=== PATIENT | female | born 1965 | race Hispanic/Latino ===

== ENCOUNTER 2021-07-21 17:05 | Emergency (ER) | payer OTHER ==
[2021-07-21 21:40] LABS: SARS-COV-2 RT PCR POSITIVE (NEGATIVE)
[2021-07-21] MEDS ORDERED: BENZONATATE 100 MG CAP PO ONE (21:50)
--- NOTE | 2021-07-21 22:23 | EDPHYS ---
Physician Documentation [facility] Name: Nahomi Soto Age: 55 yrs Sex: Female : 1965 Arrival Date: 07/21/2021 Time: 17:07 Bed 18 Private MD: Zaid Branch ED Physician Alec Delgado HPI: 07/21 21:20 This 55 yrs old Female presents to ER via Wheelchair with complaints of cp Shortness Of Breath, Cough, Headache, Fever, Sore Throat. 21:20 The patient or guardian reports cough, that is intermittent, shortness of breath. cp 21:20 Onset: The symptoms/episode began/occurred 3 day(s) ago. Associated signs and symptoms: cp Pertinent positives: fever, sore throat, headache, body aches, Pertinent negatives: chest pain, diarrhea, vomiting. Severity of symptoms: in the emergency department the symptoms are unchanged despite home interventions. Patient reports family member recently tested positive for COVID-19. 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 - Social history:: Smoking status: Patient reports the use of cigarette tobacco products, smokes one pack cigarettes per day. ROS: 21:25 Constitutional: Positive for body aches, Negative for fever, poor PO intake. cp 21:25 Eyes: Negative for injury, pain, redness, and discharge. cp 21:25 ENT: Positive for sore throat, Negative for drainage from ear(s), ear pain, difficulty swallowing, difficulty handling secretions. 21:25 Cardiovascular: Negative for chest pain, edema, palpitations. 21:25 Respiratory: Positive for cough, "sounds productive", shortness of breath, Negative for wheezing. 21:25 Abdomen/GI: Negative for abdominal pain, nausea, vomiting, and diarrhea. 21:25 Skin: Negative for rash. 21:25 Neuro: Positive for headache, Negative for altered mental status, weakness. 21:25 All other systems are negative. Exam: 21:28 Constitutional: The patient appears in no acute distress, alert, awake, cp non-diaphoretic, non-toxic, well developed, well nourished, obese. 21:28 Head/Face: Normocephalic, atraumatic. cp 21:28 Eyes: Periorbital structures: appear normal, Conjunctiva: normal, no exudate, no injection, Sclera: no appreciated abnormality, Lids and lashes: appear normal, bilaterally. 21:28 ENT: External ear(s): are unremarkable, Nose: is normal, Mouth: Lips: moist, Oral mucosa: moist, Posterior pharynx: Airway: no evidence of obstruction, patent, Tonsils: are normal in appearance, Uvula: midline, erythema, that is mild, exudate, is not appreciated, Voice: is normal. 21:28 Neck: ROM/movement: is normal, is supple, without pain, no range of motions limitations, no meningismus. 21:28 Chest/axilla: Inspection: normal. 21:28 Cardiovascular: Rate: normal, Rhythm: regular, Edema: is not appreciated, JVD: is not appreciated. 21:28 Respiratory: the patient does not display signs of respiratory distress, Respirations: normal, no use of accessory muscles, no retractions, labored breathing, is not present, Breath sounds: decreased breath sounds, are not appreciated, stridor, is not appreciated, + upper airway congestion. wheezing: is not appreciated. 21:28 Abdomen/GI: Exam negative for discomfort, distension, guarding, Inspection: obese 21:28 Skin: no rash present. 21:28 Neuro: Orientation: to person, place \\T\\ time. Mentation: is normal. Vital Signs: 19:04 BP 135 / 88; Pulse 89; Resp 18; Temp 97.0; Pulse Ox 98% ; Weight 119.29 kg; Height 5 ll1 ft. 4 in. (162.56 cm); Pain 7/10; 19:04 Body Mass Index 45.14 (119.29 kg, 162.56 cm) ll1 MDM: 20:55 Patient medically screened. cp 22:00 Differential diagnosis: bronchitis, flu, URI, strep, COVID-19. cp 22:21 Data reviewed: vital signs, nurses notes, lab test result(s). cp 22:21 Counseling: I had a detailed discussion with the patient and/or guardian regarding: the cp historical points, exam findings, and any diagnostic results supporting the discharge/admit diagnosis, lab results, to return to the emergency department if symptoms worsen or persist or if there are any questions or concerns that arise at home. ED course: VSS. Patient appears non-toxic and no signs of respiratory distress. Will discharge to home for continued monitoring. 07/21 20:47 Order name: COVID-19/FLU A+B (Document "Date of Onset" if Symptomatic); Complete Time: mw2 22:06 07/21 22:06 Interpretation: Reviewed. cp Administered Medications: 21:51 Drug: Tessalon Perle (benzonatate) 200 mg Route: PO; sv1 22:56 Follow up: Response: No adverse reaction sv1 Disposition Summary: 07/21/21 22:22 Discharge Ordered Location: Home cp Problem: new cp Symptoms: have improved cp Condition: Stable cp Diagnosis - SARS-associated coronavirus as the cause of diseases classified elsewhere cp Followup: cp - With: Private Physician - When: 2 - 3 days - Reason: Worsening of condition Discharge Instructions: - Discharge Summary Sheet cp - Aspirin and Your Heart cp - Form - Excuse from Work, School, or Physical Activity cp - COVID-19 cp - Things to Know about the COVID-19 Pandemic - [facility] cp - 10 Things You Can Do to Manage Your COVID-19 Symptoms at Home - [facility] cp - COVID-19: Quarantine vs. Isolation - [facility] cp - Prevent the Spread of COVID-19 if You Are Sick - [facility] cp Forms: - Medication Reconciliation Form cp - Thank You Letter cp - Antibiotic Education cp - Prescription Opioid Use cp Prescriptions: - Tessalon Perles 100 mg Oral Capsule - take 2 capsule by ORAL route every 8 hours As needed; 30 capsule; Refills: 0, cp Product Selection Permitted Addendum: 07/23/2021 19:04 Co-signature as Attending Physician, Alec rodriguez Signatures: Dispatcher [employer] EDMS Alec Delgado MD MD pkl Page, Corey, PA PA cp Renu Price, RN RN ll1 Alexx Lo RN RN sv1
--- NOTE | 2021-07-21 22:23 | ER ---
Nurse's Notes [facility] Name: Nahomi Soto Age: 55 yrs Sex: Female : 1965 Arrival Date: 07/21/2021 Time: 17:07 Bed 18 Private MD: Zaid Branch Diagnosis: SARS-associated coronavirus as the cause of diseases classified elsewhere Presentation: 07/21 19:04 Chief complaint: Patient states: Body aches, cough, JOHN, fever for 3 days. Coronavirus ll1 screen: Vaccine status: Patient reports receiving the 2nd dose of the covid vaccine. Client denies travel out of the [place] in the last 14 days. cough unrelated to allergies, fatigue, fever, headache, muscle pain, nausea, sore throat, Client presents with at least one sign or symptom that may indicate coronavirus-19. Standard/surgical mask placed on the client. Ebola Screen: Patient denies travel to an Ebola-affected area in the 21 days before illness onset. Initial Sepsis Screen: Does the patient meet any 2 criteria? No. Patient's initial sepsis screen is negative. Does the patient have a suspected source of infection? Yes: Productive cough/pneumonia. Risk Assessment: Do you want to hurt yourself or someone else? Patient reports no desire to harm self or others. Onset of symptoms was July 19, 2021. 19:04 Method Of Arrival: Wheelchair ll1 19:04 Acuity: GIRISH 3 ll1 Triage Assessment: 22:59 General: Appears ill. Pain: Denies pain. Respiratory: Reports cough that is Onset: The sv1 symptoms/episode began/occurred gradually, the patient has moderate shortness of breath. 23:00 General: Behavior is calm, cooperative, appropriate for age. 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 - Social history:: Smoking status: Patient reports the use of cigarette tobacco products, smokes one pack cigarettes per day. Screenin:57 Abuse screen: none. Nutritional screening: No deficits noted. Tuberculosis screening: sv1 No symptoms or risk factors identified. Fall Risk Ambulatory Aid-. Assessment: 22:58 Cardiovascular: No deficits noted. Respiratory: Airway is patent. sv1 22:58 Cardiovascular: Rhythm is regular. sv1 23:00 Respiratory: Breath sounds are clear. sv1 23:01 Respiratory: No deficits noted. Respiratory effort is. sv1 Vital Signs: 19:04 BP 135 / 88; Pulse 89; Resp 18; Temp 97.0; Pulse Ox 98% ; Weight 119.29 kg; Height 5 ll1 ft. 4 in. (162.56 cm); Pain 7/10; 19:04 Body Mass Index 45.14 (119.29 kg, 162.56 cm) ll1 ED Course: 17:07 Patient arrived in ED. mr 17:07 Zaid Branch MD is Private Physician. mr 19:06 Triage completed. ll1 19:08 Arm band placed on. ll1 20:46 [facility]. cp 20:46 Alec Delgado MD is Attending Physician. cp 21:44 Alexx Lo, RN is Primary Nurse. sv1 22:57 Patient has correct armband on for positive identification. Bed in low position. Call sv1 light in reach. Side rails up X 1. Adult w/ patient. 22:57 No provider procedures requiring assistance completed. Patient did not have IV access sv1 during this emergency room visit. Administered Medications: 21:51 Drug: Tessalon Perle (benzonatate) 200 mg Route: PO; sv1 22:56 Follow up: Response: No adverse reaction sv1 Outcome: 22:22 Discharge ordered by . cp 22:57 Discharged to home ambulatory. sv1 22:57 Condition: stable 22:57 Discharge instructions given to patient, family. 23:01 Patient left the ED. sv1 Signatures: Maru Virgen mr Bob Hawkins PA PA cp Renu Price RN RN 1 Alexx Lo RN RN sv1
[2021-07-21 23:06] VITALS: BP 135/88; TEMP 97; O2SAT 98
== END 2021-07-21 23:01 | disposition home or self-care (01) ==
LOC: ER 17:05
DX: U07.1 COVID-19 (principal); I10 Essential (primary) hypertension; F17.210 Nicotine dependence, cigarettes, uncomplicated
CPT/HCPCS: 0240U; 99283

== ENCOUNTER 2021-10-11 19:13 | Emergency (ER) | payer OTHER ==
--- NOTE | 2021-10-11 21:16 | RAD REPORT ---
EXAM DESCRIPTION: RAD - Chest Pa And Lat (2 Views) - 10/11/2021 8:54 pm CLINICAL HISTORY: Cough;Fever COMPARISON: No comparisons FINDINGS: Lines: None. Lungs: No evidence of edema or pneumonia. Pleural: No significant pleural effusions or pneumothorax. Cardiac: The heart size is within normal limits. Bones: No acute fractures. Other: IMPRESSION: No acute cardiopulmonary disease.
--- NOTE | 2021-10-11 22:41 | ER ---
Nurse's Notes [facility] Name: Nahomi Soto Age: 55 yrs Sex: Female : 1965 Arrival Date: 10/11/2021 Time: 20:03 Bed 5 Private MD: Diagnosis: Acute upper respiratory infection, unspecified Presentation: 10/11 20:41 Chief complaint: Patient states: SOB X 1 week. Pt states today it got worse. SpO2 94% ld1 RA. Coronavirus screen: At this time, the client does not indicate any symptoms associated with coronavirus-19. Ebola Screen: No symptoms or risks identified at this time. Initial Sepsis Screen: Does the patient meet any 2 criteria? No. Patient's initial sepsis screen is negative. Does the patient have a suspected source of infection? No. Patient's initial sepsis screen is negative. Risk Assessment: Do you want to hurt yourself or someone else? Patient reports no desire to harm self or others. Onset of symptoms was October 11, 2021. 20:41 Method Of Arrival: Wheelchair ld1 20:41 Acuity: GIRISH 3 ld1 Triage Assessment: 20:43 General: Appears in no apparent distress. comfortable, Behavior is calm, cooperative, ld1 appropriate for age. Pain: Denies pain. Neuro: Level of Consciousness is awake, alert, obeys commands, Oriented to person, place, time, situation, Appropriate for age. Cardiovascular: Capillary refill < 3 seconds Patient's skin is warm and dry. Respiratory: Reports shortness of breath at rest on exertion Airway is patent Respiratory effort is even, unlabored, Respiratory pattern is regular, symmetrical, Breath sounds are clear bilaterally. Onset: The symptoms/episode began/occurred 1 week, the patient has moderate shortness of breath. 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 - Social history:: Smoking status: Patient reports the use of cigarette tobacco products, smokes one pack cigarettes per day. Patient/guardian denies using alcohol, street drugs. Vital Signs: 20:41 BP 141 / 66; Pulse 87; Resp 19; Temp 98.3(TE); Pulse Ox 93% on R/A; Weight 123.83 kg; ld1 Height 5 ft. 4 in. (162.56 cm); Pain 0/10; 20:41 Body Mass Index 46.86 (123.83 kg, 162.56 cm) ld1 ED Course: 20:03 Patient arrived in ED. jj6 20:28 Juan Mills NP is PHCP. pm1 20:28 Ayden Park DO is Attending Physician. pm1 20:43 Triage completed. ld1 20:43 Arm band placed on right wrist. ld1 20:54 Chest Pa And Lat (2 Views) XRAY In Process Unspecified. EDMS 22:38 Naomi Haddad is Primary Nurse. tw5 22:49 Primary Nurse role handed off by Naomi Haddad lp1 Administered Medications: No medications were administered Outcome: 22:40 Patient left the ED. ld1 23:13 Patient left the ED. ld1 Signatures: Dispatcher [employer] EDIL Brionna Huffman RN RN lp1 Juan Mills NP FLATWORK PRESSER pm1 Lucille Mendoza, RN RN ld1 Naomi Haddad tw5 Ingrid Gill jj6 Corrections: (The following items were deleted from the chart) 21:46 20:41 BP 141 / 66; Pulse 87bpm; Resp 19bpm; Temp 98.3F Temporal; 123.83 kg; Height 5 ld1 ft. 4 in.; BMI: 46.8; Pain 0/10; ld1
[2021-10-11 22:54] VITALS: BP 141/66; TEMP 98.3; O2SAT 93
--- NOTE | 2021-10-11 23:14 | EDPHYS ---
Physician Documentation [facility] Name: Nahomi Soto Age: 55 yrs Sex: Female : 1965 Arrival Date: 10/11/2021 Time: 20:03 Bed 5 Private MD: ED Physician Ayden Park HPI: 10/11 20:36 This 55 yrs old Female presents to ER via Wheelchair with complaints of pm1 Shortness Of Breath. 20:36 The patient or guardian reports cough. Onset: The symptoms/episode began/occurred 1 pm1 week(s) ago. Severity of symptoms: in the emergency department the symptoms are actually worse. Modifying factors: The symptoms are alleviated by nothing, the symptoms are aggravated by nothing. Associated signs and symptoms: Pertinent negatives: chest pain, fever, nausea, vomiting. The patient has not experienced similar symptoms in the past. The patient has not recently seen a physician. 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 - Social history:: Smoking status: Patient reports the use of cigarette tobacco products, smokes one pack cigarettes per day. Patient/guardian denies using alcohol, street drugs. ROS: 20:36 Constitutional: Negative for fever, chills, and weight loss, Cardiovascular: Negative pm1 for chest pain, palpitations, and edema. 20:36 Abdomen/GI: Negative for abdominal pain, nausea, vomiting, diarrhea, and constipation, Back: Negative for injury and pain, MS/Extremity: Negative for injury and deformity, Skin: Negative for injury, rash, and discoloration, Neuro: Negative for headache, weakness, numbness, tingling, and seizure. 20:36 Respiratory: Positive for cough, shortness of breath, Negative for wheezing. 20:36 All other systems are negative. Exam: 20:36 Constitutional: This is a well developed, well nourished patient who is awake, alert, pm1 and in no acute distress. Head/Face: Normocephalic, atraumatic. 20:36 Back: No spinal tenderness. No costovertebral tenderness. Full range of motion. Skin: Warm, dry with normal turgor. Normal color with no rashes, no lesions, and no evidence of cellulitis. MS/ Extremity: Pulses equal, no cyanosis. Neurovascular intact. Full, normal range of motion. 20:36 Eyes: Exam is negative for acute changes, Extraocular movements: intact throughout, Conjunctiva: no acute changes, no injection. 20:36 ENT: Exam is negative for acute changes, Mouth: Lips: normal, moist, Oral mucosa: normal, pink and intact, moist. 20:36 Cardiovascular: Exam negative for acute changes, Rate: normal, Rhythm: regular, Pulses: no pulse deficits are appreciated, Heart sounds: normal, normal S1and S2. 20:36 Respiratory: Exam negative for acute changes, respiratory distress, shortness of breath, Breath sounds: are clear throughout. 20:36 Neuro: Exam negative for acute changes, Orientation: is normal, Mentation: is normal, Motor: is normal, moves all fours. Vital Signs: 20:41 BP 141 / 66; Pulse 87; Resp 19; Temp 98.3(TE); Pulse Ox 93% on R/A; Weight 123.83 kg; ld1 Height 5 ft. 4 in. (162.56 cm); Pain 0/10; 20:41 Body Mass Index 46.86 (123.83 kg, 162.56 cm) ld1 MDM: 20:36 Patient medically screened. pm1 20:36 Data reviewed: vital signs. Data interpreted: Pulse oximetry: on room air is 93 %. pm1 Interpretation: normal. 22:54 ED course: Patient left after being seen by ER provider. pm1 10/11 20:35 Order name: Chest Pa And Lat (2 Views) XRAY; Complete Time: 21:23 pm1 Administered Medications: No medications were administered Disposition: 10/12 04:08 Co-signature as Attending Physician, Ayden Park DO I agree with the assessment and ms3 plan of care. Disposition Summary: 10/11/21 22:40 Eloped Reason: unknown ld1 Disposition: after being seen by provider(10/11/21 22:55) pm1 Problem: new pm1 Symptoms: are unchanged pm1 Condition: Undetermined pm1 Diagnosis - Acute upper respiratory infection, unspecified pm1 Followup: pm1 - With: Emergency Department - When: As needed - Reason: Worsening of condition Followup: pm1 - With: Private Physician - When: 2 - 3 days - Reason: Recheck today's complaints, Continuance of care, Re-evaluation by your physician Signatures: Dispatcher [employer] EDMS Juan Mills, KENNY SECURITY SOFTWARE ENGINEER pm1 Ayden Park DO DO ms3 Lucille Mendoza, RN RN ld1 Corrections: (The following items were deleted from the chart) 10/11 22:55 22:40 Before Triage ld1 pm1
== END 2021-10-11 23:13 | disposition left against medical advice (07) ==
LOC: ER 19:13
DX: R05.9 Cough, unspecified (principal); E11.9 Type 2 diabetes mellitus without complications; F17.210 Nicotine dependence, cigarettes, uncomplicated; I10 Essential (primary) hypertension
CPT/HCPCS: 71046; 99282

== ENCOUNTER 2022-01-25 23:10 | Inpatient (IN) | payer OTHER ==
[2022-01-25] MEDS ORDERED: NA CHLORIDE 0.9% 1,000 ML ONE (23:42)
[2022-01-25 23:57] LABS: Absolute Lymphocytes (CBC) 1.8 K/uL (0.7-4.9); Hematocrit 39.1 % (36.0-45.0); Lymphocytes % 21.3 % (15.3-44.8); MCV 87.9 fL (80-100); MPV 7.9 fL (7.6-11.3); RBC Red Blood Cell Count 4.45 M/uL (3.86-4.86)
[2022-01-25 23:58] LABS: Protime INR 1.12
[2022-01-26 00:14] LABS: Albumin 2.3 g/dL (3.4-5.0); Bilirubin Direct 0.4 mg/dL (0-0.2); Bilirubin Total 0.6 mg/dL (0.2-1.0); Magnesium 1.8 mg/dL (1.8-2.4); Potassium 2.7 mmol/L (3.5-5.1); Protein, Total 5.2 g/dL (6.4-8.2); Troponin High Sensitivity 6.5 pg/mL (<58.9)
--- NOTE | 2022-01-26 00:35 | EDPHYS ---
Physician Documentation [facility] Name: Nahomi Soto Age: 56 yrs Sex: Female : 1965 Arrival Date: 01/25/2022 Time: 23:14 Bed 18 Private MD: SHERLY Physician Bob Newman HPI: 01/26 00:28 This 56 yrs old Female presents to ER via Unassigned with complaints of jeri Diarrhea. 00:28 The patient presents to the emergency department with nausea, vomiting, diarrhea, jeri abdominal pain, of the right upper quadrant, left upper quadrant, right lower quadrant and left lower quadrant. Onset: The symptoms/episode began/occurred 3 day(s) ago. Possible causes: unknown. The symptoms are aggravated by nothing. The symptoms are alleviated by nothing. Associated signs and symptoms: The patient has no apparent associated signs or symptoms. Severity of symptoms: At their worst the symptoms were mild moderate in the emergency department the symptoms are unchanged. The patient has not experienced similar symptoms in the past. Historical: - Allergies: 01:40 No Known Allergies; vc1 - Home Meds: 01:41 duloxetine 60 mg oral CDRS 1 cap once daily [Active]; trazodone 100 mg oral tab 1 tab vc1 nightly [Active]; pregabalin 75 mg Oral cap 1 cap 3 times per day [Active]; rosuvastatin 5 mg oral tab 1 tab once daily [Active]; esomeprazole magnesium 40 mg oral cpDR 1 cap once daily [Active]; fenofibric acid (choline) 135 mg oral cpDR 1 cap nightly [Active]; amlodipine 10 mg tab 1 tab once daily [Active]; tizanidine 4 mg oral cap 1 cap 3 times per day [Active]; Vitamin D Oral 2000 unit daily [Active]; Tradjenta 5 mg oral tab 1 tab once daily [Active]; Myrbetriq 50 mg oral Tb24 1 tab once daily [Active]; Symbicort 160-4.5 mcg/actuation inhalation HFAA 2 puffs 2 times per day [Active]; - PMHx: 01:40 Arthritis; diabetes mellitus; Hypercholesterolemia; Hypertensive disorder; insomnia; vc1 - PSHx: 01:40 Colostomy reversal; cyst removal and colon SX; vc1 - Immunization history:: Adult Immunizations up to date, Client reports receiving the 2nd dose of the Covid vaccine. - Family history:: not pertinent. - Social history:: Smoking status: Patient reports the use of cigarette tobacco products, smokes two packs cigarettes per day. ROS: 00:28 Constitutional: Negative for fever, chills, and weight loss, Eyes: Negative for injury, jeri pain, redness, and discharge, ENT: Negative for injury, pain, and discharge, Neck: Negative for injury, pain, and swelling, Cardiovascular: Negative for chest pain, palpitations, and edema, Respiratory: Negative for shortness of breath, cough, wheezing, and pleuritic chest pain, Back: Negative for injury and pain, : Negative for injury, bleeding, discharge, and swelling, MS/Extremity: Negative for injury and deformity, Skin: Negative for injury, rash, and discoloration, Neuro: Negative for headache, weakness, numbness, tingling, and seizure. 00:28 Abdomen/GI: Positive for abdominal pain, nausea and vomiting, diarrhea. Exam: 00:28 Constitutional: This is a well developed, well nourished patient who is awake, alert, jeri and in no acute distress. Head/Face: Normocephalic, atraumatic. Eyes: Pupils equal round and reactive to light, extra-ocular motions intact. Lids and lashes normal. Conjunctiva and sclera are non-icteric and not injected. Cornea within normal limits. Periorbital areas with no swelling, redness, or edema. ENT: Nares patent. No nasal discharge, no septal abnormalities noted. Tympanic membranes are normal and external auditory canals are clear. Oropharynx with no redness, swelling, or masses, exudates, or evidence of obstruction, uvula midline. Mucous membranes moist. Neck: Trachea midline, no thyromegaly or masses palpated, and no cervical lymphadenopathy. Supple, full range of motion without nuchal rigidity, or vertebral point tenderness. No Meningismus. Chest/axilla: Normal chest wall appearance and motion. Nontender with no deformity. No lesions are appreciated. Cardiovascular: Regular rate and rhythm with a normal S1 and S2. No gallops, murmurs, or rubs. Normal PMI, no JVD. No pulse deficits. Respiratory: Lungs have equal breath sounds bilaterally, clear to auscultation and percussion. No rales, rhonchi or wheezes noted. No increased work of breathing, no retractions or nasal flaring. Back: No spinal tenderness. No costovertebral tenderness. Full range of motion. Skin: Warm, dry with normal turgor. Normal color with no rashes, no lesions, and no evidence of cellulitis. MS/ Extremity: Pulses equal, no cyanosis. Neurovascular intact. Full, normal range of motion. Neuro: Awake and alert, GCS 15, oriented to person, place, time, and situation. Cranial nerves II-XII grossly intact. Motor strength 5/5 in all extremities. Sensory grossly intact. Cerebellar exam normal. Normal gait. Psych: Awake, alert, with orientation to person, place and time. Behavior, mood, and affect are within normal limits. 00:28 ECG was reviewed by the Attending Physician. 00:28 Abdomen/GI: Inspection: abdomen appears normal, Bowel sounds: normal, Palpation: mild abdominal tenderness, in the right upper quadrant and right lower quadrant, Liver: no appreciated palpable abnormalities, Hernia: noted in the umbilical area, incarceration, is not appreciated, tenderness, is not appreciated. Vital Signs: 01/25 23:15 BP 136 / 69; Pulse 83; Resp 24; Temp 98.3(O); Pulse Ox 95% ; Weight 120.2 kg; Height 5 vc1 ft. 4 in. (162.56 cm); Pain 6/10; 01/26 02:23 BP 119 / 69; Pulse 91; Resp 20; Pulse Ox 96% ; vc1 01/25 23:15 Body Mass Index 45.49 (120.20 kg, 162.56 cm) vc1 MDM: 01/25 23:16 Patient medically screened. jeri 01/26 00:31 Differential diagnosis: Nonspecific abd pain, gastritis, cholecystitis, pancreatitis, jeri appendicitis, diverticulitis, viral gastroenteritis, gastroenteritis. Data reviewed: vital signs, nurses notes, lab test result(s), EKG, radiologic studies, plain films. Data interpreted: decision science analyst: rate is 83 beats/min, rhythm is regular, Pulse oximetry: on room air is 96 %. Test interpretation: by ED physician or midlevel provider: ECG, plain radiologic studies. Counseling: I had a detailed discussion with the patient and/or guardian regarding: the historical points, exam findings, and any diagnostic results supporting the discharge/admit diagnosis, lab results, radiology results, the need for further work-up and treatment in the hospital. 01/25 23:16 Order name: Basic Metabolic Panel; Complete Time: 00:20 [facility] 01/25 23:16 Order name: CBC with Diff; Complete Time: 00:20 [facility] 01/25 23:16 Order name: LFT's; Complete Time: 00:20 [facility] 01/25 23:16 Order name: Magnesium; Complete Time: 00:20 [facility] 01/25 23:16 Order name: NT PRO-BNP; Complete Time: 00:20 [facility] 01/25 23:16 Order name: PT-INR; Complete Time: 00:20 [facility] 01/25 23:16 Order name: Troponin HS; Complete Time: 00:20 [facility] 01/25 23:16 Order name: XRAY Chest (1 view) [facility] 01/25 23:16 Order name: Lipase; Complete Time: 00:20 [facility] 01/25 23:16 Order name: Fecal Leukocyte Stain [facility] 01/25 23:16 Order name: Occult Blood [facility] 01/25 23:16 Order name: Stool Culture [facility] 01/25 23:16 Order name: Lactate; Complete Time: 00:20 [facility] 01/25 23:17 Order name: SARS-COV-2 RT PCR (Document "Date of Onset" if Symptomatic); Complete Time: [facility] 00:48 01/25 23:16 Order name: EKG; Complete Time: 23:18 [facility] 01/25 23:16 Order name: Cardiac monitoring; Complete Time: 00:10 [facility] 01/25 23:16 Order name: EKG - Nurse/Tech; Complete Time: 00:10 [facility] 01/25 23:16 Order name: IV Saline Lock; Complete Time: 23:45 [facility] 01/25 23:16 Order name: Labs collected and sent; Complete Time: 23:45 [facility] 01/25 23:16 Order name: O2 Per Protocol; Complete Time: 00:10 [facility] 01/25 23:16 Order name: O2 Sat Monitoring; Complete Time: 00:10 [facility] 01/26 00:28 Order name: CT Abd/Pelvis - IV Contrast Only [facility] EC:28 Rate is 83 beats/min. Rhythm is regular. QRS [place] is Normal. ME interval is normal. QRS jeri interval is normal. QT interval is prolonged at 500 msec. No Q waves. T waves are Inverted in leads II, III, aVF, V1, V2, V3, V4, V5, V6. Clinical impression: NSR w/ Non-specific ST/T Changes. Interpreted by me. Reviewed by me. Administered Medications: 01/25 23:41 Drug: NS 0.9% 1000 ml Route: IV; Rate: 1 bolus; Site: right antecubital; jb4 01/26 00:52 Drug: Potassium Effervescent Tablet 50 mEq Route: PO; vc1 00:52 Drug: Potassium Chloride 20 mEq Route: IV; Rate: per protocol; Site: right antecubital; vc1 00:52 Drug: NS 0.9% with KCl 20 mEq/L 1000 ml Route: IV; Rate: 125 ml/hr; Site: right vc1 antecubital; 01:05 Drug: morphine 4 mg Route: IVP; Infused Over: 4 mins; Site: right antecubital; vc1 01:05 Drug: Zofran (Ondansetron) 4 mg Route: IVP; Site: right antecubital; vc1 Disposition Summary: 01/26/22 00:34 Hospitalization Ordered Hospitalization Status: Observation jeri Provider: Martín Abdalla cha Location: Telemetry/MedSurg (observation) jeri Condition: Stable jeri Problem: new jeri Symptoms: have improved jeri Bed/Room Type: Standard [facility] Room Assignment: 217(01/26/22 01:22) mw Diagnosis - Abdominal pain, Generalized jeri - Ventral hernia without obstruction or gangrene jeri - Obesity, unspecified jeri - Vomiting jeri - Diarrhea, unspecified jeri - Weakness jeri - Hypokalemia jeri Forms: - Medication Reconciliation Form jeri - SBAR form jeri Signatures: Dispatcher [employer] EDMS Anna Rizvi RN RN Bob Szymanski MD MD cha Bryson, James, RN RN jb4 Genny Rosa RN RN vc1 Lyndsey Hood PA PA sb3 Corrections: (The following items were deleted from the chart) 00:34 jeri estevez
--- NOTE | 2022-01-26 00:35 | ER ---
Nurse's Notes [facility] Name: Nahomi Soto Age: 56 yrs Sex: Female : 1965 Arrival Date: 01/25/2022 Time: 23:14 Bed 18 Private MD: Diagnosis: Abdominal pain, Generalized;Ventral hernia without obstruction or gangrene;Obesity, unspecified;Vomiting;Diarrhea, unspecified;Weakness;Hypokalemia Presentation: 01/25 23:15 Chief complaint: Patient states: "Pt c/o vomiting and diarrhea for the last month, she vc1 says she hasn't been able to eat for the last 3 days. No blood in stools, large hiatel hernia. She states abdominal pain is a 6/10 worsens with movement and she also gets dizzy.". 23:15 Coronavirus screen: Vaccine status: Patient reports receiving the 2nd dose of the covid vc1 vaccine. Moderna diarrhea, vomiting. Client presents with at least one sign or symptom that may indicate coronavirus-19. Standard/surgical mask placed on the client. Provider contacted for isolation considerations. Ebola Screen: No symptoms or risks identified at this time. Initial Sepsis Screen: Does the patient meet any 2 criteria? RR > 20 per min. No. Patient's initial sepsis screen is negative. Does the patient have a suspected source of infection? Yes: Acute abdominal pain. Risk Assessment: Do you want to hurt yourself or someone else? Patient reports no desire to harm self or others. Onset of symptoms is unknown. 23:15 Method Of Arrival: EMS: [facility] vc1 23:15 Acuity: GIRISH 3 vc1 Triage Assessment: 23:15 General: Appears in no apparent distress. uncomfortable, obese, Behavior is calm, vc1 cooperative, appropriate for age. Pain: Complains of pain in umbilical area and left lower quadrant and right lower quadrant and left upper quadrant and right upper quadrant Pain does not radiate. Pain currently is 6 out of 10 on a pain scale. Pain: Aggravated by eating, drinking, increased activity, repositioning, Noted to be grimacing, Also complains of decreased appetite, nausea. EENT: No deficits noted. Neuro: Level of Consciousness is awake, alert, obeys commands, Oriented to person, place, time, situation, Appropriate for age. Cardiovascular: Capillary refill < 3 seconds Patient's skin is warm and dry. Respiratory: Airway is patent Respiratory effort is even, unlabored, Respiratory pattern is symmetrical, tachypnea. GI: Abdomen is round obese, large hernia Reports lower abdominal pain, upper abdominal pain, diarrhea, epigastric pain, nausea, Patient currently denies bloody stool. : No deficits noted. Derm: No deficits noted. Musculoskeletal: No deficits noted. Historical: - Allergies: 01/26 01:40 No Known Allergies; vc1 - Home Meds: 01:41 duloxetine 60 mg oral CDRS 1 cap once daily [Active]; trazodone 100 mg oral tab 1 tab vc1 nightly [Active]; pregabalin 75 mg Oral cap 1 cap 3 times per day [Active]; rosuvastatin 5 mg oral tab 1 tab once daily [Active]; esomeprazole magnesium 40 mg oral cpDR 1 cap once daily [Active]; fenofibric acid (choline) 135 mg oral cpDR 1 cap nightly [Active]; amlodipine 10 mg tab 1 tab once daily [Active]; tizanidine 4 mg oral cap 1 cap 3 times per day [Active]; Vitamin D Oral 2000 unit daily [Active]; Tradjenta 5 mg oral tab 1 tab once daily [Active]; Myrbetriq 50 mg oral Tb24 1 tab once daily [Active]; Symbicort 160-4.5 mcg/actuation inhalation HFAA 2 puffs 2 times per day [Active]; - PMHx: 01:40 Arthritis; diabetes mellitus; Hypercholesterolemia; Hypertensive disorder; insomnia; vc1 - PSHx: 01:40 Colostomy reversal; cyst removal and colon SX; vc1 - Immunization history:: Adult Immunizations up to date, Client reports receiving the 2nd dose of the Covid vaccine. - Family history:: not pertinent. - Social history:: Smoking status: Patient reports the use of cigarette tobacco products, smokes two packs cigarettes per day. Screenin/03 23:15 Abuse screen: Denies threats or abuse. Nutritional screening: Has had N/V for 3 or more vc1 days. Tuberculosis screening: No symptoms or risk factors identified. Fall Risk None identified. Assessment: 23:15 Reassessment: See triage assessment. vc1 01/26 00:20 Reassessment: Patient and/or family updated on plan of care and expected duration. Pain vc1 level reassessed. Patient is alert, oriented x 3, equal unlabored respirations, skin warm/dry/pink. 01:20 Reassessment: Patient and/or family updated on plan of care and expected duration. Pain vc1 level reassessed. Patient is alert, oriented x 3, equal unlabored respirations, skin warm/dry/pink. Vital Signs: 01/25 23:15 BP 136 / 69; Pulse 83; Resp 24; Temp 98.3(O); Pulse Ox 95% ; Weight 120.2 kg; Height 5 vc1 ft. 4 in. (162.56 cm); Pain 6/10; 01/26 02:23 BP 119 / 69; Pulse 91; Resp 20; Pulse Ox 96% ; vc1 01/25 23:15 Body Mass Index 45.49 (120.20 kg, 162.56 cm) vc1 ED Course: 01/25 23:14 Patient arrived in ED. wm 23:15 Bob Newman MD is Attending Physician. jeri 23:15 Arm band placed on right wrist. vc1 23:15 Patient has correct armband on for positive identification. Bed in low position. Call vc1 light in reach. Client placed on continuous cardiac and pulse oximetry monitoring. NIBP monitoring applied. 23:19 Miguel A Christopher RN is Primary Nurse. ke1 23:45 Maintain EMS IV. Dressing intact. Site clean \\T\\ dry. Gauge \\T\\ site: 20 g R AC. ke 1 23:46 SARS-COV-2 RT PCR (Document "Date of Onset" if Symptomatic) Sent. ke1 23:53 XRAY Chest (1 view) In Process Unspecified. EDMS 01/26 00:14 Notified ED physician of a critical lab result(s). Potassium 2.7. lp1 00:33 Martín Abdalla MD is Hospitalizing Provider. jeri 01:37 Triage completed. vc1 02:21 No provider procedures requiring assistance completed. Patient admitted, IV remains in vc1 place. Administered Medications: 01/25 23:41 Drug: NS 0.9% 1000 ml Route: IV; Rate: 1 bolus; Site: right antecubital; jb4 01/26 00:52 Drug: Potassium Effervescent Tablet 50 mEq Route: PO; vc1 00:52 Drug: Potassium Chloride 20 mEq Route: IV; Rate: per protocol; Site: right antecubital; vc1 00:52 Drug: NS 0.9% with KCl 20 mEq/L 1000 ml Route: IV; Rate: 125 ml/hr; Site: right vc1 antecubital; 01:05 Drug: morphine 4 mg Route: IVP; Infused Over: 4 mins; Site: right antecubital; vc1 01:05 Drug: Zofran (Ondansetron) 4 mg Route: IVP; Site: right antecubital; vc1 Medication: 01:40 VIS not applicable for this client. vc1 Outcome: 00:34 Decision to Hospitalize by Provider. jeri 02:21 Admitted to Med/surg accompanied by tech, with chart, Report called to CONY Isaacs vc1 02:21 Condition: stable 02:21 Instructed on the need for admit. 02:23 Patient left the ED. vc1 Signatures: Dispatcher [employer] EDBob Dee MD MD cha Pena, Laura, RN RN lp1 Patrick Mclain RN RN jb4 Karolyn Case Vanessa RN RN vc1 Miguel A Christopher RN RN ke1
[2022-01-26] MEDS ORDERED: POTASSIUM 25 MEQ EFFERV TAB ONE (00:47)
[2022-01-26] MEDS ORDERED: KCL 20 MEQ/100 mL IVPB 100 ML IV ONE (00:48)
[2022-01-26] MEDS ORDERED: NS KCL 20MEQ 1,000 ML IV ONE (00:48)
[2022-01-26] MEDS ORDERED: MORPHINE 4 MG/ML SYR ONE (01:03)
[2022-01-26] MEDS ORDERED: ONDANSETRON 4 MG/2 ML VIAL ONE (01:04)
--- NOTE | 2022-01-26 01:27 | P.HP ---
Certification for Inpatient Patient admitted to: Observation With expected LOS: <2 Midnights Patient will require the following post-hospital care: None Practitioner: I am a practitioner with admitting privileges, knowledge of patient current condition, hospital course, and medical plan of care. Services: Services provided to patient in accordance with Admission requirements found in Title 42 Section 412.3 of the Code of Federal Regulations Patient History Date of Service: 01/26/22 Reason for admission: Diarrhea, Hypokalemia History of Present Illness: Patient is a 56 y/o F with PMH of HTN, NIDDM, COPD, GERD who presented to the ED with complaints of nausea, vomiting, diarrhea, and abdominal pain for 3 days. She reports she has not been able to hold anything down. She denies blood in her vomit or stool. She denies any sick contacts. Labs significant for potassium of 2.9. CT abd pelv showed possible early small bowel obstruction with a transition at the level of the moderate to large ventral abdominal wall hernia. She reports hernia is secondary to a colostomy reversal. It is reducible. She was given fluids and supplemental potassium in ED. ED provider wishes to admit patient for observation. Allergies No Known Allergies Allergy (Unverified 01/26/22 02:43) - Past Medical/Surgical History Diabetic: Yes -: Type 2 Diabetes, Non-Insulin Dependent -: Hypertension -: COPD -: Hyperlipidemia -: GERD -: Arthritis -: Colectomy -: Colostomy with reversal -: -: Tubal Ligation -: Cholecystectomy Psychosocial/ Personal History: Patient lives at home with her daughter. - Social History Smoking Status: Current every day smoker Alcohol use: No CD- Drugs: No Caffeine use: Yes Place of Residence: Home Review of Systems Gastrointestinal: Nausea, Vomiting, Abdominal Pain, Diarrhea Physical Examination - Physical Exam General: Alert, In no apparent distress, Obese HEENT: Atraumatic, PERRLA, EOMI, Sclerae nonicteric Neck: Supple, 2+ carotid pulse no bruit, No LAD, Without JVD or thyroid abnormality Respiratory: Clear to auscultation bilaterally, Normal air movement Cardiovascular: Regular rate/rhythm, Normal S1 S2 Gastrointestinal: Normal bowel sounds, No rebound, No guarding, Other (ventral hernia), Tenderness (mild) Musculoskeletal: No tenderness Integumentary: No rashes Neurological: Normal speech, Normal strength at 5/5 x4 extr, Normal tone, Normal affect - Studies Laboratory Data (last 24 hrs) 01/25/22 23:38: PT 12.4, INR 1.12 01/25/22 23:38: WBC 8.4, Hgb 13.0, Hct 39.1, Plt Count 282 01/25/22 23:38: Sodium 141, Potassium 2.7 L*, BUN 5 L, Creatinine 0.94, Glucose 103, Magnesium 1.8, Total Bilirubin 0.6, AST 11 L, ALT 14, Alkaline Phosphatase 52, Lipase 47 L Assessment and Plan - Problems (Diagnosis) (1) Hypokalemia Current Visit: Yes Status: Acute (2) Nausea, vomiting, and diarrhea Current Visit: Yes Status: Acute (3) Abdominal pain Current Visit: Yes Status: Acute Qualifiers: Abdominal location: generalized Qualified Code(s): R10.84 - Generalized abdominal pain (4) Ventral hernia Current Visit: Yes Status: Chronic Qualifiers: Obstruction and gangrene presence: without obstruction or gangrene Qualified Code(s): K43.9 - Ventral hernia without obstruction or gangrene (5) Hypertension Current Visit: Yes Status: Chronic Qualifiers: Hypertension type: primary hypertension Qualified Code(s): I10 - Essential (primary) hypertension (6) COPD (chronic obstructive pulmonary disease) Current Visit: Yes Status: Chronic Qualifiers: COPD type: unspecified COPD Qualified Code(s): J44.9 - Chronic obstructive pulmonary disease, unspecified (7) Type 2 diabetes mellitus Current Visit: Yes Status: Chronic Qualifiers: Diabetes mellitus longterm insulin use: without longterm use Diabetes mellitus complication status: with kidney complications Diabetes mellitus complication detail: with chronic kidney disease Chronic kidney disease stage: stage 2 (mild) Qualified Code(s): E11.22 - Type 2 diabetes mellitus with d iabetic chronic kidney disease; N18.2 - Chronic kidney disease, stage 2 (mild) - Plan -Clear liquid diet, advance as tolerated -CT showed possible early SBO. Patient still passing gas/having diarrhea. General surgery consulted. NG tube if patient vomits. -LR at 100 cc/hr -Potassium 2.7 in ED. Replacement given. Recheck in morning. Protocol in place -Stool studies pending -Zofran and morphine PRN -ACHS accu checks with mild sliding scale insulin -Reconcile and continue home medications -Lovenox for VTE ppx -Full code Discharge Plan: Home Plan to discharge in: 24 Hours - Advance Directives Does patient have a Living Will: No Does patient have a Durable POA for Healthcare: No - Code Status/Comfort Care Code Status Assessed: Yes (Full) Critical Care: No Time Spent Managing Pts Care (In Minutes): 50
[2022-01-26] MEDS ORDERED: MORPHINE 2 MG/ML SYR IV PRN (02:43)
[2022-01-26] MEDS ORDERED: ALBUTEROL 2.5 MG/3 ML NEB SOL NEB PRN (02:43)
[2022-01-26] MEDS ORDERED: ACETAMINOPHEN 500 MG TAB PO PRN (02:43)
[2022-01-26] MEDS ORDERED: ONDANSETRON 4 MG/2 ML VIAL IV PRN (02:43)
[2022-01-26 03:09] LABS: Urine Appearance Clear (Clear); Urine Bilirubin Negative (Negative); Urine Blood Negative (Negative); Urine Color Yellow (Yellow); Urine Glucose Negative (Negative); Urine Protein 1+ (Negative); Urine Specific Gravity <=1.005 (1.005-1.030)
[2022-01-26 03:52] VITALS: BMI 42.6
[2022-01-26 04:20] LABS: Absolute Lymphocytes (CBC) 1.9 K/uL (0.7-4.9); Hematocrit 40.7 % (36.0-45.0); Lymphocytes % 23.1 % (15.3-44.8); MCV 89.5 fL (80-100); MPV 8.1 fL (7.6-11.3); RBC Red Blood Cell Count 4.55 M/uL (3.86-4.86)
[2022-01-26 04:28] LABS: Urine Bacteria >50 /HPF (<20); Urine RBC <5 /HPF (NONE SEEN); Urine Urothelial Cells <5 /HPF (NONE SEEN)
[2022-01-26 04:35] LABS: Magnesium 1.8 mg/dL (1.8-2.4); Phosphorus 2.2 mg/dL (2.5-4.9); Potassium 3.1 mmol/L (3.5-5.1)
[2022-01-26] MEDS: Ringers Lactate 1,000 ML IV SCH ×2 (05:09→16:57)
[2022-01-26] MEDS: INSULIN -REGULAR HUMAN 50 UNIT/0.5 ML ML SQ SCH ×4 (07:30→20:07)
[2022-01-26] MEDS: ENOXAPARIN 40 MG/0.4 ML SQ SCH (08:26)
[2022-01-26] MEDS ORDERED: MAGNESIUM SULFATE 1 gm IVPB 1 GM/100 ML BAG IV ONE (09:00)
[2022-01-26] MEDS ORDERED: POTASSIUM CL SA 10 MEQ TAB PO ONE ×2 (09:00→20:00)
--- NOTE | 2022-01-26 11:23 | P.PN ---
Date of Service: 01/26/22 I have personally seen and evaluated Ms. Nahomi Soto. I reviewed the notes and assessments performed by Lyndsey Hood PA-C. I independently performed my own history and physical examination. I agree with the assessment and plan as outlined in her note. I concur with her documentation of Ms. Soto. Diagnoses: 1. Possible Early Small Bowel Obstruction with Transition Point at Ventral Hernia - Spoke with Dr. Dodge - recommendations appreciated 2. Possible Urinary Tract Infection -started Ceftriaxone 3. Hypokalemia 4. Chronic Obstructive Pulmonary Disease 5. Type II Diabetes Mellitus 6. Hyperlipidemia 7. Morbid Obesity - BMI 42.7 kg/m2 Albaro Spann MD
[2022-01-26] MEDS: CEFTRIAXONE 1,000 MG in NA CHLORIDE 0.9% 50 ML IVPB SCH (12:27)
--- NOTE | 2022-01-26 15:52 | RAD REPORT ---
EXAM DESCRIPTION: CT - Abdomen Pelvis W Contrast - 01/26/2022 7:22 am CLINICAL HISTORY: Abdominal pain, acute, nonlocalized TECHNIQUE: Axial computed tomography images of the abdomen and pelvis with intravenous contrast. S agittal and coronal reformatted images were created and reviewed. This CT exam was performed using one or more of the following dose reduction techniques: automated exposure control, adjustment of t he mA and/or kV according to patient size, and/or use of iterative reconstruction technique. COMPARISON: No relevant prior studies available. FINDINGS: Lung bases: Unremarkable. No mass. No consolidation. ABDOMEN: Liver: The liver is enlarged and mildly diffusely low in density compatible with steatosis. Gallbladder and bile ducts: Unremarkable. No calcified stones. No ductal dilation. Pancreas: Unremarkable. No mass. No ductal dilation. Spleen: The spleen is mildly enlarged. Adrenals: Unremarkable. No mass. Kidneys and ureters: Lobulated renal contour bilaterally. No calculi. No hydronephrosis. Stomach and bowel: Right abdominal small bowel anastomosis. There are mildly dilated small bowel lo ops which communicate with the anastomosis with a transition in the region of the ventral abdominal w all hernia. Intramural fat within the proximal large bowel which can be seen in the setting of prio r inflammation. No mucosal thickening. PELVIS: Appendix: The appendix is not definitively visualized. No findings to suggest acute appendicitis. Bladder: Unremarkable. No mass. Reproductive: Unremarkable as visualized. ABDOMEN and PELVIS: Intraperitoneal space: Unremarkable. No free air. No significant fluid collection. Bones/joints: Multilevel spondylosis. No acute fracture. No dislocation. Soft tissues: Moderate to large multi loculated midline ventral abdominal wall hernia containing sm all bowel loops. Vasculature: Moderate atherosclerotic disease. No abdominal aortic aneurysm. Lymph nodes: Unremarkable. No enlarged lymph nodes. IMPRESSION: 1. Possible early small bowel obstruction with a transition at the level of the modera te to large ventral abdominal wall hernia. 2. Other findings as above. Electronically signed by: Power Tomas MD 01/26/2022 2:47 AM CDT Due to temporary technical issues with the PACS/Fluency reporting system, reports are being signed by the in house radiologists without review as a courtesy to insure prompt reporting. The interpreting radiologist is fully responsible for the content of the report.
--- NOTE | 2022-01-26 15:53 | RAD REPORT ---
EXAM DESCRIPTION: RAD - Chest Single View - 01/25/2022 11:51 pm CLINICAL HISTORY: The patient is 56 years old and is Female; COUGH TECHNIQUE: Frontal view of the chest. COMPARISON: No relevant prior studies available. FINDINGS: Lungs: Unremarkable. No consolidation. Pleural space: Unremarkable. No pneumothorax. Heart: Unremarkable. Mediastinum: Unremarkable. Bones/joints: Unremarkable. IMPRESSION: No acute findings in the chest. Electronically signed by: Zaid Whitfield MD 01/26/2022 12:19 AM CDT Due to temporary technical issues with the PACS/Fluency reporting system, reports are being signed by the in house radiologists without review as a courtesy to insure prompt reporting. The interpreting radiologist is fully responsible for the content of the report.
--- NOTE | 2022-01-26 18:29 | CON ---
Date of Consultation: 01/26/2022 Brief History Of Present Illness: Patient is a 56-year-old female with a past medical history of hyp ertension, diabetes, COPD, GERD, who had abdominal surgery. She believes it was a colostomy creation of her uncertain indication. She does not know if it was for diverticulitis or for other medical is sues. She believes it was related to a previous gynecologic surgery whereby she had. Her colon was attached to her ovary and required resection and colostomy creation at that time. She, 6 months late r eventually had a colostomy takedown through a low-transverse extended Pfannenstiel looking incision . She states that approximately 3 days prior to her admission, she noted increasing pain, abdominal distention through a known ventral hernia and inability to tolerate p.o. The pain got significantly worse. She had decreased bowel function as well and as such she came to the emergency room with the above-stated complaints. Past Medical History: Described above, diabetes, hypertension, COPD, hyperlipidemia, GERD, arthritis . Past Surgical History: Include a tubal ligation, cholecystectomy, , colostomy creation with colostomy reversal. Allergies: NO KNOWN DRUG ALLERGIES. Social History: She smokes tobacco every day. She denies alcohol or recreational drug use. Review of Systems: Ten-point review of systems other than HPI, she currently denies. Physical Examination: Vital Signs: Her BMI is 42.7. Her blood pressure 141/66, pulse 87, respiratory rate 18, temperature 98.0, SpO2 93% on room air. General: She is awake, alert, and oriented. Psychiatric: She is appropriate, conversive. HEENT: She is normocephalic. Sclerae anicteric. Mucous membranes moist. Oropharynx clear. Neck: Supple. No JVD. Chest: Normal expansion and excursion. Cardiovascular: Regular rate and rhythm. Pulmonary: Clear to auscultation bilaterally. Abdomen: Soft, nontender, nondistended. She has a large ventral hernia in the midline, which is non tender at this point, partially reducible, but is incompletely reduced at this point. As such, she h as an incarcerated component, but no strangulation. No skin changes. She has a well-healed large ex tended Pfannenstiel type lower pelvic incision. Extremities: No clubbing, cyanosis, or edema. Skin: Warm and dry. Laboratory Data: Reveals white blood cell count of 8.3, hemoglobin 13.5, hematocrit 40.7, platelet c ount is 324. Her neutrophils were normal. Sodium 141, potassium 3.1, chloride 105, carbon dioxide 3 2, BUN 6, creatinine 0.8, glucose is 86. Her phosphorus is 2.2, magnesium 1.8, AST on admission 11, ALT 14, alkaline phosphatase 52, T bilirubin was 0.6. Her lipase is 47. Her UA was positive for nit rites, urobilinogen. White blood cells greater than 50 bacteria. COVID was negative. She did have consistent findings with a urinary tract infection superimposed on a bowel obstruction in her clinica l picture. Her imaging included a CT scan of the abdomen and pelvis, read by the night radiologist, as possible early bowel obstruction with transition at the level of the moderate to large ventral abd ominal wall hernia. In addition, she had unremarkable gallbladder and bile ducts. The liver has arcenio atosis. There is a right abdominal small-bowel anastomosis. There are mildly dilated small bowel lo ops, which communicate with the anastomosis at the transition in the region of the ventral abdominal hernia, intramural fat within the proximal large bowel, which can be seen in the setting of prior inf lammation. No mucosal thickening. Appendix is not visualized. There are no findings to suggest acu te appendicitis. Assessment And Plan: This is a 56-year-old female who comes in with a bowel obstruction, likely from a ventral abdominal hernia, now reduced for the most part with return of bowel function. She states she had diarrhea and bowel function as of today. She has no nausea, vomiting, pain. As such, I rec ommended starting a clear liquid diet. Advance as tolerated. Serial abdominal exams. Continue medi maile management. I recommend that she consider getting her hernia fixed as an outpatient as this was the site of her transition and likely . TK/MODL Voice ID: [id number] Report ID: [id number]
[2022-01-26 22:31] VITALS: O2SAT 95
[2022-01-27] MEDS: Ringers Lactate 1,000 ML IV SCH ×2 (02:39→08:43)
[2022-01-27 03:48] LABS: Absolute Lymphocytes (CBC) 1.8 K/uL (0.7-4.9); Hematocrit 38.7 % (36.0-45.0); Lymphocytes % 21.7 % (15.3-44.8); MCV 89.8 fL (80-100); MPV 8.6 fL (7.6-11.3); RBC Red Blood Cell Count 4.31 M/uL (3.86-4.86)
[2022-01-27 03:56] LABS: Magnesium 1.9 mg/dL (1.8-2.4); Phosphorus 2.2 mg/dL (2.5-4.9)
[2022-01-27] MEDS: INSULIN -REGULAR HUMAN 50 UNIT/0.5 ML ML SQ SCH ×2 (07:30→11:30)
--- NOTE | 2022-01-27 07:59 | EKG ---
Test Date: 2022-01-26 Test Time: 00:01:37 Bench Assembly Inspector: RANDA MEASUREMENT RESULTS: Intervals: Rate: 83 OH: 184 QRSD: 72 QT: 426 QTc: 500 [place]: P: 55 OH: 184 QRS: 80 T: 12 INTERPRETIVE STATEMENTS: Normal sinus rhythm Anteroseptal infarct, age undetermined Prolonged QT Abnormal ECG No previous ECG available for comparison Electronically Signed On 01-27-22 07:55:38 CDT by Leoncio Huerta
[2022-01-27 08:43] VITALS: BP 138/71; TEMP 97.9
[2022-01-27] MEDS: ENOXAPARIN 40 MG/0.4 ML SQ SCH (09:03)
[2022-01-27] MEDS: CEFTRIAXONE 1,000 MG in NA CHLORIDE 0.9% 50 ML IVPB SCH (09:03)
--- NOTE | 2022-01-27 09:28 | P.DS ---
Admission Date: 01/26/22 Discharge Date: 01/27/22 Disposition: ROUTINE DISCHARGE Discharge Condition: GOOD Reason for Admission: Diarrhea, Hypokalemia Consultations: 1. General Surgery - Problems (1) Hypokalemia Current Visit: Yes Status: Acute (2) Nausea, vomiting, and diarrhea Current Visit: Yes Status: Acute (3) Small bowel obstruction Current Visit: Yes Status: Acute (4) COPD (chronic obstructive pulmonary disease) Current Visit: Yes Status: Chronic Qualifiers: COPD type: unspecified COPD Qualified Code(s): J44.9 - Chronic obstructive pulmonary disease, unspecified (5) Hypertension Current Visit: Yes Status: Chronic Qualifiers: Hypertension type: primary hypertension Qualified Code(s): I10 - Essential (primary) hypertension (6) Type 2 diabetes mellitus Current Visit: Yes Status: Chronic Qualifiers: Diabetes mellitus care home insulin use: without care home use Diabetes mellitus complication status: with kidney complications Diabetes mellitus complication detail: with chronic kidney disease Chronic kidney disease stage: stage 2 (mild) Qualified Code(s): E11.22 - Type 2 diabetes mellitus with diabetic chronic kidney disease; N18.2 - Chronic kidney disease, stage 2 (mild) (7) Ventral hernia Current Visit: Yes Status: Chronic Qualifiers: Obstruction and gangrene presence: without obstruction or gangrene Qualified Code(s): K43.9 - Ventral hernia without obstruction or gangrene Hospital Course: Ms. Nahomi Soto is a 56 year old female with a past medical history significant for type 2 diabetes mellitus, hypertension, chronic obstructive pulmonary disease, hyperlipidemia, and gastroesophageal reflux disease who was admitted to the [facility] on 01/26/2022 for concerns of a small bowel obstruction. Upon presentation, General Surgery was consulted and felt that her symptoms could be managed conservatively. She was monitored and improved without requiring a nasogastric tube. Over her hospital course, she was able to advance her diet, without any abdominal pain, nausea, or vomiting. She was able to pass flatus and have a bowel movement while in the hospital. General Surgery evaluated her and felt that she was stable to be discharged home. She was advised to follow-up with Dr. Dodge in 2 weeks to schedule an outpatient repair of her ventral hernia. Additionally, there were concerns that she may have had a urinary tract infection, for which she was treated with ceftriaxone. On 01/27/2022, she was seen on morning rounds and deemed medically stable for discharge. She was discharged with instructions to schedule follow-up appointments with her PCP in 3 to [address] Dodge (General Surgery) in 2 weeks. She was provided prescriptions for cephalexin. She was given the opportunity to ask questions and reported no further questions. Furthermore, all questions were answered to the best of my ability. Today, I personally spent 20 minutes with Ms. Soto, of which greater than 50% of the time was spent in patient education, counseling, and coordination of care as described above. Vital Signs/Physical Exam: Temp Pulse Resp BP Pulse Ox 97.9 F 81 18 138/71 95 01/27/22 08:00 01/27/22 08:00 01/27/22 08:00 01/27/22 08:00 01/27/22 08:00 General: Alert, In no apparent distress, Oriented x3 HEENT: Atraumatic, Mucous membr. moist/pink Neck: Supple, Without JVD or thyroid abnormality Respiratory: Clear to auscultation bilaterally, Normal air movement Cardiovascular: No edema, Regular rate/rhythm, Normal S1 S2, No gallops, No rubs, No murmurs Gastrointestinal: Normal bowel sounds, Soft and benign, Non-distended, No tenderness, No rebound, No guarding, Other (reducible ventral hernia noted) Musculoskeletal: No clubbing, No swelling Integumentary: No rashes Laboratory Data at Discharge: WBC 8.1 K/uL (4.3-10.9) 01/27/22 03:03 Hgb 12.7 g/dL (12.0-15.0) 01/27/22 03:03 Hct 38.7 % (36.0-45.0) 01/27/22 03:03 Plt Count 288 K/uL (152-406) 01/27/22 03:03 PT 12.4 SECONDS (9.5-12.5) 01/25/22 23:38 INR 1.12 01/25/22 23:38 Sodium 141 mmol/L (136-145) 01/27/22 03:03 Potassium 4.0 mmol/L (3.5-5.1) 01/27/22 03:03 BUN 4 mg/dL (7-18) L 01/27/22 03:03 Creatinine 0.83 mg/dL (0.55-1.3) 01/27/22 03:03 Glucose 80 mg/dL (74-106) 01/27/22 03:03 Phosphorus 2.2 mg/dL (2.5-4.9) L 01/27/22 03:03 Magnesium 1.9 mg/dL (1.8-2.4) 01/27/22 03:03 Total Bilirubin 0.6 mg/dL (0.2-1.0) 01/25/22 23:38 AST 11 U/L (15-37) L 01/25/22 23:38 ALT 14 U/L (12-78) 01/25/22 23:38 Alkaline Phosphatase 52 U/L (45-117) 01/25/22 23:38 Lipase 47 U/L (73-393) L 01/25/22 23:38 Home Medications: Amlodipine [Norvasc*] 10 mg PO DAILY 01/26/22 Budesonide/Formoterol Fumarate [Symbicort 160-4.5 Mcg Inhaler] 2 puff IH DAILY 01/26/22 Duloxetine [Cymbalta *] 60 mg PO DAILY 01/26/22 Esomeprazole Mag Trihydrate [Nexium] 40 mg PO DAILY 01/26/22 Fenofibric Acid (Choline) [Fenofibric Acid] 135 mg PO BEDTIME 01/26/22 Linagliptin [Tradjenta] 1 tab PO DAILY 01/26/22 Mirabegron [Myrbetriq] 50 mg PO DAILY 01/26/22 Pregabalin [Lyrica*] 75 mg PO BIDHS 01/26/22 Rosuvastatin [Crestor*] 10 mg PO BEDTIME 01/26/22 Tizanidine [Zanaflex*] 1 tab PO TID PRN 01/26/22 Trazodone [Desyrel*] 100 mg PO BEDTIME 01/26/22 Vitamin D [Drisdol*] 1 cap PO DAILY 01/26/22 Cephalexin 500 mg PO BID 5 Days #10 capsule 01/27/22 New Medications: Cephalexin 500 mg PO BID 5 Days #10 capsule Physician Discharge Instructions: 1. Please schedule follow-up appointment with Dr. Dodge (General Surgery) in 1-2 weeks. 2. Please schedule follow-up appointment with your PCP in 3-5 days. Diet: Regular Activity: Ad aidan Followup: Bharath Dodge MD [ACTIVE - CAN ADMIT] - NONE,NONE [Primary Care Provider] -
== END 2022-01-27 12:14 | disposition home or self-care (01) | DRG 394 ==
LOC: ER 23:10 → ERHOLD 01-26 01:18 → 2ND 01-26 01:55 → OBSVTOIN 01-26 19:54
PROVIDERS: ADMIT Hospitalist; ATTEND Hospitalist
DX: K43.6 Other and unspecified ventral hernia with obstruction, without gangrene (principal); N39.0 Urinary tract infection, site not specified; Z68.41 Body mass index [BMI] 40.0-44.9, adult; E87.6 Hypokalemia; J44.9 Chronic obstructive pulmonary disease, unspecified; E66.01 Morbid (severe) obesity due to excess calories; E78.5 Hyperlipidemia, unspecified; K21.9 Gastro-esophageal reflux disease without esophagitis; I12.9 Hypertensive chronic kidney disease with stage 1 through stage 4 chronic kidney disease, or unspecified chronic kidney disease; E11.22 Type 2 diabetes mellitus with diabetic chronic kidney disease; N18.2 Chronic kidney disease, stage 2 (mild); Z90.49 Acquired absence of other specified parts of digestive tract; F17.210 Nicotine dependence, cigarettes, uncomplicated; Z20.822 Contact with and (suspected) exposure to COVID-19
CPT/HCPCS: 36415; 71045; 74177; 80048; 80076; 81003; 81015; 82274; 82947; 83605; 83690; 83735; 83880; 84100; 84132; 84484; 85025; 85610; 87045; 87046; 87077; 87086; 87088; 87186; 89055; 93005; 96374; 96375; 99285; G0378; J1650; J2405; J3475; J3480; J7030; J7120; Q9967; U0003

== ENCOUNTER 2022-02-08 22:03 | Emergency (ER) | payer OTHER ==
[2022-02-08] MEDS ORDERED: ONDANSETRON 4 MG/2 ML VIAL ONE (23:21)
[2022-02-08] MEDS ORDERED: HYDROMORPHONE HCL 1 MG/ML INJ ONE (23:21)
[2022-02-08] MEDS ORDERED: HEPARIN/D5W 25,000 UNIT/500 ML BAG IV ONE (23:22)
[2022-02-08 23:26] LABS: Absolute Lymphocytes (CBC) 1.9 K/uL (0.7-4.9); Lymphocytes % 18.7 % (15.3-44.8); MCV 88.9 fL (80-100); MPV 8.3 fL (7.6-11.3); RBC Red Blood Cell Count 4.62 M/uL (3.86-4.86)
[2022-02-08 23:40] LABS: Albumin 2.6 g/dL (3.4-5.0); Bilirubin Direct 0.3 mg/dL (0-0.2); Bilirubin Total 0.5 mg/dL (0.2-1.0); Magnesium 1.7 mg/dL (1.8-2.4); Potassium 3.6 mmol/L (3.5-5.1); Protein, Total 5.8 g/dL (6.4-8.2); Troponin High Sensitivity 5.4 pg/mL (<58.9)
[2022-02-08 23:46] LABS: Protime INR 1.14
[2022-02-08] MEDS ORDERED: HEPARIN 5000 UNIT/ML 1 ML VIAL ONE (23:49)
--- NOTE | 2022-02-09 01:23 | ER ---
Nurse's Notes [facility] Name: Nahomi Soto Age: 56 yrs Sex: Female : 1965 Arrival Date: 02/08/2022 Time: 22:07 Bed 14 Private MD: Diagnosis: Peripheral vascular disease, unspecified;Pain in right toe(s)-right great toe Presentation: 02/08 22:07 Chief complaint: Patient states: Right big toe area turning blue and she can't feel it. ke1 Open blister on R leg. Coronavirus screen: Vaccine status: Patient reports receiving the 1st dose of the Covid vaccine. Ebola Screen: No symptoms or risks identified at this time. Initial Sepsis Screen: Does the patient meet any 2 criteria? No. Patient's initial sepsis screen is negative. Does the patient have a suspected source of infection? No. Patient's initial sepsis screen is negative. Risk Assessment: Do you want to hurt yourself or someone else? Patient reports no desire to harm self or others. Onset of symptoms was February 04, 2022 at 12:00. 22:07 Method Of Arrival: EMS: [facility] ke1 22:07 Acuity: GIRISH 3 ke1 Triage Assessment: 22:16 General: Appears in no apparent distress. Behavior is appropriate for age. Pain: ke1 Complains of pain in right foot Pain does not radiate. Pain currently is 10 out of 10 on a pain scale. at worst was 10 out of 10 on a pain scale. level that patient reports is acceptable is 5 out of 10 on a pain scale. Quality of pain is described as aching. Neuro: Level of Consciousness is awake, alert, Oriented to person, place, time, situation. Cardiovascular: Capillary refill < 3 seconds in right toes. Respiratory: Respiratory effort is even, unlabored, Respiratory pattern is regular, symmetrical. Derm: Skin has blisters on R leg open blister Skin is blue Skin temperature is warm Reports pain that is 10 out of 10 on a pain scale. Historical: - Allergies: 22:15 No Known Allergies; ke1 - PMHx: 22:15 Arthritis; diabetes mellitus; Hypercholesterolemia; Hypertensive disorder; insomnia; ke1 - Immunization history:: Client reports receiving the 1st dose of the Covid vaccine. - Social history:: Smoking status: Patient reports the use of cigarette tobacco products, smokes one-half pack cigarettes per day. Screenin:19 Abuse screen: Denies threats or abuse. Nutritional screening: No deficits noted. ke1 Tuberculosis screening: No symptoms or risk factors identified. Fall Risk No fall in past 12 months (0 pts). Secondary diagnosis (15 points) pain right toe. IV access (20 points). Ambulatory Aid- None/Bed Rest/Nurse Assist (0 pts). Gait- Normal/Bed Rest/Wheelchair (0 pts) Mental Status- Oriented to own ability (0 pts). Total Diamond Fall Scale indicates Low Risk Score (25-44 pts). Fall prevention measures have been instituted. Side Rails Up X 2. Assessment: 02/09 00:31 Reassessment: Patient denies pain at this time. Patient states feeling better. Patient ke1 states symptoms have improved. 01:51 Reassessment: report GIVEN TO MANOHAR DONNELLY. ke1 02:09 Reassessment: Patient appears in no apparent distress at this time. No changes from ke1 previously documented assessment. Patient denies pain at this time. Patient states feeling better. Patient states symptoms have improved. 02:11 Reassessment: patient TRANSFERRED WITH heparin DRIP PER PA INSTRUCTIONS. ke1 Vital Signs: 02/08 22:07 BP 108 / 62; Pulse 92; Resp 17; Temp 98.6(O); Pulse Ox 98% ; Weight 110.22 kg; Height 5 ke1 ft. 4 in. (162.56 cm); Pain 10/10; 02/09 00:30 Pain 2/10; ke1 02:08 BP 145 / 72; Pulse 85; Resp 19; Temp 98.6; Pulse Ox 99% on R/A; Pain 0/10; ke1 02/08 22:07 Body Mass Index 41.71 (110.22 kg, 162.56 cm) ke1 ED Course: 02/08 22:07 Patient arrived in ED. ke1 22:07 Miguel A Christopher, CONY is Primary Nurse. ke1 22:15 Triage completed. ke1 22:20 Bob Hawkins PA is PHCP. cp 22:20 Marco Turner MD is Attending Physician. cp 22:20 Bed in low position. Call light in reach. ke1 22:20 Arm band placed on. ke1 22:40 Inserted saline lock: 20 gauge in right antecubital area, using aseptic technique. ke1 22:58 COVID-19 SARS RT PCR (Document "Date of Onset" if Symptomatic) Sent. 5 22:58 COVID swab sent to lab. 5 23:18 XRAY Chest (1 view) In Process Unspecified. EDMS 23:40 US LE Artery Uni Ltd In Process Unspecified. EDMS 23:40 US Extremity Venous Unilateral Ltd In Process Unspecified. EDMS 02/09 00:36 Initiated transfer to [facility] with Sheree Garsia. wm 01:17 Pt accepted for transfer by Dr. Devan Bradford \\T\\ 01:14. wm 02:08 No provider procedures requiring assistance completed. Patient transferred, IV remains ke1 in place. Administered Medications: 02/08 23:40 Drug: Zofran (Ondansetron) 4 mg Route: IVP; Site: right antecubital; 1 02/09 00:30 Follow up: Response: Marked relief of symptoms [facility] 02/08 23:45 Drug: Dilaudid (HYDROmorphone) 1 mg Route: IVP; Site: right antecubital; ke1 02/09 00:30 Follow up: Pain 2/10 Adult; Response: Pain is decreased [facility] 02/08 23:50 Drug: Heparin (DVT/PE Drip) 18 units/kg/hr - (HEParin 70642 units, D5W 500 ml) ke1 {Co-Signature: bb (Vesta Phillips RN).} {Note: Bolus 800 uni.} Route: IV; Rate: calculated rate; Site: right antecubital; 02/09 01:57 Not Given (Physician Discretion): vancoMYCIN 1 grams IVPB once over 2 hrs cp 02:07 Drug: Nicoderm CQ Patch 21 mg/24 hr 1 patches Route: Transdermal; Site: affected area; ke1 02:09 Follow up: Response: Medication administered at discharge. ke1 02:07 Drug: Cefepime 1 grams Route: IVPB; Rate: 200 ml/hr; Infused Over: 30 mins; Site: right ke1 antecubital; 02:09 Follow up: Response: Medication administered at discharge. ke1 Medication: 02:08 VIS not applicable for this client. ke1 Outcome: 01:23 ER care complete, transfer ordered by . cp 02:08 Transferred by ground EMS ke1 02:08 Condition: good 02:08 Discharge instructions given to EMS. 02:11 Patient left the ED. ke1 Signatures: Dispatcher [employer] EDMS Bob Hawkins PA PA cp Martinez, Maria [facility] Karolyn Case Kouassi, RN RN ke1 Vesta Phillips RN bb
--- NOTE | 2022-02-09 01:24 | EDPHYS ---
Physician Documentation [facility] Name: Nahomi Soto Age: 56 yrs Sex: Female : 1965 Arrival Date: 02/08/2022 Time: 22:07 Bed 14 Private MD: ED Physician Marco Turner HPI: 02/08 23:00 This 56 yrs old Female presents to ER via EMS with complaints of Foot Pain. cp 23:00 The patient presents with pain, that is acute, tenderness, numbness, discoloration. cp 23:00 The complaints affect the right great toe. Onset: The symptoms/episode began/occurred 1 cp week(s) ago, and became worse today. Associated signs and symptoms: Pertinent negatives calf tenderness, fever, warmth, injury. Patient reports pain to right great toe times 1 week that became worse today. Historical: - Allergies: 22:15 No Known Allergies; ke1 - PMHx: 22:15 Arthritis; diabetes mellitus; Hypercholesterolemia; Hypertensive disorder; insomnia; ke1 - Immunization history:: Client reports receiving the 1st dose of the Covid vaccine. - Social history:: Smoking status: Patient reports the use of cigarette tobacco products, smokes one-half pack cigarettes per day. ROS: 23:05 Constitutional: Negative for body aches, chills, fever, poor PO intake. cp 23:05 Eyes: Negative for injury, pain, redness, and discharge. cp 23:05 Cardiovascular: Negative for chest pain, palpitations. 23:05 Respiratory: Negative for cough, shortness of breath, wheezing. 23:05 Abdomen/GI: Negative for abdominal pain, nausea, vomiting, and diarrhea. 23:05 MS/extremity: Positive for pain, paresthesias, of the right great toe, discoloration, Negative for injury or acute deformity. 23:05 Skin: Positive for of the anterior aspect right lower leg, open wound. 23:05 Neuro: Negative for altered mental status, headache, weakness. 23:05 All other systems are negative. Exam: 23:10 Constitutional: The patient appears in no acute distress, alert, awake, cp non-diaphoretic, non-toxic, well developed, well nourished, obese, uncomfortable. 23:10 Head/Face: Normocephalic, atraumatic. cp 23:10 Eyes: Periorbital structures: appear normal, Conjunctiva: normal, no exudate, no injection, Sclera: no appreciated abnormality, Lids and lashes: appear normal, bilaterally. 23:10 ENT: External ear(s): are unremarkable, Nose: is normal, Mouth: Lips: moist, Oral mucosa: moist, Posterior pharynx: Airway: no evidence of obstruction, patent. 23:10 Neck: ROM/movement: is normal, is supple, without pain, no range of motions limitations. 23:10 Chest/axilla: Inspection: normal. 23:10 Cardiovascular: Rate: normal, Rhythm: regular, Edema: is not appreciated, JVD: is not appreciated. 23:10 Respiratory: the patient does not display signs of respiratory distress, Respirations: normal, no use of accessory muscles, no retractions, labored breathing, is not present, Breath sounds: are clear throughout, no decreased breath sounds, no stridor, no wheezing. 23:10 Abdomen/GI: Exam negative for discomfort, distension, guarding, Inspection: obese 23:10 Musculoskeletal/extremity: Extremities: noted in the right great toe: pain, tenderness, cool to touch, dusky coloration, There is no evidence of decreased ROM, deformity, Pulses: markedly diminished right dorsalis pedis, the right great toe Severe pain noted. decreased sensation. 23:10 Skin: superficial wound noted anterior right lower leg with mild erythema. 23:10 Neuro: Orientation: to person, place \\T\\ time. Mentation: is normal, Motor: moves all fours, strength is normal. 02/09 01:35 ECG was reviewed by the Attending Physician. cp Vital Signs: 02/08 22:07 BP 108 / 62; Pulse 92; Resp 17; Temp 98.6(O); Pulse Ox 98% ; Weight 110.22 kg; Height 5 ke1 ft. 4 in. (162.56 cm); Pain 10/10; 02/09 00:30 Pain 2/10; ke1 02:08 BP 145 / 72; Pulse 85; Resp 19; Temp 98.6; Pulse Ox 99% on R/A; Pain 0/10; ke1 02/08 22:07 Body Mass Index 41.71 (110.22 kg, 162.56 cm) ke1 MDM: 02/08 22:31 Patient medically screened. cp 02/09 00:02 Physician consultation: Leoncio Huerta MD was contacted at 00:02, regarding consult, cp patient's condition, recommends transfer. 01:15 Data reviewed: vital signs, nurses notes, lab test result(s), EKG, radiologic studies, cp plain films, ultrasound. :15 Test interpretation: by ED physician or midlevel provider: ECG, plain radiologic cp studies. Physician consultation: regarding regarding transfer, to [facility]. patient's condition, accepting physician will be DR Bardford. 02/08 22:49 Order name: Basic Metabolic Panel; Complete Time: 00:22 02/09 00:22 Interpretation: Normal except: GFR 66. 02/08 22:49 Order name: CBC with Diff; Complete Time: 00:22 02/09 00:22 Interpretation: Normal except: WBC 10.2; RDW 15.6; ROSIO% 74.2. 02/08 22:49 Order name: LFT's; Complete Time: 00:22 02/08 22:49 Order name: Magnesium; Complete Time: 00:22 02/09 00:22 Interpretation: Abnormal: MG 1.7. 02/08 22:49 Order name: NT PRO-BNP; Complete Time: 00:22 02/08 22:49 Order name: PT-INR; Complete Time: 00:22 02/08 22:49 Order name: Troponin HS; Complete Time: 00:22 02/08 22:49 Order name: XRAY Chest (1 view) 02/08 22:49 Order name: COVID-19 SARS RT PCR (Document "Date of Onset" if Symptomatic); Complete cp Time: 01:02/08 22:49 Order name: LE Artery Uni Ltd 02/08 22:49 Order name: Extremity Venous Unilateral Ltd 02/08 22:49 Order name: Ptt, Activated; Complete Time: 00:22 02/08 22:49 Order name: EKG; Complete Time: 22:50 02/08 22:49 Order name: Cardiac monitoring 02/08 22:49 Order name: EKG - Nurse/Tech 02/08 22:49 Order name: IV Saline Lock; Complete Time: 23:03 02/08 22:49 Order name: Labs collected and sent; Complete Time: 23:03 02/08 22:49 Order name: O2 Per Protocol; Complete Time: 23:57 cp 02/08 22:49 Order name: O2 Sat Monitoring; Complete Time: 23:57 cp EC:35 Rate is 83 beats/min. Rhythm is regular. AL interval is normal. QRS interval is normal. cp QT interval is normal. T waves are Inverted in leads III, aVR. Interpreted by me. Reviewed by me. Administered Medications: 02/08 23:40 Drug: Zofran (Ondansetron) 4 mg Route: IVP; Site: right antecubital; 02/09 00:30 Follow up: Response: Marked relief of symptoms [facility] 02/08 23:45 Drug: Dilaudid (HYDROmorphone) 1 mg Route: IVP; Site: right antecubital; [facility] 02/09 00:30 Follow up: Pain 09/04 Adult; Response: Pain is decreased [facility] 02/08 23:50 Drug: Heparin (DVT/PE Drip) 18 units/kg/hr - (HEParin 50329 units, D5W 500 ml) ke {Co-Signature: bb (Vesta Phillips RN).} {Note: Bolus 800 uni.} Route: IV; Rate: calculated rate; Site: right antecubital; 02/09 01:57 Not Given (Physician Discretion): vancoMYCIN 1 grams IVPB once over 2 hrs cp 02:07 Drug: Nicoderm CQ Patch 21 mg/24 hr 1 patches Route: Transdermal; Site: affected area; ke1 02:09 Follow up: Response: Medication administered at discharge. 1 02:07 Drug: Cefepime 1 grams Route: IVPB; Rate: 200 ml/hr; Infused Over: 30 mins; Site: right 1 antecubital; 02:09 Follow up: Response: Medication administered at discharge. ke1 Disposition: 07: Co-signature as Attending Physician, Marco Turner MD. [email or web address] Disposition Summary: 02/09/22 01:23 Transfer Ordered Transfer Location: [facility] cp Reason: Higher level of care cp Condition: Stable cp Problem: new cp Symptoms: have improved cp Accepting Physician: DR Bradford(02/09/22 02:11) ke1 Diagnosis - Peripheral vascular disease, unspecified cp - Pain in right toe(s) - right great toe cp Forms: - Medication Reconciliation Form cp - SBAR form cp Signatures: Dispatcher [employer] EDBob Zambrano PA PA cp Holmes, Maurice, MD MD [email or web address] Miguel A Christopher RN RN ke1 Vesta Phillips RN bb Corrections: (The following items were deleted from the chart) 02:11 01:23 DR Suzette soto ke1
[2022-02-09] MEDS ORDERED: NA CHLORIDE 0.9% 100 ML ONE (02:07)
[2022-02-09] MEDS ORDERED: NICOTINE 21 MG/PAT TD ONE (02:07)
[2022-02-09] MEDS ORDERED: CEFEPIME 1 GM/VIAL ONE (02:07)
[2022-02-09 02:26] VITALS: TEMP 98.6
[2022-02-09 02:33] VITALS: BP 145/72; O2SAT 99
--- NOTE | 2022-02-09 12:40 | EKG ---
Test Date: 2022-02-09 Test Time: 01:31:21 [employer]: RANDA MEASUREMENT RESULTS: Intervals: Rate: 83 TX: 168 QRSD: 72 QT: 408 QTc: 479 [place]: P: 50 TX: 168 QRS: 78 T: 17 INTERPRETIVE STATEMENTS: Normal sinus rhythm Low voltage QRS Cannot rule out Anteroseptal infarct, age undetermined Abnormal ECG Compared to ECG 01/26/2022 00:01:37 Low QRS voltage now present Prolonged QT interval no longer present Myocardial infarct finding still present Electronically Signed On 02-09-22 12:39:01 CDT by Lucio Flores
--- NOTE | 2022-02-09 15:27 | RAD REPORT ---
EXAM DESCRIPTION: RAD - Chest Single View - 02/08/2022 11:16 pm CLINICAL HISTORY: Right great toe pain COMPARISON: 01/25/2022 FINDINGS: Single frontal radiograph view of the chest. Cardiomediastinal silhouette: Atherosclerotic calcification of thoracic aorta. Heart is not enlarged. Lungs: No consolidation, pneumothorax, or pleural effusion. Bones: No acute osseous abnormality. Upper abdomen: No abnormality identified. IMPRESSION: 1. No acute pulmonary process identified. Electronically signed by: Devan Mai 02/08/2022 11:37 PM CDT Due to temporary technical issues with the PACS/Fluency reporting system, reports are being signed by the in house radiologists without review as a courtesy to insure prompt reporting. The interpreting radiologist is fully responsible for the content of the report.
--- NOTE | 2022-02-09 15:28 | RAD REPORT ---
EXAM DESCRIPTION: US - Lower Extremity Artery Uni Ltd - 02/09/2022 12:23 am CLINICAL HISTORY: 56 years Female, PAIN Lower Extremity Artery Uni Ltd COMPARISON: None. TECHNIQUE: Grayscale, color Doppler, and spectral Doppler imaging of the lower extremity arteries. 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 No focal velocity elevation. IMPRESSION: Monophasic waveforms throughout the right lower extremity arteries suggesting aortoiliac inflow stenosis. Electronically signed by: Devan Mai 02/09/2022 12:05 AM CDT Due to temporary technical issues with the PACS/Fluency reporting system, reports are being signed by the in house radiologists without review as a courtesy to insure prompt reporting. The interpreting radiologist is fully responsible for the content of the report.
--- NOTE | 2022-02-09 15:30 | RAD REPORT ---
EXAM DESCRIPTION: US - Extremity Venous Uni Ltd - 02/09/2022 12:24 am CLINICAL HISTORY: Pain. COMPARISON: None. TECHNIQUE: Grayscale, color Doppler, duplex Doppler, spectral Doppler images and analysis with compr ession and augmentation of right lower extremity veins. FINDINGS: Right common femoral, greater saphenous, femoral, deep (profunda) femoral, popliteal, post erior tibial veins unremarkable without evidence of clot. IMPRESSION: No sonographic evidence of right lower extremity DVT. Electronically signed by: Veto Fernandez MD 02/09/2022 12:04 AM CDT Due to temporary technical issues with the PACS/Fluency reporting system, reports are being signed by the in house radiologists without review as a courtesy to insure prompt reporting. The interpreting radiologist is fully responsible for the content of the report.
== END 2022-02-09 02:11 | disposition short-term general hospital (02) ==
LOC: ER 22:03
DX: I73.9 Peripheral vascular disease, unspecified (principal); I10 Essential (primary) hypertension; F17.210 Nicotine dependence, cigarettes, uncomplicated; Z20.822 Contact with and (suspected) exposure to COVID-19
CPT/HCPCS: 93005; 85025; 80048; 36415; 83735; 85610; 80076; 85730; 84484; 83880; 71045; 93926; 93971; 96375; 96374; 99285; U0003; J1644 ×2; J1170; J2405; J0692

== ENCOUNTER 2022-04-01 12:16 | Inpatient (IN) | payer OTHER ==
--- OUTSIDE RECORDS SUMMARY | 2022-04-01 12:20 | XMS REPORT | Continuity of Care Document ---
:1965 Author Organization [facility] t Address [address] [place] [address] Care Team Providers Name Role Phone SYSTEM, PCP NOT IN Primary Care Physician Unavailable Byron Spain Attending Clinician Unavailable BRANDIE WALTERS Attending Clinician Unavailable Nurse, [facility] Attending Clinician Unavailable Sangita Tena Attending Clinician YENNIFER EDDY Attending Clinician Unavailable Rene Minaya MD Attending Clinician [phone] Yennifer Eddy MD Attending Clinician Bonnie Muñoz MD Attending Clinician [phone] RENE MINAYA Attending Clinician Unavailable Physician, No Primary or Family Admitting Clinician Unavaila BONNIE Calloway Admitting Clinician Unavailable Payers Payer Name Policy Type Policy Number Effective Date Expiration Date S [facility] [id number] 2021 DUAL COMPLETE HMO 00:00:00 [employer] MEDICARE [id number] 2021 00:00:00 [facility] COMM STAR [id number] 2021 PLAN 00:00:00 Problems Condition Condition Condition Status Onset Resolution Last Treating Co mments Source Name Details Category Date Date Treatment Clinician Date Tobacco Tobacco Disease [facility] Advanced Advanced Disease [facility] COPD (HCC[facility] COPD (HCC) 02-12 Anna kes suspected suspected 00:00: Medi maile 00 Center PAD PAD Disease Active [facility] (periphera (periphera 02-09 Anna kes l artery l artery 00:00: Medica l disease) disease) 00 Center No known No known Disease Unive rs active active ity of problems problems [facility] Allergies, Adverse Reactions, Alerts Allergy Allergy Status Severity Reaction(s) Onset Inactive Treating Comm ents Source Name Type Date Date Clinician No Known DA Active [facility]17 [facility] 00:[facility]: [address] NO KNOWN Allergy Active [facility] 00:[facility]: [address] NO KNOWN Drug Active Univers ALLERGIE Class ity of S [facility] Social History Social Habit Start Date Stop Date Quantity Comments Source History [facility]Med Medical [facility] Exposure to 2022-02-27 2022-03-09 Not sure [facility] SARS-CoV-2 (event) 00:00:00 15:40:00 [facility] History [facility] 2022-02-09 2022-02-[address] [facility] Housing Homeless 00:00:00 00:00:00 Medical Center Last Year Tobacco use and 2022-02-09 2022-02-[address] [facility] exposure 00:00:00 00:00:00 Medical Center History [facility] 2022-02-09 2022-02-[address] [facility] Transport Med 00:00:00 00:00:[address] History [facility] 2022-02-09 2022-02-[address] [facility] Housing Unable to 00:00:00 00:00:00 Medical Center Pay History [facility] 2022-02-09 2022-02-[address] [facility] Housing Places 00:00:00 00:00:00 Medical Ce nter Lived Sex Assigned At [address] [facility] 00:00:00 00:00:00 Medical Center Smoking Status Start Date Stop Date Source Never smoked tobacco [facility] Current every day smoker 2022-02-09 00:00:00 [facility] Medications Ordered Filled Start Stop Current Ordering Indication Dosage Frequency Signature Comments Components Source Medication Medication Date Date Medication? Clinician (SIG) Name Name No known No No known Unive rs medications 815 medication it y of 16:20: s [address] Vital Signs Vital Name Observation Time Observation Value Comments Source Systolic blood 2022-03-09 20:51:00 116 mm[Hg] [facility] Diastolic blood 2022-03-09 20:51:00 56 mm[Hg] Unive rsity [facility] Heart rate 2022-03-09 20:51:00 106 /min [facility] Body temperature 2022-03-09 20:51:00 36.89 [facility]ian [facility] Respiratory rate 2022-03-09 20:51:00 16 /min [facility] Body height 2022-03-09 20:51:00 162.6 cm [facility] Body weight 2022-03-09 20:51:00 108.863 kg [facility] BMI 2022-03-09 20:51:00 41.20 kg/m2 [facility] Oxygen saturation in 2022-03-09 20:51:00 97 /min [facility] Arterial blood by [facility] Pulse oximetry Branch WEIGHT 2022-02-09 04:00:00 107.8 kg WEIGHT 2022-02-09 04:00:00 107.8 kg WEIGHT 2022-02-09 04:00:00 107.8 kg Heart rate 2022-02-10 20:00:00 86 /min [facility] Systolic blood 2022-02-10 19:22:00 139 mm[Hg] [facility] Diastolic blood 2022-02-10 19:22:00 65 mm[Hg] [facility] S [facility] Body temperature 2022-02-10 19:22:00 35.61 Elina [facility] Respiratory rate 2022-02-10 19:22:00 18 /min [facility] Oxygen saturation in 2022-02-10 19:22:00 100 /min [facility] Arterial blood by Medical nt Pulse oximetry Body weight 2022-02-09 04:00:[address] [facility] Procedures Procedure Date / Time Performing Clinician Source Performed 2D ECHO W/ DOPPLER 2022-02-10 18:08:34 Morro Hopkins [facility] (CW/PW/COLOR) [facility] POCT-GLUCOSE METER 2022-02-10 15:56:00 Yennifer Eddy [facility] APTT 2022-02-10 14:19:[address] [facility] CTA AAA AND RUNOFF 2022-02-10 12:29:00 Morro Hopkins [facility] APTT 2022-02-10 08:38:[address]ñoz [facility] POCT-GLUCOSE METER 2022-02-10 07:30:00 [facility] (HEMO[facility] ONLY) 2022-02-10 04:06:00 Bonnie Muñoz [facility] APTT 2022-02-09 22:28:00 [facility] POCT-GLUCOSE METER 2022-02-09 21:16:00 [facility] POCT-GLUCOSE METER 2022-02-09 16:28:00 [facility] W 2022-02-09 15:33:00 Yennifer Eddy [facility] DOPPLER)ONLY Medical [place] HC ARTERIAL DOPPLER LEG 2022-02-09 15:33:00 Morro Hopkins [facility] APTT 2022-02-09 12:58:00 Yennifer Eddy [facility] POCT-GLUCOSE METER 2022-02-09 12:14:00 [facility] SARS-COV2/RT-PCR ([facility] & 2022-02-09 08:52:00 Bonnie Muñoz [facility] POCT-GLUCOSE METER 2022-02-09 07:34:00 Rene Minaya [facility] HEMOGLOBIN A1C 2022-02-09 07:00:00 [facility] METABOLIC 2022-02-09 07:00:00 Bonnie Muñoz [facility] PANEL [facility] POCT-GLUCOSE METER 2022-02-09 06:09:00 Rene Minaya [facility] CBC (HEMOGRAM ONLY) 2022-02-09 04:49:00 Bonnie Muñoz [facility] APTT 2022-02-09 04:49:00 Toni [facility] EKG-SCANNED 2022-02-09 00:00:00 [facility] Plan of Care Planned Activity Planned Date Details Comments Source Future Scheduled 2022-03-26 INFLUENZA VACCINE (#1) [facility] 00:00:00 [code = INFLUENZA Medical Ce nter VACCINE (#1)] Future Scheduled 2021-07-[address] [facility] Test 00:00:00 (12+) [code = Medical Center DEPRESSION SCREENING (12+)] Future Scheduled 2021-07-26 Medicare IPPE (WELCOME [facility] 00:00:00 TO MEDICARE) [code = [facility] Medicare IPPE (WELCOME TO MEDICARE)] Future Scheduled 2015-11-02 SHINGLES VACCINES ([address] [facility] Test 00:00:00 2) [code = SHINGLES [facility] VACCINES (1 of 2)] Future Scheduled 2010 Lipid panel (procedure) [facility] Test 00:00:00 [code = 72710392] Medical Ce nter Future Scheduled 1986 Screening for malignant [facility] Test 00:00:00 neoplasm of cervix Medical C enter (procedure) [code = 472503079] Future Scheduled 1984 DTAP/TDAP/TD VACCINES [facility] 00:00:00 (1 - Tdap) [code = Medical C enter DTAP/TDAP/TD VACCINES (1 - Tdap)] Future Scheduled 1983-11-02 HEPATITIS C SCREENING [facility] 00:00:00 [code = HEPATITIS C Medical Center SCREENING] Future Scheduled 1971-11-[address] [facility] Test 00:00:00 0-64 YRS (1 - PCV) Medical C enter [code = PNEUMOCOCCAL VACCINE 0-64 YRS (1 - PCV)] Future Scheduled 1966-05-03 COVID-19 VACCINE (#1) [facility] 00:00:00 [code = COVID-[address] VACCINE (#1)] Future Scheduled 1965 Screening for malignant [facility] Test 00:00:00 neoplasm of breast Medical C enter (procedure) [code = 622370050] Future Scheduled 1965 CT Colonography (combo) [facility] Test 00:00:00 [code = CT Colonography [facility] (combo)] Future Scheduled 1965 Screening for malignant [facility] Test 00:00:00 neoplasm of colon Medical Ce nter (procedure) [code = 687934109] Future Scheduled 1965 Screening for malignant [facility] Test 00:00:00 neoplasm of colon Medical Ce nter (procedure) [code = 386590170] Future Scheduled 1965 Screening for malignant [facility] Test 00:00:00 neoplasm of colon Medical Ce nter (procedure) [code = 444455166] Future Scheduled 1965 Screening for malignant [facility] Test 00:00:00 neoplasm of colon Medical Ce nter (procedure) [code = 603383822] Future Scheduled 1965 Sigmoidoscopy [code = [facility] Test 00:00:00 Sigmoidoscopy] Medical [facility] Encounters Start End Encounter Admission Attending Care Care Encounter Source Date/Time Date/Time Type Type Clinicians Facility Department ID 2022-02-17 Inpatient [place] ANTONU SANJUANA [id number] [facility] 03:31:[address] [facility] 2022-03-09 2022-03-09 Emergency X ROMEO [facility] ERT [id number] Univers 16:25:00 19:04:00 BRANDIE gordon [facility] 2022-03-09 2022-03-09 Nurse Nurse, [facility] [id number] Univers 15:45:00 16:00:42 [facility] [id number] [facility] [id number] Petros as JAVED?BLEA [id number] [facility] [address] MEDICAL OFFICE BUILDING 2022-02-17 2022-02-17 Emergency EM AP [place] SANJUANA [id number] 28 [facility] 05:53:00 09:40:[address] [facility] 2022-02-17 2022-02-17 Emergency EM DIEGO SpainWAishwarya [facility] [id number] [facility] 05:53:00 09:40:[id number] [facility] 2022-02-09 2022-02-10 Inpatient ER NUNU [id number] [facility] 03:13:00 22:30:00 YENNIFER 2022-02-09 2022-02-10 Hospital Rene Minaya [facility] [id number] [facility] 03:13:00 22:30:00 Encounter Yennifer Eddy [facility] Bonnie Muñoz [facility] 2022-02-09 2022-02-09 Travel [facility] [id number] [facility] 00:00:00 00:00:00 [facility] Results Test Description Test Time Test Comments Results Result [facility] e Comments CT, CTA AAA, W/ 2022-02-24 ESTHER.EXT.RUNOFF 10:11:00 [facility] 1965 Sex: F *Addendum BeginsREPORT STATUS:A Addendum: I agree with the previously described non vascular findings by Dr. Deleon. Signed: Markel Avilez MDReport Verified Date/Time: 02/24/2022 10:11:[address] angiography of the abdominal aorta, with runoff, 10-Feb-22 INDICATION: This is a 52 year old female with no stenosis of artery embolism, cortication only ischemia presents for assessment. TECHNIQUE: Spiral acquisition before and during intravenous contrast administration using a Siemens multidetector CT scanner. Images were obtained before and during the dynamic passage of intravenous contrast material. Multi-planar 3-D volume-rendering reconstruction was performed using an independent workstation interactively by the interpreting physician as well as the 3-D specialist for optimal visualisation of the abdominal aorta, pelvic arteries, and its peripheral branches. Please refer to the contrast sheet scanned in the EPIC system for the amount and route of contrast given. This exam was performed according to our departmental dose-optimisation programme, which includes automated exposure control, adjustment of the mA and/or kV according to patient size and/or use of iterative reconstruction technique. Dose modulation, iterative reconstruction, and/or weight based adjustment of the mA/kV was utilized to reduce the radiation dose to as low as reasonably achievable. FINDINGS: VASCULAR: The abdominal aorta is normal and course and calibre. In the infrarenal dominant aorta, increased calcification is seen. Immediately above the aortic bifurcation, at image 137, mixture of calcific and noncalcific atherosclerosis is identified, and the patent lumen is two approximately 1.3 x 0.8 cm indicating no obstructive lesion is identified. There is no evidence of acute aortic pathology, specifically, there is no dissection, intramural hematoma, or contained rupture. Quantitative dimensions of the abdominal aorta are as follows: 1.9 cm at the mesenteric segment; 1.8 cm at the renal segment,; and 1.7 cm at the aortic bifurcation. The coeliac axis, SMA, QUENTIN are patent. Single left and right renal arteries are seen. The right renal artery is patent with nonobstructive calcification. An approximate 1 cm from the takeoff of the left renal artery, there is likely significant focal lesion present. Mild calcific and noncalcific atherosclerosis identified in the proximal left common iliac artery. In the very distal left common iliac artery, at image 169, moderate calcification is seen, and the patent lumen is 3.8 x 4.6 mm in diameter. The left external iliac artery is patent. The left common femoral artery is patent, with mixture of calcific and noncalcific atherosclerosis present. The patent lumen at this level is approximately 4.5 x 4.7 mm indicating the absence of obstructive lesion. The left SFA and the left profunda system is widely patent. The left popliteal artery is widely patent. The left tibioperoneal trunk is widely patent. The left anterior tibial artery, and the left posterior tibial arteries are widely patent well seen down to level of the ankle, extending to the dorsalis pedis artery and plantar arch distally, respectively. The left peroneal artery is patent and become a small calibre vessel distally. There is no abrupt cut off identified in the left runoff system. At the takeoff of the right common iliac artery, at image 140, mixture of calcific and noncalcific atherosclerosis is present. There appears to be no critical lesion identified at this level. Remainder of the right common iliac artery only have nonobstructive calcification identified. The right external iliac artery is widely patent. The right common femoral artery is widely patent. The right SFA, and the right profunda system is widely patent with no obstructive lesion identified. The right upper to artery is widely patent. In the right lower extremity, the right tibioperoneal trunk is widely patent. The right posterior tibial artery is small calibre vessel proximally, and thereafter is not well seen. The right peroneal artery is the dominant vessel was seen down to level of the ankle, and in fact give rise to the plantar arch distally; this may suggest the right posterior tibial artery is a small calibre vessel to begin with. The right anterior tibial artery is widely patent and the dorsalis pedis artery is well seen. Again, no abrupt cut off sign is identified. NON-VASCULAR: The bony changes are seen in the lung bases. In the abdomen, the liver and spleen appears unremarkable. The liver edge is smooth. No abnormal enhancing structure is identified. Patient is post cholecystectomy. The pancreas appears unremarkable. The right adrenal glands unremarkable. The body of the left adrenal gland is somewhat nodular, however, precontrast Hounsfield units less than 10. An addendum will dictated thereafter, if needed. No acute renal pathology seen and no hydronephrosis or perirenal fluid collection is identified. Bowel is incompletely assessed by CT angiography as enteric contrast is not given. No obvious bowel dilation is identified. Scattered colonic diverticulum is seen. Suture material is identified in the right-sided colon, at image 141 indicating prior surgery. Correlate with operative report. Finally, a ventral hernia is identified in the lower abdomen, with loops of bowel present. No obvious strangulation or incarceration is identified. This is seen at image 146. The uterus is identified. No abnormal and axial mass is seen. The bladder appears unremarkable. No free air or free fluid is identified abdomen pelvis. In the lower abdomen and in the both sides of the pelvis, some subcutaneous kidneys oedema/anasarca is identified. No acute bony pathology is seen. Some degenerative changes is noted. Some inflammatory changes are identified in the subcutaneous tissue, below both knees. Please correlate clinically. CONCLUSION: 1. The abdominal aorta is normal in course and calibre. In the infrarenal abdominal aorta, mixture of calcific and noncalcific atherosclerosis identified especially above the aortic bifurcation, for example image 137. Minimal luminal diameter is 1.3 x 0.8 cm, suggesting no critical lesion is present. There is no evidence of acute aortic pathology, specifically, there is no dissection, intramural hematoma, or contained rupture. Quantitative dimension of the abdominal aorta are as noted. 2. The distal left common iliac artery has calcification identified, with minimum luminal diameter of 3.8 x 4.6 mm, most likely represent at most a moderate lesion with no critical stenosis identified. Remainder the left pelvic arteries have no obstructive lesion identified except for nonobstructive calcification. The left SFA and the left popliteal artery is unremarkable. Details of the runoff vessels as described above in the left lower extremity with no obstructive lesion identified. 3. The right pelvic arteries are unremarkable, except at the takeoff of the right common iliac artery, mixture of calcific and noncalcific atherosclerosis is identified. There appears to be no critical lesion at this level. Remainder of the right pelvic arteries are otherwise widely patent, only with nonobstructive atherosclerosis present. The right SFA and the right popliteal artery artery is unremarkable. Details of the runoff vessel in the right lower extremity as described above. In summary, at the time of examination, no abrupt cut off sign is identified suggesting arterial embolism. It is uncertain which leg is asymptomatic. The only level with increased amount of atherosclerosis is the distal left common iliac artery and the proximal right common iliac artery as described above, though by visual estimation, probable only moderate lesion is identified. Otherwise remainder of the runoff vesseld have no significant obstructive lesion identified. Correlate with duplex ultrasound scan if there is any increase in velocity at the common iliac level, bilaterally. 4. Other findings as described above. 5. An addendum will be dictated by the Final Inspector Radiologist regarding the nonvascular findings. THE REPORT WILL ONLY BE CONSIDERED COMPLETE AFTER THE ADDENDUM HAS BEEN DICTATED. Signed: Bryan Deleon Verified Date/Time: 02/12/2022 10:10:27 2D Echo 2022-02-11 Ejection [facility] W/Doppler(CW/PW/C 15:38:57 [facility] ECHO Medical olor) [facility] 2022-02-10 16:35:46 Test Item Value Reference Range Interpretation Comme nts POC-Glucose Meter (test code = 97 mg/dL 70-110 : TESTED AT [facility] [address] [facility] 1538) [facility], [facility] 30: Multiplex Operator/Techni dilma ID = [id number] for Corry Rinaldi sa Lab Interpretation (test code = Normal 98186-7) [facility] [id number] 16:35:46 Test Item Value Reference Range Interpretation Comments POC-GLUCOSE METER 97 mg/dL 70-110 : TESTED A T [facility] [address] (BEAKER) (test code = [facility], 1538) [address]: Multiplex Operator/Techni dilma ID = [id number] for Genny Saldivar [id number] 14:49:27 Test Item Value Reference Range Interpretation Comments PARTIAL THROMBOPLASTIN TIME 60.8 seconds 22.5-36.0 H (BEAKER) (test code = 760) [id number] 09:02:31 Test Item Value Reference Range Interpretation Comments PARTIAL THROMBOPLASTIN TIME 34.1 seconds 22.5-36.0 (BEAKER) (test code = 760) POCT-GLUCOSE [id number] 07:42:16 Test Item Value Reference Range Interpretation Comments POC-GLUCOSE METER 74 mg/dL 70-110 : TESTED A T [facility] [address] (BEAKER) (test code = [facility], 1538) [address]: Multiplex Operator/Techni dilma ID = [id number] for Acacia Christine CBC (HEMOGRAM ONLY)2022-02-10 05:14:47 Test Item Value Reference Range Interpretation Comments WHITE BLOOD CELL COUNT (BEAKER) 8.4 K/ L 3.5-10.5 (test code = 775) RED BLOOD CELL COUNT (BEAKER) 3.88 M/ L 3.93-5.22 L (test code = 761) HEMOGLOBIN (BEAKER) (test code = 11.7 GM/DL 11.2-15.7 410) HEMATOCRIT (BEAKER) (test code = 35.8 % 34.1-44.9 411) MEAN CORPUSCULAR VOLUME (BEAKER) 92.3 fL 79.4-94.8 (test code = 753) MEAN CORPUSCULAR HEMOGLOBIN 30.2 pg 25.6-32.2 (BEAKER) (test code = 751) MEAN CORPUSCULAR HEMOGLOBIN CONC 32.7 GM/DL 32.2-35.5 (BEAKER) (test code = 752) RED CELL DISTRIBUTION WIDTH 15.3 % 11.7-14.4 H (BEAKER) (test code = 412) PLATELET COUNT (BEAKER) (test 295 K/CU MM 150-450 code = 756) MEAN PLATELET VOLUME (BEAKER) 9.9 fL 9.4-12.3 (test code = 754) NUCLEATED RED BLOOD CELLS 0 /100 WBC 0-0 (BEAKER) (test code = 413) [id number] 23:23:24 Test Item Value Reference Range Interpretation Comments PARTIAL THROMBOPLASTIN TIME 31.9 seconds 22.5-36.0 (BEAKER) (test code = 760) POCT-GLUCOSE [id number] 21:30:42 Test Item Value Reference Range Interpretation Comments POC-GLUCOSE METER 143 mg/dL 70-110 H : TESTED A T [facility] 6720 (BEAKER) (test code = [place], 1538) [address]: Multiplex Operator/Techni dilma ID = [id number] for SA LOBO, JERRY HUNTER's with PT and DP doppler [id number] 18:17:32Ejection FractionSLEH ECHO HEARTLAB MKCKESSON [facility] SunsetArterial [facility] Leg, [id number] 18:16:33Ejection FractionSLEH ECHO HEARTLAB MKCKESSON [facility]SE [id number] 16:41:21 Test Item Value Reference Range Interpretation Comments POC-GLUCOSE METER 99 mg/dL 70-110 : TESTED A T [facility] 6720 (BEAKER) (test code = [place], 1538) [address]: Multiplex Operator/Techni dilma ID = [id number] for Kelsea Romero SARS-CoV2/RT-PCR (Asymptomatic ONLY)2022-02-09 14:34:44 Test Item Value Reference Range Interpretation Comments SARS-COV2/RT-PCR Negative Not Detected, (test code = Negative, See 61322-9) external report for linked test SARS-COV-2 [facility]IDGET PERFORMING LAB (test code = 52930-8) ADENIKE (test code = Negative result for this ADENIKE) test determines that SARS-CoV-2 RNA was not present in the specimen above the Limit of Detection (LOD). However, Negative results do not preclude SARS-CoV-2 infection and should not be used as the sole basis for treatment or patient management decisions. Negative results must be combined with clinical observations, patient history, and epidemiological information. A false negative result may occur if a specimen is improperly collected, transported or handled. A false negative result should be considered if patient's recent exposures or clinical presentation indicate that COVID-19 (SARS-CoV-2) is likely and diagnostic tests for other causes of illness are negative. Re-testing should be considered in cases of suspected false negatives. The limit of detection for this assay is 800 copies/mL. This SARS CoV-2 test is a real-time RT-PCR test intended for the qualitative detection of nucleic acid from SARS-CoV-2 in a nasopharyngeal swab specimen collected from individuals suspected of COVID-19 by their healthcare provider. This test has not been Food and Drug Administration (FDA) cleared or approved. This is a modified version of an approved Emergency Use Authorization (EUA) and is in the process of review by the FDA. Once authorized by the FDA, the issued EUA will be effective until the declaration that circumstances exist justifying the authorization of the emergency use of in vitro diagnostic tests for detection and/or diagnosis of COVID-19 is terminated under Section 564(b)(2) of the Act or the EUA is revoked under Section 564(g) of the Act. Fact Sheet for Healthcare Providers:https://www.[employer] ide[employer]ocado™.OjOs.com/sites/default/f gloria/product/documents/F act_Sheet_HC_Providers_L aee_XCNV-NxX-8.pdf Fact Sheet for Healthcare Patients:https://www.HeySpace/sites/default/fi les/product/documents/Fa ct_Sheet_Patients_Lyra_S ARS-CoV-2.pdf Performing Laboratory:[facility] [place] [address] [facility] ([facility])2022-02-09 14:34:44 Test Item Value Reference Range Interpretation Comments SARS-COV2/RT-PCR (test Negative Not Detected, Negative, code = 1469494) See external report for linked test SARS-COV-2 PERFORMING LAB [facility] (test code = 1252519) Negative result for this test determines that SARS-CoV-2 RNA was not present in the specimen above the Limit of Detection (LOD). However, Negative results do not preclude SARS-CoV-2 infection and should not be used as the sole basis for treatment or patient management decisions. Negative results must be combined with clinical observations, patient history, and epidemiological information. A false negative result may occur if a specimen is improperly collected, transported or handled. A false negative result should be considered if patient's recent exposures or clinical presentation indicate that COVID-19 (SARS-CoV-2) is likely and diagnostic tests for other causes of illness are negative. Re-testing should be considered in cases of suspected false negatives.The limit of detection for this assay is 800 copies/mL.This SARS CoV-2 test is a real-time RT-PCR test intended for the qualitative detection of nucleic acid from SARS-CoV-2 in a nasopharyngeal swab specimen collected from individuals suspected of COVID-19 by their healthcare provider.This test has not been Food and Drug Administration (FDA) cleared or approved. This is a modified version of an approved Emergency Use Authorization (EUA) and is in the process of review by the FDA. Once authorized by the FDA, the issued EUA will be effective until the declaration that circumstances exist justifying the authorization of the emergency use ofin vitro diagnostic tests for detection and/or diagnosis of COVID-19 is terminated under Section 564(b)(2) of the Act or the EUA is revoked under Section 564(g) of the Act.Fact Sheet for Healthcare Prov iders:https://www.Edfolio/sites/default/files/product/documents/Fact_Sheet_HC _Pzouhvoqd_Dikg_PAAU-DtY-1.pdfFact Sheet for Healthcare Patients:https://www.Edfolio/sites/default/files/product/docume nts/Xbcp_Xjdvz_Npvkudnm_Moor_XHGN-PyB-2.pdfPerforming Laboratory:[facility], [place] [id number] 13:31:18 Test Item Value Reference Range Interpretation Comments PARTIAL THROMBOPLASTIN TIME 38.7 seconds 22.5-36.0 H ([employer]) (test code = 760) HEMOGLOBIN [id number] 13:17:34 Test Item Value Reference Range Interpretation Comments HEMOGLOBIN A1C 5.7 % See_Comment H [Automated m essage] ELECTROPHORESIS ([employer]) The system which (test code = 3811) generated this result transmitted ref erence range: <=5.6%. The reference range was not used to int erpret this result as normal/abnormal . "The A1c is measured using a NGSP-certified method. HbA1c value equal to or greater than 6.5% as thediagnosis cutoff for diabetes. An HbA1c value of 5.7- 6.4% indicates increased risk for diabetes (prediabetes)."Multiplex Operator ID - [id number] ID - ADMPOCT-GLUCOSE [id number] 12:25:58 Test Item Value Reference Range Interpretation Comments POC-GLUCOSE METER 108 mg/dL 70-110 : TESTED A T [facility] [address] ([employer]) (test code = ELLA Yo [facility], 1538) [address]: Multiplex Operator/Techni dilma ID = [id number] for YoanaAaliyahWin Rosario giorgi COMPREHENSIVE METABOLIC [id number] 07:55:16 Test Item Value Reference Range Interpretation Comments TOTAL PROTEIN 5.5 gm/dL 6.0-8.3 L ([employer]) (test code = 770) ALBUMIN (BEAKER) 2.8 g/dL 3.5-5.0 L (test code = 1145) ALKALINE PHOSPHATASE 57 U/L 40-150 (BEAKER) (test code = 346) BILIRUBIN TOTAL 0.5 mg/dL 0.2-1.2 (BEAKER) (test code = 377) SODIUM (BEAKER) (test 134 meq/L 136-145 L code = 381) POTASSIUM (BEAKER) 3.7 meq/L 3.5-5.1 (test code = 379) CHLORIDE (BEAKER) 102 meq/L 98-107 (test code = 382) CO2 (BEAKER) (test 25 meq/L 22-29 code = 355) BLOOD UREA NITROGEN 8 mg/dL 7-21 (BEAKER) (test code = 354) CREATININE (BEAKER) 0.88 mg/dL 0.57-1.25 (test code = 358) GLUCOSE RANDOM 91 mg/dL 70-105 (BEAKER) (test code = 652) CALCIUM (BEAKER) 8.4 mg/dL 8.4-10.2 (test code = 697) AST (SGOT) (BEAKER) 13 U/L 5-34 (test code = 353) ALT (SGPT) (BEAKER) 9 U/L 6-55 (test code = 347) EGFR (BEAKER) (test 66 mL/min/1.73 ESTIMA DENIA GFR IS code = 1092) sq m NOT ACCURATE CREATININE CLEARANCE IN PREDICTING GLOMERULAR FILTRATION RATE . ESTIMATED GFR I S NOT APPLICABLE FOR DIALYSIS PATIEN TS. Multiplex Operator ID - ADMINPOCT-GLUCOSE [id number] 07:46:09 Test Item Value Reference Range Interpretation Comments POC-GLUCOSE METER 84 mg/dL 70-110 : TESTED A T [facility] [address] (BEAKER) (test code = [facility], 1538) [address]: Multiplex Operator/Techni dilma ID = [id number] for Yoana FischerAbrahamKelsea POCT-GLUCOSE [id number] 06:20:17 Test Item Value Reference Range Interpretation Comments POC-GLUCOSE METER 86 mg/dL 70-110 : TESTED A T [facility] [address] (BEAKER) (test code = [facility], 1538) [address]: Multiplex Operator/Techni dilma ID = [id number] for SAND ERS, JERRY [id number] 05:19:02 Test Item Value Reference Range Interpretation Comments PARTIAL THROMBOPLASTIN TIME 65.8 seconds 22.5-36.0 H (BEAKER) (test code = 760) CBC (HEMOGRAM ONLY)2022-02-09 05:13:12 Test Item Value Reference Range Interpretation Comments WHITE BLOOD CELL COUNT (BEAKER) 10.2 K/ L 3.5-10.5 (test code = 775) RED BLOOD CELL COUNT (BEAKER) 4.43 M/ L 3.93-5.22 (test code = 761) HEMOGLOBIN (BEAKER) (test code = 12.9 GM/DL 11.2-15.7 410) HEMATOCRIT (BEAKER) (test code = 40.8 % 34.1-44.9 411) MEAN CORPUSCULAR VOLUME (BEAKER) 92.1 fL 79.4-94.8 (test code = 753) MEAN CORPUSCULAR HEMOGLOBIN 29.1 pg 25.6-32.2 (BEAKER) (test code = 751) MEAN CORPUSCULAR HEMOGLOBIN CONC 31.6 GM/DL 32.2-35.5 L (BEAKER) (test code = 752) RED CELL DISTRIBUTION WIDTH 15.1 % 11.7-14.4 H (BEAKER) (test code = 412) PLATELET COUNT (BEAKER) (test 329 K/CU MM 150-450 code = 756) MEAN PLATELET VOLUME (BEAKER) 9.8 fL 9.4-12.3 (test code = 754) NUCLEATED RED BLOOD CELLS 0 /100 WBC 0-0 (BEAKER) (test code = 413)
[2022-04-01] MEDS ORDERED: GLUCAGON 1 MG/VIAL IM PRN (13:33)
[2022-04-01 13:40] LABS: SARS-CoV-2 Antigen Rapid Res Negative (Negative)
[2022-04-01] MEDS ORDERED: DEXTROSE 10%-WATER 500 ML IV BAG IV PRN (13:51)
[2022-04-01 15:34] LABS: Protime INR 0.96
[2022-04-01 15:48] VITALS: BMI 41.5
[2022-04-01 15:48] LABS: Albumin 2.3 g/dL (3.4-5.0); Bilirubin Total 0.2 mg/dL (0.2-1.0); Potassium 3.7 mmol/L (3.5-5.1); Protein, Total 6.2 g/dL (6.4-8.2)
[2022-04-01] MEDS: INSULIN -REGULAR HUMAN 50 UNIT/0.5 ML ML SQ SCH ×2 (15:50→20:53)
--- NOTE | 2022-04-01 15:57 | ER ---
Nurse's Notes [facility] Name: Nahomi Soto Age: 56 yrs Sex: Female : 1965 Arrival Date: 04/01/2022 Time: 12:18 Bed External Waiting Private MD: Loc Torres Diagnosis: Type 2 diabetes mellitus with foot ulcer Vital Signs: 04/01 12:29 BP 108 / 67; Pulse 89; Resp 18; Temp 98.2; Pulse Ox 100% ; Weight 109.77 kg; Height 5 kb3 ft. 4 in. (162.56 cm); 12:29 Body Mass Index 41.54 (109.77 kg, 162.56 cm) kb3 ED Course: 12:18 Patient arrived in ED. am2 12:18 Loc Torres MD is Private Physician. am2 14:29 Cari Napier, RN is Primary Nurse. iw 15:55 Loc Torres MD is Hospitalizing Provider. iw Administered Medications: No medications were administered Outcome: 15:56 Decision to Hospitalize by Provider. iw 15:56 Patient left the ED. iw Signatures: Cari Napier, RN RN iw Luzmaria Billings am2 Rosaura Oneal, RN RN kb3
[2022-04-01] MEDS: HYDROMORPHONE HCL 1 MG/ML INJ IV PRN ×2 (16:14→20:33)
[2022-04-01] MEDS: NA CHLORIDE 0.9% 1,000 ML IV SCH (16:17)
--- NOTE | 2022-04-01 17:11 | P.HP ---
Certification for Inpatient Patient admitted to: Inpatient With expected LOS: >2 Midnights Patient will require the following post-hospital care: Rehabilitation Practitioner: I am a practitioner with admitting privileges, knowledge of patient current condition, hospital course, and medical plan of care. Services: Services provided to patient in accordance with Admission requirements found in Title 42 Section 412.3 of the Code of Federal Regulations Patient History Date of Service: 04/01/22 Primary Care Provider: Melissa Reason for admission: diabetic foot with gangrene History of Present Illness: Patient is a new office patient of ours. She has a history of diabetes, htn and nicotine dependence. She presented 03/09 with a diabetic ulcer of the right greater to and 2nd toe. She was sent to the ER at that time. She left against medical advice at that time. she has been to several hospitals since then. Missed several appointments. Came today. Greater toe was black and foul smelling Was sent to the the hospital for direct admission as this is Gangrene. Allergies No Known Allergies Allergy (Verified 01/26/22 03:16) Home Medications: Amlodipine [Norvasc*] 10 mg PO DAILY 01/26/22 Budesonide/Formoterol Fumarate [Symbicort 160-4.5 Mcg Inhaler] 2 puff IH BID 01/26/22 Duloxetine [Cymbalta *] 60 mg PO DAILY 01/26/22 Esomeprazole Mag Trihydrate [Nexium] 40 mg PO DAILY 01/26/22 Fenofibric Acid (Choline) [Fenofibric Acid] 135 mg PO BEDTIME 01/26/22 Linagliptin [Tradjenta] 1 tab PO DAILY 01/26/22 Mirabegron [Myrbetriq] 50 mg PO DAILY 01/26/22 Pregabalin [Lyrica*] 75 mg PO BIDHS 01/26/22 Rosuvastatin [Crestor*] 10 mg PO BEDTIME 01/26/22 Trazodone [Desyrel*] 100 mg PO BEDTIME 01/26/22 Vitamin D [Drisdol*] 1 cap PO DAILY 01/26/22 - Past Medical/Surgical History Diabetic: Yes -: Type 2 Diabetes, Non-Insulin Dependent -: Hypertension -: COPD -: Hyperlipidemia -: GERD -: Arthritis -: fibromyalgia -: Colectomy -: Colostomy with reversal -: -: Tubal Ligation -: Cholecystectomy Psychosocial/ Personal History: Patient lives at home with her daughter. - Social History Alcohol use: No CD- Drugs: No Caffeine use: Yes Review of Systems 10-point ROS is otherwise unremarkable Musculoskeletal: Foot Pain (black rt great toe with foul smell ) Physical Examination - Vital Signs Temperature: 98.2 F Blood Pressure: 108/67 Pulse: 89 Respirations: 18 - Physical Exam General: Alert, In no apparent distress HEENT: Atraumatic, PERRLA, Mucous membr. moist/pink, EOMI, Sclerae nonicteric Neck: Supple, 2+ carotid pulse no bruit, No LAD, Without JVD or thyroid abnormality Respiratory: Clear to auscultation bilaterally, Normal air movement Cardiovascular: Regular rate/rhythm, Normal S1 S2 Gastrointestinal: Normal bowel sounds, No tenderness Musculoskeletal: No tenderness Integumentary: Skin breakdown, Diabetic ulcer (right 1st toe is black and cool to the touch. ulceration in the interphalangeal space. ) Neurological: Normal gait, Normal speech, Normal strength at 5/5 x4 extr, Normal tone, Normal affect Lymphatics: No axilla or inguinal lymphadenopathy Assessment and Plan - Problems (Diagnosis) (1) Diabetic foot ulcer Current Visit: Yes Status: Acute Plan: Will admit to the hospital. Start the patient on fluids Vanc and zosyn. Will get blood cultures. Check a xray as well. Qualifiers: Diabetic foot ulcer location: toe Diabetes mellitus type: type 2 Laterality: right Non-pressure ulcer stage: with necrosis of muscle Qualified Code(s): E11.621 - Type 2 diabetes mellitus with foot ulcer; L97.513 - Non-pressure chronic ulcer of other part of right foot with necrosis of muscle (2) Gangrene associated with type 2 diabetes mellitus Current Visit: Yes Status: Acute Plan: consult to Dr. Lee. Most likely will loose the greater toe. Also may loose part of the 2nd toe. Will need a PT evaluation afterwards. (3) Peripheral artery disease Current Visit: Yes Status: Acute Plan: Check a CT angiogram in the morning. Would need to evaluate the vascular bed. This may guide surgery to the amount of the tissue that remain viable. Will also rule in or out osteomyelitis. (4) Nicotine dependence Current Visit: Yes Status: Acute Plan: offered a nicotine patch. patient wishes to stop without one. Qualifiers: Nicotine product type: cigarettes Substance use status: uncomplicated Qualified Code(s): F17.210 - Nicotine dependence, cigarettes, uncomplicated (5) COPD (chronic obstructive pulmonary disease) Current Visit: No Status: Chronic Plan: stable at this time. Will continue levalbuterol as needed. An incentive spirometer may be beneficial. As she has stopped smoking abruptly. Would like a patient off cigarettes 6 weeks before surgery. However this can't be helped. Qualifiers: COPD type: chronic bronchitis Chronic bronchitis type: simple Qualified Code(s): J41.0 - Simple chronic bronchitis (6) Hypertension Current Visit: No Status: Chronic Plan: she is hypotensive at this time. Likely due to sepsis. Will follow up on her meds as necessary Qualifiers: Discharge Plan: Home Plan to discharge in: Greater than 2 days - Advance Directives Does patient have a Living Will: No Does patient have a Durable POA for Healthcare: No - Code Status/Comfort Care Code Status Assessed: No Code Status: Full Code Physician Review: Patient Assessed, Agree with Above Assessment and Plan Critical Care: No Time Spent Managing Pts Care (In Minutes): 70
[2022-04-01] MEDS ORDERED: LEVALBUTEROL 0.63 MG/3 ML NEB NEB PRN (17:16)
[2022-04-01] MEDS: ENOXAPARIN 40 MG/0.4 ML SQ SCH (17:46)
--- NOTE | 2022-04-01 19:05 | RAD REPORT ---
EXAM DESCRIPTION: RAD - Foot Right 2 View - 04/01/2022 6:57 pm CLINICAL HISTORY: diabetic foot Pain and swelling COMPARISON: Chest Single View dated 02/08/2022; Lower Extremity Artery Uni Ltd dated 02/08/2022; Extre mity Venous Uni Ltd dated 02/08/2022 FINDINGS: No fracture, dislocation or soft tissue gas. No radiographic finding to indicate osteomyel itis. Small posterior large and plantar calcaneal spur. Follow-up MRI of the foot would be recommended for further evaluation if clinically needed.
[2022-04-01] MEDS: PREGABALIN 75 MG CAP PO SCH (20:33)
[2022-04-02] MEDS: HYDROMORPHONE HCL 1 MG/ML INJ IV PRN ×3 (00:54→16:35)
[2022-04-02] MEDS: PANTOPRAZOLE 40MG TABLET PO SCH (06:09)
[2022-04-02 06:42] LABS: Absolute Lymphocytes (CBC) 2.6 K/uL (0.7-4.9); Hematocrit 34.1 % (36.0-45.0); Lymphocytes % 22.9 % (15.3-44.8); MCV 91.9 fL (80-100); MPV 8.1 fL (7.6-11.3); RBC Red Blood Cell Count 3.72 M/uL (3.86-4.86)
[2022-04-02 07:07] LABS: AST/SGOT 9 U/L (15-37); Albumin 2.1 g/dL (3.4-5.0); Alkaline Phosphatase 122 U/L (45-117); BUN Blood Urea Nitrogen 13 mg/dL (7-18); Bicarbonate 21 mmol/L (21-32); Bilirubin Total 0.2 mg/dL (0.2-1.0); Glomerular Filtration Rate 66 ml/min (=/>90); Glucose Level 80 mg/dL (74-106); HDL Cholesterol 38 mg/dL (40-60); LDL Cholesterol, Calculated 8 mg/dL (<130); Protein, Total 5.7 g/dL (6.4-8.2); Sodium Level 143 mmol/L (136-145)
[2022-04-02 07:09] LABS: ALT/SGPT < 10 U/L (12-78)
[2022-04-02] MEDS: INSULIN -REGULAR HUMAN 50 UNIT/0.5 ML ML SQ SCH ×4 (07:30→21:00)
[2022-04-02] MEDS: NA CHLORIDE 0.9% 1,000 ML IV SCH ×2 (07:46→16:36)
[2022-04-02] MEDS: PREGABALIN 75 MG CAP PO SCH ×2 (07:46→14:10)
[2022-04-02] MEDS: DULOXETINE 30 MG CAP PO SCH (07:46)
[2022-04-02] MEDS: Budesonide/Formoterol Fumarate [Symbicort 160-4.5 Mcg Inhaler] 10.2 GM IH SCH (09:00)
--- NOTE | 2022-04-02 09:01 | P.PN ---
Subjective Date of Service: 04/02/22 Primary Care Provider: Melissa Chief Complaint: diabetic foot with gangrene Subjective: No new changes Review of Systems 10-point ROS is otherwise unremarkable Physical Examination - Vital Signs Temperature: 97.0 F Blood Pressure: 99/54 Pulse: 84 Respirations: 17 Pulse Ox (%): 98 - Physical Exam General: Alert, In no apparent distress HEENT: Atraumatic, PERRLA, EOMI Neck: Supple, JVD not distended Respiratory: Clear to auscultation bilaterally, Normal air movement Cardiovascular: Regular rate/rhythm, Normal S1 S2 Gastrointestinal: Normal bowel sounds, No tenderness Musculoskeletal: No tenderness Integumentary: No rashes Neurological: Normal speech, Normal tone, Normal affect Lymphatics: No axilla or inguinal lymphadenopathy Assessment And Plan - Current Problems (Diagnosis) (1) Diabetic foot ulcer Current Visit: Yes Status: Acute Plan: Will admit to the hospital. Start the patient on fluids Vanc and zosyn. Will get blood cultures. Check a xray as well. 04/[address] angio today. Will await consult with Dr. Lee Qualifiers: Diabetic foot ulcer location: toe Diabetes mellitus type: type 2 Laterality: right Non-pressure ulcer stage: with necrosis of muscle Qualified Code(s): E11.621 - Type 2 diabetes mellitus with foot ulcer; L97.513 - Non-pressure chronic ulcer of other part of right foot with necrosis of muscle (2) Gangrene associated with type 2 diabetes mellitus Current Visit: Yes Status: Acute Plan: consult to Dr. Lee. Most likely will loose the greater toe. Also may loose part of the 2nd toe. Will need a PT evaluation afterwards. (3) Peripheral artery disease Current Visit: Yes Status: Acute Plan: Check a CT angiogram in the morning. Would need to evaluate the vascular bed. This may guide surgery to the amount of the tissue that remain viable. Will also rule in or out osteomyelitis. (4) Nicotine dependence Current Visit: Yes Status: Acute Plan: offered a nicotine patch. patient wishes to stop without one. Qualifiers: Nicotine product type: cigarettes Substance use status: uncomplicated Qualified Code(s): F17.210 - Nicotine dependence, cigarettes, uncomplicated (5) COPD (chronic obstructive pulmonary disease) Current Visit: No Status: Chronic Plan: stable at this time. Will continue levalbuterol as needed. An incentive spirometer may be beneficial. As she has stopped smoking abruptly. Would like a patient off cigarettes 6 weeks before surgery. However this can't be helped. Qualifiers: COPD type: chronic bronchitis Chronic bronchitis type: simple Qualified Code(s): J41.0 - Simple chronic bronchitis (6) Hypertension Current Visit: No Status: Chronic Plan: she is hypotensive at this time. Likely due to sepsis. Will follow up on her meds as necessary Qualifiers: Discharge Plan: Home Plan to discharge in: Greater than 2 days Physician Review: Patient Assessed, Agree with Above Assessment and Plan Critical Care: No Time Spent Managing PTS Care (In Minutes): 20
--- NOTE | 2022-04-02 09:40 | RAD REPORT ---
EXAM DESCRIPTION: CTLower Ext Angio - 04/02/2022 9:00 am CLINICAL HISTORY: diabetic foot with gangrene COMPARISON: Lower Extremity Artery Uni Ltd dated 02/08/2022; Foot Right 2 View dated 04/01/2022 TECHNIQUE: CTA of the right lower extremity was performed with IV contrast. MIPS reconstructions wer e performed. All CT scans are performed using dose optimization technique as appropriate and may include automated exposure control or mA/KV adjustment according to patient size. FINDINGS: The right common femoral artery, superficial femoral artery, and popliteal artery are salcedo nt. Scattered atherosclerotic plaque is noted. The anterior tibial and peroneal artery is are patent. No posterior tibial artery is identified. This may be congenital. 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 The anterior tibial and peroneal arteries are widely patent, however. No flow limiting arterial stenosis identified in the r ight lower extremity.
--- NOTE | 2022-04-02 16:23 | P.CNS ---
Date of Consult: 04/02/22 Reason for Consult: gangrene right great toe Primary Care Provider: Melissa Chief Complaint: diabetic foot with gangrene History of Present Illness: Patient states that her right foot wound began as a bruise approximately 2 months ago and that it has progressed. Allergies No Known Allergies Allergy (Verified 01/26/22 03:16) Home Medications: Amlodipine [Norvasc*] 10 mg PO DAILY 01/26/22 Budesonide/Formoterol Fumarate [Symbicort 160-4.5 Mcg Inhaler] 2 puff IH BID 01/26/22 Duloxetine [Cymbalta *] 60 mg PO DAILY 01/26/22 Esomeprazole Mag Trihydrate [Nexium] 40 mg PO DAILY 01/26/22 Fenofibric Acid (Choline) [Fenofibric Acid] 135 mg PO BEDTIME 01/26/22 Linagliptin [Tradjenta] 1 tab PO DAILY 01/26/22 Mirabegron [Myrbetriq] 50 mg PO DAILY 01/26/22 Pregabalin [Lyrica*] 75 mg PO BIDHS 01/26/22 Rosuvastatin [Crestor*] 10 mg PO BEDTIME 01/26/22 Trazodone [Desyrel*] 100 mg PO BEDTIME 01/26/22 Cholecalciferol (Vitamin D3) [Vitamin D 5,000 IU Cap*] 5,000 unit PO DAILY 04/02/22 - Past Medical/Surgical History Diabetic: Yes -: Type 2 Diabetes, Non-Insulin Dependent -: Hypertension -: COPD -: Hyperlipidemia -: GERD -: Arthritis -: fibromyalgia -: Colectomy -: Colostomy with reversal -: -: Tubal Ligation -: Cholecystectomy Psychosocial/ Personal History: Patient lives at home with her daughter. - Social History Smoking Status: Current every day smoker, Heavy Tobacco smoker (>10 cigarettes/day) Counseled patient to stop smoking for: less than 10 minutes Patient receptive to therapy: Yes Alcohol use: No CD- Drugs: No Caffeine use: Yes Place of Residence: Home Review of Systems 10-point ROS is otherwise unremarkable Physical Examination Temp Pulse Resp BP Pulse Ox 97.9 F 89 18 96/56 L 95 04/02/22 12:00 04/02/22 12:00 04/02/22 12:00 04/02/22 12:00 04/02/22 12:00 General: Alert, In no apparent distress, Oriented x3 Cardiovascular: No edema, Abnormal pulses (nonpalpable posterior tibial pulse right, 1/4 dorsalis pedis pulse right) Musculoskeletal: No clubbing, No swelling, No contractures, No erythema, No tenderness, No warmth Integumentary: Other (Dry gangrene right hallux with desicated wound extending dorsally into the right first interspace. No purulence, no ascending cellulitis) Neurological: Abnormal sensation Imagings Data: CTA demonstrates patent dorsalis pedis and peroneal arteries, no patent posterior tibial artery. Radiographs negative for osteomyelitis or gas - Problems (1) Diabetic foot ulcer associated with type 2 diabetes mellitus Current Visit: Yes Status: Acute (2) Gangrene associated with type 2 diabetes mellitus Current Visit: Yes Status: Acute (3) Peripheral artery disease Current Visit: Yes Status: Acute Conclusions/Impression: Discussed with the patient treatment options and agree on amputation of right hallux with surgical debridement of wound. Patient understands that further surgical intervention may be needed and that she needs to stop smoking to allow wound to heal. PAtient to be npo after midnight with surgery to be performed tomorrow. Physician Review: Patient Assessed, Agree with Above Assessment and Plan
[2022-04-02] MEDS: ENOXAPARIN 40 MG/0.4 ML SQ SCH (17:31)
[2022-04-03] MEDS: PANTOPRAZOLE 40MG TABLET PO SCH (05:26)
[2022-04-03] MEDS: NA CHLORIDE 0.9% 1,000 ML IV SCH (06:00)
[2022-04-03 06:17] LABS: Absolute Lymphocytes (CBC) 1.4 K/uL (0.7-4.9); Hematocrit 31.6 % (36.0-45.0); Lymphocytes % 16.8 % (15.3-44.8); MCV 93.2 fL (80-100); MPV 8.3 fL (7.6-11.3); RBC Red Blood Cell Count 3.39 M/uL (3.86-4.86)
[2022-04-03 06:41] LABS: Bilirubin Total 0.1 mg/dL (0.2-1.0); Potassium 3.2 mmol/L (3.5-5.1); Protein, Total 5.3 g/dL (6.4-8.2)
[2022-04-03] MEDS: INSULIN -REGULAR HUMAN 50 UNIT/0.5 ML ML SQ SCH ×4 (07:30→20:43)
--- NOTE | 2022-04-03 08:34 | P.PN ---
Subjective Date of Service: 04/03/22 Primary Care Provider: Melissa Chief Complaint: diabetic foot with gangrene Subjective: No new changes Review of Systems 10-point ROS is otherwise unremarkable Physical Examination - Vital Signs Temperature: 97.6 F Blood Pressure: 98/58 Pulse: 88 Respirations: 16 Pulse Ox (%): 95 - Physical Exam General: Alert, In no apparent distress HEENT: Atraumatic, PERRLA, EOMI Neck: Supple, JVD not distended Respiratory: Clear to auscultation bilaterally, Normal air movement Cardiovascular: Regular rate/rhythm, Normal S1 S2 Gastrointestinal: Normal bowel sounds, No tenderness Musculoskeletal: No tenderness Integumentary: Diabetic ulcer Neurological: Normal speech, Normal tone, Normal affect Lymphatics: No axilla or inguinal lymphadenopathy Assessment And Plan - Current Problems (Diagnosis) (1) Diabetic foot ulcer Current Visit: Yes Status: Acute Plan: Will admit to the hospital. Start the patient on fluids Vanc and zosyn. Will get blood cultures. Check a xray as well. 04/03 plans for surgery today. will need an wound vac. An Ltac or snf would be appropriate for the patient Qualifiers: Diabetic foot ulcer location: toe Diabetes mellitus type: type 2 Laterality: right Non-pressure ulcer stage: with necrosis of muscle Qualified Code(s): E11.621 - Type 2 diabetes mellitus with foot ulcer; L97.513 - Non-pressure chronic ulcer of other part of right foot with necrosis of muscle (2) Gangrene associated with type 2 diabetes mellitus Current Visit: Yes Status: Acute Plan: consult to Dr. Lee. Most likely will loose the greater toe. Also may loose part of the 2nd toe. Will need a PT evaluation afterwards. (3) Peripheral artery disease Current Visit: Yes Status: Acute Plan: Check a CT angiogram in the morning. Would need to evaluate the vascular bed. This may guide surgery to the amount of the tissue that remain viable. Will also rule in or out osteomyelitis. (4) Nicotine dependence Current Visit: Yes Status: Acute Plan: offered a nicotine patch. patient wishes to stop without one. Qualifiers: Nicotine product type: cigarettes Substance use status: uncomplicated Qualified Code(s): F17.210 - Nicotine dependence, cigarettes, uncomplicated (5) COPD (chronic obstructive pulmonary disease) Current Visit: No Status: Chronic Plan: stable at this time. Will continue levalbuterol as needed. An incentive spirometer may be beneficial. As she has stopped smoking abruptly. Would like a patient off cigarettes 6 weeks before surgery. However this can't be helped. Qualifiers: COPD type: chronic bronchitis Chronic bronchitis type: simple Qualified Code(s): J41.0 - Simple chronic bronchitis (6) Hypertension Current Visit: No Status: Chronic Plan: she is hypotensive at this time. Likely due to sepsis. Will follow up on her meds as necessary Qualifiers: Discharge Plan: LTAC Plan to discharge in: 48 Hours - Code Status/Comfort Care Code Status Assessed: No Physician Review: Patient Assessed, Agree with Above Assessment and Plan Critical Care: No Time Spent Managing PTS Care (In Minutes): 25
[2022-04-03] MEDS: PREGABALIN 75 MG CAP PO SCH ×2 (09:00→20:42)
[2022-04-03] MEDS: Budesonide/Formoterol Fumarate [Symbicort 160-4.5 Mcg Inhaler] 10.2 GM IH SCH (09:00)
[2022-04-03] MEDS: DULOXETINE 30 MG CAP PO SCH (09:00)
[2022-04-03] MEDS: VITAMIN D 5,000 UNIT CAP PO SCH (09:00)
[2022-04-03] MEDS ORDERED: NA CHLORIDE 0.9% 1,000 ML ONE (11:41)
[2022-04-03] MEDS ORDERED: DEXTROSE 10%-WATER 500 ML IV ONE (12:46)
[2022-04-03] MEDS ORDERED: CEFAZOLIN SODIUM 1 GM/VIAL ONE (13:10)
[2022-04-03] MEDS ORDERED: LIDOCAINE 1% MPF 5 ML VIAL ONE (13:11)
[2022-04-03] MEDS ORDERED: BUPIVACAINE 0.5% PF 10 ML VIAL ONE (13:11)
[2022-04-03] MEDS ORDERED: propofoL 200 MG/20 ML VIAL IV ONE (13:14)
[2022-04-03] MEDS ORDERED: LIDOCAINE 2% MPF 5 ML VIAL ONE (13:14)
[2022-04-03] MEDS ORDERED: ONDANSETRON 4 MG/2 ML VIAL ONE (13:14)
[2022-04-03] MEDS ORDERED: FENTANYL CITR 100 MCG/2 ML ONE (13:14)
[2022-04-03] MEDS ORDERED: MIDAZOLAM HCL 2 MG/2 ML INJ ONE (13:14)
[2022-04-03] MEDS ORDERED: VANCOMYCIN 2 GM in NA CHLORIDE 0.9% 500 ML IVPB ONE (14:00)
[2022-04-03] MEDS ORDERED: VANCOMYCIN 1 GM in NA CHLORIDE 0.9% 250 ML IVPB SCH (14:00)
--- NOTE | 2022-04-03 14:00 | P.OP ---
Preoperative diagnosis: right hallux gangrene Postoperative diagnosis: same Primary procedure: right hallux amputation Secondary procedure: Incision and drainage right foot Anesthesia: general Estimated blood loss: <20cc Specimen: right great toe Findings: dry gangrene right hallux Operative Technique: see dictated operative note Complications: None Implants: none Transferred to: Recovery Room Condition: Good
[2022-04-03] MEDS: ENOXAPARIN 40 MG/0.4 ML SQ SCH (16:49)
[2022-04-03] MEDS: HYDROMORPHONE HCL 1 MG/ML INJ IV PRN (20:41)
[2022-04-04] MEDS: HYDROMORPHONE HCL 1 MG/ML INJ IV PRN ×4 (00:48→20:23)
[2022-04-04] MEDS ORDERED: VANCOMYCIN 1.25 GM in NA CHLORIDE 0.9% 250 ML IVPB SCH (02:00)
[2022-04-04] MEDS ORDERED: HYDROMORPHONE HCL 1 MG/ML INJ IV ONE (02:53)
[2022-04-04] MEDS: NA CHLORIDE 0.9% 1,000 ML IV SCH ×3 (03:05→16:41)
[2022-04-04] MEDS: VANCOMYCIN 1.5 GM in NA CHLORIDE 0.9% 500 ML IVPB SCH ×2 (03:06→16:28)
[2022-04-04] MEDS: PANTOPRAZOLE 40MG TABLET PO SCH (05:20)
[2022-04-04 06:18] LABS: Absolute Lymphocytes (CBC) 2.2 K/uL (0.7-4.9); Lymphocytes % 26.6 % (15.3-44.8); MCV 91.5 fL (80-100); MPV 7.8 fL (7.6-11.3); RBC Red Blood Cell Count 3.39 M/uL (3.86-4.86)
[2022-04-04 06:40] LABS: Albumin 2.1 g/dL (3.4-5.0); Bilirubin Total 0.2 mg/dL (0.2-1.0); Potassium 3.1 mmol/L (3.5-5.1); Protein, Total 5.3 g/dL (6.4-8.2)
--- NOTE | 2022-04-04 06:52 | P.PN ---
Subjective Date of Service: 04/04/22 Primary Care Provider: Melissa Chief Complaint: diabetic foot with gangrene Subjective: Doing well (VAC has been placed. PAtient is having moderate pain) Review of Systems 10-point ROS is otherwise unremarkable Physical Examination - Vital Signs Temperature: 98.1 F Blood Pressure: 132/67 Pulse: 80 Respirations: 17 Pulse Ox (%): 99 - Physical Exam General: Alert, In no apparent distress, Oriented x3 Cardiovascular: No edema, Normal pulses Capillary refill: <2 Seconds Musculoskeletal: No clubbing, No swelling, No contractures, No erythema, No tenderness, No warmth Integumentary: Other (Dressing examined with vac in place and working properly. No periwound erythema, right second digit is improved with decreased erythema noted) Neurological: Abnormal sensation Assessment And Plan - Current Problems (Diagnosis) (1) Diabetic foot ulcer associated with type 2 diabetes mellitus Current Visit: Yes Status: Acute (2) Gangrene associated with type 2 diabetes mellitus Current Visit: Yes Status: Acute (3) Peripheral artery disease Current Visit: Yes Status: Acute Discharge Plan: LTAC (Patient would benefit from LTAC placement to aid in healing, possibley hyperbarics and proper wound care/diabetes control/smoking cessation) Physician Review: Patient Assessed, Agree with Above Assessment and Plan
[2022-04-04] MEDS: INSULIN -REGULAR HUMAN 50 UNIT/0.5 ML ML SQ SCH ×4 (07:30→20:24)
[2022-04-04] MEDS: Budesonide/Formoterol Fumarate [Symbicort 160-4.5 Mcg Inhaler] 10.2 GM IH SCH (09:00)
[2022-04-04] MEDS: DULOXETINE 30 MG CAP PO SCH (09:40)
[2022-04-04] MEDS: PREGABALIN 75 MG CAP PO SCH ×2 (09:40→20:23)
[2022-04-04] MEDS: VITAMIN D 5,000 UNIT CAP PO SCH (09:41)
[2022-04-04] MEDS: ENOXAPARIN 40 MG/0.4 ML SQ SCH (16:27)
[2022-04-05] MEDS: VANCOMYCIN 1.5 GM in NA CHLORIDE 0.9% 500 ML IVPB SCH ×2 (01:26→14:00)
[2022-04-05] MEDS: HYDROMORPHONE HCL 1 MG/ML INJ IV PRN ×5 (03:00→23:07)
[2022-04-05] MEDS: PANTOPRAZOLE 40MG TABLET PO SCH (05:39)
[2022-04-05] MEDS: INSULIN -REGULAR HUMAN 50 UNIT/0.5 ML ML SQ SCH ×4 (07:30→21:00)
[2022-04-05] MEDS: DULOXETINE 30 MG CAP PO SCH (08:08)
[2022-04-05] MEDS: PREGABALIN 75 MG CAP PO SCH ×2 (08:08→23:07)
[2022-04-05] MEDS: Budesonide/Formoterol Fumarate [Symbicort 160-4.5 Mcg Inhaler] 10.2 GM IH SCH (08:09)
[2022-04-05] MEDS: VITAMIN D 5,000 UNIT CAP PO SCH (08:09)
[2022-04-05] MEDS: NA CHLORIDE 0.9% 1,000 ML IV SCH (12:49)
[2022-04-05] MEDS: ENOXAPARIN 40 MG/0.4 ML SQ SCH (16:03)
[2022-04-06] MEDS: NA CHLORIDE 0.9% 1,000 ML IV SCH (00:40)
[2022-04-06] MEDS: VANCOMYCIN 1.5 GM in NA CHLORIDE 0.9% 500 ML IVPB SCH ×2 (02:00→17:21)
[2022-04-06] MEDS: PANTOPRAZOLE 40MG TABLET PO SCH (05:35)
[2022-04-06] MEDS: Budesonide/Formoterol Fumarate [Symbicort 160-4.5 Mcg Inhaler] 10.2 GM IH SCH (07:16)
[2022-04-06] MEDS: INSULIN -REGULAR HUMAN 50 UNIT/0.5 ML ML SQ SCH ×4 (07:30→21:00)
--- NOTE | 2022-04-06 08:11 | P.PN ---
Subjective Date of Service: 04/06/22 Primary Care Provider: Melissa Chief Complaint: diabetic foot with gangrene Subjective: Improving, Doing well Review of Systems 10-point ROS is otherwise unremarkable Physical Examination - Vital Signs Temperature: 97.1 F Blood Pressure: 159/62 Pulse: 82 Respirations: 18 Pulse Ox (%): 90 - Physical Exam General: Alert, In no apparent distress, Oriented x3 Cardiovascular: No edema, Normal pulses Capillary refill: <2 Seconds Musculoskeletal: No clubbing, No swelling, No contractures, No erythema, No tenderness, No warmth Integumentary: Other (VAC dressing in place, no signs of infection, patient tolerating well) Neurological: Abnormal sensation Assessment And Plan - Current Problems (Diagnosis) (1) Diabetic foot ulcer associated with type 2 diabetes mellitus Current Visit: Yes Status: Acute (2) Gangrene associated with type 2 diabetes mellitus Current Visit: Yes Status: Acute (3) Peripheral artery disease Current Visit: Yes Status: Acute - Plan Continue wound vac, awaiting LTAC placement Physician Review: Patient Assessed, Agree with Above Assessment and Plan
[2022-04-06] MEDS: HYDROMORPHONE HCL 1 MG/ML INJ IV PRN ×2 (08:21→14:55)
[2022-04-06] MEDS: VITAMIN D 5,000 UNIT CAP PO SCH (08:22)
[2022-04-06] MEDS: DULOXETINE 30 MG CAP PO SCH (08:22)
[2022-04-06] MEDS: PREGABALIN 75 MG CAP PO SCH ×2 (08:22→20:48)
--- NOTE | 2022-04-06 09:51 | P.PN ---
Subjective Date of Service: 04/04/22 Subjective: No new changes, No C/O voiced, Improving Patient is clinically doing well. Waiting to get arranged for intermediate facility placement per her request. Will discuss with case management with a get back on Wednesday. Patient has a wound VAC. Review of Systems 10-point ROS is otherwise unremarkable Physical Examination - Vital Signs Temperature: 97.1 F Blood Pressure: 159/62 Pulse: 82 Respirations: 18 Pulse Ox (%): 97 - Physical Exam General: Alert, In no apparent distress, Oriented x3 HEENT: Atraumatic, PERRLA, EOMI Neck: Supple, JVD not distended Respiratory: Clear to auscultation bilaterally, Normal air movement Cardiovascular: Regular rate/rhythm, Normal S1 S2 Gastrointestinal: Normal bowel sounds, No tenderness Musculoskeletal: Other ( Amputation of the right great toe) Integumentary: Other ( amputations the right great toe with wound VAC in place) Neurological: Normal speech, Normal tone, Normal affect Lymphatics: No axilla or inguinal lymphadenopathy - Studies Medications List Reviewed: Yes Assessment & Plan - Problems (Diagnosis) (1) Status post amputation Current Visit: Yes Status: Acute (2) Diabetic foot ulcer associated with type 2 diabetes mellitus Current Visit: Yes Status: Acute (3) Gangrene associated with type 2 diabetes mellitus Current Visit: Yes Status: Acute (4) COPD (chronic obstructive pulmonary disease) Current Visit: No Status: Chronic Qualifiers: COPD type: chronic bronchitis Chronic bronchitis type: simple Qualified Code(s): J41.0 - Simple chronic bronchitis (5) Hypertension Current Visit: No Status: Chronic Qualifiers: (6) Type 2 diabetes mellitus Current Visit: No Status: Chronic Qualifiers: Diabetes mellitus prison insulin use: without vermin exterminator use Diabetes mellitus complication status: with kidney complications Diabetes mellitus complication detail: with chronic kidney disease Chronic kidney disease stage: stage 2 (mild) Qualified Code(s): E11.22 - Type 2 diabetes mellitus with diabetic chronic kidney disease; N18.2 - Chronic kidney disease, stage 2 (mild) - Plan 1. Continue with IV antibiotic 2. Continue with local wound care 3. Wound care consultation/ podiatry consultation appreciated 4. continue IV fluids and DC in a.m. 5. Monitor CBC 6. Strict blood sugar monitoring 7. Pain control 8. GI and DVT prophylaxis Discharge Plan: Intermediate Plan to discharge in: Greater than 2 days - Advance Directives Does patient have a Living Will: No Does patient have a Durable POA for Healthcare: No - Code Status/Comfort Care Code Status: Full Code Physician Review: Patient Assessed, Agree with Above Assessment and Plan Critical Care: No Time Spent Managing PTS Care (In Minutes): 35
--- NOTE | 2022-04-06 09:53 | P.PN ---
Date of Service: 04/05/22 Subjective patient doing well with no new complaints. Continue with wound care. Wound VAC is in place. Arrange for long term facility placement shortly. Review of Systems 10-point ROS is otherwise unremarkable Physical Examination - Vital Signs Reviewed - Physical Exam General: Alert, In no apparent distress, Oriented x3 Respiratory: Clear to auscultation bilaterally, Normal air movement Cardiovascular: Regular rate/rhythm, Normal S1 S2 Gastrointestinal: Normal bowel sounds, No tenderness Musculoskeletal: Other ( Amputation of the right great toe) Integumentary: Other ( amputations the right great toe with wound VAC in place) Neurological: Normal speech, Normal tone, Normal affect Assessment & Plan - Problems (Diagnosis) (1) Status post amputation Current Visit: Yes Status: Acute (2) Diabetic foot ulcer associated with type 2 diabetes mellitus Current Visit: Yes Status: Acute (3) Gangrene associated with type 2 diabetes mellitus Current Visit: Yes Status: Acute (4) COPD (chronic obstructive pulmonary disease) Current Visit: No Status: Chronic Qualifiers: COPD type: chronic bronchitis Chronic bronchitis type: simple Qualified Code(s): J41.0 - Simple chronic bronchitis (5) Hypertension Current Visit: No Status: Chronic (6) Type 2 diabetes mellitus Current Visit: No Status: Chronic Qualifiers: Diabetes mellitus 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 Continue with IV antibiotic 2. Continue with local wound care 3. Wound care consultation/ podiatry consultation appreciated 4. continue IV fluids and DC in a.m. 5. Monitor CBC 6. Strict blood sugar monitoring 7. Pain control 8. GI and DVT prophylaxis Discharge Plan: Longterm Plan to discharge in: Greater than 2 days - Advance Directives Does patient have a Living Will: No Does patient have a Durable POA for Healthcare: No - Code Status/Comfort Care Code Status: Full Code Physician Review: Patient Assessed, Agree with Above Assessment and Plan Critical Care: No Time Spent Managing PTS Care (In Minutes): 35
--- NOTE | 2022-04-06 10:40 | P.PN ---
Date of Service: 04/06/22 Subjective 04/06 04/05 patient doing well with no new complaints. Continue with wound care. Wound VAC is in place. Arrange for longterm facility placement shortly. Review of Systems 10-point ROS is otherwise unremarkable Physical Examination - Vital Signs Reviewed - Physical Exam General: Alert, In no apparent distress, Oriented x3 Respiratory: Clear to auscultation bilaterally, Normal air movement Cardiovascular: Regular rate/rhythm, Normal S1 S2 Gastrointestinal: Normal bowel sounds, No tenderness Musculoskeletal: Other ( Amputation of the right great toe) Integumentary: Other ( amputations the right great toe with wound VAC in place) Neurological: Normal speech, Normal tone, Normal affect Assessment & Plan - Problems (Diagnosis) (1) Status post amputation Current Visit: Yes Status: Acute (2) Diabetic foot ulcer associated with type 2 diabetes mellitus Current Visit: Yes Status: Acute (3) Gangrene associated with type 2 diabetes mellitus Current Visit: Yes Status: Acute (4) COPD (chronic obstructive pulmonary disease) Current Visit: No Status: Chronic Qualifiers: COPD type: chronic bronchitis Chronic bronchitis type: simple Qualified Code(s): J41.0 - Simple chronic bronchitis (5) Hypertension Current Visit: No Status: Chronic (6) Type 2 diabetes mellitus Current Visit: No Status: Chronic Qualifiers: Diabetes mellitus prison insulin use: without prison use Diabetes mellitus complication status: with kidney complications Diabetes mellitus complication detail: with chronic kidney disease Chronic kidney disease stage: stage 2 (mild) Qualified Code(s): E11.22 - Type 2 diabetes mellitus with diabetic chronic kidney disease; N18.2 - Chronic kidney disease, stage 2 (mild) - Plan continue further care as mentioned below: 1. Continue with IV antibiotic 2. Continue with local wound care 3. Wound care consultation/ podiatry consultation appreciated 4. continue IV fluids and DC in a.m. 5. Monitor CBC 6. Strict blood sugar monitoring 7. Pain control 8. GI and DVT prophylaxis Discharge Plan: Retirement Plan to discharge in: Greater than 2 days - Advance Directives Does patient have a Living Will: No Does patient have a Durable POA for Healthcare: No - Code Status/Comfort Care Code Status: Full Code Physician Review: Patient Assessed, Agree with Above Assessment and Plan Critical Care: No Time Spent Managing PTS Care (In Minutes): 35
--- NOTE | 2022-04-06 11:43 | OP ---
Surgeon: Filiberto Lee Jr, DPM Preoperative Diagnosis: Right hallux gangrene. Postoperative Diagnosis: Right hallux gangrene. Procedures: Right hallux amputation with I and D of the foot. Specimen: Pathology, right hallux sent for gross. Anesthesia: General with 10 cc of 0.5% Marcaine plain postop. Hemostasis: None. Estimated Blood Loss: 20 cc. Materials: 0.5 inch iodoform gauze. Injectables: None. Complication: None. Procedure In Detail: Patient was brought into [facility] Operating Room and placed on e OR table in supine position. Patient was placed under general anesthesia by the anesthesiologist. The patient was prepped and draped in the usual aseptic manner. Right lower extremity was evaluated and was having dry gangrene of the right hallux to the proximal phalanx with a dark eschar noted to extend dorsally into the 1st intermetatarsal space. At this time, the periphery of the eschar was ma rked with a marking pen and utilizing a 15 blade, the eschar was circumscribed and the incision was c arried to deeper layers. At the level of the 1st MPJ capsule, capsulotomy was performed followed by disarticulation of the right hallux at the metatarsophalangeal joint. There was noted to be bleeding at this time, not copious in nature, but adequate. Any nonviable tissue was debrided sharply and ex cised. This was noted to be excisional in nature with the entire wound noted to measure approximatel y 6 cm x 4 cm. The wound was irrigated with copious amounts of normal sterile saline utilizing pulse lavage and then packed with half-inch iodoform gauze. A sterile dressing consisting of 4x4s, ABD, K erlix and Porter wrap was applied to the right lower extremity. The patient tolerated the procedure and anesthesia well and was transferred to recovery with vital signs stable. RS/MODL Voice ID: [id number] Report ID: [id number]
[2022-04-06 12:43] LABS: Absolute Lymphocytes (CBC) 1.8 K/uL (0.7-4.9); Hematocrit 31.7 % (36.0-45.0); Lymphocytes % 24.2 % (15.3-44.8); MCV 93.7 fL (80-100); RBC Red Blood Cell Count 3.39 M/uL (3.86-4.86)
[2022-04-06 12:53] LABS: Potassium 3.3 mmol/L (3.5-5.1)
[2022-04-06] MEDS ORDERED: VANCOMYCIN 1.5 GM in NA CHLORIDE 0.9% 500 ML IVPB SCH (17:00)
[2022-04-06] MEDS: ENOXAPARIN 40 MG/0.4 ML SQ SCH (17:21)
[2022-04-07 02:10] VITALS: O2SAT 96
[2022-04-07] MEDS: HYDROMORPHONE HCL 1 MG/ML INJ IV PRN ×2 (04:46→09:22)
[2022-04-07] MEDS: PANTOPRAZOLE 40MG TABLET PO SCH (06:36)
[2022-04-07] MEDS: INSULIN -REGULAR HUMAN 50 UNIT/0.5 ML ML SQ SCH ×4 (07:30→21:00)
--- NOTE | 2022-04-07 08:13 | P.PN ---
Subjective Date of Service: 04/07/22 Primary Care Provider: Melissa Chief Complaint: diabetic foot with gangrene Subjective: No new changes Review of Systems 10-point ROS is otherwise unremarkable Physical Examination - Vital Signs Temperature: 97.2 F Blood Pressure: 133/69 Pulse: 84 Respirations: 18 Pulse Ox (%): 98 - Physical Exam General: Alert, In no apparent distress HEENT: Atraumatic, PERRLA, EOMI Neck: Supple, JVD not distended Respiratory: Clear to auscultation bilaterally, Normal air movement Cardiovascular: Regular rate/rhythm, Normal S1 S2 Gastrointestinal: Normal bowel sounds, No tenderness Musculoskeletal: No tenderness Integumentary: No rashes Neurological: Normal speech, Normal tone, Normal affect Lymphatics: No axilla or inguinal lymphadenopathy - Studies Medications List Reviewed: Yes Assessment And Plan - Current Problems (Diagnosis) (1) Diabetic foot ulcer Current Visit: Yes Status: Acute Plan: Will admit to the hospital. Start the patient on fluids Vanc and zosyn. Will get blood cultures. Check a xray as well. 04/07 s/p amputation. Waiting for snf placement Qualifiers: Diabetic foot ulcer location: toe Diabetes mellitus type: type 2 Laterality: right Non-pressure ulcer stage: with necrosis of muscle Qualified Code(s): E11.621 - Type 2 diabetes mellitus with foot ulcer; L97.513 - Non-pressure chronic ulcer of other part of right foot with necrosis of muscle (2) Gangrene associated with type 2 diabetes mellitus Current Visit: Yes Status: Acute Plan: consult to Dr. Lee. Most likely will loose the greater toe. Also may loose part of the 2nd toe. Will need a PT evaluation afterwards. (3) Peripheral artery disease Current Visit: Yes Status: Acute Plan: Check a CT angiogram in the morning. Would need to evaluate the vascular bed. This may guide surgery to the amount of the tissue that remain viable. Will also rule in or out osteomyelitis. (4) Nicotine dependence Current Visit: Yes Status: Acute Plan: offered a nicotine patch. patient wishes to stop without one. Qualifiers: Nicotine product type: cigarettes Substance use status: uncomplicated Qualified Code(s): F17.210 - Nicotine dependence, cigarettes, uncomplicated (5) COPD (chronic obstructive pulmonary disease) Current Visit: No Status: Chronic Plan: stable at this time. Will continue levalbuterol as needed. An incentive spirometer may be beneficial. As she has stopped smoking abruptly. Would like a patient off cigarettes 6 weeks before surgery. However this can't be helped. Qualifiers: COPD type: chronic bronchitis Chronic bronchitis type: simple Qualified Code(s): J41.0 - Simple chronic bronchitis (6) Hypertension Current Visit: No Status: Chronic Plan: she is hypotensive at this time. Likely due to sepsis. Will follow up on her meds as necessary Qualifiers: Discharge Plan: LTAC Plan to discharge in: 24 Hours - Code Status/Comfort Care Code Status Assessed: No Physician Review: Patient Assessed, Agree with Above Assessment and Plan Critical Care: No Time Spent Managing PTS Care (In Minutes): 20
[2022-04-07] MEDS: Budesonide/Formoterol Fumarate [Symbicort 160-4.5 Mcg Inhaler] 10.2 GM IH SCH (09:00)
[2022-04-07] MEDS: PREGABALIN 75 MG CAP PO SCH ×2 (09:18→20:11)
[2022-04-07] MEDS: DULOXETINE 30 MG CAP PO SCH (09:18)
[2022-04-07] MEDS: VITAMIN D 5,000 UNIT CAP PO SCH (09:18)
[2022-04-07] MEDS: VANCOMYCIN 1.5 GM in NA CHLORIDE 0.9% 500 ML IVPB SCH (16:51)
[2022-04-07] MEDS: ENOXAPARIN 40 MG/0.4 ML SQ SCH (16:55)
[2022-04-07] MEDS ORDERED: HYDROMORPHONE HCL 0.5 MG/0.5 ML INJ IV PRN (19:55)
[2022-04-07] MEDS: HYDROCODONE/APAP 7.5/325 MG TAB PO PRN (20:11)
[2022-04-08] MEDS ORDERED: HYDRALAZINE HCL 20 MG/ML VIAL IV ONE (06:21)
[2022-04-08] MEDS ORDERED: HYDRALAZINE HCL 20 MG/ML VIAL ONE (06:25)
[2022-04-08] MEDS: PANTOPRAZOLE 40MG TABLET PO SCH (06:30)
[2022-04-08] MEDS: INSULIN -REGULAR HUMAN 50 UNIT/0.5 ML ML SQ SCH ×2 (07:30→11:30)
--- NOTE | 2022-04-08 08:22 | P.PN ---
Subjective Date of Service: 04/08/22 Primary Care Provider: Melissa Chief Complaint: diabetic foot with gangrene Subjective: New changes (elevated bp) Review of Systems 10-point ROS is otherwise unremarkable Musculoskeletal: Foot Pain Physical Examination - Vital Signs Temperature: 97.1 F Blood Pressure: 167/70 Pulse: 76 Respirations: 18 Pulse Ox (%): 93 - Physical Exam General: Alert, In no apparent distress HEENT: Atraumatic, PERRLA, EOMI Neck: Supple, JVD not distended Respiratory: Clear to auscultation bilaterally, Normal air movement Cardiovascular: Regular rate/rhythm, Normal S1 S2 Gastrointestinal: Normal bowel sounds, No tenderness Musculoskeletal: No tenderness Integumentary: No rashes Neurological: Normal speech, Normal tone, Normal affect Lymphatics: No axilla or inguinal lymphadenopathy - Studies Medications List Reviewed: Yes Assessment And Plan - Current Problems (Diagnosis) (1) Diabetic foot ulcer Current Visit: Yes Status: Acute Plan: Will admit to the hospital. Start the patient on fluids Vanc and zosyn. Will get blood cultures. Check a xray as well. 04/09 s/p amputation. Waiting for snf placement. No growth on culture reports. We can discharge on oral doxycycline 100mg po bid for 10 days Qualifiers: Diabetic foot ulcer location: toe Diabetes mellitus type: type 2 Laterality: right Non-pressure ulcer stage: with necrosis of muscle Qualified Code(s): E11.621 - Type 2 diabetes mellitus with foot ulcer; L97.513 - Non-pressure chronic ulcer of other part of right foot with necrosis of muscle (2) Gangrene associated with type 2 diabetes mellitus Current Visit: Yes Status: Acute Plan: consult to Dr. Lee. Most likely will loose the greater toe. Also may loose part of the 2nd toe. Will need a PT evaluation afterwards. (3) Peripheral artery disease Current Visit: Yes Status: Acute Plan: Check a CT angiogram in the morning. Would need to evaluate the vascular bed. This may guide surgery to the amount of the tissue that remain viable. Will also rule in or out osteomyelitis. (4) Nicotine dependence Current Visit: Yes Status: Acute Plan: offered a nicotine patch. patient wishes to stop without one. Qualifiers: Nicotine product type: cigarettes Substance use status: uncomplicated Qualified Code(s): F17.210 - Nicotine dependence, cigarettes, uncomplicated (5) COPD (chronic obstructive pulmonary disease) Current Visit: No Status: Chronic Plan: stable at this time. Will continue levalbuterol as needed. An incentive spirometer may be beneficial. As she has stopped smoking abruptly. Would like a patient off cigarettes 6 weeks before surgery. However this can't be helped. Qualifiers: COPD type: chronic bronchitis Chronic bronchitis type: simple Qualified Code(s): J41.0 - Simple chronic bronchitis (6) Hypertension Current Visit: No Status: Chronic Plan: she is hypotensive at this time. Likely due to sepsis. Will follow up on her meds as necessary 04/09. Restart her home amlodipine Qualifiers: Discharge Plan: Home Plan to discharge in: 24 Hours - Code Status/Comfort Care Code Status Assessed: No Physician Review: Patient Assessed, Agree with Above Assessment and Plan Critical Care: No Time Spent Managing PTS Care (In Minutes): 20
[2022-04-08] MEDS: Budesonide/Formoterol Fumarate [Symbicort 160-4.5 Mcg Inhaler] 10.2 GM IH SCH (09:00)
[2022-04-08] MEDS ORDERED: AMLODIPINE 10 MG TAB PO SCH (09:00)
[2022-04-08] MEDS: VITAMIN D 5,000 UNIT CAP PO SCH (09:00)
[2022-04-08] MEDS: HYDROCODONE/APAP 7.5/325 MG TAB PO PRN ×2 (09:52→14:38)
[2022-04-08] MEDS: DULOXETINE 30 MG CAP PO SCH (09:53)
[2022-04-08] MEDS: PREGABALIN 75 MG CAP PO SCH (09:54)
--- NOTE | 2022-04-08 10:41 | P.DS ---
Admission Date: 04/01/22 Discharge Date: 04/08/22 Primary Care Provider: Melissa Disposition: TRANSFER TO SKILLED NURSING Discharge Condition: GOOD Reason for Admission: diabetic foot with gangrene - Problems (1) Diabetic foot ulcer Current Visit: Yes Status: Acute Qualifiers: Diabetic foot ulcer location: toe Diabetes mellitus type: type 2 Laterality: right Non-pressure ulcer stage: with necrosis of muscle Qualified Code(s): E11.621 - Type 2 diabetes mellitus with foot ulcer; L97.513 - Non-pressure chronic ulcer of other part of right foot with necrosis of muscle (2) Gangrene associated with type 2 diabetes mellitus Current Visit: Yes Status: Acute (3) Peripheral artery disease Current Visit: Yes Status: Acute (4) Nicotine dependence Current Visit: Yes Status: Acute Qualifiers: Nicotine product type: cigarettes Substance use status: uncomplicated Qualified Code(s): F17.210 - Nicotine dependence, cigarettes, uncomplicated (5) COPD (chronic obstructive pulmonary disease) Current Visit: No Status: Chronic Qualifiers: COPD type: chronic bronchitis Chronic bronchitis type: simple Qualified Code(s): J41.0 - Simple chronic bronchitis (6) Hypertension Current Visit: No Status: Chronic Qualifiers: Brief History of Present Illness: Patient is a new office patient of ours. She has a history of diabetes, htn and nicotine dependence. She presented 03/09 with a diabetic ulcer of the right greater to and 2nd toe. She was sent to the ER at that time. She left against medical advice at that time. she has been to several hospitals since then. Missed several appointments. Came today. Greater toe was black and foul smelling Was sent to the the hospital for direct admission as this is Gangrene. Hospital Course: patient was admitted for gangrenous right first toe. She was seen by Dr. Lee. Who amputation the toe. Started her on a wound vac on the foot. She was doing well in the hospital. Will send her to a SNF for wound care, Wound vac, PT. She is doing well with smoking cessation. Seems to do well in a facility with stopping smoking. This will be very important for wound care. Will be able to follow up with her in [facility]. Vital Signs/Physical Exam: Temp Pulse Resp BP Pulse Ox 97.1 F 76 18 167/70 H 93 04/08/22 08:22 04/08/22 09:54 04/08/22 09:52 04/08/22 09:54 04/08/22 09:52 General: Alert, In no apparent distress HEENT: Atraumatic, PERRLA, EOMI Neck: Supple, JVD not distended Respiratory: Clear to auscultation bilaterally, Normal air movement Cardiovascular: Regular rate/rhythm, Normal S1 S2 Gastrointestinal: Normal bowel sounds, No tenderness Musculoskeletal: No tenderness Integumentary: No rashes Neurological: Normal speech, Normal tone, Normal affect Lymphatics: No axilla or inguinal lymphadenopathy Laboratory Data at Discharge: WBC Cancelled 04/08/22 08:23 Hgb Cancelled 04/08/22 08:23 Hct Cancelled 04/08/22 08:23 Plt Count Cancelled 04/08/22 08:23 PT Cancelled 04/08/22 08:23 INR Cancelled 04/08/22 08:23 APTT Cancelled 04/08/22 20:30 Sodium 145 mmol/L (136-145) 04/06/22 12:19 Potassium 3.3 mmol/L (3.5-5.1) L 04/06/22 12:19 BUN 3 mg/dL (7-18) L 04/06/22 12:19 Creatinine 0.67 mg/dL (0.55-1.3) 04/06/22 12:19 Glucose 103 mg/dL (74-106) 04/06/22 12:19 Total Bilirubin 0.2 mg/dL (0.2-1.0) 04/04/22 06:03 AST 9 U/L (15-37) L 04/04/22 06:03 ALT 13 U/L (12-78) 04/04/22 06:03 Alkaline Phosphatase 99 U/L (45-117) 04/04/22 06:03 Triglycerides 188 mg/dL (<150) H 04/02/22 06:09 Cholesterol 84 mg/dL (<200) 04/02/22 06:09 HDL Cholesterol 38 mg/dL (40-60) L 04/02/22 06:09 Cholesterol/HDL Ratio 2.21 04/02/22 06:09 Home Medications: Amlodipine [Norvasc*] 10 mg PO DAILY 01/26/22 Budesonide/Formoterol Fumarate [Symbicort 160-4.5 Mcg Inhaler] 2 puff IH BID 01/26/22 Duloxetine [Cymbalta *] 60 mg PO DAILY 01/26/22 Esomeprazole Mag Trihydrate [Nexium] 40 mg PO DAILY 01/26/22 Fenofibric Acid (Choline) [Fenofibric Acid] 135 mg PO BEDTIME 01/26/22 Linagliptin [Tradjenta] 1 tab PO DAILY 01/26/22 Mirabegron [Myrbetriq] 50 mg PO DAILY 01/26/22 Pregabalin [Lyrica*] 75 mg PO BID 01/26/22 Rosuvastatin [Crestor*] 10 mg PO BEDTIME 01/26/22 Trazodone [Desyrel*] 100 mg PO BEDTIME 01/26/22 Cholecalciferol (Vitamin D3) [Vitamin D 5,000 IU Cap*] 5,000 unit PO DAILY 04/02/22 Doxycycline Monohydrate 100 mg PO BID 10 Days #20 tab 04/03/22 New Medications: Doxycycline Monohydrate 100 mg PO BID 10 Days #20 tab Diet: ADA Activity: Ad aidan Followup: Loc Torres MD [Primary Care Provider] - 1 Week Filiberto Lee JR, DPM [ASSOCIATE-ACTIVE - CAN ADMIT] - Time spent managing pt's care (in minutes): 30
[2022-04-08 12:36] VITALS: BP 148/62; TEMP 97.9
[2022-04-08] MEDS ORDERED: TRAZODONE 50 MG TABLET PO SCH (21:00)
== END 2022-04-08 14:43 | DRG 256 ==
LOC: ER 12:16 → ERHOLD 13:29 → 4TH 14:01
PROVIDERS: ADMIT Internal Medicine; ATTEND Internal Medicine
PROC: 0Y6P0Z0 Detachment at Right 1st Toe, Complete, Open Approach (ICD-10-PCS; 2022-04-03)
PROC: 0JBQ0ZZ Excision of Right Foot Subcutaneous Tissue and Fascia, Open Approach (ICD-10-PCS; 2022-04-03)
PROC: 2W1SX6Z Compression of Right Foot using Pressure Dressing (ICD-10-PCS; principal; 2022-04-03 12:30)
DX: E11.52 Type 2 diabetes mellitus with diabetic peripheral angiopathy with gangrene (principal); I96 Gangrene, not elsewhere classified; J41.0 Simple chronic bronchitis; I10 Essential (primary) hypertension; K21.9 Gastro-esophageal reflux disease without esophagitis; E78.5 Hyperlipidemia, unspecified; M79.7 Fibromyalgia; E11.621 Type 2 diabetes mellitus with foot ulcer; L97.513 Non-pressure chronic ulcer of other part of right foot with necrosis of muscle; F17.210 Nicotine dependence, cigarettes, uncomplicated; Z20.822 Contact with and (suspected) exposure to COVID-19
CPT/HCPCS: 36415; 73706; 80048; 80053; 80061; 80202; 82947; 83036; 84134; 84443; 85025; 85610; 87040; 87045; 87046; 87177; 87209; 87811; 88305; 97110; 97116; 97161; 97530; 97760; 99251; 99281; J0360; J0690; J1170; J1650; J2001; J2250; J2405; J2704; J3010; J3370; J7030; J7040; J7050; Q9967; U0003

== ENCOUNTER 2022-05-29 00:15 | Emergency (ER) | payer OTHER ==
--- OUTSIDE RECORDS SUMMARY | 2022-05-29 00:18 | XMS REPORT | Continuity of Care Document ---
:1965 Author Organization [facility] t Address [address] [place] [address] Care Team Providers Name Role Phone SYSTEM, PCP NOT IN Primary Care Physician Unavailable Byron Spain Attending Clinician Unavailable Bertha Walters DO Attending Clinician BERTHA WALTERS Attending Clinician Unavailable Nurse, [facility] Attending Clinician Unavailable Sangita Tena Attending Clinician SANGITA ARAUJO Attending Clinician Unavailable ABDIFATAH AMATO Attending Clinician Unavailable Devan Bradford MD Attending Clinician [phone] Yennifer Eddy MD Attending Clinician Bonnie Muñoz MD Attending Clinician [phone] YENNIFER EDDY Attending Clinician Unavailable Physician, No Primary or Family Admitting Clinician Unavaila BONNIE Calloway Admitting Clinician Unavailable Payers Payer Name Policy Type Policy Number Effective Date Expiration Date S ource Problems Condition Condition Condition Status Onset Resolution Last Treating Co mments Source Name Details Category Date Date Treatment Clinician Date Tobacco Tobacco Disease [facility] Advanced Advanced Disease [facility] COPD (HCC) COPD (HCC) 02-12 Anna kes suspected suspected 00:00: Medi maile 00 Center PAD PAD Disease Active [facility] (periphera (periphera 02-09 Anna kes l artery l artery 00:00: Medica l disease) disease) 00 Center No known No known Disease Unive rs active active ity of problems problems [facility] Allergies, Adverse Reactions, Alerts Allergy Allergy Status Severity Reaction(s) Onset Inactive Treating Comm ents Source Name Type Date Date Clinician No Known DA Active [facility] 02[facility]17 [place] [facility] 00:[facility]: [address] NO KNOWN Allergy Active [facility]09 [facility] 00:[facility]: [address] NO KNOWN Drug Active Univers ALLERGIE Class ity of S [facility] Social History Social Habit Start Date Stop Date Quantity Comments Source History [facility] Non-Med Medical Center Exposure to 2022-02-27 2022-03-09 Not sure [facility]-CoV-2 (event) 00:00:00 15:40:00 [facility] History [facility] 2022-02-09 2022-02-[address] [facility] Homeless 00:00:00 00:00:00 Medical Center Last Year Tobacco use and 2022-02-09 2022-02-[address] [facility] exposure 00:00:00 00[facility]00:00 Medical Center History [facility] 2022-02-09 2022-02-[address] [facility] Transport Med 00:00:00 00:00:[address] History [facility] 2022-02-09 2022-02-[address] [facility] Housing Unable to 00:00:00 00:00:00 Medical Center Pay History [facility] 2022-02-09 2022-02-[address] [facility] Places 00:00:00 00:00:00 Medical Ce nter Lived Sex Assigned At [birth year] [facility] [address] Anna kes 00:00:00 00:00:00 Medical Center Smoking Status Start Date Stop Date Source Never smoked tobacco [facility] Current every day smoker 2022-02-09 00:00:00 [facility] Medications Ordered Filled Start Stop Current Ordering Indication Dosage Frequency Signature Comments Components Source Medication Medication Date Date Medication? Clinician (SIG) Name Name No known No No known Unive rs medications 8-15 medication it y of 16:20: s [address] Vital Signs Vital Name Observation Time Observation Value Comments Source Systolic blood 2022-03-09 20:51:00 116 mm[Hg] [facility] Diastolic blood 2022-03-09 20:51:00 56 mm[Hg] Unive rs[facility] of [facility] Heart rate 2022-03-09 20:51:00 106 /min [facility] Body temperature 2022-03-09 20:51:00 36.89 Elina [facility] Respiratory rate 2022-03-09 20:51:00 16 /min [facility] Body height 2022-03-09 20:51:00 162.6 cm [facility] Body weight 2022-03-09 20:51:00 108.863 kg [facility] BMI 2022-03-09 20:51:00 41.20 kg/m2 [facility] Oxygen saturation in 2022-03-09 20:51:00 97 /min [facility] Arterial blood by [facility] Pulse oximetry Branch WEIGHT 2022-02-09 04:00:00 107.8 kg WEIGHT 2022-02-09 04:00:00 107.8 kg WEIGHT 2022-02-09 04:00:00 107.8 kg Heart rate 2022-02-10 20:00:00 86 /min [facility] Systolic blood 2022-02-10 19:22:00 139 mm[Hg] [facility] Diastolic blood 2022-02-10 19:22:00 65 mm[Hg] [facility] Body temperature 2022-02-10 19:22:00 35.61 Elina [facility] Respiratory rate 2022-02-10 19:22:00 18 /min [facility] Oxygen saturation in 2022-02-10 19:22:00 100 /min [facility] Arterial blood by Medical nter Pulse oximetry Body weight 2022-02-09 04:00:00 107.8 kg [facility] Procedures Procedure Date / Time Performing Clinician Source Performed 2D ECHO W/ DOPPLER 2022-02-10 18:08:[address] [facility] (CW/PW/COLOR) [facility] POCT-GLUCOSE METER 2022-02-10 15:56:00 Yennifer Eddy [facility] APTT 2022-02-10 14:19:00 [facility] AND RUNOFF 2022-02-10 12:29:00 Morro Hopkins [facility] APTT 2022-02-10 08:38:00 [facility] POCT-GLUCOSE METER 2022-02-10 07:30:00 [facility] ([facility] ONLY[facility] 2022-02-10 04:06:00 [facility] 2022-02-09 22:28:00 [facility] POCT-GLUCOSE METER 2022-02-09 21:16:00 [facility] POCT-GLUCOSE METER 2022-02-09 16:28:00 [facility] HC ARTERIAL(HUNTER W 2022-02-09 15:33:00 Yennifer Eddy [facility] DOPPLER)ONLY Medical Center HC ARTERIAL DOPPLER LEG 2022-02-09 15:33:00 Morro Hopkins [facility] APTT 2022-02-09 12:58:00 [facility] PO[facility]-GLUCOSE METER 2022-02-09 12:14:00 Yennifer Eddy [facility] SARS-COV2/RT-PCR ([facility] & 2022-02-09 08:52:00 Bonnie Muñoz [facility] REF LABS) [facility] POCT-GLUCOSE METER 2022-02-09 07:34:00 Devan Bradford [facility] HEMOGLOBIN A1C 2022-02-09 07:00:00 Bonnie Muñoz [facility] COMPREHENSIVE METABOLIC 2022-02-09 07:00:00 [facility] POCT-GLUCOSE METER 2022-02-09 06:09:00 Devan Bradford [facility] CBC (HEMOGRAM ONLY) 2022-02-09 04:49:[address] [facility] APTT 2022-02-09 04:49:[address] [facility] EKG-SCANNED 2022-02-09 00:00:00 ProviderAnnita [facility] Plan of Care Planned Activity Planned Date Details Comments Source Future Scheduled 2022-03-26 INFLUENZA VACCINE (#1) [facility]00 [code = INFLUENZA Medical Ce nter VACCINE (#1)] Future Scheduled 2022-03-26 INFLUENZA VACCINE (#1) [facility] 00:00:00 [code = INFLUENZA Medical Ce nter VACCINE (#1)] Future Scheduled 2021-07-[address] [facility] Test 00:00:00 (12+) [code = Medical Center DEPRESSION SCREENING (12+)] Future Scheduled 2021-07-26 Medicare IPPE (WELCOME [facility] 00:00:00 TO MEDICARE) [code = Medical Center Medicare IPPE (WELCOME TO MEDICARE)] Future Scheduled 2021-07-[address] [facility] Test 00:00:00 (12+) [code = Medical Center DEPRESSION SCREENING (12+)] Future Scheduled 2021-07-26 Medicare IPPE (WELCOME [facility] 00:00:00 TO MEDICARE) [code = Medical Center Medicare IPPE (WELCOME TO MEDICARE)] Future Scheduled 2015-11-02 SHINGLES VACCINES ([address] [facility] Test 00:00:00 2) [code = SHINGLES Medical Center VACCINES (1 of 2)] Future Scheduled 2015-11-02 SHINGLES VACCINES ([address] [facility] Test 00:00:00 2) [code = SHINGLES Medical Center VACCINES (1 of 2)] Future Scheduled 2010 Lipid panel (procedure) [facility] Test 00:00:00 [code = 04952348] Medical Ce nter Future Scheduled 2010 Lipid panel (procedure) [facility] Test 00:00:00 [code = 49078906] Medical Ce nter Future Scheduled 1986 Screening for malignant [facility] Test 00:00:00 neoplasm of cervix Medical C enter (procedure) [code = 770654435] Future Scheduled 1986 Screening for malignant [facility] Test 00:00:00 neoplasm of cervix Medical C enter (procedure) [code = 964063056] Future Scheduled 1984 DTAP/TDAP/TD VACCINES [facility] 00:00:00 (1 - Tdap) [code = Medical C enter DTAP/TDAP/TD VACCINES (1 - Tdap)] Future Scheduled 1984 DTAP/TDAP/TD VACCINES [facility] 00:00:00 (1 - Tdap) [code = Medical C enter DTAP/TDAP/TD VACCINES (1 - Tdap)] Future Scheduled 1983-11-02 HEPATITIS C SCREENING [facility] 00:00:00 [code = HEPATITIS C Medical Center SCREENING] Future Scheduled 1983-11-02 HEPATITIS C [facility]CREENING [facility] 00:00:00 [code = HEPATITIS C Medical Center SCREENING] Future Scheduled 1971-11-[address] [facility] Test 00:00:00 0-64 YRS (1 - PCV) Medical C enter [code = PNEUMOCOCCAL VACCINE 0-64 YRS (1 - PCV)] Future Scheduled 1971-11-[address] [facility] Test 00:00:00 0-64 YRS (1 - PCV) Medical C enter [code = PNEUMOCOCCAL VACCINE 0-64 YRS (1 - PCV)] Future Scheduled 1966-05-03 COVID-19 VACCINE (#1) [facility] 00:00:00 [code = COVID-[address] VACCINE (#1)] Future Scheduled 1966-05-03 COVID-19 VACCINE (#1) [facility] 00:00:00 [code = COVID-[address] VACCINE (#1)] Future Scheduled 1965 Screening for malignant [facility] Test 00:00:00 neoplasm of breast Medical C enter (procedure) [code = 611460921] Future Scheduled 1965 CT Colonography (combo) [facility] Test 00:00:00 [code = CT Colonography Medi maile Center (combo)] Future Scheduled 1965 Screening for malignant [facility] Test 00:00:00 neoplasm of colon Medical Ce nter (procedure) [code = 611789942] Future Scheduled 1965 Screening for malignant [facility] Test 00:00:00 neoplasm of colon Medical Ce nter (procedure) [code = 416626894] Future Scheduled 1965 Screening for malignant [facility] Test 00:00:00 neoplasm of colon Medical Ce nter (procedure) [code = 345323547] Future Scheduled 1965 Screening for malignant [facility] Test 00:00:00 neoplasm of colon Medical Ce nter (procedure) [code = 685767274] Future Scheduled 1965 Sigmoidoscopy [code = [facility] 00:[facility]:00 Sigmoidoscopy] Medical Cente r Future Scheduled 1965 Screening for malignant [facility] Test 00:00:00 neoplasm of breast Medical C enter (procedure) [code = 086936433] Future Scheduled 1965 CT Colonography (combo) [facility] Test 00:00:00 [code = CT Colonography Medi maile Center (combo)] Future Scheduled 1965 Screening for malignant [facility] Test 00:00:00 neoplasm of colon Medical Ce nter (procedure) [code = 890587788] Future Scheduled 1965 Screening for malignant [facility] Test 00:00:00 neoplasm of colon Medical Ce nter (procedure) [code = 115126326] Future Scheduled 1965 Screening for malignant [facility] Test 00:00:00 neoplasm of colon Medical Ce nter (procedure) [code = 252892140] Future Scheduled 1965 Screening for malignant [facility] Test 00:00:00 neoplasm of colon Medical Ce nter (procedure) [code = 455343534] Future Scheduled 1965 Sigmoidoscopy [code = [facility] 00:00:00 Sigmoidoscopy] Medical Cente r Encounters Start End Encounter Admission Attending Care Care Encounter Source Date/Time Date/Time Type Type Clinicians Facility Department ID 2022-02-17 Inpatient ANTON SpainU SANJUANA [id number] [facility] 03:31:00 Byron 16 [facility] 2022-03-09 2022-03-09 [facility] [id number] Univers 16:25:00 19:04:00 Bertha MANN [id number] ity [facility] [id number] [place] [facility] [id number] [address] 2022-03-09 2022-03-09 Emergency X [facility] ERT [id number] Univers 16:25:00 19:04:00 [facility] 2022-03-09 2022-03-09 Emergency X [facility] ERT [id number] Univers 16:25:00 19:04:00 [facility] 2022-03-09 2022-03-09 Nurse Nurse, [facility] [id number] Univers 15:45:00 16:00:42 Visit [facility] [id number] itAngelBANNER [id number] Petros as JAVED?BLEA [id number] [address] MEDICAL OFFICE BUILDING 2022-03-09 2022-03-09 Outpatient R VANTHE [facility] [id number] Univers 15:45:00 15:45:00 [facility] 2022-03-09 2022-03-09 Outpatient R LMTHE [facility] [id number] Univers 15:40:00 15:40:00 [facility] 2022-02-17 2022-02-17 Emergency EM DIEGO SpainBernardaU SANJUANA [id number] [facility] 05:53:00 09:40:00 Byron 16 [facility] 2022-02-17 2022-02-17 Emergency EM DIEGO SpainWU HCAWU [id number] [facility] 05:53:00 09:40:00 Byron [id number] [facility] 2022-02-09 2022-02-10 [facility] Devan Bradford [facility] [id number] [facility] 03:13:00 22:30:00 Encounter Callum Eddyclaudette Schulz zana Muñoz [facility] 2022-02-09 2022-02-10 Inpatient ER NUNU, [facility] [id number] [facility] 03:13:00 22:30:00 YENNIFER 2022-02-09 2022-02-10 Hospital ER Devan Bradford [facility] [id number] [facility] 03:13:00 22:30:00 Encounter Callum Eddyclaudette Schulz zana Muñoz [facility] 2022-02-09 2022-02-09 Travel [facility] [id number] [facility] 00:00:00 00:00:00 [facility] 2022-02-09 2022-02-09 Travel [facility] [id number] [facility] 00:00:00 00:00:00 [facility] Results Test Description Test Time Test Comments Results Result [facility] e Comments CT, CTA AAA, W/ 2022-02-24 ESTHER.EXT.RUNOFF 10:11:00 [facility] 1965 Sex: F *Addendum BeginsREPORT STATUS:A Addendum: I agree with the previously described non vascular findings by Dr. Deleon. Signed: Markel Avilez MDRoumou Verified Date/Time: 02/24/2022 10:11:[address] angiography of the abdominal aorta, with runoff, 19-Michael-22 INDICATION: This is a 52 year old [...] An addendum will be dictated by the [employer]omass Facilitator Radiologist regarding the nonvascular findings. THE REPORT WILL ONLY BE CONSIDERED COMPLETE AFTER THE ADDENDUM HAS BEEN DICTATED. Signed: Pancho Bryan STUARTeport Verified Date/Time: 02/12/2022 10:10:27 2D Echo 2022-02-[address] [facility] W/Doppler(CW/PW/C 15:38:57 [facility] 2D Echo 2022-02-[address] [facility] W/Doppler(CW/PW/C 15:38:57 FractionSLE ECHO Medical olor) [facility] POC-Glucose meter 2022-02-10 16:35:46 Test Item Value Reference Range Interpretation Comme nts POC-Glucose Meter (test code = 97 mg/dL 70-110 : TESTED AT [facility] [address] [facility] 1538) [facility], [facility] 30: Paper Wood Cutter/Techni dilma ID = [id number] for Corry Rinaldi sa Lab Interpretation (test code = Normal 78261-6) [facility] [id number] 16:35:46 Test Item Value Reference Range Interpretation Comments POC-Glucose Meter (test 97 mg/dL 70-110 : TE STED AT [facility] code = 1538) [address] [facility], 770 30: Paper Wood Cutter/Techni dilma ID = [id number] for Corry Rinaldi sa Lab Interpretation (test Normal code = 71833-7) [facility] [id number] 16:35:46 Test Item Value Reference Range Interpretation Comments POC-GLUCOSE METER 97 mg/dL 70-110 : TESTED A T [facility] 6720 ([facility]) (test code = BERTADELINA R [facility], 1538) [address]: Paper Wood Cutter/Techni dilma ID = [id number] for Genny Saldivar [id number] 14:49:27 Test Item Value Reference Range Interpretation Comments PARTIAL THROMBOPLASTIN TIME 60.8 seconds 22.5-36.0 H (BEAKER) (test code = 760) [id number] 09:02:31 Test Item Value Reference Range Interpretation Comments PARTIAL THROMBOPLASTIN TIME 34.1 seconds 22.5-36.0 (BEAKER) (test code = 760) POCT-GLUCOSE [id number] 07:42:16 Test Item Value Reference Range Interpretation Comments POC-GLUCOSE METER 74 mg/dL 70-110 : TESTED A T [facility] 6720 (BEAKER) (test code = [facility], 1538) [address]: Paper Wood Cutter/Techni dilma ID = [id number] for Acacia Christine CBC (HEMOGRAM ONLY)2022-02-10 05:14:47 [...] WBC 0-0 (BEAKER) (test code = 413) [id number] 23:23:24 Test Item Value Reference Range Interpretation Comments PARTIAL THROMBOPLASTIN TIME 31.9 seconds 22.5-36.0 (BEAKER) (test code = 760) POCT-GLUCOSE [id number] 21:30:42 Test Item Value Reference Range Interpretation Comments POC-GLUCOSE METER 143 mg/dL 70-110 H : TESTED A T [facility] 6720 (BEAKER) (test code = [facility], 1538) [address]: Paper Wood Cutter/Techni dilma ID = [id number] for SA NDERS, JERRY HUNTER's with PT and DP doppler [id number] 18:17:32Ejection FractionSLEH ECHO [facility]LAB [facility] and DP doppler [id number] 18:17:32Ejection FractionSLEH ECHO HEARTLAB MKCKESSON [facility] Doppler Leg, [id number] 18:16:33Ejection FractionSLEH ECHO HEARTLAB MKCKESSON [facility] Leg, [id number] 18:16:33Ejection FractionSLEH ECHO HEARTLAB [facility] [id number] 16:41:21 Test Item Value Reference Range Interpretation Comments POC-GLUCOSE METER 99 mg/dL 70-110 : TESTED A T [facility] 6720 (BEAKER) (test code = ELLA Yo [facility], 1538) [address]: Paper Wood Cutter/Techni dilma ID = [id number] for Kelsea Romero SARS-CoV2/RT-PCR (Asymptomatic ONLY)2022-02-09 14:34:44 Test Item Value Reference Range Interpretation Comments SARS-COV2/RT-PCR Negative Not Detected, (test code = Negative, See 71264-4) external report for linked test SARS-COV-2 [facility] PERFORMING LAB (test code = 71074-8) ADENIKE (test code = Negative result for [...] of the Act. Fact Sheet for Healthcare Providers:https://www.Skeeble/sites/default/f gloria/product/documents/F act_Sheet_HC_Providers_L vzt_BVOD-HfS-5.pdf Fact Sheet for Healthcare Patients:https://www.Lucid Colloids/sites/default/fi les/product/documents/Fa ct_Sheet_Patients_Lyra_S ARS-CoV-2.pdf Performing Laboratory:[facility]ARS-CoV2/RT-PCR (Asymptomatic ONLY)2022-02-09 14:34:44 Test Item Value Reference Range Interpretation Comments SARS-COV2/RT-PCR Negative Not Detected, (test code = Negative, See 84569-5) external report for linked test SARS-COV-2 [facility] PERFORMING LAB (test code = 16537-4) ADENIKE (test code = Negative result for [...] of the Act. Fact Sheet for Healthcare Providers:https://www.Skeeble/sites/default/f gloria/product/documents/F act_Sheet_HC_Providers_L oss_NEDL-MtO-1.pdf Fact Sheet for Healthcare Patients:https://www.Lucid Colloids/sites/default/fi les/product/documents/Fa ct_Sheet_Patients_Lyra_S ARS-CoV-2.pdf Performing Laboratory:[facility] [place] [address].[place] [address] [facility] ([facility] REF [facility])2022-02-09 14:34:44 Test Item Value Reference Range Interpretation Comments SARS-COV2/RT-PCR (test Negative Not Detected, Negative, code = 1702067) See external report for linked test SARS-COV-2 PERFORMING LAB [facility] (test code = 4776137) Negative result for this test determines that [...] of the Act.Fact Sheet for Healthcare Prov iders:https://www.Clowdy.[employer]ia [employer]/sites/default/files/product/documents/Fact_Sheet_HC _Xjqtpgevr_Ratq_XAIS-TgU-9.pdfFact Sheet for Healthcare Patients:https://www.Clowdy.[employer]/sites/default/files/product/docume nts/Gqpj_Jdlla_Jvhrpxql_Blyl_BUZS-XoD-9.pdfPerforming Laboratory:[facility], [place] [id number] 13:31:18 Test Item Value Reference Range Interpretation Comments PARTIAL THROMBOPLASTIN TIME 38.7 seconds 22.5-36.0 H (MindOps) (test code = 760) HEMOGLOBIN [id number] 13:17:34 Test Item Value Reference Range Interpretation Comments HEMOGLOBIN A1C 5.7 % See_Comment H [Automated m essage] ELECTROPHORESIS (MindOps) The system which (test code = 3811) generated this result transmitted ref erence range: <=5.6%. The reference range was not used to int erpret this result as normal/abnormal . "The A1c is measured using a [facility]-certified method. HbA1c value equal to or greater than 6.5% as thediagnosis cutoff for diabetes. An HbA1c value of 5.7- 6.4% indicates increased risk for diabetes (prediabetes)."Paper Wood Cutter ID - [id number] ID - ADMPOCT-GLUCOSE [id number] 12:25:58 Test Item Value Reference Range Interpretation Comments POC-GLUCOSE METER 108 mg/dL 70-110 : TESTED A T [facility] 6720 ([facility]) (test code = ELLA Sanaz [facility], 1538) [address]: Paper Wood Cutter/Techni dilma ID = [id number] for Win Angel COMPREHENSIVE METABOLIC [id number] 07:55:16 Test Item Value Reference Range Interpretation Comments TOTAL PROTEIN 5.5 gm/dL 6.0-8.3 L (BEAKER) (test code = 770) ALBUMIN (BEAKER) 2.8 [...] S NOT APPLICABLE FOR DIALYSIS PATIEN TS. Paper Wood Cutter ID - ADMINPOCT-GLUCOSE [id number] 07:46:09 Test Item Value Reference Range Interpretation Comments POC-GLUCOSE METER 84 mg/dL 70-110 : TESTED A T [facility] 6720 (BEAKER) (test code = [facility] [place], 1538) [address]: Paper Wood Cutter/Techni dilma ID = [id number] for Kelsea Romero POCT-GLUCOSE [id number] 06:20:17 Test Item Value Reference Range Interpretation Comments POC-GLUCOSE METER 86 mg/dL 70-110 : TESTED A T [facility] 6720 (BEAKER) (test code = [facility] [place], 1538) [address]: Paper Wood Cutter/Techni dilma ID = [id number] for JERRY CHRIS [id number] 05:19:02 Test Item Value Reference Range Interpretation [...]
[2022-05-29] MEDS ORDERED: ONDANSETRON 4 MG/2 ML VIAL ONE (00:26)
[2022-05-29] MEDS ORDERED: KETOROLAC 30 MG/ML INJ ONE (00:26)
[2022-05-29 00:49] LABS: Absolute Lymphocytes (CBC) 2.6 K/uL (0.7-4.9); Hematocrit 37.1 % (36.0-45.0); Lymphocytes % 23.6 % (15.3-44.8); MCV 91.4 fL (80-100); MPV 8.6 fL (7.6-11.3); RBC Red Blood Cell Count 4.06 M/uL (3.86-4.86)
[2022-05-29 01:14] LABS: ALT/SGPT 14 U/L (12-78); AST/SGOT 13 U/L (15-37); Albumin 2.3 g/dL (3.4-5.0); Alkaline Phosphatase 67 U/L (45-117); Bicarbonate 29 mmol/L (21-32); Bilirubin Total 0.4 mg/dL (0.2-1.0); Glomerular Filtration Rate 95 ml/min (=/>90); Glucose Level 75 mg/dL (74-106); Protein, Total 5.6 g/dL (6.4-8.2); Sodium Level 141 mmol/L (136-145)
[2022-05-29 01:15] LABS: BUN Blood Urea Nitrogen < 3 mg/dL (7-18)
[2022-05-29 01:16] LABS: Potassium 2.4 mmol/L (3.5-5.1)
[2022-05-29] MEDS ORDERED: POTASSIUM CL SA 10 MEQ TAB PO ONE (01:24)
--- NOTE | 2022-05-29 02:24 | EDPHYS ---
Physician Documentation [facility] Name: Nahomi Soto Age: 56 yrs Sex: Female : 1965 Arrival Date: 05/29/2022 Time: 00:18 Bed 7 Private MD: ED Physician Rishabh Bateman HPI: 05/29 00:34 This 56 yrs old Female presents to ER via EMS with complaints of toe pain. 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 Historical: - Allergies: 00:26 No Known Allergies; as6 - Home Meds: 00:26 amlodipine 10 mg tab 1 tab once daily [Active]; Vitamin D Oral 2000 unit daily as6 [Active]; bupropion HCl 75 mg Oral tab [Active]; Myrbetriq 50 mg Oral Tb24 1 tab once daily [Active]; rosuvastatin 10 mg oral tab 1 tab once daily [Active]; Trilipix 135 mg oral cpDR 1 cap once daily [Active]; Tradjenta 5 mg Oral tab 1 tab once daily [Active]; trazodone 100 mg Oral tab 1 tab nightly [Active]; - PMHx: 00:26 Arthritis; diabetes mellitus; Hypercholesterolemia; Hypertensive disorder; insomnia; as6 - PSHx: 00:26 Colostomy reversal; cyst removal and colon SX; toe; as6 - Immunization history:: Client reports receiving the 2nd dose of the Covid vaccine, moderna. - Social history:: Smoking status: Patient/guardian denies using tobacco. ROS: 00:39 Constitutional: Negative for fever, chills bs3 00:39 All other systems are negative. Exam: 00:39 Constitutional: This is a well developed, well nourished patient who is awake, alert, bs3 and in no acute distress. Head/Face: Normocephalic, atraumatic. Eyes: Pupils equal round and reactive to light, extra-ocular motions intact. Lids and lashes normal. ENT: mmm, no posterior phyarngeal erythema Neck: Trachea midline, no thyromegaly, no neck stiffness Chest/axilla: Normal chest wall appearance and motion. Nontender with no deformity. No lesions are appreciated. Cardiovascular: Regular rate and rhythm with a normal S1 and S2. symmetric pulses in upper extremities Respiratory: Lungs have equal breath sounds bilaterally, clear to auscultation, no respiratory distress Abdomen/GI: hernia in mid abdomen, soft, easily reducible MS/ Extremity: Pulses equal, no cyanosis. Neurovascular intact. right first toe with wound vac on, no discharge, c/d/i, no erythema. Vital Signs: 00:22 BP 153 / 72; Pulse 82; Resp 18 S; Temp 98.6(O); Pulse Ox 99% on R/A; Weight 113.4 kg as6 (R); Height 5 ft. 4 in. (162.56 cm) (R); Pain 9/10; 02:00 BP 147 / 67; Pulse 79; Resp 17; Pulse Ox 100% ; vc1 00:22 Body Mass Index 42.91 (113.40 kg, 162.56 cm) as6 MDM: 00:19 Patient medically screened. bs3 00:39 Data reviewed: vital signs, nurses notes. ED course: Patient with likely chronic pain bs3 in the setting of a toe amputation patient was previously prescribed narcotic pain medication per the patient her primary care doctor refused to refill the prescription and she was referred to pain medicine which she has follow-up for unclear etiology of her severe nausea will check electrolytes we will give antiemetic we will treat pain advised to follow-up with pain control given chronic neuropathic pain of that she also has gabapentin which is already prescribed. 02:21 ED course: labs notable for low potassium, repleated, pt advised to f/u with pain bs3 management and her pcp for chronic pain, return prec given. . 05/29 00:20 Order name: CBC with Diff; Complete Time: 01:16 bs3 05/29 00:20 Order name: Comprehensive Metabolic Panel; Complete Time: 02:20 bs3 05/29 00:34 Order name: Foot Right 3 View XRAY bs3 05/29 02:23 Interpretation: No acute disease except: sp partial amputation. bs3 Administered Medications: 00:36 Drug: Ondansetron 8 mg Route: IVP; Site: right antecubital; vc1 02:43 Follow up: Response: No adverse reaction as6 00:36 Drug: Ketorolac 15 mg Route: IVP; Site: right antecubital; vc1 02:43 Follow up: Response: No adverse reaction as6 01:26 Drug: Potassium Chloride 40 mEq Route: PO; vc1 02:43 Follow up: Response: No adverse reaction as6 Disposition Summary: 05/29/22 02:24 Discharge Ordered Location: Home bs3 Condition: Stable bs3 Diagnosis - Pain in foot and toes bs3 Followup: bs3 - With: Private Physician - When: 2 - 3 days - Reason: Re-evaluation by your physician Discharge Instructions: - Discharge Summary Sheet bs3 - Chronic Pain, Adult bs3 - Nausea, Adult bs3 Forms: - Medication Reconciliation Form bs3 - Thank You Letter bs3 - Antibiotic Education bs3 - Prescription Opioid Use bs3 Prescriptions: - ondansetron 8 mg Oral tablet,disintegrating - take 1 tablet by ORAL route every 8 hours PRN; 12 tablet; Refills: 0, Product bs3 Selection Permitted - MELOXICAM - take 15 milligram by ORAL route once daily for 10 days; 10 tablet; Refills: 0, bs3 Product Selection Permitted Signatures: Dispatcher [employer] EDMS All Fonseca PA PA jmm Slawson, Ashby, RN RN as6 Genny Rosa RN RN vc1 Rishabh Bateman MD MD bs3 Corrections: (The following items were deleted from the chart) 00:43 00:20 Foot Left 3 View+RAD.RAD.BRZ ordered. EDMS EDMS
--- NOTE | 2022-05-29 02:24 | ER ---
Nurse's Notes [facility] Name: Nahomi Soto Age: 56 yrs Sex: Female : 1965 Arrival Date: 05/29/2022 Time: 00:18 Bed 7 Private MD: Diagnosis: Pain in foot and toes Presentation: 05/29 00:22 Chief complaint: EMS states: called out for foot pain. pt had a right great toe as6 amputation the beginning of March. wound vac noted to right foot. Coronavirus screen: At this time, the client does not indicate any symptoms associated with coronavirus-19. Ebola Screen: No symptoms or risks identified at this time. Initial Sepsis Screen: Does the patient meet any 2 criteria? No. Patient's initial sepsis screen is negative. Does the patient have a suspected source of infection? No. Patient's initial sepsis screen is negative. Risk Assessment: Do you want to hurt yourself or someone else? Patient reports no desire to harm self or others. Onset of symptoms is unknown. 00:22 Method Of Arrival: EMS: [email or web address] as6 00:22 Acuity: GIRISH 3 as6 Triage Assessment: 00:33 General: Appears in no apparent distress. Behavior is calm, cooperative. Pain: as6 Complains of pain in ball of right foot and right first toe. Historical: - Allergies: 00:26 No Known Allergies; as6 - Home Meds: 00:26 amlodipine 10 mg tab 1 tab once daily [Active]; Vitamin D Oral 2000 unit daily as6 [Active]; bupropion HCl 75 mg Oral tab [Active]; Myrbetriq 50 mg Oral Tb24 1 tab once daily [Active]; rosuvastatin 10 mg oral tab 1 tab once daily [Active]; Trilipix 135 mg oral cpDR 1 cap once daily [Active]; Tradjenta 5 mg Oral tab 1 tab once daily [Active]; trazodone 100 mg Oral tab 1 tab nightly [Active]; - PMHx: 00:26 Arthritis; diabetes mellitus; Hypercholesterolemia; Hypertensive disorder; insomnia; as6 - PSHx: 00:26 Colostomy reversal; cyst removal and colon SX; toe; as6 - Immunization history:: Client reports receiving the 2nd dose of the Covid vaccine, moderna. - Social history:: Smoking status: Patient/guardian denies using tobacco. Screenin:34 Abuse screen: Denies threats or abuse. Denies injuries from another. Nutritional as6 screening: No deficits noted. Tuberculosis screening: No symptoms or risk factors identified. Fall Risk None identified. Assessment: 02:12 Reassessment: No changes from previously documented assessment. Patient and/or family vc1 updated on plan of care and expected duration. Pain level reassessed. Vital Signs: 00:22 BP 153 / 72; Pulse 82; Resp 18 S; Temp 98.6(O); Pulse Ox 99% on R/A; Weight 113.4 kg as6 (R); Height 5 ft. 4 in. (162.56 cm) (R); Pain 9/10; 02:00 BP 147 / 67; Pulse 79; Resp 17; Pulse Ox 100% ; vc1 00:22 Body Mass Index 42.91 (113.40 kg, 162.56 cm) as6 ED Course: 00:18 Patient arrived in ED. vc1 00:18 Rishabh Bateman MD is Attending Physician. bs3 00:26 Triage completed. as6 00:33 Arm band placed on. as6 00:34 Bed in low position. Call light in reach. Side rails up X2. as6 00:36 Comprehensive Metabolic Panel Sent. vc1 00:36 CBC with Diff Sent. vc1 00:46 Foot Right 3 View XRAY In Process Unspecified. EDMS 01:19 Notified Nurse Practitioner and/or Physician Public Policy Professor of a critical lab result(s), bb potassium of 2.4 All AGGARWAL notified. 01:25 Genny Rosa RN is Primary Nurse. vc1 02:43 No provider procedures requiring assistance completed. IV discontinued, intact, as6 bleeding controlled, No redness/swelling at site. Pressure dressing applied. Administered Medications: 00:36 Drug: Ondansetron 8 mg Route: IVP; Site: right antecubital; vc1 02:43 Follow up: Response: No adverse reaction as6 00:36 Drug: Ketorolac 15 mg Route: IVP; Site: right antecubital; vc1 02:43 Follow up: Response: No adverse reaction as6 01:26 Drug: Potassium Chloride 40 mEq Route: PO; vc1 02:43 Follow up: Response: No adverse reaction as6 Medication: 02:44 VIS not applicable for this client. as6 Outcome: 02:24 Discharge ordered by . bs3 02:44 Discharged to home via wheelchair, with family. as6 02:44 Condition: stable 02:44 Discharge instructions given to patient, family, Instructed on discharge instructions, follow up and referral plans. medication usage, Demonstrated understanding of instructions, follow-up care, medications, Prescriptions given X 2. 02:44 Patient left the ED. as6 Signatures: Dispatcher [employer] EDVesta Ortega RN RN bb Slawson, Ashby, RN RN as6 Genny Rosa RN RN vc1 Rishabh Bateman MD MD bs3
[2022-05-29 02:49] VITALS: TEMP 98.6
[2022-05-29 02:50] VITALS: BP 147/67; O2SAT 100
--- NOTE | 2022-05-29 15:39 | RAD REPORT ---
EXAM DESCRIPTION: RAD - Foot Right 3 View - 05/29/2022 12:43 am CLINICAL HISTORY: PAIN TECHNIQUE: Frontal, lateral and oblique views of the right foot. COMPARISON: No relevant prior studies available. FINDINGS: Bones/joints: 1st digit amputation at the metatarsophalangeal level. No osseous destru ction or erosion. Small posterior and inferior calcaneal enthesophytes. Developmental fusion at the 5th DIP articulation. No acute fracture. No dislocation. Soft tissues: Open soft tissue wound adjacent to the 1st metatarsal with wound VAC in place. No r adiopaque foreign body. IMPRESSION: Open soft tissue wound adjacent to the 1st metatarsal with wound VAC in place. No cecilia cent osseous destruction or erosion. Electronically signed by: Power Tomas MD 05/29/2022 1:20 AM CDT Due to temporary technical issues with the PACS/Fluency reporting system, reports are being signed by the in house radiologists without review as a courtesy to insure prompt reporting. The interpreting radiologist is fully responsible for the content of the report.
== END 2022-05-29 02:44 | disposition home or self-care (01) ==
LOC: ER 00:15
DX: M79.671 Pain in right foot (principal); M79.674 Pain in right toe(s); Z89.411 Acquired absence of right great toe; E11.9 Type 2 diabetes mellitus without complications; I10 Essential (primary) hypertension
CPT/HCPCS: 85025; 36415; 80053; 73630; 96375; 96374; 99284; J2405

== ENCOUNTER 2022-09-26 20:46 | Emergency (ER) | payer OTHER ==
--- OUTSIDE RECORDS SUMMARY | 2022-09-26 20:51 | XMS REPORT | Continuity of Care Document ---
:1965 Author Organization [facility] t Address [address] [place] [address] Care Team Providers Name Role Phone SYSTEM, PCP NOT IN Primary Care Physician Unavailable Bertha Walters DO Attending Clinician BERTHA WALTERS Attending Clinician Unavailable Nurse, [facility] Attending Clinician Unavailable Sangita Tena Attending Clinician SANGITA ARAUJO Attending Clinician Unavailable ABDIFATAH AMATO Attending Clinician Unavailable Byron Spain Attending Clinician Unavailable YENNIFER EDDY Attending Clinician Unavailable Devan Bradford MD Attending Clinician [phone] Yennifer Eddy MD Attending Clinician Bonnie Muñoz MD Attending Clinician [phone] Physician, No Primary or Family Admitting Clinician UnavailBONNIE Spencer Admitting Clinician Unavailable Payers Payer Name Policy Type Policy Number Effective Date Expiration Date Tania CHANG MEDICARE [id number] 2021 00:00:00 [facility] [id number] 2021 PLAN 00:00:00 Problems Condition Condition Condition [...] ity of problems problems [facility] Allergies, Adverse Reactions, Alerts Allergy Allergy Status Severity Reaction(s) Onset Inactive Treating Comm ents Source Name Type Date Date Clinician No Known DA Active [facility] [address] NO KNOWN Allergy [facility] [address] NO KNOWN Drug Active Univers ALLERGIE Class ity of S [facility] Social History Social Habit Start Date Stop Date Quantity Comments Source History SDOH [facility] Exposure to 2022-02-27 2022-03-09 Not sure University of SARS-CoV-2 (event) 00:00:00 15:40:00 [facility] History SDOH 2022-02-09 2022-02-[address] [facility] Housing Homeless 00:00:00 00:00:00 Medical Center Last Year Tobacco use and 2022-02-09 2022-02-[address] [facility] exposure 00:00:00 00:00:00 Medical Center History SDOH 2022-02-09 2022-02-[address] [facility] Transport Med 00:00:00 00:00:[address] History SDOH 2022-02-09 2022-02-[address] [facility] Housing Unable to 00:00:00 00:00:00 Medical Center Pay History SDOH 2022-02-09 2022-02-[address] [facility] Housing Places 00:00:00 00:00:00 Medical Ce nter Lived Sex Assigned At [address] [facility] 00:[facility] Center Smoking Status Start Date Stop Date Source Never smoked tobacco [facility] Current every day smoker 2022-02-09 00:00:00 [facility] Medications Ordered Filled Start Stop Current Ordering Indication Dosage Frequency Signature Comments Components Source Medication Medication Date Date Medication? Clinician (SIG) Name Name No known No No known Unive rs medications 8-15 medication it y of 16:20: s [address] Vital Signs Vital Name Observation Time Observation Value Comments Source Systolic blood 2022-03-09 20:51:00 116 mm[Hg] [facility] Diastolic blood 2022-03-09 20:51:00 56 mm[Hg] Unive rsity [facility] Heart rate 2022-03-09 20:51:00 106 /min [facility] Body temperature 2022-03-09 20:51:00 36.89 [facility] rate 2022-03-09 20:51:00 16 /min [facility] Body height 2022-03-09 20:51:00 162.6 cm [facility] Body weight 2022-03-09 20:51:00 108.863 kg [facility] BMI 2022-03-09 20:51:00 41.20 kg/m2 [facility] Oxygen saturation in 2022-03-09 20:51:00 97 /min [facility] blood by [facility] Pulse oximetry Branch WEIGHT 2022-02-09 04:00:00 107.8 kg WEIGHT 2022-02-09 04:00:00 107.8 kg WEIGHT 2022-02-09 04:00:00 107.8 kg Heart rate 2022-02-10 20:00:00 86 /min [facility] Systolic blood 2022-02-10 19:22:00 139 mm[Hg] [facility] Diastolic blood 2022-02-10 19:22:00 65 mm[Hg] [facility] Body temperature 2022-02-10 19:22:00 35.61 Elina [facility] Respiratory rate 2022-02-10 19:22:00 18 /min [facility] Oxygen saturation in 2022-02-10 19:22:00 100 /min [facility] Arterial blood by Medical Ce nter Pulse oximetry Body weight 2022-02-09 04:00:00 107.8 kg [facility] Procedures Procedure Date / Time Performing Clinician Source Performed 2D ECHO W/ DOPPLER 2022-02-10 18:08:34 [facility] (CW/PW/COLOR) [facility] POCT-GLUCOSE METER 2022-02-10 15:56:00 Yennifer Eddy [facility] APTT 2022-02-10 14:19:00 [facility] CTA AAA AND RUNOFF 2022-02-10 12:29:00 Morro Hopkins [facility] APTT 2022-02-10 08:38:00 [facility] PO[facility]SE METER 2022-02-10 07:30:00 [facility] (HEMOGRAM ONLY) 2022-02-10 04:06:00 Bonnie Muñoz [facility] APTT 2022-02-09 22:28:00 [facility]SE METER 2022-02-09 21:16:00 Yennifer Eddy [facility] POCT-GLUCOSE METER 2022-02-09 16:28:00 [facility] PV ARTERIAL HUNTER 2022-02-09 15:33:00 [facility] ARTERIAL DOPPLER LEG 2022-02-09 15:33:00 Morro Hopkins [facility] APTT 2022-02-09 12:58:00 Yennifer Eddy [facility] POCT-GLUCOSE METER 2022-02-09 12:14:00 [facility] SARS-COV2/RT-PCR ([facility] & 2022-02-09 08:52:00 Bonnie Mu[facility]oz [facility] POCT-GLUCOSE METER 2022-02-09 07:34:00 Devan Bradford [facility] HEMOGLOBIN A1C 2022-02-09 07:00:00 [facility] COMPREHENSIVE METABOLIC 2022-02-09 07:00:00 [facility]EL [facility] POCT-GLUCOSE METER 2022-02-09 06:09:00 Devan Bradford [facility] CBC (HEMOGRAM ONLY) 2022-02-09 04:49:00 [facility] 2022-02-09 04:49:00 [facility] EKG-SCANNED 2022-02-09 00:00:00 ProviderAnnita [facility] Plan of Care Planned Activity Planned Date Details Comments Source Future Scheduled 2023-02-[address] [facility] Test 00:00:00 Counseling and Medical Cente r Screening (12+) [code = Tobacco Cessation Counseling and Screening (12+)] Future Scheduled 2022-07-[address] [facility] Test 00:00:00 WELLNESS (YEAR 2 or Medical Center FIRST YEAR if no IPPE) [code = MEDICARE ANNUAL WELLNESS (YEAR 2 or FIRST YEAR if no IPPE)] Future Scheduled 2022-07-[address] [facility] Test 00:00:00 (12+) [code = Medical Center DEPRESSION SCREENING (12+)] Future Scheduled 2022-03-26 INFLUENZA VACCINE (#1) C [...] Lukes Test 00:00:00 2) [code = SHINGLES [facility] VACCINES (1 of 2)] Future Scheduled 2015-11-02 SHINGLES VACCINES ([address] [facility] 00:00[facility]00 [facility])] Future Scheduled 2015-11-02 SHINGLES VACCINES ([address] [facility] Test 00:00:00 2) [code = SHINGLES [facility] VACCINES (1 of 2)] Future Scheduled 2010 Lipid panel (procedure) [facility] Test 00:00:00 [code = 77925264] Medical Ce nter Future Scheduled 2010 Lipid panel (procedure) [facility] Test 00:00:00 [code = 26347124] Medical Ce nter Future Scheduled 2010 Lipid panel (procedure) [facility] Test 00:00:00 [code = 40320241] Medical Ce nter Future Scheduled 1986 Screening for malignant [facility] Test 00:00:00 neoplasm of cervix Medical C enter (procedure) [code = 167503855] Future Scheduled 1986 Screening for malignant [facility] Test 00:00:00 neoplasm of cervix Medical C enter (procedure) [code = 675187174] Future Scheduled 1986 Screening for malignant [facility] Test 00:00:00 neoplasm of cervix Medical C enter (procedure) [code = 972627496] Future Scheduled 1984 DTAP/TDAP/TD VACCINES CH I [...] colon Medical Ce nter (procedure) [code = 961245896] Future Scheduled 1965 Screening for malignant [facility] Test 00:00:00 neoplasm of colon Medical Ce nter (procedure) [code = 545566306] Future Scheduled 1965 Sigmoidoscopy [code = [facility] Sigmoidoscopy] Medical Cente r Future Scheduled 1965 Screening for malignant [facility] Test 00:00:00 neoplasm of breast Medical C enter (procedure) [code = 268171678] Future Scheduled 1965 CT Colonography (combo) [facility] Test 00:00:00 [code = CT Colonography Medi maile Center (combo)] Future Scheduled 1965 Screening for malignant [facility] Test 00:00:00 neoplasm of colon Medical Ce nter (procedure) [code = 035939765] Future Scheduled 1965 Screening for malignant [facility] Test 00:00:00 neoplasm of colon Medical Ce nter (procedure) [code = 837025174] Future Scheduled 1965 Screening for malignant [facility] Test 00:00:00 neoplasm of colon Medical Ce nter (procedure) [code = 570140666] Future Scheduled 1965 Screening for malignant [facility] Test 00:00:00 neoplasm of colon Medical Ce nter (procedure) [code = 418566809] Future Scheduled 1965 Sigmoidoscopy [code = [facility] S[facility]oidoscopy] Medical Cente r Future Scheduled 1965 Screening for malignant [facility] Test 00:00:00 neoplasm of breast Medical C enter (procedure) [code = 397530403] Future Scheduled 1965 CT Colonography (combo) [facility] Test 00:00:00 [code = CT Colonography Medi maile Center (combo)] Future Scheduled 1965 Screening for malignant [facility] Test 00:00:00 neoplasm of colon Medical Ce nter (procedure) [code = 139344675] Future Scheduled 1965 Screening for malignant [facility] Test 00:00:00 neoplasm of colon Medical Ce nter (procedure) [code = 745265427] Future Scheduled 1965 Screening for malignant [facility] Test 00:00:00 neoplasm of breast Medical C enter (procedure) [code = 778566149] Future Scheduled 1965 CT Colonography (combo) [facility] Test 00:00:00 [code = CT Colonography [facility] (combo)] Future Scheduled 1965 Screening for malignant [facility] Test 00:00:00 neoplasm of colon Medical Ce nter (procedure) [code = 531962230] Future Scheduled 1965 Screening for malignant [facility] Test 00:00:00 neoplasm of colon Medical Ce nter (procedure) [code = 000392598] Future Scheduled 1965 Screening for malignant [facility] Test 00:00:00 neoplasm of colon Medical Ce nter (procedure) [code = 338673124] Future Scheduled 1965 Screening for malignant [facility] Test 00:00:00 neoplasm of colon Medical Ce nter (procedure) [code = 910334203] Future Scheduled 1965 Sigmoidoscopy [code = [facility] 00:[facility]:00 Sigmoidoscopy] Medical [facility] Encounters Start End Encounter Admission Attending Care Care Encounter Source Date/Time Date/Time Type Type Clinicians Facility Department ID 2022-03-09 2022-03-09 [facility] [id number] [facility] 16:25:00 19:04:00 Bertha MANN [id number] [facility] [id number] [facility] [id number] [address] 2022-03-09 2022-03-09 Emergency [facility] ERT [id number] [facility] 16:25:00 19:04:00 BERTHA gordon [facility] 2022-03-09 2022-03-09 Emergency [facility] E[facility] [id number] [facility] 16:25:00 19:04:00 BERTHA heidi [facility] 2022-03-09 2022-03-09 Nurse Nurse, [facility] [id number] [facility] 15:45:00 16:00:42 Visit Van, [facility] [id number] Josette [id number] Petros as JAVED?BLEA [id number] Ri tavon [address] MEDICAL OFFICE BUILDING 2022-03-09 2022-03-09 Outpatient R [facility] [id number] Univers 15:45:00 15:45:00 SANGITA mendozamonae alistair yaneth [facility] 2022-03-09 2022-03-09 [facility] [id number] Univers 15:40:00 15:40:00 ABDIFATAH gordon [facility] 2022-02-17 2022-02-17 Emergency EM AP [place] SANJUANA [id number] [facility] 05:53:00 09:40:00 Byron 16 [facility] 2022-02-17 2022-02-17 Emergency EM DIEGO SpainBernardaAishwarya [facility] [id number] [facility] 05:53:00 09:40:00 Byron [id number] [facility] 2022-02-09 2022-02-10 [id number] [facility] 03:13:00 22:30:00 YENNIFER 2022-02-09 2022-02-[address] [facility] [id number] [facility] 03:13:00 22:30:00 [facility] 2022-02-09 2022-02-10 [facility] [id number] [facility] 03:13:00 22:30:00 [facility] 2022-02-09 2022-02-09 [facility] [id number] [facility] 00:[facility]00 00:00:00 [facility] 2022-02-09 2022-02-09 [facility] [id number] [facility] 00:[facility] 00:[facility]00 [facility] Results Test Description Test Time Test Comments Results Result [facility] e Comments CT, CTA AAA, W/ 2022-02-24 ESTHER.EXT.RUNOFF 10:11:00 [facility]IL : 1965 Sex: F *Addendum BeginsREPORT STATUS:A Addendum: I agree with the previously described non vascular findings by Dr. Deleon. Signed: RaghavVicentea MDReport Verified Date/Time: 02/24/2022 10:11:22 Addendum EndsFINAL [...] An addendum will be dictated by the Accounts Executive Radiologist regarding the nonvascular findings. THE REPORT WILL ONLY BE CONSIDERED COMPLETE AFTER THE ADDENDUM HAS BEEN DICTATED. Signed: Bryan [facility]leonthe [facility] of [facility] Verified Date/Time: 02/12/2022 10:10:27 2D Echo 2022-02-[address] [facility] W/Doppler(CW/PW/C 15:38:57 [facility] 2D Echo 2022-02-[address] [facility] W/Doppler(CW/PW/C 15:38:57 FractionSLE ECHO Medical olor) [facility] 2D Echo 2022-02-[address] [facility] W/Doppler(CW/PW/C 15:38:57 FractionSLE ECHO Medical olor) [facility] POC-Glucose meter 2022-02-10 16:35:46 Test Item Value Reference Range Interpretation Comme nts POC-Glucose Meter (test code = 97 mg/dL 70-110 : TESTED AT [facility] 67[address] [facility] 1538) [facility], [facility] 30: Film Casting Operator/Techni dilma ID = [id number] for Corry Rinaldi sa Lab Interpretation (test code = Normal 38184-6) [facility] [id number] 16:35:46 Test Item Value Reference Range Interpretation Comments POC-Glucose Meter (test 97 mg/dL 70-110 : TE STED AT [facility] code = 1538) [address] [facility], 770 30: Film Casting Operator/Techni dilma ID = [id number] for Corry Rinaldi sa Lab Interpretation (test Normal code = 09948-7) [facility] [id number] 16:35:46 Test Item Value Reference Range Interpretation Comments POC-Glucose Meter (test 97 mg/dL 70-110 : TE STED AT [facility] code = 1538) [address] [facility], 770 30: Film Casting Operator/Techni dilma ID = [id number] for Corry Rinaldi sa Lab Interpretation (test Normal code = 44787-3) [facility]UCOSE [id number] 16:35:46 Test Item Value Reference Range Interpretation Comments POC-GLUCOSE METER 97 mg/dL 70-110 : [facility]ED [facility] 67[address] (BEAKER) (test code = [facility], 1538) [address]: Film Casting Operator/Techni dilma ID = [id number] for Genny Saldivar [id number] 14:49:27 Test Item Value Reference Range Interpretation Comments PARTIAL THROMBOPLASTIN TIME 60.8 seconds 22.5-36.0 H (BEAKER) (test code = 760) [id number] 09:02:31 Test Item Value Reference Range Interpretation Comments PARTIAL THROMBOPLASTIN TIME 34.1 seconds 22.5-36.0 (BEAKER) (test code = 760) POCT-GLUCOSE [id number] 07:42:16 Test Item Value Reference Range Interpretation Comments POC-GLUCOSE METER 74 mg/dL 70-110 : TESTED A T [facility] 6720 (BEAKER) (test code = [facility], 1538) [address]: Film Casting Operator/Techni dilma ID = [id number] for Acacia Christine CBC (HEMOGRAM ONLY)2022-02-10 05:14:47 [...] WBC 0-0 (BEAKER) (test code = 413) [id number] 23:23:24 Test Item Value Reference Range Interpretation Comments PARTIAL THROMBOPLASTIN TIME 31.9 seconds 22.5-36.0 (BEAKER) (test code = 760) POCT-GLUCOSE [id number] 21:30:42 Test Item Value Reference Range Interpretation Comments POC-GLUCOSE METER 143 mg/dL 70-110 H : TESTED A T [facility] 6720 (BEAKER) (test code = [place], 1538) [address]: Film Casting Operator/Techni dilma ID = [id number] for SA NDERS, JERRY HUNTER's with PT and DP doppler [id number] 18:17:32Ejection FractionSLEH ECHO HEARTLAB CKESSON [facility] and DP doppler [id number] 18:17:32Ejection FractionSLEH ECHO HEARTLAB MKCKESSON [facility] with PT and DP doppler [id number] 18:17:32Ejection FractionSLEH ECHO HEARTLAB MKCKESSON CPACS [facility] CenterArterial Doppler Leg, [id number] 18:16:33 Ejection FractionSLEH ECHO HEARTLAB MKCKMISERICORDIA HOSPITALON [facility] Arterial Doppler Leg, [id number] 18:16:33Ejection FractionSLEH ECHO HEARTLAB MKCKESSON [facility] Leg, Right 2022-02-09 18:16:33Ejection FractionSLEH ECHO HEARTLAB MKCKMISERICORDIA HOSPITALON [facility]POCT-GLUCOSE [id number] 16:41:21 Test Item Value Reference Range Interpretation Comments POC-GLUCOSE METER 99 mg/dL 70-110 : TESTED A T [facility] 6720 (YAMILETAKER) (test code = [place], 1538) [address]: Film Casting Operator/Techni dilma ID = [id number] for Kelsea Romero SARS-CoV2/RT-PCR (Asymptomatic ONLY)2022-02-09 14:34:44 Test Item Value Reference Range Interpretation Comments SARS-COV2/RT-PCR Negative Not Detected, (test code = Negative, See 41732-3) external report for linked test SARS-COV-2 [facility] PERFORMING LAB (test code = 12759-1) ADENIKE (test code = Negative result for [...] of the Act. Fact Sheet for Healthcare Providers:https://www.Nimb[employer] Cloud Apps/sites/default/f gloria/product/documents/F act_Sheet_HC_Providers_L sov_MOOE-EdY-9.pdf Fact Sheet for Healthcare Patients:https://www.Last Guide/sites/default/fi les/product/documents/Fa ct_Sheet_Patients_Lyra_S ARS-CoV-2.pdf Performing Laboratory:[facility], [place] [address] [place], [place] [address]ARS-CoV2/RT-PCR (Asymptomatic ONLY)2022-02-09 14:34:44 Test Item Value Reference Range Interpretation Comments SARS-COV2/RT-PCR Negative Not Detected, (test code = Negative, See 01982-8) external report for linked test SARS-COV-2 [facility] PERFORMING LAB (test code = 00685-9) ADENIKE (test code = Negative result for [...] of the Act. Fact Sheet for Healthcare Providers:https://www.[employer] Apps/sites/default/f gloria/product/documents/F act_Sheet_HC_Providers_L bym_UKHC-YeM-7.pdf Fact Sheet for Healthcare Patients:https://www.Last Guide/sites/default/fi les/product/documents/Fa ct_Sheet_Patients_Lyra_S ARS-CoV-2.pdf Performing Laboratory:[facility] [place] [address] [facility] (Asymptomatic ONLY)2022-02-09 14:34:44 Test Item Value Reference Range Interpretation Comments SARS-COV2/RT-PCR Negative Not Detected, (test code = Negative, See 54035-5) external report for linked test SARS-COV-2 [facility] PERFORMING LAB (test code = 33157-9) ADENIKE (test code = Negative result for [...] of the Act. Fact Sheet for Healthcare Providers:https://www.[employer] Apps/sites/default/f gloria/product/documents/F act_Sheet_HC_Providers_L syh_NCRP-YsW-8.pdf Fact Sheet for Healthcare Patients:https://www.Last Guide/sites/default/fi les/product/documents/Fa ct_Sheet_Patients_Lyra_S ARS-CoV-2.pdf Performing Laboratory:[facility] [place] [address] [facility]-PCR ([facility])2022-02-09 14:34:44 Test Item Value Reference Range Interpretation Comments SARS-COV2/RT-PCR (test Negative Not Detected, Negative, code = 0505477) See external report for linked test SARS-COV-[address] [facility] (test code = 2245910) Negative result for this test determines that [...] of the Act.Fact Sheet for Healthcare Prov iders:https://www.SensorWave/sites/default/files/product/documents/Fact_Sheet_HC _Emqvflsim_Yphc_GYGX-OcS-5.pdfFact Sheet for Healthcare Patients:https://www.Resoomay.proVITAL/sites/default/files/product/docume nts/Vvuf_Zkppa_Mteymztd_Eeec_NPFG-ScJ-0.pdfPerforming Laboratory:[facility], [place] [id number] 13:31:18 Test Item Value Reference Range Interpretation Comments PARTIAL THROMBOPLASTIN TIME 38.7 seconds 22.5-36.0 H ([employer]) (test code = 760) HEMOGLOBIN [id number] 13:17:34 Test Item Value Reference Range Interpretation Comments HEMOGLOBIN A1C 5.7 % See_Comment H [Automated m essage] ELECTROPHORESIS ([employer]) The system which (test code = 3811) generated this result transmitted ref erence range: <=5.6%. The reference range was not used to int erpret this result as normal/abnormal . "The A1c is measured using a NGS-certified method. HbA1c value equal to or greater than 6.5% as thediagnosis cutoff for diabetes. An HbA1c value of 5.7- 6.4% indicates increased risk for diabetes (prediabetes)."Film Casting Operator ID - [id number] ID - ADMPOCT-GLUCOSE [id number] 12:25:58 Test Item Value Reference Range Interpretation Comments POC-GLUCOSE METER 108 mg/dL 70-110 : TESTED A T [facility] 6720 (BEAKER) (test code = [place], 1538) [address]: Film Casting Operator/Techni dilma ID = [id number] for Win Angel COMPREHENSIVE METABOLIC [id number] 07:55:16 Test Item Value Reference Range Interpretation [...] S NOT APPLICABLE FOR DIALYSIS PATIEN TS. Film Casting Operator ID - ADMINPOCT-GLUCOSE [id number] 07:46:09 Test Item Value Reference Range Interpretation Comments POC-GLUCOSE METER 84 mg/dL 70-110 : TESTED A T [facility] 6720 (BEAKER) (test code = [facility] [place], 1538) [address]: Film Casting Operator/Techni dilma ID = [id number] for Kelsea Romero POCT-GLUCOSE [id number] 06:20:17 Test Item Value Reference Range Interpretation Comments POC-GLUCOSE METER 86 mg/dL 70-110 : TESTED A T [facility] 6720 (BEAKER) (test code = [facility], 1538) [address]: Film Casting Operator/Techni dilma ID = [id number] for JERRY CHRIS [id number] 05:19:02 Test Item Value Reference Range Interpretation [...]
[2022-09-26 22:54] LABS: Absolute Lymphocytes (CBC) 2.3 K/uL (0.7-4.9); Hematocrit 37.9 % (36.0-45.0); Lymphocytes % 25.5 % (15.3-44.8); MCV 94.1 fL (80-100); RBC Red Blood Cell Count 4.03 M/uL (3.86-4.86)
[2022-09-26 22:57] LABS: Protime INR 1.05
[2022-09-26] MEDS ORDERED: NA CHLORIDE 0.9% 500 ML ONE (23:08)
[2022-09-26 23:15] LABS: AST/SGOT 6 U/L (15-37); Albumin 2.7 g/dL (3.4-5.0); Alkaline Phosphatase 111 U/L (45-117); BUN Blood Urea Nitrogen 5 mg/dL (7-18); Bicarbonate 24 mmol/L (21-32); Bilirubin Total 0.3 mg/dL (0.2-1.0); Glomerular Filtration Rate 77 ml/min (=/>90); Glucose Level 102 mg/dL (74-106); NT PRO-BNP 1274 pg/mL (<125); Potassium 3.1 mmol/L (3.5-5.1); Protein, Total 5.9 g/dL (6.4-8.2); Sodium Level 141 mmol/L (136-145); Troponin High Sensitivity 6.8 pg/mL (<58.9)
[2022-09-26 23:23] LABS: ALT/SGPT < 10 U/L (13-56); Bilirubin Direct < 0.1 mg/dL (0-0.2)
--- NOTE | 2022-09-26 23:27 | RAD REPORT ---
[facility] CLINICAL HISTORY: weakness COMPARISON: Chest Single View dated 02/08/2022; Chest Single View dated 01/25/2022; Chest Pa And Lat (2 Views) dated 10/11/2021 TECHNIQUE: Portable AP view of the chest. FINDINGS: The lungs are clear. No pneumothorax or effusion. The cardiomediastinal contours are unrem arkable. IMPRESSION: No acute cardiopulmonary process.
--- NOTE | 2022-09-27 00:56 | ER ---
Nurse's Notes [facility] Name: Nahomi Soto Age: 56 yrs Sex: Female : 1965 Arrival Date: 09/26/2022 Time: 20:56 Bed 19 Private MD: Diagnosis: Volume depletion, unspecified;Hypokalemia Presentation: 09/26 21:37 Chief complaint: Patient states: I haven't eaten in two days. I have been vomiting and kd3 i just don't feel well. I cant even keep water down. I also have a pain in my right shoulder. Coronavirus screen: Vaccine status: Patient reports receiving the 2nd dose of the covid vaccine. Ebola Screen: No symptoms or risks identified at this time. Initial Sepsis Screen: Does the patient meet any 2 criteria? No. Patient's initial sepsis screen is negative. Does the patient have a suspected source of infection? No. Patient's initial sepsis screen is negative. Risk Assessment: Do you want to hurt yourself or someone else? Patient reports no desire to harm self or others. Onset of symptoms was September 26, 2022. 21:37 Method Of Arrival: Wheelchair kd3 21:37 Acuity: GIRISH 3 kd3 Triage Assessment: 21:38 General: Appears uncomfortable, Behavior is calm, cooperative. Pain: Complains of pain kd3 in right trapezius. Neuro: Level of Consciousness is awake, alert, obeys commands, Oriented to person, place, time, situation. Respiratory: Airway is patent Trachea midline Respiratory effort is even, unlabored, Respiratory pattern is regular, symmetrical. GI: Reports lower abdominal pain, diarrhea, nausea, vomiting. Historical: - Allergies: 21:38 No Known Allergies; kd3 - PMHx: 21:38 diabetes mellitus; Arthritis; insomnia; Hypertensive disorder; Hypercholesterolemia; kd3 - PSHx: 21:38 Colostomy reversal; cyst removal and colon SX; toe; kd3 - Immunization history:: Adult Immunizations up to date. - Social history:: Smoking status: Patient reports the use of cigarette tobacco products, smokes one pack cigarettes per day. Screenin:00 [facility] ED Fall Risk Assessment (Adult) History of falling in the last 3 months, ke1 including since admission No falls in past 3 months (0 pts) Confusion or Disorientation No (0 pts) Intoxicated or Sedated No (0 pts) Impaired Gait No (0 pts) Mobility Assist Device Used No (0 pt) Altered Elimination No (0 pt) Score/Fall Risk Level 0 - 2 = Low Risk. Abuse screen: Denies threats or abuse. Nutritional screening: No deficits noted. Tuberculosis screening: No symptoms or risk factors identified. Assessment: 09/27 00:02 Reassessment: Patient denies pain at this time. Patient states symptoms have improved. ke1 00:43 Reassessment: Patient unable to give urine because incontinent, offered straight cath ke1 but patient refused. Vital Signs: 09/26 21:33 BP 154 / 68; Pulse 87; Resp 19; Temp 98.2(O); Pulse Ox 96% on R/A; Weight 97.98 kg; kd3 Height 5 ft. 4 in. (162.56 cm); Pain 9/10; 09/27 00:04 BP 137 / 56; Pulse 94; Resp 17; Temp 98.2(O); Pulse Ox 96% on R/A; Pain 0/10; ke1 09/26 21:33 Body Mass Index 37.08 (97.98 kg, 162.56 cm) kd3 ED Course: 09/26 20:56 Patient arrived in ED. jj6 20:57 Bob Hawkins PA is PHCP. cp 20:57 Lauro Ash MD is Attending Physician. cp 21:38 Triage completed. kd3 21:38 Arm band placed on right wrist. kd3 22:00 Patient has correct armband on for positive identification. Call light in reach. ke1 22:26 Miguel A Christopher, CONY is Primary Nurse. ke1 09/27 01:11 No provider procedures requiring assistance completed. IV discontinued. ke1 Administered Medications: 09/26 23:40 Drug: NS 0.9% 500 ml Route: IV; Rate: bolus; Site: right antecubital; ke1 09/27 01:09 Drug: Zofran (Ondansetron) 4 mg Route: IVP; Site: right antecubital; ke1 01:11 Drug: Potassium Effervescent Tablet 50 mEq Route: PO; ke1 Medication: 01:11 VIS not applicable for this client. ke1 Outcome: 00:56 Discharge ordered by . cp 01:14 Discharged to home via wheelchair. ke1 01:14 Condition: good 01:14 Discharge instructions given to patient. 01:15 Patient left the ED. ke1 Signatures: Bob Hawkins PA PA cp Jeffries, Jennifer jj6 Mignon Wu RN RN kd3 Miguel A Christopher RN RN ke1
--- NOTE | 2022-09-27 00:56 | EDPHYS ---
Physician Documentation [facility] Name: Nahomi Soto Age: 56 yrs Sex: Female : 1965 Arrival Date: 09/26/2022 Time: 20:56 Bed 19 Private MD: ED Physician Lauro Ash HPI: 09/26 22:05 This 56 yrs old Female presents to ER via Wheelchair with complaints of cp Nausea/Vomiting, General Weakness, Shoulder Pain. 22:05 The patient presents to the emergency department with nausea, that is moderate, cp vomiting, that is intermittent, diarrhea, that is intermittent. Onset: The symptoms/episode began/occurred 2 day(s) ago. 22:05 Possible causes: unknown. Associated signs and symptoms: Pertinent positives: anorexia, cp Pertinent negatives: abdominal pain, constipation, fever, GI bleeding. Severity of symptoms: in the emergency department the symptoms are unchanged despite home interventions. 22:05 Patient c/o pain to right shoulder, general weakness. cp Historical: - Allergies: 21:38 No Known Allergies; kd3 - PMHx: 21:38 diabetes mellitus; Arthritis; insomnia; Hypertensive disorder; Hypercholesterolemia; kd3 - PSHx: 21:38 Colostomy reversal; cyst removal and colon SX; toe; kd3 - Immunization history:: Adult Immunizations up to date. - Social history:: Smoking status: Patient reports the use of cigarette tobacco products, smokes one pack cigarettes per day. ROS: 22:10 Constitutional: Positive for poor PO intake, Negative for body aches, chills, fever. cp 22:10 Abdomen/GI: Positive for vomiting, diarrhea, decreased appetite. cp Exam: 22:15 Constitutional: The patient appears in no acute distress, alert, awake, cp non-diaphoretic, non-toxic, well developed, well nourished, obese. 22:15 Head/Face: Normocephalic, atraumatic. cp 22:15 Eyes: Periorbital structures: appear normal, Conjunctiva: normal, no exudate, no injection, Sclera: no appreciated abnormality, Lids and lashes: appear normal, bilaterally. 22:15 ENT: External ear(s): are unremarkable, Nose: is normal, Mouth: Lips: moist, Oral mucosa: pink and intact, moist, Posterior pharynx: Airway: no evidence of obstruction, patent, erythema, is not appreciated, exudate, is not appreciated. 22:15 Neck: ROM/movement: is normal, is supple, without pain, no range of motions limitations, no meningismus. 22:15 Chest/axilla: Inspection: normal. 22:15 Cardiovascular: Rate: normal, Rhythm: regular, Edema: is not appreciated, JVD: is not appreciated. 22:15 Respiratory: the patient does not display signs of respiratory distress, Respirations: normal, no use of accessory muscles, no retractions, labored breathing, is not present, Breath sounds: are clear throughout, no decreased breath sounds, no stridor, no wheezing. 22:15 Abdomen/GI: Inspection: obese Bowel sounds: active, all quadrants, Palpation: soft, in all quadrants, mild abdominal tenderness, in all quadrants. 22:15 Back: CVA tenderness, is absent. 22:15 Skin: cellulitis, is not appreciated, no rash present. 22:15 Neuro: Orientation: to person, place \T\ time. Mentation: is normal, Motor: moves all fours, general weakness with no focal deficits, Sensation: is normal. 23:14 ECG was reviewed by the Attending Physician. cp Vital Signs: 21:33 BP 154 / 68; Pulse 87; Resp 19; Temp 98.2(O); Pulse Ox 96% on R/A; Weight 97.98 kg; kd3 Height 5 ft. 4 in. (162.56 cm); Pain 9/10; 09/27 00:04 BP 137 / 56; Pulse 94; Resp 17; Temp 98.2(O); Pulse Ox 96% on R/A; Pain 0/10; ke1 09/26 21:33 Body Mass Index 37.08 (97.98 kg, 162.56 cm) kd3 MDM: 09/26 21:43 Patient medically screened. cp 22:00 Differential diagnosis: gastritis, diverticulitis, viral gastroenteritis, cp gastroenteritis, colitis, dehydration, sepsis, UTI. 09/27 00:57 Data reviewed: vital signs, nurses notes, lab test result(s), EKG, radiologic studies, cp CT scan, plain films. Consideration of Admission/Observation Escalation of care including admission/observation considered. Care significantly affected by the following chronic conditions: Diabetes, Hypertension, Obesity. Counseling: I had a detailed discussion with the patient and/or guardian regarding: the historical points, exam findings, and any diagnostic results supporting the discharge/admit diagnosis, lab results, radiology results, the need for outpatient follow up, a family practitioner, to return to the emergency department if symptoms worsen or persist or if there are any questions or concerns that arise at home. ED course: Patient declines to provide urine sample for testing and refuses catheterization. 09/26 21:57 Order name: Basic Metabolic Panel cp 09/26 21:57 Order name: CBC with Diff cp 09/26 21:57 Order name: LFT's cp 09/26 21:57 Order name: Magnesium cp 09/26 21:57 Order name: NT PRO-BNP cp 09/26 21:57 Order name: PT-INR cp 09/26 21:57 Order name: Troponin HS cp 09/26 21:57 Order name: XRAY Chest (1 view) cp 09/26 21:57 Order name: EKG; Complete Time: 21:59 cp 09/26 21:57 Order name: Cardiac monitoring; Complete Time: 23:40 cp 09/26 21:57 Order name: EKG - Nurse/Tech; Complete Time: 23:14 cp 09/26 21:57 Order name: IV Saline Lock; Complete Time: 23:40 cp 09/26 21:57 Order name: Labs collected and sent; Complete Time: 23:40 cp 09/26 21:57 Order name: O2 Per Protocol; Complete Time: 23:40 cp 09/26 21:57 Order name: O2 Sat Monitoring; Complete Time: 23:40 cp 09/26 21:57 Order name: Urine Microscopic Only cp 09/26 21:57 Order name: Lactate w/ 2H reflex if indic. cp 09/26 22:47 Order name: CT Head Brain wo Cont cp 09/26 22:47 Order name: CT Abd/Pelvis - IV Contrast Only cp 09/26 22:54 Order name: CBC with Automated Diff; Complete Time: 23:14 EDMS 09/26 23:14 Interpretation: Reviewed. cp 09/26 22:57 Order name: Protime (+INR); Complete Time: 23:14 EDMS 09/26 23:14 Order name: Lactate w/ 2H reflex if indic.; Complete Time: 23:32 EDMS 09/26 23:24 Order name: Basic Metabolic Panel; Complete Time: 23:32 EDMS 09/26 23:32 Interpretation: Normal except: K 3.1; CL 112; BUN 5; GFR 77; CA 8.2. cp 09/26 23:24 Order name: Liver (Hepatic) Function; Complete Time: 23:32 EDMS 03 23:32 Interpretation: Normal except: AST 6; ALT < 10; TP 5.9; ALB 2.7; A/G 0.8. cp 09/26 23:24 Order name: Troponin High Sensitivity; Complete Time: 23:32 EDMS 03 23:24 Order name: NT PRO-BNP; Complete Time: 23:32 EDMS 03 23:33 Interpretation: Abnormal: NT PRO-BNP 1274. cp 09/26 23:24 Order name: Magnesium; Complete Time: 23:32 EDMS 09/26 23:28 Order name: RAD; Complete Time: 23:32 EDMS 09/26 23:33 Interpretation: Report reviewed. cp EC/04 23:14 Rate is 85 beats/min. Rhythm is regular. AK interval is normal. QRS interval is normal. cp QT interval is normal. T waves are Inverted in lead V2. Interpreted by me. Reviewed by me. Administered Medications: 23:40 Drug: NS 0.9% 500 ml Route: IV; Rate: bolus; Site: right antecubital; ke1 09/27 01:09 Drug: Zofran (Ondansetron) 4 mg Route: IVP; Site: right antecubital; ke1 01:11 Drug: Potassium Effervescent Tablet 50 mEq Route: PO; ke1 Disposition Summary: 09/27/22 00:56 Discharge Ordered Location: Home cp Problem: new cp Symptoms: have improved cp Condition: Stable cp Diagnosis - Volume depletion, unspecified cp - Hypokalemia cp Followup: cp - With: Private Physician - When: 1 - 2 days - Reason: Recheck today's complaints Discharge Instructions: - Discharge Summary Sheet cp - Dehydration, Adult cp - Potassium Content of Foods cp - Hypokalemia cp Forms: - Medication Reconciliation Form cp - Thank You Letter cp - Antibiotic Education cp - Prescription Opioid Use cp Prescriptions: - Potassium Chloride 10 mEq Oral capsule, extended release - take 2 tablet by ORAL route once daily; 6 tablet; Refills: 0, Product Selection cp Permitted Addendum: 09/28/2022 02:31 Co-signature as Attending Physician, Lauro Ash MD I reviewed the patient's care s p4 provided by the Advanced Practice Provider and agree with the diagnosis and treatment plan. Signatures: Dispatcher [employer] EDMN Bob Hawkins PA PA cp Doucette, Kyli RN RN kd3 Miguel A Christopher RN RN ke1 Lauro Ash MD MD sp4
[2022-09-27] MEDS ORDERED: POTASSIUM 25 MEQ EFFERV TAB ONE (01:06)
[2022-09-27] MEDS ORDERED: ONDANSETRON 4 MG/2 ML VIAL ONE (01:06)
[2022-09-27 01:22] VITALS: TEMP 98.2; O2SAT 96
[2022-09-27 01:23] VITALS: BP 137/56
--- NOTE | 2022-09-28 12:11 | RAD REPORT ---
EXAM DESCRIPTION: CT - Abdomen Pelvis W Contrast - 09/27/2022 6:52 am CLINICAL HISTORY: Diarrhea COMPARISON: 01/26/2022. TECHNIQUE: CT ABDOMEN PELVIS WITH IV CONTRAST on 09/26/2022 10:47 PM HOLE PUNCHER STRAP This exam was performed according to our departmental dose-optimization program, which includes autom ated exposure control, adjustment of the mA and/or kV according to patient size and/or use of iterati ve reconstruction technique. FINDINGS: Lower lungs are clear. Abdomen: The liver is normal in appearance. There is no biliary dilatation. Cholecystectomy was perfo rmed. The pancreas and spleen are normal in appearance. Adrenal glands are normal. Kidneys are mildly atrophic. Abdominal aorta is normal in course and caliber without aneurysm. There is no free air. There is no r etroperitoneal adenopathy. There is diffuse body wall anasarca. Pelvis: Multilobed overall moderate ventral hernia contains multiple small bowel loops without defini te bowel obstruction. There are postoperative changes of the right lower quadrant small bowel. Urinar y bladder is unremarkable. There is no free fluid. Uterus is normal in size. Skeleton: There are no acute osseous findings. No suspicious bony lesions. IMPRESSION: Relatively unchanged ventral hernia with no bowel obstruction. No definite acute inflamm atory process. Electronically signed by: Brendan Rob MD 09/27/2022 12:48 AM HOLE PUNCHER STRAP Due to temporary technical issues with the PACS/Fluency reporting system, reports are being signed by the in house radiologists without review as a courtesy to insure prompt reporting. The interpreting radiologist is fully responsible for the content of the report.
--- NOTE | 2022-09-28 12:14 | RAD REPORT ---
EXAM DESCRIPTION: CT - Head Brain Wo Cont - 09/27/2022 6:53 am CLINICAL HISTORY: WEAKNESS COMPARISON: None. TECHNIQUE: CT HEAD WITHOUT IV CONTRAST on 09/26/2022 10:47 PM EYELET RIVETER This exam was performed according to our departmental dose-optimization program, which includes autom ated exposure control, adjustment of the mA and/or kV according to patient size and/or use of iterati ve reconstruction technique. FINDINGS: There is no acute hemorrhage, mass effect or midline shift. Florence-white differentiation is preserved. There is no hydrocephalus. There is no significant volume loss for age. The calvarium is intact. Orbits and globes are unremarkable. Right maxillary sinus is opacified. Ther e is moderate thickening of the right sphenoid sinus. There is small amount of fluid in the inferior mastoid air cells bilaterally. IMPRESSION: No acute intracranial findings. Electronically signed by: Brendan Rob MD 09/27/2022 12:45 AM EYELET RIVETER Due to temporary technical issues with the PACS/Fluency reporting system, reports are being signed by the in house radiologists without review as a courtesy to insure prompt reporting. The interpreting radiologist is fully responsible for the content of the report.
--- NOTE | 2022-09-28 16:42 | EKG ---
Test Date: 2022-09-26 Test Time: 23:13:01 Log Chipper: RV MEASUREMENT RESULTS: Intervals: Rate: 85 ID: [id number] QRSD: 82 QT: 350 QTc: 416 [place]: P: 75 ID: [id number] QRS: 94 T: 37 INTERPRETIVE STATEMENTS: Sinus rhythm with fusion complexes Rightward axis Septal infarct, age undetermined Abnormal ECG Compared to ECG 02/09/2022 01:31:21 Fusion complex(es) now present Right-axis deviation now present Myocardial infarct finding still present Electronically Signed On 09-28-22 16:38:04 DECORATIVE CUTTING MACHINE TENDER by Lucio Flores
== END 2022-09-27 01:15 | disposition home or self-care (01) ==
LOC: ER 20:46
DX: E86.9 Volume depletion, unspecified (principal); E87.6 Hypokalemia; E11.9 Type 2 diabetes mellitus without complications; I10 Essential (primary) hypertension; F17.210 Nicotine dependence, cigarettes, uncomplicated
CPT/HCPCS: 93005; 85025; 80048; 36415; 83735; 85610; 80076; 83605; 84484; 83880; 70450; 74177; 71045; 96374; 99283; Q9967; J7040; J2405

== ENCOUNTER 2023-01-07 22:46 | Observation (INO) | payer OTHER ==
--- OUTSIDE RECORDS SUMMARY | 2023-01-07 22:50 | XMS REPORT | Continuity of Care Document ---
:1965 Author Organization [facility] t Address [address] [facility] [address] [place] [address] Care Team Providers Name Role Phone SYSTEM, PCP NOT IN Primary Care Physician Unavailable Bertha Walters DO Attending Clinician BERTHA WALTERS Attending Clinician Unavailable Nurse, [facility] Attending Clinician Unavailable Kana Tena Attending Clinician KANA ARAUJO Attending Clinician Unavailable ABDIFATAH AMATO Attending Clinician Unavailable Anusha Spain Attending Clinician Unavailable Suzette DIETRICH, Devan Davis Attending Clinician [phone] Yennifer Eddy MD Attending Clinician Bonnie Muñoz MD Attending Clinician [phone] YENNIFER EDDY Attending Clinician Unavailable Physician, No Primary or Family Admitting Clinician UnavailBONNIE Spencer Admitting Clinician Unavailable Payers Payer Name Policy Type Policy Number Effective Date Expiration Date S ource Problems Condition Condition Condition Status Onset Resolution Last Treating Co mments Source Name Details Category Date Date Treatment Clinician Date Tobacco Tobacco Disease [facility] [address] Advanced Advanced Disease Recurre [facility] COPD (HCC) COPD (HCC) nce 7 Anna kes suspected suspected 00:00: Medi maile 00 Center PAD PAD Disease Recurre [facility] (periphera (periphera nce 02-09 Anna kes l artery l artery 00:00: Medica l disease) disease) 00 Center No known No known Disease Unive rs active active ity of problems problems [facility] Allergies, Adverse Reactions, Alerts Allergy Allergy Status Severity Reaction(s) Onset Inactive Treating Comm ents Source Name Type Date Date Clinician No Known DA Active [facility] NO KNOWN Allergy [facility] 00:[facility]: [place] [address] [facility] NO KNOWN Drug Active Univers ALLERGIE Class ity of S [facility] Social History Social Habit Start Date Stop Date Quantity Comments Source History of Smokes tobacco [facility] tobacco use daily Medical Cente r History [facility]Med Medical [facility] Exposure to 2022-02-27 2022-03-[address] [facility] SARS-CoV-2 00:00:00 15:40:00 [facility] (event) [place] Tobacco use and 2022-02-09 2022-02-[address] [facility] exposure 00:00:00 00:00:00 Medical Center History [facility] 2022-02-09 2022-02-[address] [facility] Housing Places 00:00:00 00:00:00 Medical Ce nter Lived History [facility] 2022-02-09 2022-02-[address] [facility] Housing Homeless 00:00:00 00:00:00 Medical Center Last Year History [facility] 2022-02-09 2022-02-[address] [facility] Transport Med 00:00:00 00:00:[address] History [facility] 2022-02-09 2022-02-[address] [facility] Housing Unable to 00:00:00 00:00:00 Medical Center Pay Sex Assigned At [address] [facility] k[facility] 00:00:00 00:00:00 Medical Center Smoking Status Start Date Stop Date Source Never smoked tobacco [facility] Current every day smoker 2022-02-09 00:00:[address] [facility] Medications Ordered Filled Start Stop Current Ordering Indication Dosage Frequency Signature Comments Components Source Medication Medication Date Date Medication? Clinician (SIG) Name Name No known No No known Unive rs medications 815 medication it y of 16:20: s [address] Vital Signs Vital Name Observation Time Observation Value Comments Source Systolic blood 2022-03-09 20:51:00 116 mm[Hg] [facility] Diastolic blood 2022-03-09 20:51:00 56 mm[Hg] [facility]ive [facility] Heart rate 2022-03-09 20:51:00 106 /min Universi ty [facility] Body temperature 2022-03-09 20:51:00 36.89 [facility] ersity [facility] Respiratory rate 2022-03-09 20:51:00 16 /min [facility] Body height 2022-03-09 20:51:00 [facility] Body weight 2022-03-09 20:51:00 108.863 kg [facility] BMI 2022-03-09 20:51:00 41.20 kg/m2 [facility] Oxygen saturation in 2022-03-09 20:51:00 97 /min [facility] Arterial blood by [facility] Pulse oximetry Branch WEIGHT 2022-02-09 04:00:00 107.8 kg WEIGHT 2022-02-09 04:00:00 107.8 kg WEIGHT 2022-02-09 04:00:00 107.8 kg Heart rate 2022-02-10 20:00:00 86 /min [facility] Systolic blood 2022-02-10 19:22:00 139 mm[Hg] [facility] Diastolic blood 2022-02-10 19:22:00 65 mm[Hg] [facility] Body temperature 2022-02-10 19:22:00 35.61 Elina [facility] Respiratory rate 2022-02-10 19:22:00 18 /min [facility] Oxygen saturation in 2022-02-10 19:22:00 100 /min [facility] Arterial blood by Medical nter Pulse oximetry Body weight 2022-02-09 04:00:00 107.8 kg [facility] Procedures Procedure Date / Time Performing Clinician Source Performed 2D ECHO W/ DOPPLER 2022-02-10 18:08:34 Morro Hopkins [facility] (CW/PW/COLOR) [facility] 2D ECHO W/ DOPPLER 2022-02-10 18:08:34 Morro Hopkins [facility] (CW/PW/COLOR) [facility] POCT-GLUCOSE METER 2022-02-10 15:56:00 Yennifer Eddy [facility] APTT 2022-02-10 14:19:00 [facility] AAA AND RUNOFF 2022-02-10 12:29:00 Morro Hopkins [facility] APTT 2022-02-10 08:38:00 [facility] POCT-GLUCOSE METER 2022-02-10 07:30[facility] 2022-02-10 04:06:00 Bonnie Muñoz [facility] APTT 2022-02-09 22:28:00 [facility] 2022-02-09 21:16[facility]SE [facility]ER 2022-02-09 16:28:00 [facility] PV ARTERIAL HUNTER 2022-02-09 15:33:00 Yennifer Eddy [facility] HC ARTERIAL DOPPLER LEG 2022-02-09 15:33:00 Morro Hopkins [facility] APTT 2022-02-09 12:58:00 [facility] PO[facility]-GLUCOSE METER 2022-02-09 12:14:00 [facility]OV2/RT-[facility] ([facility] & 2022-02-09 08:52:00 Bonnie Muñoz [facility] REF LABS) [facility] POCT-GLUCOSE METER 2022-02-09 07:34:00 Devan Bradford [facility] HEMOGLOBIN A1C 2022-02-09 07:00:00 [facility] COMPREHENSIVE METABOLIC 2022-02-09 07:00:00 Bonnie Muñoz [facility] PANEL [facility] POCT-GLUCOSE METER 2022-02-09 06:09:00 Devan Bradford [facility] CBC (HEMOGRAM ONLY) 2022-02-09 04:49:00 [facility] 2022-02-09 04:49:00 Toni [facility] EKG-SCANNED 2022-02-09 00:00:00 ProviderAnnita [facility]3] es [facility] Plan of Care Planned Activity Planned Date Details Comments Source Future Scheduled 2023-03-[address] [facility] Test 00:00:00 (Season Ended) [code = [facility] Influenza Vaccine (Season Ended)] Future Scheduled 2023-02-[address] [facility] Test 00:00:00 Counseling and Medical Cente r Screening (12+) [code = Tobacco Cessation Counseling and Screening (12+)] Future Scheduled 2023-02-[address] [facility] Test 00:00:00 Counseling and Medical Cente r Screening (12+) [code = Tobacco Cessation Counseling and Screening (12+)] Future Scheduled 2022-07-[address] [facility] Test 00:00:00 WELLNESS (YEAR 2 or Medical Center FIRST YEAR if no IPPE) [code = MEDICARE ANNUAL WELLNESS (YEAR 2 or FIRST YEAR if no IPPE)] Future Scheduled 2022-07-[address] [facility] Test 00:00:00 WELLNESS (YEAR 2 or Medical Center FIRST YEAR if no IPPE) [code = MEDICARE ANNUAL WELLNESS (YEAR 2 or FIRST YEAR if no IPPE)] Future Scheduled 2022-07-[address] [facility] Test 00:00:00 (12+) [code = Medical Center DEPRESSION SCREENING (12+)] Future Scheduled 2022-07-[address] [...] [facility] Test 00:00:00 [code = 40517707] Medical Ce nter Future Scheduled 2010 Lipid panel (procedure) [facility] Test 00:00:00 [code = 09577971] Medical Ce nter Future Scheduled 2010 Lipid panel (procedure) [facility] Test 00:00:00 [code = 11508185] Medical Ce nter Future Scheduled 2010 Lipid panel (procedure) [facility] Test 00:00:00 [code = 44046880] Medical Ce nter Future Scheduled 1986 Screening for malignant [facility] Test 00:00:00 neoplasm of cervix Medical C enter (procedure) [code = 276640501] Future Scheduled 1986 Screening for malignant [facility] Test 00:00:00 neoplasm of cervix Medical C enter (procedure) [code = 968258202] Future Scheduled 1986 Screening for malignant [facility] Test 00:00:00 neoplasm of cervix Medical C enter (procedure) [code = 091116015] Future Scheduled 1986 Screening for malignant [facility] Test 00:00:00 neoplasm of cervix Medical C enter (procedure) [code = 879193076] Future Scheduled 1984 DTAP/TDAP/TD VACCINES CH I [...] YRS (1 - PCV)] Future Scheduled 1971-11-02 Pneumococcal Vaccine: [facility] 00:00:00 0-64 Years (1 - PCV) Medical Center [code = Pneumococcal Vaccine: 0-64 Years (1 - PCV)] Future Scheduled 1966-05-03 COVID-19 [...] colon Medical Ce nter (procedure) [code = 570378172] Future Scheduled 1965 Screening for malignant [facility] Test 00:00:00 neoplasm of colon Medical Ce nter (procedure) [code = 848499745] Future Scheduled 1965 Sigmoidoscopy [code = [facility]00 Sigmoidoscopy] Medical Fernandeze r Future Scheduled 1965 Screening for malignant [facility] Test 00:00:00 neoplasm of breast Medical C enter (procedure) [code = 770183277] Future Scheduled 1965 CT Colonography (combo) [facility] Test 00:00:00 [code = CT Colonography [facility] (combo)] Future Scheduled 1965 Screening for malignant [facility] Test 00:00:00 neoplasm of colon Medical Ce nter (procedure) [code = 081011108] Future Scheduled 1965 Screening for malignant [facility] Test 00:00:00 neoplasm of colon Medical Ce nter (procedure) [code = 812659396] Future Scheduled 1965 Screening for malignant [facility] Test 00:00:00 neoplasm of colon Medical Ce nter (procedure) [code = 770282113] Future Scheduled 1965 Screening for malignant [facility] Test 00:00:00 neoplasm of colon Medical Ce nter (procedure) [code = 015424935] Future Scheduled 1965 Sigmoidoscopy [code = [facility] 00:00:00 Sigmoidoscopy] Medical Fernandeze r Future Scheduled 1965 Screening for malignant [facility] Test 00:00:00 neoplasm of breast Medical C enter (procedure) [code = 791749083] Future Scheduled 1965 CT Colonography (combo) [facility] Test 00:00:00 [code = [facility] Future Scheduled 1965 Screening for malignant [facility] Test 00:00:00 neoplasm of colon Medical Ce nter (procedure) [code = 789275950] Future Scheduled 1965 Screening for malignant [facility] Test 00:00:00 neoplasm of colon Medical Ce nter (procedure) [code = 401433174] Future Scheduled 1965 Screening for malignant [facility] Test 00:00:00 neoplasm of colon Medical Ce nter (procedure) [code = 851228000] Future Scheduled 1965 Screening for malignant [facility] Test 00:00:00 neoplasm of colon Medical Ce nter (procedure) [code = 510116666] Future Scheduled 1965 Sigmoidoscopy [code = [facility] 00:[facility]:00 Sigmoidoscopy] Medical Cente r Future Scheduled 1965 Screening for malignant [facility] Test 00:00:00 neoplasm of breast Medical C enter (procedure) [code = 008434146] Future Scheduled 1965 CT Colonography (combo) [facility] Test 00:00:00 [code = CT Colonography [facility] Center (combo)] Future Scheduled 1965 Screening for malignant [facility] Test 00:00:00 neoplasm of colon Medical Ce nter (procedure) [code = 045426630] Future Scheduled 1965 Screening for malignant [facility] Test 00:00:00 neoplasm of colon Medical Ce nter (procedure) [code = 945282196] Future Scheduled 1965 Screening for malignant [facility] Test 00:00:00 neoplasm of breast Medical C enter (procedure) [code = 102470343] Future Scheduled 1965 CT Colonography (combo) [facility] Test 00:00:00 [code = CT Colonography Medi maile Center (combo)] Future Scheduled 1965 Screening for malignant [facility] Test 00:00:00 neoplasm of colon Medical Ce nter (procedure) [code = 467688946] Future Scheduled 1965 Screening for malignant [facility] Test 00:00:00 neoplasm of colon Medical Ce nter (procedure) [code = 872060084] Future Scheduled 1965 Screening for malignant [facility] Test 00:00:00 neoplasm of colon Medical Ce nter (procedure) [code = 328145673] Future Scheduled 1965 Screening for malignant [facility] Test 00:00:00 neoplasm of colon Medical Ce nter (procedure) [code = 457957016] Future Scheduled 1965 Sigmoidoscopy [code = [facility] 00:[facility]:00 Sigmoidoscopy] Medical Cente r Encounters Start End Encounter Admission Attending Care Care Encounter Source Date/Time Date/Time Type Type Clinicians Facility Department ID 2022-03-09 2022-03-09 Emergency [facility] [id number] Univers 16:25:00 19:04:00 Bertha Hamlin ETELVINABRUCE [id number] ity [facility] [id number] [facility] [id number] [address] 2022-03-09 2022-03-09 Emergency [facility] E[facility] [id number] Univers 16:25:00 19:04:00 BERTHA gordon [facility] 2022-03-09 2022-03-09 Emergency X [facility] ERT [id number] Univers 16:25:00 19:04:00 BERTHA gordon [facility] 2022-03-09 2022-03-09 Nurse Nurse, [facility] [id number] Univers 15:45:00 16:00:42 Visit [facility] [id number] ity [facility] [id number] Petros as JAVED?BLEA [id number] [address] MEDICAL OFFICE BUILDING 2022-03-09 2022-03-09 Outpatient R [facility] [id number] Univers 15:45:00 15:45:00 KANA heidi o f [facility] 2022-03-09 2022-03-09 [facility] [id number] Univers 15:40:00 15:40:00 ABDIFATAH gordon [facility] 2022-02-17 2022-02-17 Emergency EM AP [place] [facility] [id number] [facility] 05:53:00 09:40:00 Anusha 16 [facility] 2022-02-17 2022-02-17 Emergency EM AP [place] [facility] [id number] [facility] 05:53:00 09:40:00 Anusha [id number] [facility] 2022-02-09 2022-02-10 [facility] Devan Bradford [facility] [id number] [facility] St 03:13:00 22:30:00 Encounter Yennifer Eddy Edith [facility] 2022-02-09 2022-02-10 Hospital ER Devan Bradford [facility] [id number] [facility] St 03:13:00 22:30:00 Encounter Nunu [facility]audette [facility] 2022-02-09 2022-02-10 Inpatient ER NUNU [facility] [id number] [facility] 03:13:00 22:30:00 YENNIFER 2022-02-09 2022-02-09 Travel [facility] [id number] [facility] 00:[facility]00 00:00:00 [facility] 2022-02-09 2022-02-09 Travel [facility] [id number] [facility] St 00:00:00 00:00:00 [facility] Results Test Description Test Time Test Comments Results Result [facility] e Comments CT, CTA AAA, W/ 2022-02-24 ESTHER.EXT.RUNOFF 10:11:00 [facility] 1965 Sex: F *Addendum BeginsREPORT STATUS:A Addendum: I agree with the previously described non vascular findings by Dr. Deleon. Signed: Bertin Avilez MDReport Verified Date/Time: 02/24/2022 10:11: Addendum EndsFINAL REPORT CT angiography of the [...] An addendum will be dictated by the Firewall Security Engineer Radiologist regarding the nonvascular findings. THE REPORT WILL ONLY BE CONSIDERED COMPLETE AFTER THE ADDENDUM HAS BEEN DICTATED. Signed: Bryan Deleon MDRepmid [facility] Verified Date/Time: 02/12/2022 10:10:27 2D Echo 2022-02-[address] [facility] W/Doppler(CW/PW/C 15:38:57 FractionSLEH ECHO Medical olor) [facility] 2D Echo 2022-02-[address] [facility] W/Doppler(CW/PW/C 15:38:57 FractionSLEH ECHO Medical olor) [facility] 2D Echo 2022-02-[address] [facility] W/Doppler(CW/PW/C 15:38:57 FractionSLEH ECHO Medical olor) [facility] 2D Echo 2022-02-[address] [facility] W/Doppler(CW/PW/C 15:38:57 FractionSLEH ECHO Medical olor) [facility] POC-Glucose meter 2022-02-10 16:35:46 Test Item Value Reference Range Interpretation Comme [facility] POC-Glucose Meter (test code = 97 mg/dL 70-110 : TESTED AT [address] 153) [facility], [facility] 30: Supervisor Painting/Techni dilma ID = [id number] for Corry Rinaldi sa Lab Interpretation (test code = Normal 29335-0) [facility]-Glucose [id number] 16:35:46 Test Item Value Reference Range Interpretation Comments POC-Glucose Meter (test 97 mg/dL 70-110 : TE STED AT [facility] code = 1538) [address] [place] [address], 770 30: Supervisor Painting/Techni dilma ID = [id number] for Corry Rinaldi sa Lab Interpretation (test Normal code = 57463-3) [facility]-Glucose [id number] 16:35:46 Test Item Value Reference Range Interpretation Comments POC-Glucose Meter (test 97 mg/dL 70-110 : TE STED AT [facility] code = 1538) [address] [place] [address], 770 30: Supervisor Painting/Techni dilma ID = [id number] for Corry Rinaldi sa Lab Interpretation (test Normal code = 99749-4) [facility]-Glucose [id number] 16:35:46 Test Item Value Reference Range Interpretation Comments POC-Glucose Meter (test 97 mg/dL 70-110 : TE STED AT [facility] code = 1538) [address] [facility] [place], 770 30: Supervisor Painting/Techni dilma ID = [id number] for Corry Rinaldi sa Lab Interpretation (test Normal code = 21587-8) [facility] [id number] 16:35:46 Test Item Value Reference Range Interpretation Comments POC-GLUCOSE METER 97 mg/dL 70-110 : TESTED A T [facility] 6720 (BEAKER) (test code = [facility], 1538) [address]: Supervisor Painting/Techni dilma ID = [id number] for Genny Saldivar [id number] 14:49:27 Test Item Value Reference Range Interpretation Comments PARTIAL THROMBOPLASTIN TIME 60.8 seconds 22.5-36.0 H (BEAKER) (test code = 760) [id number] 09:02:31 Test Item Value Reference Range Interpretation Comments PARTIAL THROMBOPLASTIN TIME 34.1 seconds 22.5-36.0 (BEAKER) (test code = 760) POCT-GLUCOSE [id number] 07:42:16 Test Item Value Reference Range Interpretation Comments POC-GLUCOSE METER 74 mg/dL 70-110 : TESTED A T [facility] 6720 (BEAKER) (test code = [facility], 1538) [address]: Supervisor Painting/Techni dilma ID = [id number] for Antonio cristobal [place] CBC (HEMOGRAM ONLY)2022-02-10 05:14:47 Test Item Value [...] WBC 0-0 (BEAKER) (test code = 413) [id number] 23:23:24 Test Item Value Reference Range Interpretation Comments PARTIAL THROMBOPLASTIN TIME 31.9 seconds 22.5-36.0 (BEAKER) (test code = 760) POCT-GLUCOSE [id number] 21:30:42 Test Item Value Reference Range Interpretation Comments POC-GLUCOSE METER 143 mg/dL 70-110 H : TESTED A T [facility] 6720 ([place]) (test code = [place], 1538) [address]: Supervisor Painting/Techni dilma ID = [id number] for SA NDERS, JERRY HUNTER's with PT and DP doppler [id number] 18:17:32Ejection FractionSLEH ECHO HEARTLAB [facility]ON [facility] and DP doppler [id number] 18:17:32Ejection FractionSLEH ECHO HEARTLAB MKCKESSON [facility] with PT and DP doppler [id number] 18:17:32Ejection FractionSLEH ECHO [facility] doppler [id number] 18:17:32Ejection FractionSLEH ECHO HEARTLAB MKCKESSON [facility] CenterArterial Doppler Leg, [id number] 18:16:33Ejection FractionSLEH ECHO HEARTLAB MKCKESSON [facility] Center[facility] Leg, Right 2022-02-09 18:16:33Ejection FractionSLEH ECHO HEARTLAB MKCKESSON [facility] CenterAr[facility]ial Doppler Leg, [id number] 18:16:33Ejection FractionSLEH ECHO HEARTLAB MKCKESSON [facility] Center[facility] Leg, [id number] 18:16:33Ejection FractionSLEH ECHO HEARTLAB MKCKESSON [facility] CenterPOCT-GLUCOSE [id number] 16:41:21 Test Item Value Reference Range Interpretation Comments POC-GLUCOSE METER 99 mg/dL 70-110 : TESTED Wei T [facility] 6720 ([place]) (test code = [place], 1538) [address]: Supervisor Painting/Techni dilma ID = [id number] for Kelsea Romero SARS-CoV2/RT-PCR (Asymptomatic ONLY)2022-02-09 14:34:44 Test Item Value Reference Range Interpretation Comments SARS-COV2/RT-PCR Negative Not Detected, (test code = Negative, See 26143-8) external report for linked test SARS-COV-2 [facility] PERFORM[facility] (test code = 81533-4) ADENIKE (test code = Negative result for [...] of the Act. Fact Sheet for Healthcare Providers:https://www.Ongo/sites/default/f gloria/product/documents/F act_Sheet_HC_Providers_L ybn_AWKH-IvZ-1.pdf Fact Sheet for Healthcare Patients:https://www.Trending Taste/sites/default/fi les/product/documents/Fa ct_Sheet_Patients_Lyra_S ARS-CoV-2.pdf Performing Laboratory:[facility]ARS-CoV2/RT-PCR (Asymptomatic ONLY)2022-02-09 14:34:44 Test Item Value Reference Range Interpretation Comments SARS-COV2/RT-PCR Negative Not Detected, (test code = Negative, See 18780-2) external report for linked test SARS-COV-2 [facility] (test code = 90404-5) ADENIKE (test code = Negative result for [...] of the Act. Fact Sheet for Healthcare Providers:https://www.Ongo/sites/default/f gloria/product/documents/F act_Sheet_HC_Providers_L lpr_GZFN-JvJ-3.pdf Fact Sheet for Healthcare Patients:https://www.Trending Taste/sites/default/fi les/product/documents/Fa ct_Sheet_Patients_Lyra_S ARS-CoV-2.pdf Performing Laboratory:[facility] [facility] Specialty HospitalelenoR[place], [place] [address] [place], [place] [address]ARS-CoV2/RT-PCR (Asymptomatic ONLY)2022-02-09 14:34:44 Test Item Value Reference Range Interpretation Comments SARS-COV2/RT-PCR Negative Not Detected, (test code = Negative, See 06874-8) external report for linked test SARS-COV-2 [facility] (test code = 27584-8) ADENIKE (test code = Negative result for [...] of the Act. Fact Sheet for Healthcare Providers:https://www.Ongo/sites/default/f gloria/product/documents/F act_Sheet_HC_Providers_L dpy_HCPL-VwQ-3.pdf Fact Sheet for Healthcare Patients:https://www.Trending Taste/sites/default/fi les/product/documents/Fa ct_Sheet_Patients_Lyra_S ARS-CoV-2.pdf Performing Laboratory:[facility], [place] [address] [place], [place] [address]ARS-CoV2/RT-PCR (Asymptomatic ONLY)2022-02-09 14:34:44 Test Item Value Reference Range Interpretation Comments SARS-COV2/RT-PCR Negative Not Detected, (test code = Negative, See 64548-1) external report for linked test SARS-COV-2 [facility] (test code = 01939-2) ADENIKE (test code = Negative result for [...] of the Act. Fact Sheet for Healthcare Providers:https://www.[employer]/sites/default/f gloria/product/documents/F act_Sheet_HC_Providers_L jck_XLET-RcU-3.pdf Fact Sheet for Healthcare Patients:https://www.[employer]/sites/default/fi les/product/documents/Fa ct_Sheet_Patients_Lyra_S ARS-CoV-2.pdf Performing Laboratory:[place] [address], [place] [address] [place], [place] [address]ARS-COV2/RT-PCR ([facility])2022-02-09 14:34:44 Test Item Value Reference Range Interpretation Comments SARS-COV2/RT-PCR (test Negative Not Detected, Negative, code = 2912439) See external report for linked test SARS-COV-2 PERFORMING LAB [facility] (test code = 1901940) Negative result for this test determines that [...] of the Act.Fact Sheet for Healthcare Prov iders:https://www.[employer]/sites/default/files/product/documents/Fact_Sheet_HC _Ywgaiftoe_Hlfn_XYPN-RsT-4.pdfFact Sheet for Healthcare Patients:https://www.[employer]/sites/default/files/product/docume nts/Ojtx_Echnb_Ohesdjej_Orie_LJNU-TyB-6.pdfPerforming Laboratory:[facility] [place] [address].[place], [place] [id number] 13:31:18 Test Item Value Reference Range Interpretation Comments PARTIAL THROMBOPLASTIN TIME 38.7 seconds 22.5-36.0 H ([employer]) (test code = 760) HEMOGLOBIN [id number] 13:17:34 Test Item Value Reference Range Interpretation Comments HEMOGLOBIN A1C 5.7 % See_Comment H [Automated m essage] ELECTROPHORESIS ([employer]) The system which (test code = 3811) generated this result transmitted ref erence range: <=5.6%. The reference range was not used to int erpret this result as normal/abnormal . "The A1c is measured using a NGSP-certified method. HbA1c value equal to or greater than 6.5% as thediagnosis cutoff for diabetes. An HbA1c value of 5.7- 6.4% indicates increased risk for diabetes (prediabetes)."Supervisor Painting ID - [id number] ID - ADMPOCT-GLUCOSE [id number] 12:25:58 Test Item Value Reference Range Interpretation Comments POC-GLUCOSE METER 108 mg/dL 70-110 : TESTED A T [facility] (BEAKER) (test code = [place], 1538) [address]: Supervisor Painting/Techni dilma ID = [id number] for Win Angel COMPREHENSIVE METABOLIC [id number] 07:55:16 Test Item Value Reference Range Interpretation [...] S NOT APPLICABLE FOR DIALYSIS PATIEN TS. Supervisor Painting ID - ADMINPOCT-GLUCOSE [id number] 07:46:09 Test Item Value Reference Range Interpretation Comments POC-GLUCOSE METER 84 mg/dL 70-110 : TESTED A T [facility] 6720 (BEAKER) (test code = ELLA Yo [facility], 1538) [address]: Supervisor Painting/Techni dilma ID = [id number] for Kelsea Romero POCT-GLUCOSE [id number] 06:20:17 Test Item Value Reference Range Interpretation Comments POC-GLUCOSE METER 86 mg/dL 70-110 : TESTED A T [facility] 6720 (BEAKER) (test code = E[place], 1538) [address]: Supervisor Painting/Techni dilma ID = [id number] for JERRY CHRIS [id number] 05:19:02 Test Item Value Reference Range Interpretation [...] WBC 0-0 (BEAKER) (test code = 413) Notes Date/Time Note Provider Source 2022-02-17 07:58:00-00:00 [id number] [facility] [address] [place] [address] PATIENT NAME: NAHOMI GIL ADMIT DATE: 02/17/22 ACCOUNT NO: [id number] ROOM NO: AGE: 56 REPORT TYPE: eVENOUS ULTRASOUND SEX: F ADMITTING PHYSICIAN: ATTENDING PHYSICIAN:Anusha Spain MD *[facility]* [id number] [place], [place] [id number] Limited Lower Extremity Venous Duplex Evaluation Patient: Nahomi Gil Study Date: 02/17/2022 BP: 149 / Location: [place] [address] URN: [id number] MRN: : [id number] Age: 56 Height: 64 in / 162.6 c m Gender: F Weight: 237. 5 lb / 108 kg BMI/BSA: 40.9 kg/m 2 / 2.26 m 2 *Ordering Physician: * Anusha Spain *Interpreting Physician: * Kira Kleni MD *Scrub Nurse: Amelia Evans RVT Indications: Swelling of limb. Study data: Limited lower extremity venous duple x evaluation. Right evaluation with grayscale 2D imaging, color Dopp ler imaging, and spectral Doppler analysis. Location: Emergency [facility]. Patient status: Inpatient. Patient room number: 4. Proc edure: A vascular evaluation was performed. Images were obtained u sing a [employer] vascular ultrasound machine. Image quality was adequate. Study status: Stat. Venous flow and imaging: + + + *Location *Properties * + + + *R SFJ *Phasic; spontaneous * + + + *R CFV *Phasic; spontaneous; normal augmentation ; compressible* PATIENT NAME: NAHOMI GIL [address]16 + + + *R GSV *Compressible * + + + *R DFV *Phasic; spontaneous * + + + *R FV *Phasic; spontaneous; normal augmentation; compressible* + + + *R popliteal*Phasic; spontaneous; normal augment ation; compressible* + + + *R peroneal *Compressible; poorly visualized * + + + *R PTV *Compressible; poorly visualized * + + + *L CFV *Phasic; spontaneous; normal augmentation ; compressible* + + + Conclusions There is no evidence of deep or superficial veno us thrombosis noted in the right lower extremity of the visualized segm ents. Prepared and electronically signed by Kira Klein MD 02/17/2022 07:57 at 0758 PATIENT NAME: NAHOMI GIL 816 2022-02-17 07:31:00-00:00 [facility] ([facility]) EMERGENCY PROVIDER REPORT REPORT#:[id number] REPORT STATUS: Signed DATE:02/17/22 TIME: 730 PATIENT: NAHOMI GIL UNIT #: [id number] ROOM/BED: AGE: 56 SEX: F PCP PHYS: Undefined Provider SERVICE AUTHOR: Anusha Spain MD LOCATION: [facility] * ALL edits or amendments must be made on the [employer] document * See Addendum Anusha Spain 02/17/22 0731: HPI-General Illness Free Text HPI Notes Free Text HPI Notes 56-year-old female past medical history hypertension, hyperlipidemia, diabetes presents to [facility] for evaluation. She was trans ferred from [facility] for right lower extrem ity cellulitis. She was transferred because the physician there felt chalino t patient needed a Doppler ultrasound to rule out DVT and did not have ultr asound capabilities here. Patient states that she was previously hospitali zed at [facility] for cellulitis of the right lower extremity. She sta jeronimo she left AMA 10 days ago from [facility], and actuall y the redness and swelling of the foot have improved over the last 10 days. General Initial Greet Date/Time 02/17/22 0550 Presentation Chief Complaint Diarrhea, RLE pain. Review of Systems Free Text ROS Notes Free Text ROS Notes Constitutional: Denies: Chills, Fatigue. Eyes: Denies: Blurry Vision, Diplopia. ENT: Denies: Sinus problem, Sore throat. Respiratory: Denies: Cough, Shortness of breath. Cardiovascular: Denies: Chest pain, Palpitations. GI: Denies: Abdominal pain, Nausea, Vomiting. : Denies: Dysuria, Flank pain. Musculoskeletal: Denies: Extremity Pain, Laceration. Hematologic Denies: Bleeding. Neurologic Denies: Change LOC, Confusion, Slurred speech. Past Medical History - Adult Stated Complaint CELLULITIS R/O DVT Allergies Coded Allergies: No Known Allergies (02/17/22) Additional Medical History hypertension, hyperlipidemia, diabetes Smoking status for patients 13 years old or olde r: Unknown,if ever smoked Physical Exam Vital Signs Vital Signs First Documented: Result Date Time Pulse Ox 99 02/17 0556 B/P 149/66 02/17 0556 B/P Mean 93 02/17 0556 O2 Delivery Room air 02/17 0556 Temp 36.7 02/17 0556 Pulse 105 02/17 0556 Resp 18 02/17 0556 Last Documented: Result Date Time Pulse Ox 97 02/17 0802 B/P 138/63 02/17 0802 B/P Mean 88 02/17 0802 O2 Delivery Room air 02/17 0802 Pulse 87 02/17 0802 Resp 16 02/17 0802 Temp 36.7 02/17 0556 Review of Vital Signs Reviewed Free Text PE Notes Free Text PE Notes General/Const: Awake, Alert, No acute distress Head: Atrauamtic, Normocephalic Eyes: EOMI. Anicteric sclerae. ENT: Airway patent. Atraumatic. Resp/Chest: Breath sounds normal. Good air movement bilater ally. Normal respiratory effort. No acute respiratory distress. Cardiovascular: Heart rate NL, Regular rhythm, No gallops/rubs appreciated. Abdomen/GI: Non-tender in all abdominal quadrants. No guard ing, No rebound, BS normoactive. No distention Skin: Warm, Dry Neurologic: Alert Oriented X3, Speech normal. Extremities: Some trace erythema overlying right anterior sh in and right webspace between first and second toe concerning for mild celluli tis. Trace localized swelling in the area. No significant calf swelling. Re-Evaluation MDM Free Text MDM Notes Free Text MDM Notes History and physical as above. Reviewed labs fro m [facility]. WBC normal 9.2. Lactic acid 1.0, also normal. El ectrolytes unremarkable. Patient received Lovenox, Zosyn and bank at [facility]. Discussed possible admission, patient prefers to go home. From my standpoint, cellulitis appears v claudio mild. In terms of the diarrhea, no bloody stool or significant leukocytosis or abdo charla pain that necessitates admission. Feel like if DVT is negative, reasona ble for outpatient course of antibiotics with close follow-up. Patient signed out to Dr. Aguilar. Ultimate disposition deferred to Dr. Aguilar. ED Course Medication(s) Ordered Medication(s) Ordered: Central Nervous System Agents Sig/David Start time Last Medication Dose Route Stop Time Status Admin Hydrocodone Bitart/ 1 TAB X1ED STA 02/17 0551 D C Acetaminophen PO 02/17 0552 Electrolytic, Caloric, And Chelsea Sig/David Start time Last Medication Dose Route Stop Time Status Admin Sodium Chloride 1,000 ML BOLUS ONCE ONE 02/17 0 730 DC 02/17 IV 02/17 0731 0739 Patient Discharge Departure Vital Signs/Condition Vital Signs First Documented: Result Date Time Pulse Ox 99 02/17 0556 B/P 149/66 02/17 0556 B/P Mean 93 02/17 0556 O2 Delivery Room air 02/17 0556 Temp 36.7 02/17 0556 Pulse 105 02/17 0556 Resp 18 02/17 0556 Last Documented: Result Date Time Pulse Ox 97 02/17 0802 B/P 138/63 02/17 0802 B/P Mean 88 02/17 0802 O2 Delivery Room air 02/17 0802 Pulse 87 02/17 0802 Resp 16 02/17 0802 Temp 36.7 02/17 0556 All vital signs available at the time of this en try have been reviewed. Clinical Impression Clinical Impression Primary Impression: Diarrhea Secondary Impressions: Cellulitis Pt/Provider Handoff Shift Change Note This patient's care has been transferred to the incoming physician. We discussed : the patient's chief complaint; labs an d imaging that have been completed and those that are still pending; procedures that yeboah ve been completed and those remaining to be done; any treatment provided and the patient's response to treatment; input from consultants (if any); the remaining treatment plan. The incoming physician will follow up on all pending labs and imaging, make any necessary changes to the cur rent impression and/or treatment plan and provide a final disposition. Zaid Aguilar 02/17/22907: Patient Discharge Departure Disposition Decision Discharge )( Discharged to Home Yes )( Time 907 )( Date 02/17/22 Discharge/Care Plan (Auto) Prescriptions Current Visit Scripts ACETAMINOPHEN/CODEINE (TYLENOL WITH CODE INE #3 300/30 MG) 1 TAB PO Q4H PRN PRN ACUTE PAIN ACETAMINOPHEN/CODEINE (TYLENOL WITH CODEINE #3 300/30 MG) 1 TAB PO Q4H PRN PRN ACUTE PAIN #15 TABS SULFAMETHOXAZOLE/TMP (BACTRIM DS 800/160 MG) 1 T AB PO Q12H SULFAMETHOXAZOLE/TMP (BACTRIM DS 800/160 MG) 1 TAB PO Q12H #14 TABS UNTIL FINISHED ONDANSETRON ODT (ZOFRAN ODT) 4 MG PO Q6H PRN PRN NAUSEA/VOMITING ONDANSETRON ODT (ZOFRAN ODT) 4 MG PO Q6H PRN UT N NAUSEA/VOMITING #15 TABS Patient Instructions ED Cellulitis Referrals Provider Group: [facility] Address: [address] [place] [address] [place] [address] Electronically Signed by Anusha Spain MD on at 0736 Electronically Signed by Zaid Aguilar MD on 01/25 08/16 at 1425 Addendum 1: 02/18/222226 by Anusha Spain MD Patient Addendum Addendum Correction: On ROS, +Extremity pain, diarrhea. Pt states she [facility] for diarrhea not the RLE pain. Electronically Signed by Anusha Spain MD on at 2227 RPT #:[id number] END OF REPORT
[2023-01-07] MEDS ORDERED: METHYLPREDNISOLONE 125 MG INJ ONE (23:52)
[2023-01-07] MEDS ORDERED: IPRATROPIUM BROM 0.5MG/2.5ML ONE (23:53)
[2023-01-07] MEDS ORDERED: ALBUTEROL 2.5 MG/3 ML NEB SOL ONE (23:53)
[2023-01-08 00:04] LABS: Absolute Lymphocytes (CBC) 2.5 K/uL (0.7-4.9); Hematocrit 39.9 % (36.0-45.0); Lymphocytes % 20.5 % (15.3-44.8); MCV 92.7 fL (80-100); MPV 8.1 fL (7.6-11.3)
[2023-01-08 00:11] LABS: SARS-CoV-2 Antigen Rapid Res Negative (Negative)
[2023-01-08 00:17] LABS: Protime INR 1.02
[2023-01-08 00:29] LABS: Albumin 2.9 g/dL (3.4-5.0); Bilirubin Direct 0.1 mg/dL (0-0.2); Bilirubin Indirect, Calculated 0.2 mg/dL (0.2-0.8); Bilirubin Total 0.3 mg/dL (0.2-1.0); Magnesium 1.8 mg/dL (1.6-2.4); Potassium 3.1 mEq/L (3.5-5.1); Protein, Total 6.1 g/dL (6.4-8.2)
--- NOTE | 2023-01-08 00:53 | ER ---
Nurse's Notes [facility] Name: Nahomi Soto Age: 57 yrs Sex: Female : 1965 Arrival Date: 01/07/2023 Time: 22:46 Bed 13 Private MD: Loc Torres Diagnosis: COPD/ Chronic obstructive pulmonary disease with acute lower respiratory infection;Influenza due to other identified influenza virus with other respiratory manifestations;Hypokalemia;Hypoxemia Presentation: 01/07 23:12 Chief complaint: Patient states: "I've been feeling short of breath the last few days vc1 and tonight it is worse. I took my inhaler before we came but it didn't help.". Coronavirus screen: Vaccine status: Patient reports receiving the 2nd dose of the covid vaccine. Moderna Client denies travel out of the [place] in the last 14 days. At this time, the client does not indicate any symptoms associated with coronavirus-19. Ebola Screen: Patient negative for fever greater than or equal to 101.5 degrees Fahrenheit, and additional compatible Ebola Virus Disease symptoms Patient denies exposure to infectious person. Patient denies travel to an Ebola-affected area in the 21 days before illness onset. No symptoms or risks identified at this time. Initial Sepsis Screen: Does the patient meet any 2 criteria? RR > 20 per min. No. Patient's initial sepsis screen is negative. Does the patient have a suspected source of infection? No. Patient's initial sepsis screen is negative. Risk Assessment: Do you want to hurt yourself or someone else? Patient reports no desire to harm self or others. Onset of symptoms is unknown. 23:12 Method Of Arrival: Ambulatory vc1 23:12 Acuity: GIRISH 3 vc1 Triage Assessment: 23:16 General: Appears uncomfortable, Behavior is cooperative, appropriate for age. Pain: vc1 Denies pain. EENT: No deficits noted. No signs and/or symptoms were reported regarding the EENT system. Neuro: Level of Consciousness is awake, alert, obeys commands, Oriented to person, place, time, situation, Appropriate for age. Cardiovascular: No deficits noted. Respiratory: Reports shortness of breath at rest labored breathing Airway is patent Respiratory effort is even, unlabored, Respiratory pattern is symmetrical, tachypnea Onset: The symptoms/episode began/occurred few days, the patient has moderate shortness of breath. GI: No deficits noted. No signs and/or symptoms were reported involving the gastrointestinal system. : No deficits noted. No signs and/or symptoms were reported regarding the genitourinary system. Derm: No deficits noted. No signs and/or symptoms reported regarding the dermatologic system. Musculoskeletal: No deficits noted. No signs and/or symptoms reported regarding the musculoskeletal system. Historical: - Allergies: 23:13 No Known Allergies; vc1 - Home Meds: 23:13 amlodipine 10 mg tab 1 tab once daily [Active]; bupropion HCl 75 mg Oral tab [Active]; vc1 duloxetine 60 mg Oral CDRS 1 cap once daily [Active]; esomeprazole magnesium 40 mg Oral cpDR 1 cap once daily [Active]; fenofibric acid (choline) 135 mg Oral cpDR 1 cap nightly [Active]; Myrbetriq 50 mg Oral Tb24 1 tab once daily [Active]; pregabalin 75 mg Oral cap 1 cap 3 times per day [Active]; rosuvastatin 10 mg Oral tab 1 tab once daily [Active]; Symbicort 160-4.5 mcg/actuation inhalation HFAA 2 puffs 2 times per day [Active]; tizanidine 4 mg Oral cap 1 cap 3 times per day [Active]; Tradjenta 5 mg Oral tab 1 tab once daily [Active]; trazodone 100 mg Oral tab 1 tab nightly [Active]; Trilipix 135 mg Oral cpDR 1 cap once daily [Active]; Vitamin D Oral 2000 unit daily [Active]; - PMHx: 23:13 Arthritis; diabetes mellitus; Hypercholesterolemia; Hypertensive disorder; insomnia; vc1 - PSHx: 23:13 Colostomy reversal; cyst removal and colon SX; toe; vc1 - Immunization history:: Client reports receiving the 2nd dose of the Covid vaccine. - Social history:: Smoking status: Patient reports the use of cigarette tobacco products, smokes two packs cigarettes per day. Assessment: 23:00 General: Appears in no apparent distress. uncomfortable, Behavior is calm, cooperative, jb4 appropriate for age. Pain: Denies pain. Neuro: Level of Consciousness is awake, alert, obeys commands, Oriented to person, place, time, situation. Cardiovascular: Patient's skin is warm and dry. Respiratory: Airway is patent Respiratory effort is even, labored, Respiratory pattern is symmetrical, tachypnea. GI: No signs and/or symptoms were reported involving the gastrointestinal system. : No signs and/or symptoms were reported regarding the genitourinary system. EENT: No signs and/or symptoms were reported regarding the EENT system. Derm: Skin is intact, Skin is pink, warm \\T\\ dry. 01/08 00:00 Reassessment: Patient appears in no apparent distress at this time. No changes from jb4 previously documented assessment. Patient and/or family updated on plan of care and expected duration. Pain level reassessed. 00:51 Reassessment: Patient appears in no apparent distress at this time. Patient and/or jb4 family updated on plan of care and expected duration. Pain level reassessed. Patient is alert, oriented x 3, equal unlabored respirations, skin warm/dry/pink. 02:00 Reassessment: Patient appears in no apparent distress at this time. Patient and/or jb4 family updated on plan of care and expected duration. Pain level reassessed. Patient is alert, oriented x 3, equal unlabored respirations, skin warm/dry/pink. Vital Signs: 01/07 23:12 BP 192 / 89; Pulse 88; Resp 26; Temp 98.6; Pulse Ox 90% on R/A; Weight 96.62 kg; Height vc1 5 ft. 4 in. ; 01/08 00:15 BP 181 / 73; Pulse 90; Resp 24; Pulse Ox 88% on R/A; jb4 00:30 BP 197 / 70; Pulse 101; Resp 14; Pulse Ox 99% on 2 lpm NC; jb4 02:00 BP 163 / 83; Pulse 92; Resp 25; Pulse Ox 96% on 2 lpm NC; jb4 01/07 23:12 Body Mass Index 36.56 (96.62 kg, 162.56 cm) vc1 ED Course: 01/07 22:48 Patient arrived in ED. es 22:48 Loc Torres MD is Private Physician. es 22:58 Bob Hawkins PA is PHCP. cp 22:58 Lauro Ash MD is Attending Physician. cp 23:13 Triage completed. vc1 23:15 Arm band placed on right wrist. vc1 23:15 Oxygen administration via nasal cannula \\T\\ 2L/min. vc1 23:32 Patrick Mclain, RN is Primary Nurse. jb4 23:54 XRAY Chest (1 view) In Process Unspecified. EDMS 23:55 Inserted saline lock: 22 gauge in right antecubital area, using aseptic technique. ds4 Blood collected. 01/08 00:50 Loc Torres MD is Hospitalizing Provider. cp 02:27 Ovi Rivera MD is Hospitalizing Provider. sb4 Administered Medications: 00:08 Drug: DuoNeb Nebulize (2.5 mg - 0.5 mg) 3 ml Route: Nebulizer; jb4 00:08 Drug: MethylPrednisoLONE IVP 125 mg Route: IVP; Site: right antecubital; jb4 01:03 Drug: Potassium PO Effervescent Tablet 50 mEq Route: PO; jb4 01:03 Drug: Oseltamivir PO 75 mg Route: PO; jb4 01:03 Drug: Aspirin PO Chewable Tablet 324 mg Route: PO; jb4 01:03 Drug: LevOfloxacin PO 750 mg Route: PO; jb4 01:03 Drug: hydrALAZINE IVP 10 mg Route: IVP; Site: right antecubital; jb4 Outcome: 00:52 Decision to Hospitalize by Provider. cp 11:14 Patient left the ED. iw Signatures: Dispatcher [employer] Radha Alexandra Irene, RN RN iw Kraig Quintero ds4 Bob Hawkins PA PA cp Bryson, James, RN RN jb4 Genny Rosa RN RN vc1 Brown, Sophia, PA-C PAHannah sb4
--- NOTE | 2023-01-08 00:53 | EDPHYS ---
Physician Documentation [facility] Name: Nahomi Soto Age: 57 yrs Sex: Female : 1965 Arrival Date: 01/07/2023 Time: 22:46 Bed 13 Private MD: Loc Torres ED Physician Lauro Ash HPI: 01/07 23:45 This 57 yrs old Female presents to ER via Ambulatory with complaints of cp Breathing Difficulty. 23:45 The patient has shortness of breath at rest. Onset: The symptoms/episode began/occurred cp 2 day(s) ago, and became worse today. Duration: The symptoms are continuous, and are steadily getting worse. Associated signs and symptoms: Pertinent positives: non-productive cough, Pertinent negatives: chest pain, diaphoresis, fever, vomiting. Severity of symptoms: in the emergency department the symptoms are unchanged despite home interventions, after using inhaler. Historical: - Allergies: 23:13 No Known Allergies; vc1 - Home Meds: 23:13 amlodipine 10 mg tab 1 tab once daily [Active]; bupropion HCl 75 mg Oral tab [Active]; vc1 duloxetine 60 mg Oral CDRS 1 cap once daily [Active]; esomeprazole magnesium 40 mg Oral cpDR 1 cap once daily [Active]; fenofibric acid (choline) 135 mg Oral cpDR 1 cap nightly [Active]; Myrbetriq 50 mg Oral Tb24 1 tab once daily [Active]; pregabalin 75 mg Oral cap 1 cap 3 times per day [Active]; rosuvastatin 10 mg Oral tab 1 tab once daily [Active]; Symbicort 160-4.5 mcg/actuation inhalation HFAA 2 puffs 2 times per day [Active]; tizanidine 4 mg Oral cap 1 cap 3 times per day [Active]; Tradjenta 5 mg Oral tab 1 tab once daily [Active]; trazodone 100 mg Oral tab 1 tab nightly [Active]; Trilipix 135 mg Oral cpDR 1 cap once daily [Active]; Vitamin D Oral 2000 unit daily [Active]; - PMHx: 23:13 Arthritis; diabetes mellitus; Hypercholesterolemia; Hypertensive disorder; insomnia; vc1 - PSHx: 23:13 Colostomy reversal; cyst removal and colon SX; toe; vc1 - Immunization history:: Client reports receiving the 2nd dose of the Covid vaccine. - Social history:: Smoking status: Patient reports the use of cigarette tobacco products, smokes two packs cigarettes per day. ROS: 23:50 Constitutional: Negative for body aches, chills, fever, poor PO intake. cp 23:50 Eyes: Negative for injury, pain, redness, and discharge. cp 23:50 ENT: Negative for drainage from ear(s), ear pain, sore throat, difficulty swallowing, difficulty handling secretions. 23:50 Cardiovascular: Negative for chest pain, edema, palpitations. 23:50 Respiratory: Positive for cough, with no reported sputum, shortness of breath, at rest. 23:50 Abdomen/GI: Negative for abdominal pain, vomiting, diarrhea, constipation. 23:50 : Negative for urinary symptoms. 23:50 Neuro: Negative for altered mental status, dizziness, headache, syncope, weakness. 23:50 All other systems are negative. Exam: 23:05 ECG was reviewed by the Attending Physician. cp 23:55 Constitutional: The patient appears in no acute distress, alert, awake, cp non-diaphoretic, non-toxic, well developed, well nourished. 23:55 Head/Face: Normocephalic, atraumatic. cp 23:55 Eyes: Periorbital structures: appear normal, Conjunctiva: normal, no exudate, no injection, Sclera: no appreciated abnormality, Lids and lashes: appear normal, bilaterally. 23:55 ENT: External ear(s): are unremarkable, Nose: is normal, Mouth: Lips: moist, Oral mucosa: pink and intact, moist, Posterior pharynx: is normal, airway is patent, no erythema, no exudate. 23:55 Neck: ROM/movement: is normal, is supple, without pain, no range of motions limitations, no meningismus, no nuchal rigidity. 23:55 Chest/axilla: Inspection: normal. 23:55 Cardiovascular: Rate: normal, Rhythm: regular, Edema: is not appreciated, JVD: is not appreciated. 23:55 Respiratory: the patient does not display signs of respiratory distress, Respirations: labored breathing, that is mild, Breath sounds: decreased breath sounds, that are moderate, throughout, stridor, is not appreciated. 23:55 Abdomen/GI: Inspection: obese Palpation: abdomen is soft and non-tender, in all quadrants. 23:55 Back: pain, is absent, ROM is normal. 23:55 Neuro: Orientation: to person, place \T\ time. Mentation: is normal, Motor: moves all fours, strength is normal, Sensation: is normal. Vital Signs: 23:12 BP 192 / 89; Pulse 88; Resp 26; Temp 98.6; Pulse Ox 90% on R/A; Weight 96.62 kg; Height vc1 5 ft. 4 in. ; 01/08 00:15 BP 181 / 73; Pulse 90; Resp 24; Pulse Ox 88% on R/A; jb4 00:30 BP 197 / 70; Pulse 101; Resp 14; Pulse Ox 99% on 2 lpm NC; jb4 02:00 BP 163 / 83; Pulse 92; Resp 25; Pulse Ox 96% on 2 lpm NC; jb4 01/07 23:12 Body Mass Index 36.56 (96.62 kg, 162.56 cm) vc1 MDM: 01/07 22:59 Patient medically screened. 01/08 01:05 Data reviewed: vital signs, nurses notes, lab test result(s), EKG, radiologic studies, cp plain films. 01:05 Antibiotic administration: Levaquin given. Consideration of Admission/Observation cp Patient was admitted/placed on observation. 01:10 Management of patient was discussed with the following: Primary Care Provider: DR charles Torres, msg left on voicemail. Care significantly affected by the following chronic conditions: Diabetes, Hypertension, Chronic Obstructive Pulmonary Disease. Counseling: I had a detailed discussion with the patient and/or guardian regarding: the historical points, exam findings, and any diagnostic results supporting the discharge/admit diagnosis, lab results, radiology results, the need for further work-up and treatment in the hospital. Response to treatment: the patient's symptoms have markedly improved after treatment. 02:05 Management of patient was discussed with the following: Primary Care Provider: DR charles Torres, requests patient be admitted to hospitalist services as he is going out of town. 01/07 23:35 Order name: SARS RAPID; Complete Time: 00:41 01/07 23:35 Order name: Influenza Screen (a \T\ B); Complete Time: 00:41 06/16 00:46 Interpretation: Reviewed. cp 01/07 23:35 Order name: Urinalysis W/Microscopic; Complete Time: 03:00 cp 01/07 23:35 Order name: Basic Metabolic Panel; Complete Time: 00:41 cp 01/07 23:35 Order name: CBC with Diff; Complete Time: 00:41 cp 01/07 23:35 Order name: D-Dimer; Complete Time: 00:41 cp 01/07 23:35 Order name: LFT's; Complete Time: 00:41 cp 01/07 23:35 Order name: Magnesium; Complete Time: 00:41 cp 01/07 23:35 Order name: NT PRO-BNP; Complete Time: 00:41 cp 01/07 23:35 Order name: PT-INR; Complete Time: 00:41 cp 01/07 23:35 Order name: Troponin HS; Complete Time: 00:41 cp 01/07 23:35 Order name: Lactate w/ 2H reflex if indic.; Complete Time: 00:41 cp 01/07 23:35 Order name: Blood Culture Adult (2) cp 01/08 07:35 Order name: Glucose, Ancillary Testing EDMS 01/07 23:35 Order name: XRAY Chest (1 view) cp 01/07 23:35 Order name: EKG; Complete Time: 23:36 cp 01/07 23:35 Order name: Cardiac monitoring; Complete Time: 00:08 cp 01/07 23:35 Order name: EKG - Nurse/Tech; Complete Time: 23:59 cp 01/07 23:35 Order name: IV Saline Lock; Complete Time: 23:59 cp 01/07 23:35 Order name: Labs collected and sent; Complete Time: 23:59 cp 01/07 23:35 Order name: O2 Per Protocol; Complete Time: 23:49 cp 01/07 23:35 Order name: O2 Sat Monitoring; Complete Time: 23:49 cp EC/15 23:05 Rate is 85 beats/min. Rhythm is regular. HI interval is normal. QRS interval is normal. cp QT interval is normal. T waves are Inverted in lead aVR. Interpreted by me. Reviewed by me. Administered Medications: 01/08 00:08 Drug: DuoNeb Nebulize (2.5 mg - 0.5 mg) 3 ml Route: Nebulizer; jb4 00:08 Drug: MethylPrednisoLONE IVP 125 mg Route: IVP; Site: right antecubital; jb4 01:03 Drug: Potassium PO Effervescent Tablet 50 mEq Route: PO; jb4 01:03 Drug: Oseltamivir PO 75 mg Route: PO; jb4 :03 Drug: Aspirin PO Chewable Tablet 324 mg Route: PO; jb4 01:03 Drug: LevOfloxacin PO 750 mg Route: PO; jb4 01:03 Drug: hydrALAZINE IVP 10 mg Route: IVP; Site: right antecubital; jb4 Disposition: 03:10 Co-signature as Attending Physician, Lauro Ash MD I agree with the assessment sp4 and plan of care. I reviewed the patient's care provided by Advanced Practice Provider \T\ agree w/ the diagnosis \T\ care plan. I personally saw the pt \T\ performed a substantive portion of the visit, incldng all aspects of the (History/Exam/Medical Decision Making). Disposition Summary: 01/08/23 00:52 Hospitalization Ordered Hospitalization Status: Inpatient Admission cp Condition: Stable cp Problem: new cp Symptoms: have improved cp Bed/Room Type: Standard cp Location: [facility] [[email or web address] ER HOLD(01/08/23 00:56) sb4 Room Assignment: ERHOLD-(01/08/23 00:56) sb4 Provider: Ovi Rivera(01/08/23 02:27) sb4 Diagnosis - COPD/ Chronic obstructive pulmonary disease with acute lower respiratory infection cp - Influenza due to other identified influenza virus with other respiratory cp manifestations - Hypokalemia cp - Hypoxemia cp Forms: - Medication Reconciliation Form cp - SBAR form cp Signatures: Dispatcher [employer] EDMS Bob Hawkins PA PA cp Bryson, James RN RN jb4 Genny Rosa RN RN vc1 Lyndsey Hood PA-C PA-C sb4 Lauro Ash MD MD sp4 Corrections: (The following items were deleted from the chart) 00:56 00:52 Telemetry/MedSurg (Inpatient) cp sb4 00:56 00:52 cp sb4 02:27 00:52 Loc Torres cp sb4
[2023-01-08] MEDS ORDERED: HYDRALAZINE HCL 20 MG/ML VIAL ONE (01:02)
[2023-01-08] MEDS ORDERED: ASPIRIN 81 MG CHEWABLE TABLET ONE (01:02)
[2023-01-08] MEDS ORDERED: levoFLOXacin 750 MG TAB ONE (01:02)
[2023-01-08] MEDS ORDERED: OSELTAMIVIR 75 MG CAP PO ONE ×2 (01:02→08:35)
[2023-01-08] MEDS ORDERED: POTASSIUM 25 MEQ EFFERV TAB ONE (01:03)
--- NOTE | 2023-01-08 02:35 | P.HP ---
Certification for Inpatient Patient admitted to: Observation With expected LOS: <2 Midnights Patient will require the following post-hospital care: None Practitioner: I am a practitioner with admitting privileges, knowledge of patient current condition, hospital course, and medical plan of care. Services: Services provided to patient in accordance with Admission requirements found in Title 42 Section 412.3 of the Code of Federal Regulations Patient History Date of Service: 01/08/23 Primary Care Provider: Melissa Reason for admission: COPD Exacerbation History of Present Illness: Ms. Soto is a 57 year old female with past medical history of hypertension, non- insulin dependent type 2 diabetes, COPD, GERD, and tobacco abuse who presented to the emergency with complaints of shortness of breath x 3 days. She was noted to be 88% on room air upon arrival and was placed on 2L NC. Her chest xray showed "Haziness in the left lung base which may be due to overlying soft tissue or airspace disease. Blunting of the right costophrenic angle which may indicate a right pleural effusion." No significant lab abnormalities. She is influenza B positive. She was given solumedrol, breathing treatment, aspirin, and tamiflu in the emergency department. Given her oxygen requirement, ED provider wishes to admit patient for further management. Allergies No Known Allergies Allergy (Verified 01/26/22 03:16) Home medications list reviewed: Yes Home Medications: Amlodipine [Norvasc*] 10 mg PO DAILY 01/26/22 Budesonide/Formoterol Fumarate [Symbicort 160-4.5 Mcg Inhaler] 2 puff IH BID 01/26/22 Duloxetine [Cymbalta *] 60 mg PO DAILY 01/26/22 Esomeprazole Mag Trihydrate [Nexium] 40 mg PO DAILY 01/26/22 Fenofibric Acid (Choline) [Fenofibric Acid] 135 mg PO BEDTIME 01/26/22 Linagliptin [Tradjenta] 1 tab PO DAILY 01/26/22 Mirabegron [Myrbetriq] 50 mg PO DAILY 01/26/22 Pregabalin [Lyrica*] 75 mg PO DAILY 01/26/22 Rosuvastatin [Crestor*] 10 mg PO BEDTIME 01/26/22 Trazodone [Desyrel*] 100 mg PO BEDTIME 01/26/22 Cholecalciferol (Vitamin D3) [Vitamin D 5,000 IU Cap*] 5,000 unit PO DAILY 04/02/22 - Past Medical/Surgical History Diabetic: Yes -: Type 2 Diabetes, Non-Insulin Dependent -: Hypertension -: COPD -: Hyperlipidemia -: GERD -: Arthritis -: fibromyalgia -: Colectomy -: Colostomy with reversal -: -: Tubal Ligation -: Cholecystectomy Psychosocial/ Personal History: Patient lives at home with her daughter. - Social History Smoking Status: Current every day smoker Alcohol use: No CD- Drugs: No Caffeine use: Yes Place of Residence: Home Review of Systems Respiratory: Shortness of Breath Physical Examination - Vital Signs Temperature: 98.6 F Blood Pressure: 197/70 Pulse: 101 Respirations: 14 Pulse Ox (%): 99 (2L NC) - Physical Exam General: Alert, In no apparent distress HEENT: Atraumatic, EOMI, Sclerae nonicteric Neck: Supple, 2+ carotid pulse no bruit Respiratory: Expiratory wheezes Cardiovascular: Regular rate/rhythm, Normal S1 S2 Gastrointestinal: Normal bowel sounds, No tenderness Musculoskeletal: No tenderness Integumentary: No rashes Neurological: Normal speech, Normal affect - Studies Laboratory Data (last 24 hrs) 01/07/23 23:55: PT 11.2, INR 1.02 01/07/23 23:55: WBC 12.00 H, Hgb 12.6, Hct 39.9, Plt Count 324 01/07/23 23:55: Sodium 143, Potassium 3.1 L, BUN 11, Creatinine 0.88, Glucose 104, Magnesium 1.8, Total Bilirubin 0.3, AST 6 L, ALT 15, Alkaline Phosphatase 112 Microbiology Data (last 24 hrs): 01/07/23 23:48 Nasopharnyx Influenza Type A Antigen Screen - Final 01/07/23 23:48 Nasopharnyx Influenza Type B Antigen Screen - Final Assessment and Plan - Problems (Diagnosis) (1) Influenza B Current Visit: Yes Status: Acute (2) Hypoxia Current Visit: Yes Status: Acute (3) Nicotine dependence Current Visit: Yes Status: Chronic Qualifiers: Nicotine product type: cigarettes Substance use status: uncomplicated Qualified Code(s): F17.210 - Nicotine dependence, cigarettes, uncomplicated (4) Peripheral artery disease Current Visit: Yes Status: Chronic (5) COPD (chronic obstructive pulmonary disease) Current Visit: Yes Status: Chronic Qualifiers: COPD type: COPD with acute exacerbation Qualified Code(s): J44.1 - Chronic obstructive pulmonary disease with (acute) exacerbation (6) Hypertension Current Visit: Yes Status: Chronic Qualifiers: Hypertension type: primary hypertension Qualified Code(s): I10 - Essential (primary) hypertension (7) Type 2 diabetes mellitus Current Visit: Yes Status: Chronic Qualifiers: Diabetes mellitus usp insulin use: without usp use Diabetes mellitus complication status: with hyperglycemia Qualified Code(s): E11.65 - Type 2 diabetes mellitus with hyperglycemia - Plan Patient is admitted for hypoxia secondary to flu B/questionable pneumonia. Requiring 2L at this time. Titrate and wean as tolerated. Continue tamiflu, levaquin, and prednisone. PRN breathing treatments. She smokes 2ppd. Cessation advised. Nicoderm patch provided. Monitor and replete electrolytes per protocol. Reconcile and continue home medications. Lovenox for VTE prophylaxis. Full code. Discharge Plan: Home Plan to discharge in: 24 Hours - Advance Directives Does patient have a Living Will: No Does patient have a Durable POA for Healthcare: No - Code Status/Comfort Care Code Status Assessed: Yes Code Status: Full Code Physician Review: Patient Assessed, Agree with Above Assessment and Plan Critical Care: No Time Spent Managing Pts Care (In Minutes): 50
[2023-01-08 02:44] LABS: Specific Gravity 1.006 (1.005-1.030); Urine Bilirubin NEGATIVE (Negative); Urine Blood Trace (Negative); Urine Clarity Extremely Turbid (Clear); Urine Color Light-Orange (Yellow); Urine Glucose NEGATIVE (Negative); Urine pH 6.5 (5.0-7.0)
[2023-01-08 02:45] LABS: Urine Protein 1+ (Negative); Urine Urobilinogen Normal mg/dL (0.2-1.0)
[2023-01-08 02:46] LABS: Urine Bacteria <20 /HPF (<20); Urine RBC <5 /HPF (None Seen)
[2023-01-08] MEDS ORDERED: ACETAMINOPHEN 500 MG TAB PO PRN (03:24)
[2023-01-08] MEDS ORDERED: ALBUTEROL 2.5 MG/3 ML NEB SOL NEB PRN (03:24)
[2023-01-08] MEDS ORDERED: IPRATROPIUM BROM 0.5MG/2.5ML NEB PRN (03:24)
[2023-01-08 03:28] VITALS: BMI 36.6
[2023-01-08] MEDS ORDERED: INSULIN -REGULAR HUMAN 50 UNIT/0.5 ML ML SQ SCH (07:30)
[2023-01-08] MEDS ORDERED: ARFORMOTEROL TARTRATE 15 MCG/2 ML VIAL.NEB NEB SCH (08:21)
[2023-01-08] MEDS ORDERED: ENOXAPARIN 40 MG/0.4 ML SQ ONE (08:35)
[2023-01-08] MEDS ORDERED: NICOTINE 21 MG/PAT TD ONE (08:35)
[2023-01-08] MEDS ORDERED: dexAMETHasone 4 MG TAB ONE (08:39)
[2023-01-08] MEDS ORDERED: IPRATROPIUM BROM 0.5MG/2.5ML ONE (08:40)
[2023-01-08] MEDS ORDERED: ARFORMOTEROL TARTRATE 15 MCG/2 ML VIAL.NEB ONE (08:40)
[2023-01-08] MEDS ORDERED: predniSONE 10 MG TAB PO SCH (09:00)
[2023-01-08] MEDS ORDERED: NICOTINE 21 MG/PAT TD SCH (09:00)
[2023-01-08] MEDS ORDERED: OSELTAMIVIR 75 MG CAP PO SCH (09:00)
[2023-01-08] MEDS ORDERED: predniSONE 20 MG TAB PO SCH (09:00)
[2023-01-08] MEDS ORDERED: ENOXAPARIN 40 MG/0.4 ML SQ SCH (09:00)
[2023-01-08 11:18] VITALS: TEMP 98.6
[2023-01-08 11:24] VITALS: BP 163/83; O2SAT 96
[2023-01-08] MEDS ORDERED: IPRATROPIUM BROM 0.5MG/2.5ML NEB SCH (14:00)
--- NOTE | 2023-01-08 14:11 | RAD REPORT ---
EXAM DESCRIPTION: RAD - Chest Single View - 01/07/2023 11:52 pm CLINICAL HISTORY: The patient is 57 years old and is Female; SOB TECHNIQUE: Frontal view of the chest. COMPARISON: No relevant prior studies available. FINDINGS: Lungs: Haziness in the left lung base which may be due to overlying soft tissue or airsp kennedy disease. Pleural space: Blunting of the right costophrenic angle which may indicate a right pleural effusi on. No pneumothorax. Heart: Unremarkable. Mediastinum: Unremarkable. Bones/joints: Unremarkable. IMPRESSION: 1. Haziness in the left lung base which may be due to overlying soft tissue or airspac e disease. 2. Blunting of the right costophrenic angle which may indicate a right pleural effusion. Electronically signed by: Zaid Whitfield MD 01/08/2023 12:50 AM CDT Due to temporary technical issues with the PACS/Fluency reporting system, reports are being signed by the in house radiologists without review as a courtesy to insure prompt reporting. The interpreting radiologist is fully responsible for the content of the report.
--- NOTE | 2023-01-08 14:16 | EKG ---
Test Date: 2023-01-07 Test Time: 23:58:44 [employer]: [facility] MEASUREMENT RESULTS: Intervals: Rate: 85 UT: 168 QRSD: 64 QT: 384 QTc: 456 [place]: P: 55 UT: 168 QRS: 75 T: 55 INTERPRETIVE STATEMENTS: Normal sinus rhythm Anteroseptal infarct, age undetermined Abnormal ECG Compared to ECG 09/26/2022 23:13:01 Fusion complex(es) no longer present Right-axis deviation no longer present Myocardial infarct finding still present Electronically Signed On 01-08-23 14:15:20 CDT by Lucio Flores
--- NOTE | 2023-01-08 16:43 | P.DS ---
Admission Date: 01/08/23 Discharge Date: 01/08/23 Primary Care Provider: Melissa Disposition: ROUTINE DISCHARGE Discharge Condition: FAIR Reason for Admission: COPD Exacerbation Brief History of Present Illness: Patient is 57 years of age admitted with COPD exacerbation was also diagnosed with influenza B Hospital Course: Patient remained stable patient decided to leave AGAINST MEDICAL ADVICE however her condition was improving mild hypokalemia blood pressure is mildly elevated when I examined in the morning patient was doing better I did to leave AMA I did prescribe her some steroids antibiotics and Tamiflu Vital Signs/Physical Exam: Temp Pulse Resp BP Pulse Ox 98.6 F 92 H 25 H 163/83 H 93 01/08/23 11:16 01/08/23 11:22 01/08/23 11:22 01/08/23 11:22 01/08/23 07:25 Laboratory Data at Discharge: WBC 12.00 thou/uL (4.3-10.9) H 01/07/23 23:55 Hgb 12.6 g/dL (12.0-15.0) 01/07/23 23:55 Hct 39.9 % (36.0-45.0) 01/07/23 23:55 Plt Count 324 thou/uL (152-406) 01/07/23 23:55 PT 11.2 SECONDS (9.5-12.5) 01/07/23 23:55 INR 1.02 01/07/23 23:55 Sodium 143 mEq/L (136-145) 01/07/23 23:55 Potassium 3.1 mEq/L (3.5-5.1) L 01/07/23 23:55 BUN 11 mg/dL (7-18) 01/07/23 23:55 Creatinine 0.88 mg/dL (0.55-1.02) 01/07/23 23:55 Glucose 104 mg/dL (74-106) 01/07/23 23:55 Magnesium 1.8 mg/dL (1.6-2.4) 01/07/23 23:55 Total Bilirubin 0.3 mg/dL (0.2-1.0) 01/07/23 23:55 AST 6 U/L (15-37) L 01/07/23 23:55 ALT 15 U/L (13-56) 01/07/23 23:55 Alkaline Phosphatase 112 U/L (45-117) 01/07/23 23:55 Home Medications: Amlodipine [Norvasc*] 10 mg PO DAILY 01/26/22 Budesonide/Formoterol Fumarate [Symbicort 160-4.5 Mcg Inhaler] 2 puff IH BID 01/26/22 Duloxetine [Cymbalta *] 60 mg PO DAILY 01/26/22 Esomeprazole Mag Trihydrate [Nexium] 40 mg PO DAILY 01/26/22 Fenofibric Acid (Choline) [Fenofibric Acid] 135 mg PO BEDTIME 01/26/22 Linagliptin [Tradjenta] 1 tab PO DAILY 01/26/22 Mirabegron [Myrbetriq] 50 mg PO DAILY 01/26/22 Pregabalin [Lyrica*] 75 mg PO DAILY 01/26/22 Rosuvastatin [Crestor*] 10 mg PO BEDTIME 01/26/22 Trazodone [Desyrel*] 100 mg PO BEDTIME 01/26/22 Cholecalciferol (Vitamin D3) [Vitamin D 5,000 IU Cap*] 5,000 unit PO DAILY 04/02/22 Oseltamivir [Tamiflu*] 75 mg PO BID 5 Days #10 cap 01/08/23 levoFLOXacin [Levaquin*] 750 mg PO DAILY 7 Days #7 tab 01/08/23 predniSONE [Deltasone*] 10 mg PO DAILY 10 Days #20 tab 01/08/23 New Medications: predniSONE [Deltasone*] 10 mg PO DAILY 10 Days #20 tab levoFLOXacin [Levaquin*] 750 mg PO DAILY 7 Days #7 tab Oseltamivir [Tamiflu*] 75 mg PO BID 5 Days #10 cap
[2023-01-08] MEDS ORDERED: TRAZODONE 50 MG TABLET PO SCH (21:00)
[2023-01-09] MEDS ORDERED: levoFLOXacin 750 MG TAB PO SCH (09:00)
[2023-01-09] MEDS ORDERED: AMLODIPINE 10 MG TAB PO SCH (09:00)
[2023-01-09] MEDS ORDERED: PREGABALIN 75 MG CAP PO SCH (09:00)
== END 2023-01-08 11:20 | disposition home or self-care (01) ==
LOC: ER 22:46 → ERHOLD 01-08 02:20
PROVIDERS: ADMIT Internal Medicine Sleep Medicine; ATTEND Internal Medicine Sleep Medicine
DX: J44.1 Chronic obstructive pulmonary disease with (acute) exacerbation (principal); J10.1 Influenza due to other identified influenza virus with other respiratory manifestations; R09.02 Hypoxemia; I10 Essential (primary) hypertension; E11.9 Type 2 diabetes mellitus without complications; K21.9 Gastro-esophageal reflux disease without esophagitis; F17.210 Nicotine dependence, cigarettes, uncomplicated; I73.9 Peripheral vascular disease, unspecified; Z53.29 Procedure and treatment not carried out because of patient's decision for other reasons; E87.6 Hypokalemia; Z20.822 Contact with and (suspected) exposure to COVID-19
CPT/HCPCS: 93005; 87040 ×2; 87088; 85025; 81001; 87086; 80048; 36415; 83735; 85610; 82947; 85379; 80076; 83605; 84484; 83880; 87804 ×2; 71045; 94640 ×2; 96375; 96374; 99285; 87811; J8540; J0360; J7613; J7644; J1650; J7605; J2930; 87077; 87186; G0378

== ENCOUNTER 2023-02-04 16:32 | Inpatient (IN) | payer OTHER ==
--- OUTSIDE RECORDS SUMMARY | 2023-02-04 16:40 | XMS REPORT | Continuity of Care Document ---
:1965 Author Organization [facility] t Address [address] [facility]. Zander. [address] [place] [address] Care Team Providers Name Role Phone SYSTEM, PCP NOT IN Primary Care Physician Unavailable LINDSAY REESE Attending Clinician Unavailable KIKO PLUNKETT Attending Clinician Unavailable Kiko Plunkett Attending Clinician JENNIFER CRUZ Attending Clinician Unavailable Bertha Walters DO Attending Clinician BERTHA WALTERS Attending Clinician Unavailable Nurse, [facility] Attending Clinician Unavailable Kana Tena Attending Clinician KANA ARAUJO Attending Clinician Unavailable ABDIFATAH AMATO Attending Clinician Unavailable Anusha Plunkett Attending Clinician Unavailable YENNIFER EDDY Attending Clinician Unavailable Suzette DIETRICH, Devan Davis Attending Clinician [phone] Yennifer Eddy MD Attending Clinician Toni DIETRICH, Bonnie Jordan Attending Clinician [phone] FANG BAILEY Admitting Clinician Unavailable Fang Bailey Admitting Clinician JENNIFER CRUZ Admitting Clinician Unavailable Physician, No Primary or Family Admitting Clinician UnavailBONNIE Spencer Admitting Clinician Unavailable Payers Payer Name Policy Type Policy Number Effective Date Expiration Date S jennifer [facility] [id number] 2021 STARPLUS OON 00:00:00 EXCEPT [employer]HS [employer] MEDICARE [id number] 2021 00:00:00 [facility] STAR [id number] 2021 PLAN 00:00:00 Problems Condition Condition Condition Status Onset Resolution Last Treating Co mments Source Name Details Category Date Date Treatment Clinician Date STROKE STROKE Diagnosis Active 2023-01-10 Me moria Active 01-10 20:02:00 l 01/10/2023 00:00: [facility] [address] LIFE LIFE Diagnosis Active 2023-01-12 Mem oria FLIGHT FLIGHT 01-10 06:58:00 l Active 00:00: Zain 01/10/[address] [place] [address] HYPOXEMIA HYPOXEMIA Diagnosis Active 2023-02-03 Memoria Active 01-10 06:03:00 l 01/10/2023 00:00: [facility] [address] Tobacco Tobacco Disease [facility] [address] [place] Advanced Advanced Disease [facility] COPD (HCC) COPD (HCC) nce 7-21 Anna kes suspected suspected 00:00: Medi maile [address] [place] PAD PAD Disease Recurre [facility] (periphera (periphera nce 718 Anna kes l artery l artery 00:00: Medica l disease) disease) [address] [place] [address] Community Problem Active 2023-01-18 Memoria acquired acquired 06:38:59 l pneumonia pneumonia Herm myrna (disorder) (disorder) Active Problem 01/18/2023 [facility] Cyst of Cyst of Problem Active 2023-01-18 M emoria kidney kidney 06:38:59 l (disorder) (disorder) He rmann Active Problem 01/18/2023 [facility] Hyperlipid Hyperlipi Problem Active 2023-01-18 Memoria emia demia 06:38:59 l (disorder) (disorder) He rmann Active Problem 01/18/2023 [facility] Hypertensi Hypertens Problem Active 2023-01-18 Memoria ve ana 06:38:59 l disorder, disorder, Herm myrna systemic systemic arterial arterial (disorder) (disorder) Active Problem 01/18/2023 [facility] Hypokalemi Hypokalem Problem Active 2023-01-18 Memoria a ia 06:38:59 l (disorder) (disorder) He rmann Active Problem 01/18/2023 [facility] Hypomagnes Hypomagne Problem Active 2023-01-18 Memoria emia semia 06:38:59 l (disorder) (disorder) He rmann Active Problem 01/18/2023 [facility] Major Major Problem Active 2023-01-18 Marino myron depressive depressive 06:38:59 l disorder disorder Van n (disorder) (disorder) Active Problem 01/18/2023 [facility] Metabolic Metabolic Problem Active 2023-01-18 Memoria acidosis acidosis 06:38:59 l (disorder) (disorder) He rmann Active Problem 01/18/2023 [facility] Renal mass Renal Problem Active 2023-01-18 M emoria (finding) mass 06:38:59 l (finding) [place] Active Problem 01/18/2023 [facility] Simple Simple Problem Active 2023-01-18 Marino myron obesity obesity 06:38:59 l (disorder) (disorder) He rmann Active Problem 01/18/2023 [facility] Transient Transient Problem Active 2023-01-18 Memoria ischemic ischemic 06:38:59 l attack attack Zain (disorder) (disorder) Active Problem 01/18/2023 [facility] Acute Acute Problem Active 2023-01-18 Marino myron hypoxemic hypoxemic 06:38:59 l respirator respirator He rmann y failure y failure (disorder) (disorder) Active Problem 01/18/2023 [facility] Arthritis Arthritis Problem Active 2023-01-18 Memoria (disorder) (disorder) 06:38:59 l Active Zain Problem 01/18/2023 [facility] No known No known Disease Unive rs active active ity of problems problems [facility] Allergies, Adverse Reactions, Alerts Allergy Allergy Status Severity Reaction(s) Onset Inactive Treating Comm ents Source Name Type Date Date Clinician No Known DA Active [facility] NO KNOWN Allergy Active [facility] [address] No Known No Known Active Memori a Medicati Medicati l on on Zain Allergie Allergie s s NO KNOWN Drug Active Univers ALLERGIE Class ity of S [facility] Social History Social Habit Start Date Stop Date Quantity Comments Source History of Smokes tobacco [facility] tobacco use daily Medical Cente r History [facility] [employer] [facility] Non-Med Medical Center Exposure to 2022-02-27 2022-03-09 Not sure [facility] SARS-CoV-2 00:00:00 15:40:00 [facility] (event) [facility] Tobacco use and 2022-03-09 2022-03-09 Smokeless tobacco Un iversity of exposure 00:00:00 00:00:00 non-user [facility] History [facility] 2022-02-09 2022-02-[address] [facility] [address] [employer] Housing Places 00:00:00 00:00:00 Medical Ce nter Lived History [facility] 2022-02-09 2022-02-[address] [facility] [address] [facility] Homeless 00:00:00 00:00:00 Medical Center Last Year History [facility] 2022-02-09 2022-02-[address] [employer] [facility] Med 00:00:00 00:00:[address] History [facility] 2022-02-09 2022-02-[address] [facility] [address] [employer] [facility] Unable to 00:00:00 00:00:00 Medical Center Pay Sex Ass[birth year] At [birth year] [facility] 00:00:00 00:00:00 Medical Center Smoking Status Start Date Stop Date Source Social History 2023-01-11 00:08:35 [facility] Never smoked tobacco [facility] Smokes tobacco daily 2022-02-09 00:00:00 [facility] Medications Ordered Filled Start Stop Current Ordering Indication Dosage Frequency Signature Comments Components Source Medication Medication Date Date Medication? Clinician (SIG) Name Name Angie Yes 200 mg = 1 Mem oria 200 mg oral 6-22 cap, PO, l capsule 20:10: TID, X 5 Van n 00 day, # 15 cap, 0 Refill(s), Pharmacy: [facility], 162.56, cm, 01/11/23 4:06:00 CDT, Height, 91.2, kg, 01/11/23 4:06:00 CDT, Weight Omnicef 300 2022-0 Yes 300 mg = 1 Memoria mg oral 6-22 cap, PO, l capsule 14:25: Q12H, or Van n 00 equivalent , X 5 day, # 10 cap, 0 Refill(s), [facility]acy: [facility], 162.56, cm, 01/11/23 4:06:00 CDT, Height, 91.2, kg, 01/11/23 4:06:00 CDT, Weight dextrometho 0 No 5 mL, PO, M emoria rphan-guaiF 6-22 TID, X 5 l ENesin 15 14:21: day, # 75 Her rene mg-200 mg/5 00 mL, 0 mL oral Refill(s), liquid Pharmacy: [facility], 162.56, cm, 01/11/23 4:06:00 CDT, Height, 91.2, kg, 01/11/23 4:06:00 CDT, Weight aspirin 81 2022-0 Yes 81 mg = 1 Me moria mg tablet, 6-22 tab, PO, l enteric 14:20: Daily, # Van n coated 00 30 tab, 3 Refill(s), Pharmacy: [facility], 162.56, cm, 01/11/23 4:06:00 CDT, Height, 91.2, kg, 01/11/23 4:06:00 CDT, Weight clopidogrel 0 Yes 75 mg = 1 M emoria 75 mg oral 6-22 tab, PO, l tablet 14:20: Daily, # [place] 00 21 tab, 0 Refill(s), Pharmacy: [facility], 162.56, cm, 01/11/23 4:06:00 CDT, Height, 91.2, kg, 01/11/23 4:06:00 CDT, Weight Lovenox 2022-0 No Notes: Memoria 6-20 (Same as: l 20:00: Lovenox) Zain 00 potassium No /= 14 Memoria chloride 20 6-20 Ecuadorean, l mEq oral 19:00: november Zain tablet, 00 dissolve extended each 20 release mEq tablet (KCL) in 4 oz of water. Allow about 2 minutes for the tablets to disintegra te. Stir before giving to prepare slurry and administer . Please exclude patient's with feeding tube less than 14 Ecuadorean (Dobhoff, J-tube, etc) and pediatric and patients. magnesium 0 No Notes: Memori a sulfate 6-20 WASTE: F/P l 17:55: - Sink; E [place] 00 - Municipal Trash Bin potassium 0 No /= 14 Memoria chloride 20 6-20 Ecuadorean, l mEq oral 17:55: november Zain tablet, 00 dissolve extended each 20 release mEq tablet (KCL) in 4 oz of water. Allow about 2 minutes for the tablets to disintegra te. Stir before giving to prepare slurry and administer . Please exclude patient's with feeding tube less than 14 Ecuadorean (Dobhoff, J-tube, etc) and pediatric and patients. aspirin 81 No Notes: Do Me moria mg tablet, 6-20 not crush l enteric 14:00: or chew. Van n coated 00 (Same As: Ecotrin) DULoxetine 0 No Notes: Memor ia 6-20 (Same as: l 14:00: Cymbalta) [place] (Do Not Crush) NexIUM 2022-0 No 40 mg, 1 Memoria 6-20 cap, l 14:00: Route: PO, Drug form: ECCAP, Daily, Dosing Weight 91.2, kg, Start date: 01/12/23 9:00:00 CDT, Duration: 30 day, Stop date: 02/10/23 9:00:00 CDT amLODIPine 2022-0 No 10 mg, 1 Mem oria 6-20 tab, l 14:00: Route: PO, Drug form: TAB, Daily, Dosing Weight 91.2, kg, Start date: 01/12/23 9:00:00 CDT, Duration: 30 day, Stop date: 02/10/23 9:00:00 CDT fenofibric 2022-0 No 135 mg, 1 Me moria acid 6-20 cap, l 14:00: Route: PO, Drug form: CAP, Daily, Dosing Weight 91.2, kg, Start date: 01/12/23 9:00:00 CDT, Duration: 30 day, Stop date: 02/10/23 9:00:00 CDT Protonix No Notes: Memoria 6-20 Tablet l 14:00: should not Zain 00 be chewed or crushed. (Same as: Protonix) fenofibrate No Notes: Marino myron 6-20 (Same as: l 14:00: Tricor) Zain Tylenol No Notes: Max Marino myron 6-20 acetaminop l 10:29: hen 4000 [place] 00 mg/day (4 gm/day). (Same as: Tylenol Extra Strength) vancomycin No 2001 mg: Me moria 6-20 infuse l 04:00: over 2.5 [place] 00 hours trazodone No Notes: Memori a 6-20 (Same As: l 02:00: Desyrel) Lyrica No Notes: Memoria 6-19 (Same as: l 22:00: Lyrica) [place] 00 amLODIPine No Notes: Memor ia 6-19 (Same as: l 18:06: Norvasc) [place] 00 trazodone Yes 100 mg = 1 Me moria 100 mg oral 6-19 tab, PO, l tablet 16:25: Bedtime, # Margarita nn 00 30 tab, 0 Refill(s) amLODIPine Yes 10 mg = 1 Me moria 10 mg oral 6-19 tab, PO, l tablet 16:25: Daily, 0 Zain 00 Refill(s) Lyrica 50 0 Yes 50 mg = 1 Mem oria mg oral 6-19 cap, PO, l capsule 16:24: TID, 0 Zain 00 Refill(s) diclofenac Yes 75 mg = 1 Me moria sodium 75 6-19 tab, PO, l mg oral 16:24: BID, # 180 Herm myrna enteric 00 tab, 0 coated, Refill(s) delayed-rel ease tablet TamiFLU 75 No 40.1 kg, Me moria mg oral 6-19 # 10 cap, l capsule 16:24: 0 [place] 00 Refill(s) levofloxaci No 750 mg = 1 Memoria n 750 mg 6-19 tab, PO, l oral tablet 16:24: Q24H, 0 Her rene 00 Refill(s) NexIUM 40 Yes 40 mg = 1 Mem oria mg oral 6-19 cap, PO, l delayed 16:23: Daily, 0 Van n release 00 Refill(s) capsule DULoxetine Yes 60 mg = 1 Me moria 60 mg oral 6-19 cap, PO, l delayed 16:23: Daily, 0 Van n release 00 Refill(s) capsule fenofibric Yes 135 mg = 1 M emoria acid 135 mg 6-19 cap, PO, l oral 16:23: Daily, # Arm[place] delayed 00 30 cap, 0 release Refill(s) capsule predniSONE No 10 mg = 1 Me moria 10 mg oral 6-19 tab, PO, l tablet 16:23: Daily, 0 Zain 00 Refill(s) aspirin 325 No Notes: Marino myron mg tablet 6-19 Take with l 16:22: food. [place] 00 Plavix No Notes: Memoria 6-19 (Same As: l 16:22: Plavix) azithromyci No Notes: Marino myron n 500 mg 6-19 Take 1 l oral tablet 14:00: hour Van n 00 before or 2 hours after meals. (Same As: Zithromax) albuterol No Notes: SEE Me moria 6-19 RT l 12:00: DOCUMENTAT Zain 00 ION (Same as: Proventil) cefTRIAXone No Notes: Marino myron + sterile 6-19 (Same As: l water 10 mL 12:00: Rocephin). Use with 100 mL NS and infuse over 30 min MEDICATION WASTE Product Size: 1000 mg Product Wasted: ___ mg Omnipaque No 65 mL, Memori a 350 mg/mL 6-19 Route: l 06:31: IVP, Drug Form: SOLN, Dosing Weight 91.2, kg, ONCALL, STAT, Start date: 01/11/23 1:31:00 CDT, Duration: 1 doses or times, Dose = 2.2ml/kg, Max dose = 100ml -- "To be infused by Radiology Staff ONLY" Pulmicort No Notes: Memori a Respules 01-11 (Same As: l 06:14: Pulmicort Zain 00 respule). NS 1,000 mL No 1,000 mL, M emoria 01-11 Rate: 75 l 06:02: ml/hr, [place] Infuse over: 13.3 hr, Route: IV, Dosing Weight 91.2 kg, Total Volume: 1,000, Start date: 01/11/23 1:02:00 CDT, Duration: 30 day, Stop date: 02/10/23 1:01:00 CDT, BSA: 2.06 m2, 0 Symbicort No 2 Memoria 80/4.5 01-11 inhalation l inhalation 05:55: , Route: Her rene aerosol 00 INHALATION with , Drug adapter Form: AERO/A, Dosing Weight 91.2, kg, RBID, Start date: 01/11/23 0:55:00 CDT, Duration: 30 day, Stop date: 02/09/23 20:00:00 CDT DuoNeb No Notes: Memoria inhalation 01-11 (Same as: l solution 05:55: Duoneb) Van n 00 DuoNeb No Notes: Memoria inhalation 01-11 (Same as: l solution 04:53: Duoneb) Van n cefepime + No Notes: Memor ia sterile 01-11 (Same As: l water 10 mL 03:00: Maxipime) H ermann 00 MEDICATION WASTE Product Size: 1000 mg Product Wasted: ___ mg vancomycin No 2000 mg: Me moria + Sodium 01-11 infuse l Chloride 02:47: over 2.5 Margarita nn 0.9% IV 500 00 hours For mL adult patients only: Round to nearest 250 mg per Medical Staff approval MEDICATION WASTE Product Size: 1000 mg Product Wasted: ___ mg Vancomycin No Notes: Memor ia Pharmacy 01-11 Vancomycin l Dosing 02:40: Pharmacy Zain Consult 53 Dosing Protocol PHARMAC Y USE ONLY Note: This is not a medication order. This is a consultati on order. cefepime + No Notes: Memor ia sterile 01-11 (Same as: l water 20 mL 02:40: Maxipime) H ermann 00 MEDICATION WASTE Product Size: 2000 mg Product Wasted: ___ mg vancomycin No 2,280 mg, Me moria 01-11 Route: l 02:40: IVPB, [place] 00 ONCE, Dosing Weight 91.2, kg, Priority: STAT, Start date: 01/10/23 21:40:00 CDT, Stop date: 01/10/23 21:40:00 CDT, ABX Indication : Other (specify in Comments) Lactated No 1,000 mL, Marino myron Ringers 01-11 1000 l (Bolus) IV 00:04: ml/hr, Margarita nn Infuse Over: 1 hr, Route: IV, 1,000, Drug form: INJ, ONCE, Priority: STAT, Dosing Weight 91.2 kg, Start date: 01/10/23 19:04:00 CDT, Stop date: 01/10/23 19:04:00 CDT, 0 Omnipaque No 60 mL, Memori a 350 mg/mL 01-10 Route: l 23:43: IVP, Drug Form: SOLN, kg, ONCALL, STAT, Start date: 01/10/23 18:43:00 CDT, Duration: 1 doses or times, Dose = 2.2ml/kg, Max dose = 100ml -- "To be infused by Radiology Staff ONLY" Saline No Notes: Memoria Flush 0.9% 01-10 (Same as: l 23:37: BD [place] Posiflush) No known No No known Unive rs medications 8-15 medication it y of 16:20: s [address] Vital Signs Vital Name Observation Time Observation Value Comments Source Systolic blood 2022-03-09 20:51:00 116 mm[Hg] Univer sity of pressure [facility] Diastolic blood 2022-03-09 20:51:00 56 mm[Hg] Unive rsity of pressure [facility] Heart rate 2022-03-09 20:51:00 106 /min Universi ty [facility] Body temperature 2022-03-09 20:51:00 [facility].89 [facility] Respiratory rate 2022-03-09 20:51:00 16 [facility] 2022-03-09 20:51:00 162.6 cm Universi ty [facility] Body weight 2022-03-09 20:51:00 108.863 kg Universi [facility] BMI 2022-03-09 20:51:00 41.20 kg/m2 [facility] Oxygen saturation in 2022-03-09 20:51:00 97 /min [facility] Arterial blood by [facility] Pulse oximetry Branch WEIGHT 2022-02-09 04:00:00 107.8 kg WEIGHT 2022-02-09 04:00:00 107.8 kg WEIGHT 2022-02-09 04:00:00 107.8 kg Heart Rate 2023-01-14 14:07:20 [facility] [place] Respitory Rate 2023-01-14 14:07:20 Memori al Zain Systolic (mm Hg) 2023-01-14 14:06:20 Marino rial [place] Diastolic (mm Hg) 2023-01-14 14:06:20 Mem orial [place] Heart Rate 2023-01-14 14:06:20 [facility] [place] Temperature Oral (F) 2023-01-14 14:05:42 98.7 F Memorial Zain Heart Rate 2023-01-14 09:19:00 [facility] [place] Respitory Rate 2023-01-14 09:19:00 Memori al Zain Systolic (mm Hg) 2023-01-14 09:18:39 Marino rial [place] Diastolic (mm Hg) 2023-01-14 09:18:39 Mem orial Zain Temperature Oral (F) 2023-01-14 09:18:17 98.4 F Memorial Zain Respitory Rate 2023-01-14 04:13:31 Memori al Zain Systolic (mm Hg) 2023-01-14 04:13:25 Marino rial Zain Diastolic (mm Hg) 2023-01-14 04:13:25 Mem orial [place] Temperature Oral (F) 2023-01-14 04:13:07 98.2 F Memorial Zain Temperature Oral (F) 2023-01-12 20:43:33 [facility]2 [facility] 2023-01-11 09:06:00 162.56 cm [facility] [place] Weight 2023-01-11 09:06:00 [facility] [place] BMI Calculated 2023-01-11 09:06:00 Memori al Zain Height 2023-01-11 02:40:00 162.56 [facility] 2023-01-11 02:40:00 [facility] [place] Height 2023-01-10 23:30:00 162.56 [facility] BMI Calculated 2023-01-10 23:30:00 Memori al Zain Weight 2023-01-10 23:30:00 [facility] Heart rate 2022-02-10 20:00:00 86 /min [facility] Systolic blood 2022-02-10 19:22:00 139 mm[Hg] [facility] Diastolic blood 2022-02-10 19:22:00 65 mm[Hg] [facility] Body temperature 2022-02-10 19:22:00 35.61 Elina [facility] Respiratory rate 2022-02-10 19:22:00 18 /min [facility] Oxygen saturation in 2022-02-10 19:22:00 100 /min [facility] Arterial blood by Medical Ce nter Pulse oximetry Body weight 2022-02-09 04:00:00 107.8 kg [facility] Procedures Procedure Date / Time Performing Clinician Source Performed 2D ECHO W/ DOPPLER 2022-02-10 18:08:34 Morro Hopkins [facility] (CW/PW/COLOR) [facility] 2D ECHO W/ DOPPLER 2022-02-10 18:08:34 Morro Hopkins [facility] (CW/PW/COLOR) [facility] POCT-GLUCOSE METER 2022-02-10 15:56:00 Yennifer Eddy [facility] APTT 2022-02-10 14:19:00 [facility] 2022-02-10 12:29:00 Morro Hopkins [facility] APTT 2022-02-10 08:38:00 Bonnie Muñoz [facility] POCT-GLUCOSE METER 2022-02-10 07:30:00 [facility] ONLY[facility] 2022-02-10 04:06:00 [facility] 2022-02-09 22:28:00 Yennifer Eddy [facility] POCT-GLUCOSE METER 2022-02-09 21:16:00 Nunu Yennifer [facility] POCT-GLUCOSE METER 2022-02-09 16:28:00 Nunu [facility] PV ARTERIAL HUNTER 2022-02-09 15:33:00 Nunu [facility] HC ARTERIAL DOPPLER LEG 2022-02-09 15:33:00 Morro Hopkins [facility] APTT 2022-02-09 12:58:00 Nunu Yennifer [facility] POCT-GLUCOSE METER 2022-02-09 12:14:00 Nunu Yennifer [facility] SARS-COV2/RT-PCR ([facility] & 2022-02-09 08:52:00 Bonnie Muñoz [facility]SE METER 2022-02-09 07:34:00 [facility] HEMO[facility] A1C 2022-02-09 07:00:00 [facility]OLIC 2022-02-09 07:00:00 [facility] POCT-GLUCOSE METER 2022-02-09 06:09:00 [facility] CBC (HEMOGRAM ONLY) 2022-02-09 04:49:00 Bonnie Muñoz [facility] APTT 2022-02-09 04:49:00 Bonnie [facility] EKG-SCANNED 2022-02-09 00:00:00 ProviderAnnita [facility] Plan of Care Planned Activity Planned Date Details Comments Source Future Scheduled 2023-03-[address] [facility] Test 00:00:00 (Season Ended) [code = Medic al Center Influenza Vaccine (Season Ended)] Future Scheduled 2023-03-26 Influenza Vaccine (#1) [facility] 00:00:00 [code = Influenza Medical Ce nter Vaccine (#1)] Future Scheduled 2023-02-[address] [facility] 00:[facility]00 2) [code = [facility] VACCINES (1 of 2)] Future Scheduled 2010 Lipid panel (procedure) [facility] 00:00:00 [code = 80137582] Medical Ce nter Future Scheduled 2010 Lipid panel (procedure) [facility] Test 00:00:00 [code = 60169927] Medical Ce nter Future Scheduled 2010 Lipid panel (procedure) [facility] Test 00:00:00 [code = 50107106] Medical Ce nter Future Scheduled 2010 Lipid panel (procedure) [facility] Test 00:00:00 [code = 01556027] Medical Ce nter Future Scheduled 2010 Lipid panel (procedure) [facility] Test 00:00:00 [code = 20289180] Medical Ce nter Future Scheduled 1986 Screening for malignant [facility] Test 00:00:00 neoplasm of cervix Medical C enter (procedure) [code = 361901212] Future Scheduled 1986 Screening for malignant [facility] Test 00:00:00 neoplasm of cervix Medical C enter (procedure) [code = 677570031] Future Scheduled 1986 Screening for malignant [facility] Test 00:00:00 neoplasm of cervix Medical C enter (procedure) [code = 162480901] Future Scheduled 1986 Screening for malignant [facility] Test 00:00:00 neoplasm of cervix Medical C enter (procedure) [code = 517665637] Future Scheduled 1986 Screening for malignant [facility] Test 00:00:00 neoplasm of cervix Medical C enter (procedure) [code = 902413950] Future Scheduled 1984 DTAP/TDAP/TD VACCINES CH I [...] 0-64 Years (1 - PCV)] Future Scheduled 1971-11-02 PNEUMOCOCCAL [...] colon Medical Ce nter (procedure) [code = 555518727] Future Scheduled 1965 Screening for malignant [facility] Test 00:00:00 neoplasm of colon Medical Ce nter (procedure) [code = 308429841] Future Scheduled 1965 Sigmoidoscopy [code = [facility] S[facility]oscopy] Medical Cente r Future Scheduled 1965 Screening for malignant [facility] Test 00:00:00 neoplasm of breast Medical C enter (procedure) [code = 820763440] Future Scheduled 1965 CT Colonography (combo) [facility] Test 00:00:00 [code = CT Colonography [facility] (combo)] Future Scheduled 1965 Screening for malignant [facility] Test 00:00:00 neoplasm of colon Medical Ce nter (procedure) [code = 134205472] Future Scheduled 1965 Screening for malignant [facility] Test 00:00:00 neoplasm of colon Medical Ce nter (procedure) [code = 134442835] Future Scheduled 1965 Screening for malignant [facility] Test 00:00:00 neoplasm of colon Medical Ce nter (procedure) [code = 758982810] Future Scheduled 1965 Screening for malignant [facility] Test 00:00:00 neoplasm of colon Medical Ce nter (procedure) [code = 288493402] Future Scheduled 1965 Sigmoidoscopy [code = [facility] 00:[facility]:00 Sigmoidoscopy] Medical Cente r Future Scheduled 1965 Screening for malignant [facility] Test 00:00:00 neoplasm of breast Medical C enter (procedure) [code = 653398861] Future Scheduled 1965 CT Colonography (combo) [facility] Test 00:00:00 [code = CT Colonography [facility] (combo)] Future Scheduled 1965 Screening for malignant [facility] Test 00:00:00 neoplasm of colon Medical Ce nter (procedure) [code = 550193272] Future Scheduled 1965 Screening for malignant [facility] Test 00:00:00 neoplasm of colon Medical Ce nter (procedure) [code = 665425607] Future Scheduled 1965 Screening for malignant [facility] 00:00:00 neoplasm of colon Medical Ce nter (procedure) [code = 974371601] Future Scheduled 1965 Screening for malignant [facility] 00:00:00 neoplasm of colon Medical Ce nter (procedure) [code = 987450609] Future Scheduled 1965 Sigmoidoscopy [facility]code = [facility]] Medical Cent[facility] Future Scheduled 1965 Screening for malignant [facility] 00:00:00 neoplasm of breast Medical C enter (procedure) [code = 814657023] Future Scheduled 1965 CT Colonography (combo) [facility] 00:00:00 [code = CT [facility] ([facility])] Future Scheduled 1965 Screening for malignant [facility] 00:00:00 neoplasm of colon Medical Ce nter (procedure) [code = 155448261] Future Scheduled 1965 Screening for malignant [facility] 00:00:00 neoplasm of colon Medical Ce nter (procedure) [code = 113426790] Future Scheduled 1965 Screening for malignant [facility] 00:00:00 neoplasm of colon Medical Ce nter (procedure) [code = 286765784] Future Scheduled 1965 Screening for malignant [facility] 00:00:00 neoplasm of colon Medical Ce nter (procedure) [code = 729952984] Future Scheduled 1965 Sigmoidoscopy [code = [facility]oscopy] Medical Cente r Future Scheduled 1965 Screening for malignant [facility] 00:00:00 neoplasm of breast Medical C enter (procedure) [code = 140045493] Future Scheduled 1965 CT Colonography (combo) [facility] 00:00:00 [code = CT Colonography [facility] (combo)] Future Scheduled 1965 Screening for malignant [facility] 00:00:00 neoplasm of colon Medical Ce nter (procedure) [code = 146876406] Future Scheduled 1965 Screening for malignant [facility] 00:00:00 neoplasm of colon Medical Ce nter (procedure) [code = 168689913] Future Scheduled 1965 Screening for malignant [facility] 00:00:00 neoplasm of breast Medical C enter (procedure) [code = 519073628] Future Scheduled 1965 CT Colonography (combo) [facility] 00:00:00 [code = CT Colonography [facility] (combo)] Future Scheduled 1965 Screening for malignant [facility] 00:00:00 neoplasm of colon Medical Ce nter (procedure) [code = 627664991] Future Scheduled 1965 Screening for malignant [facility] 00:00:00 neoplasm of colon Medical Ce nter (procedure) [code = 709474897] Future Scheduled 1965 Screening for malignant [facility] 00:00:00 neoplasm of colon Medical Ce nter (procedure) [code = 660886170] Future Scheduled 1965 Screening for malignant [facility] 00:00:00 neoplasm of colon Medical Ce nter (procedure) [code = 768641621] Future Scheduled 1965 Sigmoidoscopy [code = [facility] Sigmoidoscopy] Medical Gely r Encounters Start End Encounter Admission Attending Care Care Encounter Source Date/Time Date/Time Type Type Clinicians Facility Department ID 2023-01-22 Outpatient [facility] [id number] [place] 12:11:07 [id number] [facility] 2023-01-19 Outpatient [facility] [id number] [place] 11:05:45 [id number] [facility] 2023-02-08 2023-02-08 Outpatient MARY ANN [facility] [id number] [place] 17:00:00 17:00:00 [facility] 2023-01-10 2023-01-14 Inpatient [facility] [id number] [place] 23:18:51 18:06:[address] 2023-01-11 2023-01-14 Inpatient Molina PLUNKETT [facility] [id number] [facility] 00:11:00 13:06:00 KIKO 2023-01-10 2023-01-14 Outpatient [facility] [id number] 18:18:51 13:06:00 Kiko Aneesh Danis 2023-01-10 2023-01-14 Outpatient Judit [facility] [id number] 193 18:18:51 13:06:00 Kiko Aneesh [facility] 2023-01-10 2023-01-10 [facility] [id number] [facility] 18:18:00 23:59:00 JENNIFER 2022-03-09 2022-03-09 Emergency Karthikeyan WVRAJESH [id number] [facility] 16:25:00 19:04:00 [id number] [facility] [id number] [address] 2022-03-09 2022-03-09 Emergency Steve WALTERS WVRAJESH ERT [id number] [facility] 16:25:00 19:04:00 BERTHA gordon [facility] 2022-03-09 2022-03-09 Emergency Steve WALTERS [facility] ERT [id number] [facility] 16:25:00 19:04:00 BERTHA gordon [facility] 2022-03-09 2022-03-09 Nurse Nurse, [facility] [id number] [facility] 15:45:00 16:00:42 Visit Kana Araujo [facility] [id number] heidi juarez [facility] [id number] Petros as JAVED?BLEA [id number] Me [address] MEDICAL OFFICE BUILDING 2022-03-09 2022-03-09 Outpatient [place] [id number] [facility] 15:45:00 15:45:00 KANA itmonae o f [facility] 2022-03-09 2022-03-09 [facility] [id number] [facility] 15:40:00 15:40:00 ABDIFATAH gordon [facility] 2022-02-17 2022-02-17 Emergency EM Judit [facility]U [facility] [id number] [facility] 05:53:00 09:40:00 Anusha 16 [facility] 2022-02-17 2022-02-17 Emergency EM Judit DIEGOWU HCAWU [id number] [facility] 05:53:00 09:40:00 Anusha [id number] [facility] 2022-02-09 2022-02-10 Inpatient ER NUNU [facility] [id number] [facility] 03:13:00 22:30:00 YENNIFER 2022-02-09 2022-02-10 [facility] [id number] [facility] 03:13[facility] 22:30:00 Encounter Yennifer Eddy [facility] 2022-02-09 2022-02-10 Hospital ER Devan Bradford [facility] [id number] [facility] 03:13[facility] 22:30:00 Encounter Yennifer Eddy [facility] 2022-02-09 2022-02-09 Travel [facility] [id number] [facility] 00[facility]00 [facility] 2022-02-09 2022-02-09 Travel [facility] [id number] [facility] 00:00:00 00:00:00 [facility] Results Test Description Test Time Test Comments Results Result Comments Source HEMATOLOGY 2023-01-13 09:30:00 Test Item Value Reference Range Interpretation Comme nts Basophils (test code = 0.4 See_Comment [Aut omated message] The system Basophils) which generated this result transmitted ref erence range: <=1.0. The reference r robert was not used to interpret this result as normal/abnormal . [facility] CenterYbweeppAGYUEYVDYT6623-91-87 09:30:00 Test Item Value Reference Range Interpretation Comments Neutrophils # (test code = Neutrophils 6.4 1.5-8.1 #) [facility] CenterNnkwvmyMMOOOHXIZF3536-41-17 09:30:00 Test Item Value Reference Range Interpretation Comments Lymphocytes # (test code = Lymphocytes 1.9 1.0-5.5 #) [facility] CenterQdxndepPOHLXIUZMK4246-24-22 09:30:00 Test Item Value Reference Range Interpretation Comments Monocytes # (test code 0.7 See_Comment [Aut omated message] The = Monocytes #) system which generated this result tra nsmitted reference range : <=0.8. The reference r robert was not used to int erpret this result as normal/abnormal . [facility] CenterOuvxoblNLVZULZZOH9864-34-08 09:30:00 Test Item Value Reference Range Interpretation Comments Eosinophils # (test code 0.1 See_Comment [A utomated message] The = Eosinophils #) system whic h generated this result tra nsmitted reference range : <=0.5. The reference r robert was not used to int erpret this result as normal/abnormal . [facility] CenterWczwkbnQQVNIKYLRK8481-27-37 09:30:00 Test Item Value Reference Range Interpretation Comments WBC (test code = WBC) 9.1 3.7-10.4 [place] 745103-06-21 09:30:00 Test Item Value Reference Range Interpretation Comments RBC (test code = RBC) 3.75 4.20-5.40 [place] 745103-06-21 09:30:00 Test Item Value Reference Range Interpretation Comments Hgb (test code = Hgb) 11.5 12.0-16.0 [place] 745103-06-21 09:30:00 Test Item Value Reference Range Interpretation Comments Hct (test code = Hct) 35.1 36.0-48.0 [place] [address]-06-21 09:30:00 Test Item Value Reference Range Interpretation Comments MCV (test code = MCV) 93.5 80.0-98.0 [place] [address]-06-21 09:30:00 Test Item Value Reference Range Interpretation Comments MCH (test code = MCH) 30.7 pg 27.0-31.0 [place] 745103-06-21 09:30:00 Test Item Value Reference Range Interpretation Comments MCHC (test code = MCHC) 32.8 32.0-36.0 [place] [address]-06-21 09:30:00 Test Item Value Reference Range Interpretation Comments RDW (test code = RDW) 16.2 11.5-14.5 [place] [address]-06-21 09:30:00 Test Item Value Reference Range Interpretation Comments Platelet (test code = Platelet) 267 133-450 [place] 745103-06-21 09:30:00 Test Item Value Reference Range Interpretation Comments MPV (test code = MPV) 9.3 7.4-10.4 [place] 745103-06-21 09:30:00 Test Item Value Reference Range Interpretation Comments Segs (test code = Segs) 70.2 45.0-75.0 [place] 745103-06-21 09:30:00 Test Item Value Reference Range Interpretation Comments Lymphocytes (test code = Lymphocytes) 20.5 20.0-40.0 [place] 745103-06-21 09:30:00 Test Item Value Reference Range Interpretation Comments Monocytes (test code = Monocytes) 7.3 2.0-12.0 [place] [address]-06-21 09:30:00 Test Item Value Reference Range Interpretation Comments Eosinophils (test code = 1.6 See_Comment [A utomated message] The Eosinophils) system which ge nerated this result tra nsmitted reference range : <=4.0. The reference r robert was not used to int erpret this result as normal/abnormal . [place] 745103-06-21 09:30:00 Test Item Value Reference Range Interpretation Comments Basophils (test code = 0.4 See_Comment [Aut omated message] The Basophils) system which ge nerated this result tra nsmitted reference range : <=1.0. The reference r robert was not used to int erpret this result as normal/abnormal . [place] 745103-06-21 09:30:00 Test Item Value Reference Range Interpretation Comments Neutrophils # (test code = Neutrophils 6.4 1.5-8.1 #) [place] [address]-06-21 09:30:00 Test Item Value Reference Range Interpretation Comments Lymphocytes # (test code = Lymphocytes 1.9 1.0-5.5 #) [place] [address]-06-21 09:30:00 Test Item Value Reference Range Interpretation Comments Monocytes # (test code 0.7 See_Comment [Aut omated message] The = Monocytes #) system which generated this result tra nsmitted reference range : <=0.8. The reference r robert was not used to int erpret this result as normal/abnormal . [place] [address]-06-21 09:30:00 Test Item Value Reference Range Interpretation Comments Eosinophils # (test code 0.1 See_Comment [A utomated message] The = Eosinophils #) system whic h generated this result tra nsmitted reference range : <=0.5. The reference r robert was not used to int erpret this result as normal/abnormal . [facility] CenterTglcohaBCIGOEEQKZ3102-10-29 09:30:00 Test Item Value Reference Range Interpretation Comments WBC (test code = WBC) 9.1 3.7-10.4 [place] [address]-06-21 09:30:00 Test Item Value Reference Range Interpretation Comments RBC (test code = RBC) 3.75 4.20-5.40 [place] [address]-06-21 09:30:00 Test Item Value Reference Range Interpretation Comments Hgb (test code = Hgb) 11.5 12.0-16.0 [place] [address]-06-21 09:30:00 Test Item Value Reference Range Interpretation Comments Hct (test code = Hct) 35.1 36.0-48.0 [place] [address]-06-21 09:30:00 Test Item Value Reference Range Interpretation Comments MCV (test code = MCV) 93.5 80.0-98.0 [place] [address]-06-21 09:30:00 Test Item Value Reference Range Interpretation Comments MCH (test code = MCH) 30.7 pg 27.0-31.0 [place] [address]-06-21 09:30:00 Test Item Value Reference Range Interpretation Comments MCHC (test code = MCHC) 32.8 32.0-36.0 [place] [address]-06-21 09:30:00 Test Item Value Reference Range Interpretation Comments RDW (test code = RDW) 16.2 11.5-14.5 [place] [address]-06-21 09:30:00 Test Item Value Reference Range Interpretation Comments Platelet (test code = Platelet) 267 133-450 [place] [address]-06-21 09:30:00 Test Item Value Reference Range Interpretation Comments MPV (test code = MPV) 9.3 7.4-10.4 [place] 180353-06-21 09:30:00 Test Item Value Reference Range Interpretation Comments Magnesium Lvl (test code = Magnesium 2.2 1.8-2.4 Lvl) [place] 180353-06-21 09:30:00 Test Item Value Reference Range Interpretation Comments Glucose Lvl (test code = Glucose Lvl) 70 70-99 [place] 180353-06-21 09:30:00 Test Item Value Reference Range Interpretation Comments BUN (test code = BUN) 11 7-22 [place] [address]-06-21 09:30:00 Test Item Value Reference Range Interpretation Comments Creatinine Lvl (test code = Creatinine 0.77 0.50-1.40 Lvl) [place] 180353-06-21 09:30:00 Test Item Value Reference Range Interpretation Comments Sodium Lvl (test code = Sodium Lvl) 142 135-145 [place] 180353-06-21 09:30:00 Test Item Value Reference Range Interpretation Comments Potassium Lvl (test code = Potassium 4.2 3.5-5.1 Lvl) [place] 180353-06-21 09:30:00 Test Item Value Reference Range Interpretation Comments Chloride Lvl (test code = Chloride Lvl) 112 95-109 [place] 180353-06-21 09:30:00 Test Item Value Reference Range Interpretation Comments CO2 (test code = CO2) [place] 180353-06-21 09:30:00 Test Item Value Reference Range Interpretation Comments Calcium Lvl (test code = Calcium Lvl) 8.3 8.5-10.5 [place] 180353-06-21 09:30:00 Test Item Value Reference Range Interpretation Comments AGAP (test code = AGAP) 13.2 10.0-20.0 [place] 180353-06-21 09:30:00 Test Item Value Reference Range Interpretation Comments eGFR (test code = eGFR) 90 [facility]2023-06-21 09:30:00 Test Item Value Reference Range Interpretation Comments Phosphorus (test code = Phosphorus) 3.2 2.5-4.5 [facility] HospitalAplquakCJUTATGZY7100-38-33 09:30:00 Test Item Value Reference Range Interpretation Comments Magnesium Lvl (test code = Magnesium 2.2 1.8-2.4 Lvl) [place] 040643-06-21 09:30:00 Test Item Value Reference Range Interpretation Comments Glucose Lvl (test code = Glucose Lvl) 70 70-99 [place] 040643-06-21 09:30:00 Test Item Value Reference Range Interpretation Comments BUN (test code = BUN) 11 7-22 [place] 040643-06-21 09:30:00 Test Item Value Reference Range Interpretation Comments Creatinine Lvl (test code = Creatinine 0.77 0.50-1.40 Lvl) [facility] HospitalWyiwrkdQBUGMQYRB1123-48-77 09:30:00 Test Item Value Reference Range Interpretation Comments Sodium Lvl (test code = Sodium Lvl) 142 135-145 [place] [address]-06-21 09:30:00 Test Item Value Reference Range Interpretation Comments Potassium Lvl (test code = Potassium 4.2 3.5-5.1 Lvl) [place] 040643-06-21 09:30:00 Test Item Value Reference Range Interpretation Comments Chloride Lvl (test code = Chloride Lvl) 112 95-109 [place] 040643-06-21 09:30:00 Test Item Value Reference Range Interpretation Comments CO2 (test code = CO2) [place] 040643-06-21 09:30:00 Test Item Value Reference Range Interpretation Comments Calcium Lvl (test code = Calcium Lvl) 8.3 8.5-10.5 [facility] HospitalXluillvCVDAEEROQ1040-46-84 09:30:00 Test Item Value Reference Range Interpretation Comments AGAP (test code = AGAP) 13.2 10.0-20.0 [facility] HospitalWvhzpsjZNVWDRUAC9694-45-98 09:30:00 Test Item Value Reference Range Interpretation Comments eGFR (test code = eGFR) 90 [facility] HospitalJifxbdgQNYIEGRUB5940-75-02 09:30:00 Test Item Value Reference Range Interpretation Comments Phosphorus (test code = Phosphorus) 3.2 2.5-4.5 [facility] CenterUbtbvejMERHIFHAUN5694-25-78 09:30:00 Test Item Value Reference Range Interpretation Comments Segs (test code = Segs) 70.2 45.0-75.0 [facility] CenterVxeqkmsEJNGTYDHRO2676-10-97 09:30:00 Test Item Value Reference Range Interpretation Comments Lymphocytes (test code = Lymphocytes) 20.5 20.0-40.0 [facility] CenterPhiafrpKOGOEQJAYA5580-59-68 09:30:00 Test Item Value Reference Range Interpretation Comments Monocytes (test code = Monocytes) 7.3 2.0-12.0 [facility] CenterMnjlhbbMXBBHVKJXN2756-90-74 09:30:00 Test Item Value Reference Range Interpretation Comments Eosinophils (test code = 1.6 See_Comment [A utomated message] The Eosinophils) system which ge nerated this result tra nsmitted reference range : <=4.0. The reference r robert was not used to int erpret this result as normal/abnormal . [place] 27546023-06-20 17:51:08 Test Item Value Reference Range Interpretation Comments RADRPT (test code EXAM: CT BRAIN WITHOUT = RADRPT) CONTRASTDATE: 01/12/2023INDICATION: - assess for stroke. Had TIA, refused MRI.COMPARISON: Noncontrast head CT done on 01/10/2023.TECHNIQUE: Axial CT images of the brain were obtained. Sagittal and coronal reformats.IV contrast: NoneDLP: Refer to CT protocol formFINDINGS: No intracranial bleed.Florence-white matter differentiation is maintained and there is no evidence of an acute major vessel territorial infarct. There is no vasogenic edema in the brain parenchyma. Ventricular and cisternal spaces are maintained.Soft tissues of the scalp, calvarium and visualized orbits appear unremarkable.Stable chronic right maxillary sinus disease with complete filling of the right maxillary sinus indicating a mucous retention cyst. Sclerotic fleming of the sinus are noted.IMPRESSION:Stable noncontrast head CT with no intracranial abnormality identified. [facility]2023-06-20 10:35:00 Test Item Value Reference Range Interpretation Comments Glucose Lvl (test code = Glucose Lvl) 99 70-99 [facility]2023-06-20 10:35:00 Test Item Value Reference Range Interpretation Comments BUN (test code = BUN) 12 7-22 [place] 180353-06-20 10:35:00 Test Item Value Reference Range Interpretation Comments Creatinine Lvl (test code = Creatinine 1.00 0.50-1.40 Lvl) [facility]2023-06-20 10:35:00 Test Item Value Reference Range Interpretation Comments Sodium Lvl (test code = Sodium Lvl) 146 135-145 [facility]2023-06-20 10:35:00 Test Item Value Reference Range Interpretation Comments Potassium Lvl (test code = Potassium 3.4 3.5-5.1 Lvl) [facility]2023-06-20 10:35:00 Test Item Value Reference Range Interpretation Comments Chloride Lvl (test code = Chloride Lvl) 116 95-109 [facility]2023-06-20 10:35:00 Test Item Value Reference Range Interpretation Comments CO2 (test code = CO2) 21 24-32 [facility]2023-06-20 10:35:00 Test Item Value Reference Range Interpretation Comments Calcium Lvl (test code = Calcium Lvl) 8.1 8.5-10.5 [facility]2023-06-20 10:35:00 Test Item Value Reference Range Interpretation Comments AGAP (test code = AGAP) 12.4 10.0-20.0 [place] 180353-06-20 10:35:00 Test Item Value Reference Range Interpretation Comments eGFR (test code = eGFR) 66 [facility]2023-06-20 10:35:00 Test Item Value Reference Range Interpretation Comments Phosphorus (test code = Phosphorus) 4.0 2.5-4.5 [place] 180353-06-20 10:35:00 Test Item Value Reference Range Interpretation Comments Magnesium Lvl (test code = Magnesium 1.7 1.8-2.4 Lvl) [place] [address]-06-20 10:35:00 Test Item Value Reference Range Interpretation Comments Trig (test code = Trig) 163 [place] [address]-06-20 10:35:00 Test Item Value Reference Range Interpretation Comments Chol (test code = Chol) 145 [place] [address]-06-20 10:35:00 Test Item Value Reference Range Interpretation Comments HDL (test code = HDL) 31 [place] [address]-06-20 10:35:00 Test Item Value Reference Range Interpretation Comments Chol/HDL Ratio (test code = Chol/HDL 4.68 1 3.90-5.80 Ratio) [facility] HospitalFfqkmuuDMMRYOAWY4467-16-20 10:35:00 Test Item Value Reference Range Interpretation Comments LDL (Calculated) (test code = LDL 81 (Calculated)) [place] [address]-06-20 10:35:00 Test Item Value Reference Range Interpretation Comments VLDL (test code = VLDL) 33 1 [place] [address]-06-20 10:35:00 Test Item Value Reference Range Interpretation Comments Hgb A1C (test code = Hgb A1C) 5.3 [facility] CenterDfysrhiFUFYCPYJWO6276-61-10 10:35:00 Test Item Value Reference Range Interpretation Comments Basophils # (test code 0.1 See_Comment [Aut omated message] The = Basophils #) system which generated this result tra nsmitted reference range : <=0.2. The reference r robert was not used to int erpret this result as normal/abnormal . [facility] CenterFxpvuipKFJRYBGKVT8322-49-16 10:35:00 Test Item Value Reference Range Interpretation Comments WBC (test code = WBC) 10.7 3.7-10.4 [place] [address]-06-20 10:35:00 Test Item Value Reference Range Interpretation Comments RBC (test code = RBC) 4.10 4.20-5.40 [place] [address]-06-20 10:35:00 Test Item Value Reference Range Interpretation Comments Hgb (test code = Hgb) 12.3 12.0-16.0 [place] [address]-06-20 10:35:00 Test Item Value Reference Range Interpretation Comments Hct (test code = Hct) 37.8 36.0-48.0 [facility] CenterZyvcdlbGGXQQPRDAX6842-27-61 10:35:00 Test Item Value Reference Range Interpretation Comments MCV (test code = MCV) 92.2 80.0-98.0 [place] 745103-06-20 10:35:00 Test Item Value Reference Range Interpretation Comments MCH (test code = MCH) 30.0 pg 27.0-31.0 [place] 745103-06-20 10:35:00 Test Item Value Reference Range Interpretation Comments MCHC (test code = MCHC) 32.6 32.0-36.0 [facility] CenterModxbqlPJKWHOTUOM4044-00-19 10:35:00 Test Item Value Reference Range Interpretation Comments RDW (test code = RDW) 16.3 11.5-14.5 [place] 745103-06-20 10:35:00 Test Item Value Reference Range Interpretation Comments Platelet (test code = Platelet) 291 133-450 [facility] CenterEktwtbgGTMOECENFY3163-83-55 10:35:00 Test Item Value Reference Range Interpretation Comments MPV (test code = MPV) 9.2 7.4-10.4 [facility] CenterYywpaxrPXJXMSZSEM7785-32-74 10:35:00 Test Item Value Reference Range Interpretation Comments Segs (test code = Segs) 76.5 45.0-75.0 [facility] CenterLvqdelbISUFGNCKCV3297-97-68 10:35:00 Test Item Value Reference Range Interpretation Comments Lymphocytes (test code = Lymphocytes) 15.5 20.0-40.0 [place] 745103-06-20 10:35:00 Test Item Value Reference Range Interpretation Comments Monocytes (test code = Monocytes) 6.0 2.0-12.0 [place] [address]-06-20 10:35:00 Test Item Value Reference Range Interpretation Comments Eosinophils (test code = 1.4 See_Comment [A utomated message] The Eosinophils) system which ge nerated this result tra nsmitted reference range : <=4.0. The reference r robert was not used to int erpret this result as normal/abnormal . [facility] CenterEbycbsmQGTYZAEPFD4018-74-85 10:35:00 Test Item Value Reference Range Interpretation Comments Basophils (test code = 0.6 See_Comment [Aut omated message] The Basophils) system which ge nerated this result tra nsmitted reference range : <=1.0. The reference r robert was not used to int erpret this result as normal/abnormal . [facility] CenterXtbdkdjRTNBHTCAHM6853-06-99 10:35:00 Test Item Value Reference Range Interpretation Comments Neutrophils # (test code = Neutrophils 8.2 1.5-8.1 #) [facility] CenterXsqonsdLSGINUOOSL8123-98-00 10:35:00 Test Item Value Reference Range Interpretation Comments Lymphocytes # (test code = Lymphocytes 1.7 1.0-5.5 #) [facility] CenterRnsroijIBKURAVXNP0361-23-41 10:35:00 Test Item Value Reference Range Interpretation Comments Monocytes # (test code 0.6 See_Comment [Aut omated message] The = Monocytes #) system which generated this result tra nsmitted reference range : <=0.8. The reference r robert was not used to int erpret this result as normal/abnormal . [facility] CenterCpnxpgzIMFBUZWEZK2745-56-11 10:35:00 Test Item Value Reference Range Interpretation Comments Eosinophils # (test code 0.1 See_Comment [A utomated message] The = Eosinophils #) system whic h generated this result tra nsmitted reference range : <=0.5. The reference r robert was not used to int erpret this result as normal/abnormal . [facility] CenterIblcpsvUBHSNXOOXD2430-19-65 10:35:00 Test Item Value Reference Range Interpretation Comments Basophils # (test code 0.1 See_Comment [Aut omated message] The = Basophils #) system which generated this result tra nsmitted reference range : <=0.2. The reference r robert was not used to int erpret this result as normal/abnormal . [facility]EarwltnQEAKSG4633-92-54 10:35:00 Test Item Value Reference Range Interpretation Comments Trig (test code = Trig) 163 [facility] HospitalZlidprcNISAGJ4990-65-77 10:35:00 Test Item Value Reference Range Interpretation Comments Chol (test code = Chol) 145 [place] [id number] 10:35:00 Test Item Value Reference Range Interpretation Comments HDL (test code = HDL) 31 [facility] Ho[id number] 10:35:00 Test Item Value Reference Range Interpretation Comments Chol/HDL Ratio (test code = Chol/HDL 4.68 1 3.90-5.80 Ratio) [facility]SbvxyhiZDOWUG4066-04-28 10:35:00 Test Item Value Reference Range Interpretation Comments LDL (Calculated) (test code = LDL 81 (Calculated)) [facility] HospitalRdeyujiSIXRGJ6020-92-28 10:35:00 Test Item Value Reference Range Interpretation Comments VLDL (test code = VLDL) 33 1 [facility] HospitalSPECIAL XBLIQNFYR2622-31-40 10:35:00 Test Item Value Reference Range Interpretation Comments Hgb A1C (test code = Hgb A1C) 5.3 [facility] HospitalXaqtjcoFYAKZR2781-54-11 20:01:24 Test Item Value Reference Range Interpretation Comments RADRPT (test code EXAM: US RENALEXAM: = RADRPT) RETROPERITONEAL COMPLETE USDATE: 01/11/2023 12:05 INDICATION: - right kidney mass ADDITIONAL INFORMATION: None.COMPARISON: None. TECHNIQUE: Multiplanar grayscale and color Doppler ultrasound of the kidneys and bladder were done.FINDINGS:Right kidney:Size: 9.9 cm in length. 131 mL Cortical thickeness: Normal.Hydronephrosis: None.Echogenicity: Normal.Calculi: None.Cysts/Masses: Next line1. Tiny interpolar to lower pole 0.7 x 0.4 x 0.6 cm cyst.Morphology: Prominent column of Ryan, a benign finding.Left kidney:Size: 10 cm in length. 126 mL Cortical thickeness: Normal.Hydronephrosis: None.Echogenicity: Normal.Calculi: None.Cysts/Masses: 1. Superior 1.5 x 1.9 x 1.9 cm simple cyst.Bladder: Normal.Other: None.IMPRESSION:1. Simple bilateral renal cortical cysts. [facility] HospitalBACTERIAL - [id number] 19:09:00 Test Item Value Reference Range Interpretation Comments MRSA by PCR (test Negative 1(01/11/23 2:09 code = MRSA by PCR) PM) [facility] CenterannMOLECULAR [id number] 19:09:00 Test Item Value Reference Range Interpretation Comments Source Respiratory Nasophrngl Swb Panel PCR (test code = *NA*(01/11/23 2:09 PM) Source Respiratory Panel PCR) [facility]ann[facility] [id number] 19:09:00 Test Item Value Reference Range Interpretation Comments Influenza A PCR (test Negative *NA*(01/11/23 code = Influenza A PCR) 2:09 PM) [facility] [id number] 19:09:00 Test Item Value Reference Range Interpretation Comments Influenza B PCR (test Negative *NA*(01/11/23 code = Influenza B PCR) 2:09 PM) [facility]2023-06-19 19:09:00 Test Item Value Reference Range Interpretation Comments RSV PCR (test code = Negative 9*NA*(01/11/23 RSV PCR) 2:09 PM) [facility]2023-06-19 19:09:00 Test Item Value Reference Range Interpretation Comments Source Respiratory Nasophrngl Swb Panel PCR (test code = *NA*(01/11/23 2:09 PM) Source Respiratory Panel PCR) [facility]2023-06-19 19:09:00 Test Item Value Reference Range Interpretation Comments Influenza A PCR (test Negative *NA*(01/11/23 code = Influenza A PCR) 2:09 PM) [facility]2023-06-19 19:09:00 Test Item Value Reference Range Interpretation Comments Influenza B PCR (test Negative *NA*(01/11/23 code = Influenza B PCR) 2:09 PM) [facility]2023-06-19 19:09:00 Test Item Value Reference Range Interpretation Comments RSV PCR (test code = Negative 14*NA*(01/11/23 RSV PCR) 2:09 PM) [facility] HospitalAyetgzfFPJTWSREQ9035-57-09 12:57:00 Test Item Value Reference Range Interpretation Comments POC A Source (test code = POC A Source) ART [facility] HospitalHldlcqxTGISVXXSE5863-74-49 12:57:00 Test Item Value Reference Range Interpretation Comments POC A Temp (test code = POC A Temp) 37.0 [facility] HospitalEsnjgpqCCVTCRAQI5866-39-22 12:57:00 Test Item Value Reference Range Interpretation Comments POC A pH (test code = POC A pH) 7.35 1 7.35-7.45 [facility] HospitalZrdrbivJAVTMNJJV2442-88-16 12:57:00 Test Item Value Reference Range Interpretation Comments POC A PO2 (test code = POC A PO2) 76 80-100 [facility] HospitalOlafawuANOZZOXXB9333-50-02 12:57:00 Test Item Value Reference Range Interpretation Comments POC A PCO2 (test code = POC A PCO2) 39 35-45 [place] [id number] 12:57:00 Test Item Value Reference Range Interpretation Comments POC A HCO3 (test code = POC A HCO3) 22 22-26 [place] [id number] 12:57:00 Test Item Value Reference Range Interpretation Comments POC A BE (test code = POC A BE) -4 -2-2 [facility] HospitalFudrqbvVEPQADBRM1111-84-06 12:57:00 Test Item Value Reference Range Interpretation Comments POC A O2 Sat (calc) (test code = POC A 94.3 95.0-100.0 O2 Sat (calc)) [facility] HospitalSowgarbUGIQXIIRH9094-24-29 12:57:00 Test Item Value Reference Range Interpretation Comments POC A Na (test code = POC A Na) 139 135-145 [facility] HospitalJkvuhzrBKRJBNOFJ0725-67-74 12:57:00 Test Item Value Reference Range Interpretation Comments POC A K (test code = POC A K) 3.3 3.5-5.1 [facility] HospitalAezzstoQJULYREMK8293-11-65 12:57:00 Test Item Value Reference Range Interpretation Comments POC A Ca Ion (test code = POC A Ca Ion) 1.27 1.05-1.25 [facility] HospitalOigwuspPIPZLWNHF7552-71-44 12:57:00 Test Item Value Reference Range Interpretation Comments POC A Hgb Tot (test code = POC A Hgb 12.1 12.0-16.0 Tot) [facility] HospitalRgofcbyJZDNDHYUC3397-19-03 12:57:00 Test Item Value Reference Range Interpretation Comments POC A LA (test code = POC A LA) 0.5 0.5-2.2 [facility] HospitalZxzemgyKREPHIVRU8462-39-22 12:57:00 Test Item Value Reference Range Interpretation Comments POC A Glu (test code = POC A Glu) 100 70-99 [facility] HospitalJozsvlhUAMVOQZFD7091-15-57 12:57:00 Test Item Value Reference Range Interpretation Comments POC A %FIO2 (test code = POC A %FIO2) 21.0 18.0-100.0 [facility] HospitalNysfkvkWZFMGPXQZ2869-79-14 12:57:00 Test Item Value Reference Range Interpretation Comments POC A Hct (calc) (test code = POC A Hct 36.0 36.0-48.0 (calc)) [facility] HospitalXfdrsbnADXXKESGE0005-58-34 12:57:00 Test Item Value Reference Range Interpretation Comments POC A Cl (test code = POC A Cl) 113 95-109 [facility] HospitalCrffgmnNKBCNNBKQ7613-93-89 12:57:00 Test Item Value Reference Range Interpretation Comments POC A Ca Ion at pH 7.4 (test code = POC 1.24 1.05-1.25 A Ca Ion at pH 7.4) [facility] HospitalIdgrvddQZPLIVFMW5496-39-67 10:39:00 Test Item Value Reference Range Interpretation Comments Vancomycin AUC (test code = Vancomycin 28.7 AUC) [facility] HospitalRszztruBCPBKCDHZI1553-04-98 10:39:00 Test Item Value Reference Range Interpretation Comments Vancomycin AUC (test code = Vancomycin 28.7 AUC) [facility]lakeGwylpqyKRNRWNKAGL8360-39-92 06:55:00 Test Item Value Reference Range Interpretation Comments Coronavirus (COVID-19) Not Detected HIPOLITO (test code = 7(01/11/23 1:55 AM) Coronavirus (COVID-19) HIPOLITO) [facility] SouthlakeNwapdwkHQFIRWDHCZ9167-68-60 06:55:00 Test Item Value Reference Range Interpretation Comments Coronavirus (COVID-19) Not Detected HIPOLITO (test code = 12(01/11/23 1:55 AM) Coronavirus (COVID-19) HIPOLITO) [place] [id number] 06:45:33 Test Item Value Reference Range Interpretation Comments RADRPT (test code EXAM: CTA CHEST WITH = RADRPT) CONTRASTDATE: 01/11/2023 1:32INDICATION: - Concern for PE, Dyspnea, HypoxemiaAge: 57 years y/o FemaleADDITIONAL INFORMATION: R sided facial droop, aphasia, pt alert on arrival.COMPARISON: None available.TECHNIQUE: Volumetric CT of the chest is acquired during pulmonary arterial phase following intravenous administration of contrast. Axial, sagittal, coronal, and oblique MIP reconstructions are created at the acquisition workstation.IV Contrast: Refer to MAR/registered vascular technologist (rvt) documentation.DLP: Refer to MAR/registered vascular technologist (rvt) documentation.FINDINGS: Lower neck: Unremarkable.Lymph nodes: There are no enlarged axillary, supraclavicular, or mediastinal lymph nodes.Mediastinum, heart, pericardium and great vessels:Pulmonary emboli: None.Pulmonary trunk: 2.5 cm.Ascending aorta: 2.8 cm.Heart: The heart size is within normal limits. There is no CT evidence of right heart strain. RV/LV <1.0, within normal limits. Thickening with fatty infiltration of the interatrial septum measuring approximately 2.1 cm in thickness suggestive of lipomatous hypertrophy of interatrial septum.Pericardium: No pericardial effusion.Airway, lungs and pleura: There is a moderate amount of secretions within the trachea and bronchial tree. There is bronchial wall thickening involving the peripheral airways.There are mild tree-in-bud opacities in the right lower lobe and there are patchy groundglass opacities in the left upper lobe and right lower lobe.Scattered subsegmental atelectasis is noted. There is elevation of the right hemidiaphragm.There is no pleural effusions or pneumothorax.Upper abdomen: Status post cholecystectomy.There is an indeterminate 1.8 x 1.3 cm partially exophytic lesion along the superior pole of the right kidney (4/188).There is bilateral perinephric stranding.Musculoskeletal: No acute abnormality. Age-related degenerative findings.IMPRESSION: 1. No evidence of pulmonary embolism or right heart strain.2. Multifocal pneumonia.3. Elevation of the right hemidiaphragm.4. Thickening with fatty infiltration of the interatrial septum measuring approximately 2.1 cm in thickness suggestive of lipomatous hypertrophy of interatrial septum.5. An indeterminate 1.8 cm right renal lesion. Further evaluation with dedicated abdominal contrast-enhanced CT or MRI is recommended.6. Bilateral perinephric stranding.7. Other incidental findings as described above.The radiology fellow Dr. Sanford discussed the incidental finding of an indeterminate right renal lesion over the phone with Dr. Bailey at 08.45. [facility] SnoopWallCARDIAC [id number] 03:18:00 Test Item Value Reference Range Interpretation Comments Total CK (test code = Total CK) 45 12-191 [facility] SnoopWallCHEM [id number] 03:18:00 Test Item Value Reference Range Interpretation Comments Procalcitonin Lvl (test no gt See_Comment [Au tomated message] code = Procalcitonin Lvl) Th e system which generated this result transmitted ref erence range: <=0.10. The reference range was not used to interpr et this result as normal/abnormal . [facility]2023-06-19 03:18:00 Test Item Value Reference Range Interpretation Comments Lactic Acid Lvl (test code = Lactic 1.7 0.5-2.2 Acid Lvl) [facility] HospitalGfqllciOPGYJLKEE4992-42-39 03:18:00 Test Item Value Reference Range Interpretation Comments U Amph Scr (test code Negative *NA*(01/10/23 = U Amph Scr) 10:18 PM) [facility] HospitalNxsjwesRDJJXHMXB4397-10-94 03:18:00 Test Item Value Reference Range Interpretation Comments U Cheryl Scr (test code Negative *NA*(01/10/23 = U Cheryl Scr) 10:18 PM) [facility] HospitalQezezplQCKWWNYWN0472-25-88 03:18:00 Test Item Value Reference Range Interpretation Comments U Benzodiaz Scr (test Negative *NA*(01/10/23 code = U Benzodiaz Scr) 10:18 PM) [facility] HospitalYnxuqkpSEVXUMXMN0139-55-72 03:18:00 Test Item Value Reference Range Interpretation Comments U Cocaine Scr (test Negative *NA*(01/10/23 code = U Cocaine Scr) 10:18 PM) [facility] HospitalDprqjimIRLSHFGVK3549-66-05 03:18:00 Test Item Value Reference Range Interpretation Comments U Cannab Scr (test Negative *NA*(01/10/23 code = U Cannab Scr) 10:18 PM) [facility] HospitalUkpxsifDRMGODIMH4046-85-41 03:18:00 Test Item Value Reference Range Interpretation Comments U Opiate Scr (test Negative *NA*(01/10/23 code = U Opiate Scr) 10:18 PM) [facility] HospitalElytqkiUYPVXTOWC8659-65-05 03:18:00 Test Item Value Reference Range Interpretation Comments U Phencyclidine Scr (test Negative code = U Phencyclidine *NA*(01/10/23 10:18 Scr) PM) [facility] HospitalDqtoypjPYRIINEFR9393-87-09 03:18:00 Test Item Value Reference Range Interpretation Comments UDS Note (test code = See Note 2*NA*(01/10/23 UDS Note) 10:18 PM) [facility] HospitalEbpverxJEWLFJMUH2564-17-35 03:18:00 Test Item Value Reference Range Interpretation Comments pH Kade (test code = pH Kade) 7.25 1 7.28-7.42 [facility] HospitalRbzcdazYSQJNYITH1325-76-78 03:18:00 Test Item Value Reference Range Interpretation Comments pCO2 Kade (test code = pCO2 Kade) 52 38-52 [facility] HospitalHnsospgOFCMMINKM5602-28-58 03:18:00 Test Item Value Reference Range Interpretation Comments pO2 Kade (test code = pO2 Kade) 28 20-49 [facility] HospitalPolxdrsYXLECCJUL6397-28-14 03:18:00 Test Item Value Reference Range Interpretation Comments HCO3 Kade (test code = HCO3 Kade) 23 22-26 [facility] HospitalSpwdmvsJBSXLXTKP1486-93-46 03:18:00 Test Item Value Reference Range Interpretation Comments BE Kade (test code = BE Kade) -5 -2-2 [facility] HospitalHxcnhghQHVYEZEED6084-79-97 03:18:00 Test Item Value Reference Range Interpretation Comments O2 Sat Kade (calc) (test code = O2 Sat 41.0 40.0-70.0 Kade (calc)) [facility] HospitalBdbhesoWEAHMCSWO8567-79-80 03:18:00 Test Item Value Reference Range Interpretation Comments Temp Kade (test code = Temp Kade) 37.0 [facility] HospitalEwwftvnCGQVRWWSV8393-58-25 03:18:00 Test Item Value Reference Range Interpretation Comments Procalcitonin Lvl (test no gt See_Comment [Au tomated message] code = Procalcitonin Lvl) e system which generated this result transmitted ref erence range: <=0.10. The reference range was not used to interpr et this result as normal/abnormal . [facility] HospitalWzyrkseETZFWMDKE1479-57-51 03:18:00 Test Item Value Reference Range Interpretation Comments Lactic Acid Lvl (test code = Lactic 1.7 0.5-2.2 Acid Lvl) [facility] HospitalVgqymvmADMEQBSSW4475-40-95 03:18:00 Test Item Value Reference Range Interpretation Comments Total CK (test code = Total CK) 45 12-191 [facility] HospitalEntrada XTCNJG4134-07-21 03:18:00 Test Item Value Reference Range Interpretation Comments U Amph Scr (test code Negative *NA*(01/10/23 = U Amph Scr) 10:18 PM) [facility] HospitalEn[facility] [id number] 03:18:00 Test Item Value Reference Range Interpretation Comments U Cheryl Scr (test code Negative *NA*(01/10/23 = U Cheryl Scr) 10:18 PM) [facility] O[facility]XOL0710-97-03 03:18:00 Test Item Value Reference Range Interpretation Comments U Benzodiaz Scr (test Negative *NA*(01/10/23 code = U Benzodiaz Scr) 10:18 PM) [facility] [id number] 03:18:00 Test Item Value Reference Range Interpretation Comments U Cocaine Scr (test Negative *NA*(01/10/23 code = U Cocaine Scr) 10:18 PM) [facility] [id number] 03:18:00 Test Item Value Reference Range Interpretation Comments U Cannab Scr (test Negative *NA*(01/10/23 code = U Cannab Scr) 10:18 PM) [facility] [id number] 03:18:00 Test Item Value Reference Range Interpretation Comments U Opiate Scr (test Negative *NA*(01/10/23 code = U Opiate Scr) 10:18 PM) [facility] [id number] 03:18:00 Test Item Value Reference Range Interpretation Comments U Phencyclidine Scr (test Negative code = U Phencyclidine *NA*(01/10/23 10:18 Scr) PM) [facility] [id number] 03:18:00 Test Item Value Reference Range Interpretation Comments UDS Note (test code = See Note 5*NA*(01/10/23 UDS Note) 10:18 PM) [facility] [id number] 03:18:00 Test Item Value Reference Range Interpretation Comments UA Color (test code = Light Yellow UA Color) *NA*(01/10/23 10:18 PM) [facility] [id number] 03:18:00 Test Item Value Reference Range Interpretation Comments UA Turbidity (test code = Clear (01/10/23 10:18 UA Turbidity) PM) [facility] [id number] 03:18:00 Test Item Value Reference Range Interpretation Comments UA Spec Grav (test code = UA Spec 1.008 1 Grav) [facility] [id number] 03:18:00 Test Item Value Reference Range Interpretation Comments UA pH (test code = UA pH) 6.0 1 5.0-8.0 [facility] [id number] 03:18:00 Test Item Value Reference Range Interpretation Comments UA Protein (test code = UA Protein) 30 mg/dL [facility] AND [id number] 03:18:00 Test Item Value Reference Range Interpretation Comments UA Glucose (test code = UA Negative mg/dL Glucose) [facility] AND [id number] 03:18:00 Test Item Value Reference Range Interpretation Comments UA Ketones (test code = UA Negative mg/dL Ketones) [facility] AND [id number] 03:18:00 Test Item Value Reference Range Interpretation Comments UA Bili (test code = Negative *NA*(01/10/23 UA Bili) 10:18 PM) [facility] AND [id number] 03:18:00 Test Item Value Reference Range Interpretation Comments UA Blood (test code = Small *ABN*(01/10/23 UA Blood) 10:18 PM) [facility] AND [id number] 03:18:00 Test Item Value Reference Range Interpretation Comments UA Urobilinogen (test code = UA no gt 0.1-1.0 Urobilinogen) [facility] AND [id number] 03:18:00 Test Item Value Reference Range Interpretation Comments UA Nitrite (test code Negative (01/10/23 10:18 = UA Nitrite) PM) [facility] AND [id number] 03:18:00 Test Item Value Reference Range Interpretation Comments UA Leuk Est (test code Trace *ABN*(01/10/23 = UA Leuk Est) 10:18 PM) [facility] AND [id number] 03:18:00 Test Item Value Reference Range Interpretation Comments UA Ascorbic Acid (test Negative 6*NA*(01/10/23 code = UA Ascorbic 10:18 PM) Acid) [facility] AND [id number] 03:18:00 Test Item Value Reference Range Interpretation Comments UA Sq Epi (test code = UA Sq Occasional /LPF Epi) [facility] AND [id number] 03:18:00 Test Item Value Reference Range Interpretation Comments UA WBC (test code = 2 See_Comment [Automa mary message] The UA WBC) system which ge nerated this result transmit mary reference range : <=5. The reference range was not used to interpr et this result as aurelio l/abnormal. [facility] AND [id number] 03:18:00 Test Item Value Reference Range Interpretation Comments UA RBC (test code = no gt See_Comment [Automa mary message] The UA RBC) system which ge nerated this result transmit mary reference range : <=2. The reference range was not used to interpr et this result as aurelio l/abnormal. [facility] AND [id number] 03:18:00 Test Item Value Reference Range Interpretation Comments UA Bacteria (test code = UA Occasional /HPF Bacteria) [facility] AND [id number] 03:18:00 Test Item Value Reference Range Interpretation Comments UA Color (test code = Light Yellow UA Color) *NA*(01/10/23 10:18 PM) [facility] AND [id number] 03:18:00 Test Item Value Reference Range Interpretation Comments UA Turbidity (test code = Clear (01/10/23 10:18 UA Turbidity) PM) [facility] AND [id number] 03:18:00 Test Item Value Reference Range Interpretation Comments UA Spec Grav (test code = UA Spec 1.008 1 Grav) [facility] AND [id number] 03:18:00 Test Item Value Reference Range Interpretation Comments UA pH (test code = UA pH) 6.0 1 5.0-8.0 [facility] AND [id number] 03:18:00 Test Item Value Reference Range Interpretation Comments UA Protein (test code = UA Protein) 30 mg/dL [facility] AND [id number] 03:18:00 Test Item Value Reference Range Interpretation Comments UA Glucose (test code = UA Negative mg/dL Glucose) [facility] AND [id number] 03:18:00 Test Item Value Reference Range Interpretation Comments UA Ketones (test code = UA Negative mg/dL Ketones) [facility] AND [id number] 03:18:00 Test Item Value Reference Range Interpretation Comments UA Bili (test code = Negative *NA*(01/10/23 UA Bili) 10:18 PM) [facility] AND [id number] 03:18:00 Test Item Value Reference Range Interpretation Comments UA Blood (test code = Small *ABN*(01/10/23 UA Blood) 10:18 PM) [facility] [id number] 03:18:00 Test Item Value Reference Range Interpretation Comments UA Urobilinogen (test code = UA no gt 0.1-1.0 Urobilinogen) [facility] [id number] 03:18:00 Test Item Value Reference Range Interpretation Comments UA Nitrite (test code Negative (01/10/23 10:18 = UA Nitrite) PM) [facility] [id number] 03:18:00 Test Item Value Reference Range Interpretation Comments UA Leuk Est (test code Trace *ABN*(01/10/23 = UA Leuk Est) 10:18 PM) [facility] AND [id number] 03:18:00 Test Item Value Reference Range Interpretation Comments UA Ascorbic Acid (test Negative code = UA Ascorbic 11*NA*(01/10/23 10:18 Acid) PM) [facility] AND [id number] 03:18:00 Test Item Value Reference Range Interpretation Comments UA Sq Epi (test code = UA Sq Occasional /LPF Epi) [facility] AND [id number] 03:18:00 Test Item Value Reference Range Interpretation Comments UA WBC (test code = 2 See_Comment [Automa mary message] The UA WBC) system which ge nerated this result transmit mary reference range : <=5. The reference range was not used to interpr et this result as aurelio l/abnormal. [facility] AND [id number] 03:18:00 Test Item Value Reference Range Interpretation Comments UA RBC (test code = no gt See_Comment [Automa mary message] The UA RBC) system which ge nerated this result transmit mary reference range : <=2. The reference range was not used to interpr et this result as aurelio l/abnormal. [facility]ann[facility] AND [id number] 03:18:00 Test Item Value Reference Range Interpretation Comments UA Bacteria (test code = UA Occasional /HPF Bacteria) [facility]: [id number] 03:18:00 Test Item Value Reference Range Interpretation Comments Culture: Blood (test code No Growth At 5 Days = Culture: Blood) [facility] [id number] 03:18:00 Test Item Value Reference Range Interpretation Comments Culture: Blood (test code No Growth At 5 Days = Culture: Blood) [facility] [id number] 02:11:03 Test Item Value Reference Range Interpretation Comments RADRPT (test code EXAM: XR CHEST 1 VIEWDATE: = RADRPT) 01/10/2023 19:52 INDICATION: - stroke codeCOMPARISON: None.TECHNIQUE: AP chest.FINDINGS:Lines, tubes and hardware: None.Lungs and pleura: Lung volumes are low. There is asymmetric elevation of the right diaphragm associated with bronchovascular crowding in the right infrahilar region. The lungs are otherwise clear. The costophrenic sulci are sharp without effusion. No pneumothorax is identified.Heart and mediastinum: The heart size is upper limits of normal. The mediastinal contours are normal. Bones and soft tissues: No acute abnormality.IMPRESSION: 1. Low lung volume associated with asymmetric elevation of the right diaphragm and right basilar bronchovascular crowding.2. The heart is at upper limits of normal in size. [facility] [employer] [id number] 00:42:00 Test Item Value Reference Range Interpretation Comments Lactic Acid Lvl (test code = Lactic 1.0 0.5-2.2 Acid Lvl) [facility] [id number] 00:42:00 Test Item Value Reference Range Interpretation Comments Total Protein (test code = Total 6.0 6.4-8.4 Protein) [facility] [id number] 00:42:00 Test Item Value Reference Range Interpretation Comments Albumin Lvl (test code = Albumin Lvl) 2.8 3.5-5.0 [facility] [id number] 00:42:00 Test Item Value Reference Range Interpretation Comments ALANINE AMINOTRANSFERASE 16 See_Comment [A utomated message] (test code = ALANINE The sys tem which AMINOTRANSFERASE) generated this result transmitted ref erence range: <=65. Th e reference range was not used to int erpret this result as normal/abnormal . [facility] [employer] [id number] 00:42:00 Test Item Value Reference Range Interpretation Comments AST (test code = AST) 12 See_Comment [Auto mated message] The system which ge nerated this result transmit mary reference range : <=37. The reference range was not used to interpr et this result as aurelio l/abnormal. [facility] CenterappsFreedomLINDA VILLE [id number] 00:42:00 Test Item Value Reference Range Interpretation Comments Alk Phos (test code = Alk Phos) 98 39-136 [place] 180353-06-19 00:42:00 Test Item Value Reference Range Interpretation Comments Bili Total (test code = Bili Total) 0.3 0.2-1.3 [place] 180353-06-19 00:42:00 Test Item Value Reference Range Interpretation Comments Bili Direct (test code 0.1 See_Comment [Aut omated message] The = Bili Direct) system which generated this result tra nsmitted reference range : <=0.3. The reference r robert was not used to int erpret this result as aurelio l/abnormal. [facility] [id number] 00:42:00 Test Item Value Reference Range Interpretation Comments Bili Indirect (test 0.2 See_Comment [Automa mary message] The code = Bili Indirect) system which generated this result tra nsmitted reference range : <=1.0. The reference r robert was not used to int erpret this result as normal/abnormal . [facility] [id number] 00:42:00 Test Item Value Reference Range Interpretation Comments Globulin (test code = Globulin) 3.2 2.7-4.2 [place] [address]-06-19 00:42:00 Test Item Value Reference Range Interpretation Comments A/G Ratio (test code = A/G Ratio) 0.9 1 0.7-1.6 [place] [address]-06-19 00:42:00 Test Item Value Reference Range Interpretation Comments Ammonia (test code = Ammonia) 31.0 [place] [address]-06-19 00:42:00 Test Item Value Reference Range Interpretation Comments TSH (test code = TSH) 1.740 0.360-3.740 [place] 040643-06-19 00:42:00 Test Item Value Reference Range Interpretation Comments Total Protein (test code = Total 6.0 6.4-8.4 Protein) [place] [address]-06-19 00:42:00 Test Item Value Reference Range Interpretation Comments Albumin Lvl (test code = Albumin Lvl) 2.8 3.5-5.0 [facility] [id number] 00:42:00 Test Item Value Reference Range Interpretation Comments ALANINE AMINOTRANSFERASE 16 See_Comment [A utomated message] (test code = ALANINE The sys tem which AMINOTRANSFERASE) generated this result transmitted ref erence range: <=65. Th e reference range was not used to int erpret this result as normal/abnormal . [facility] [id number] 00:42:00 Test Item Value Reference Range Interpretation Comments AST (test code = AST) 12 See_Comment [Auto mated message] The system which ge nerated this result transmit mary reference range : <=37. The reference range was not used to interpr et this result as aurelio l/abnormal. [facility] [id number] 00:42:00 Test Item Value Reference Range Interpretation Comments Alk Phos (test code = Alk Phos) 98 39-136 [facility] ZevdkroGWSIUIEDX2103-04-00 00:42:00 Test Item Value Reference Range Interpretation Comments Bili Total (test code = Bili Total) 0.3 0.2-1.3 [facility] [id number] 00:42:00 Test Item Value Reference Range Interpretation Comments Bili Direct (test code 0.1 See_Comment [Aut omated message] The = Bili Direct) system which generated this result tra nsmitted reference range : <=0.3. The reference r robert was not used to int erpret this result as aurelio l/abnormal. [facility] WxlmdnoMAOBCBWHJ3420-13-48 00:42:00 Test Item Value Reference Range Interpretation Comments Bili Indirect (test 0.2 See_Comment [Automa mary message] The code = Bili Indirect) system which generated this result tra nsmitted reference range : <=1.0. The reference r robert was not used to int erpret this result as normal/abnormal . [facility] [id number] 00:42:00 Test Item Value Reference Range Interpretation Comments Globulin (test code = Globulin) 3.2 2.7-4.2 [facility] [id number] 00:42:00 Test Item Value Reference Range Interpretation Comments A/G Ratio (test code = A/G Ratio) 0.9 1 0.7-1.6 [facility] HospitalCazrbltTKLXKEVKK7050-53-26 00:42:00 Test Item Value Reference Range Interpretation Comments Ammonia (test code = Ammonia) 31.0 [facility] Ho[id number] 23:59:38 Test Item Value Reference Range Interpretation Comments RADRPT (test code EXAM: CTA BRAINEXAM: CTA = RADRPT) NECKDATE: 01/10/2023INDICATION: - stroke code, aphasia. COMPARISON: Same date head CT.TECHNIQUE: Rapid acquisition spiral CT images of the brain and neck were obtained between the aortic arch and the cranial vertex during intravenous infusion of iodinated contrast for the purposes of CT angiography. 3-D CT angiographic images are created using MIP technique at the acquisition workstation. The source images are also presented for interpretation. was used in the care of this patient.IV contrast: Refer to MAR/registered vascular technologist (rvt) documentationDLP: Refer to CT protocol formFINDINGS:NECK CTA:Aortic arch: The great vessels originate from the aortic arch in the standard configuration. No origin stenosis is identified.Common carotid arteries: Normal.Internal carotid arteries:* Right: There is mild atherosclerosis with areas of calcification at the carotid bifurcation, and stenosis of less than 50% by NASCET criteria.* Left: There is mild atherosclerosis with areas of calcification at the carotid bifurcation, and stenosis of less than 50% by NASCET criteria.Vertebral arteries: There is moderate stenosis of the origin of the right vertebral artery. Mild stenosis the left V4 segment Involving the V4 segment of the left vertebral artery. The bilateral vertebral arteries remain patent.Other: The soft tissues of the neck and other incidental structures are normal.BRAIN CTA:Arteries: The anterior circulations have a normal appearance and a standard branching pattern. origin of the right SECURITY COMPLIANCE SPECIALIST. No branch occlusion, vascular injury, arteritis, vascular malformation or aneurysm is identified.Veins: Cannot be evaluated due to the early arterial phase of contrast.Brain parenchyma: The brain parenchyma and other incidental structures are unchanged since the most recent CT.IMPRESSION: Motion limited examination.No acute abnormality.Moderate stenosis of the right vertebral artery origin. Mild atherosclerotic changes at the ICA origins.(All qualitative and quantitative assessments of carotid bifurcation and proximal internal carotid artery stenosis are made referencing the distal internal carotid artery {NASCET criteria}.)UT SECTION: [facility] StephenvilleMhneltuLWKZYY9640-42-26 23:52:37 Test Item Value Reference Range Interpretation Comments RADRPT (test code = EXAM: CT BRAIN WITHOUT RADRPT) CONTRASTDATE: 01/10/2023INDICATION: - stroke code.COMPARISON: None available at the time of dictationTECHNIQUE: Axial CT images of the brain were obtained. Sagittal and coronal reformats.IV contrast: NoneDLP: Refer to CT protocol formFINDINGS: No intracranial hemorrhage is identified. No pathological extra-axial fluid collection is seen. No evidence of acute ischemic changes. There is no evidence of cerebral edema, mass effect, or midline shift. .Ventricles are normal in size and configuration.Skull vault is intact. Visualized orbits appear unremarkable.Visualized mastoid air cells and middle ear cavity are clear.Fluid opacification of the right maxillary sinus.ASPECTS: 10Laterality: noneCaudate: normalInternal capsule: normalLenticular: normalInsula: normalM1: normal M2: normal M3: normalM4: normal M5: normal M6: normalIMPRESSION: Slightly motion limited examination.1. No sign of acute cortical infarct or parenchymal hemorrhage.2. Fluid opacification of the right maxillary sinus, which may represent acute sinusitis in the proper clinical scenario.UT SECTION: Neuro [facility] HospitalCARDIAC [id number] 23:35:00 Test Item Value Reference Range Interpretation Comments Total CK (test code = Total CK) 48 12-191 [facility] [id number] 23:35:00 Test Item Value Reference Range Interpretation Comments Glucose Lvl (test code = Glucose Lvl) 139 70-99 [facility] [id number] 23:35:00 Test Item Value Reference Range Interpretation Comments BUN (test code = BUN) 15 7-22 [facility] [id number] 23:35:00 Test Item Value Reference Range Interpretation Comments Creatinine Lvl (test code = Creatinine 1.20 0.50-1.40 Lvl) [facility] [employer] [id number] 23:35:00 Test Item Value Reference Range Interpretation Comments Sodium Lvl (test code = Sodium Lvl) 143 135-145 [facility] [employer] [id number] 23:35:00 Test Item Value Reference Range Interpretation Comments Potassium Lvl (test code = Potassium 3.5 3.5-5.1 Lvl) [place] 180353-06-18 23:35:00 Test Item Value Reference Range Interpretation Comments Chloride Lvl (test code = Chloride Lvl) 116 95-109 [place] 180353-06-18 23:35:00 Test Item Value Reference Range Interpretation Comments CO2 (test code = CO2) 16 24-32 [place] 180353-06-18 23:35:00 Test Item Value Reference Range Interpretation Comments Calcium Lvl (test code = Calcium Lvl) 8.2 8.5-10.5 [place] 180353-06-18 23:35:00 Test Item Value Reference Range Interpretation Comments AGAP (test code = AGAP) 14.5 10.0-20.0 [place] 180353-06-18 23:35:00 Test Item Value Reference Range Interpretation Comments eGFR (test code = eGFR) 35 [place] 745103-06-18 23:35:00 Test Item Value Reference Range Interpretation Comments PT (test code = PT) 14.2 s 12.0-14.7 [place] [address]-06-18 23:35:00 Test Item Value Reference Range Interpretation Comments INR (test code = INR) 1.10 1 0.85-1.17 [place] [address]-06-18 23:35:00 Test Item Value Reference Range Interpretation Comments PTT (test code = PTT) 24.3 s 22.9-35.8 [place] [address]-06-18 23:35:00 Test Item Value Reference Range Interpretation Comments WBC X 10x3 (test code = WBC X 10x3) 12.7 3.7-10.4 [place] [address]-06-18 23:35:00 Test Item Value Reference Range Interpretation Comments RBC X 10x6 (test code = RBC X 10x6) 4.38 4.20-5.40 [place] [address]-06-18 23:35:00 Test Item Value Reference Range Interpretation Comments Hgb (test code = Hgb) 13.0 12.0-16.0 [place] [address]-06-18 23:35:00 Test Item Value Reference Range Interpretation Comments Hct (test code = Hct) 40.8 36.0-48.0 [place] [address]-06-18 23:35:00 Test Item Value Reference Range Interpretation Comments MCV (test code = MCV) 93.2 80.0-98.0 [place] [address]-06-18 23:35:00 Test Item Value Reference Range Interpretation Comments MCH (test code = MCH) 29.7 pg 27.0-31.0 [place] [address]-06-18 23:35:00 Test Item Value Reference Range Interpretation Comments MCHC (test code = MCHC) 31.9 32.0-36.0 [place] [address]-06-18 23:35:00 Test Item Value Reference Range Interpretation Comments RDW (test code = RDW) 16.6 11.5-14.5 [place] [address]-06-18 23:35:00 Test Item Value Reference Range Interpretation Comments Platelet (test code = Platelet) 308 133-450 [place] 745103-06-18 23:35:00 Test Item Value Reference Range Interpretation Comments MPV (test code = MPV) 8.0 7.4-10.4 [place] [address]-06-18 23:35:00 Test Item Value Reference Range Interpretation Comments PT (test code = PT) 14.2 s 12.0-14.7 [place] [address]-06-18 23:35:00 Test Item Value Reference Range Interpretation Comments INR (test code = INR) 1.10 1 0.85-1.17 [place] [address]-06-18 23:35:00 Test Item Value Reference Range Interpretation Comments PTT (test code = PTT) 24.3 s 22.9-35.8 [place] [address]-06-18 23:35:00 Test Item Value Reference Range Interpretation Comments Segs (test code = Segs) 77.4 45.0-75.0 [place] [address]-06-18 23:35:00 Test Item Value Reference Range Interpretation Comments Lymphocytes (test code = Lymphocytes) 15.7 20.0-40.0 [place] [address]-06-18 23:35:00 Test Item Value Reference Range Interpretation Comments Monocytes (test code = Monocytes) 5.8 2.0-12.0 [place] [address]-06-18 23:35:00 Test Item Value Reference Range Interpretation Comments Eosinophils (test code = 0.6 See_Comment [A utomated message] The Eosinophils) system which ge nerated this result tra nsmitted reference range : <=4.0. The reference r robert was not used to int erpret this result as normal/abnormal . [facility] CenterRdmgkvoBVLAIECPSV1476-24-88 23:35:00 Test Item Value Reference Range Interpretation Comments Basophils (test code = 0.5 See_Comment [Aut omated message] The Basophils) system which ge nerated this result tra nsmitted reference range : <=1.0. The reference r robert was not used to int erpret this result as normal/abnormal . [facility] CenterAbahmvsLMFWBIRUJS1403-38-96 23:35:00 Test Item Value Reference Range Interpretation Comments Neutrophils # (test code = Neutrophils 9.8 1.5-8.1 #) [facility] CenterTlpzetuMAPDSHHMLZ7084-37-43 23:35:00 Test Item Value Reference Range Interpretation Comments Lymphocytes # (test code = Lymphocytes 2.0 1.0-5.5 #) [place] 745103-06-18 23:35:00 Test Item Value Reference Range Interpretation Comments Monocytes # (test code 0.7 See_Comment [Aut omated message] The = Monocytes #) system which generated this result tra nsmitted reference range : <=0.8. The reference r robert was not used to int erpret this result as normal/abnormal . [facility] CenterLtxdxiyVMLHHTKNHJ8649-68-79 23:35:00 Test Item Value Reference Range Interpretation Comments Eosinophils # (test code 0.1 See_Comment [A utomated message] The = Eosinophils #) system [facility] generated this result tra nsmitted reference range : <=0.5. The reference r robert was not used to int erpret this result as normal/abnormal . [facility] CenterRtaorvuZYPPMDMSXS2404-73-86 23:35:00 Test Item Value Reference Range Interpretation Comments Basophils # (test code 0.1 See_Comment [Aut omated message] The = Basophils #) system which generated this result tra nsmitted reference range : <=0.2. The reference r robert was not used to int erpret this result as normal/abnormal . [facility] CentermyrnaWAALLISON AAA, W/ ESTHER.EXT.RHOPUE2544-27-28 10:11:00 [facility] : 1965 Sex: FAddendum BeginsREPORT STATUS:A Addendum: I agree with the previously described non vascular findings by Dr. Deleon. Signed: Bertin Avilez MDReport Verified Date/Time: 02/24/2022 10:11:22Addendum EndsFINAL REPORT CT angiography of the abdominal [...] atherosclerosis is identified, and the patent lumen istwo approximately 1.3 x 0.8 cm indicating no obstructive lesion is identified. There is no evidence of acute aortic pathology, specifically, there is no dissection, intramural hematoma, or contained rupture. Quantitative dimensions of the abdominal aorta are as follows: 1.9 cm at the mesenteric segment; 1.8 cm at the renal segment,; and 1.7 cm at the aortic bifurcation. The coeliac axis, SMA, QUENTIN arepatent. Single left and right renal arteries are [...] trunk is widely patent. The left anterior tibialartery, and the left posterior tibial arteries are [...] tibial artery is small calibre vessel proximally, andthereafter is not well seen. The right peroneal artery is the dominant vessel was seen down to levelof the ankle, and in fact give rise [...] is incompletely assessed by CT angiography as entericcontrast is not given. No obvious bowel dilation [...] is identified. No acute bony pathology is seen.Some degenerative changes is noted. Some inflammatory changes [...] level. Remainder of the right pelvic arteries areotherwise widely patent, only with nonobstructive atherosclerosis present. The right SFA and the right popliteal artery artery is unremarkable. Details of the runoff vessel in the right lower extremityas described above. In summary, at the time [...] will be dictated by the Final Inspector Truck Trailer Radiologist regarding the nonvascular findings. THE REPORT WILL ONLY BE CONSIDERED COMPLETE AFTER THE ADDENDUM HAS BEEN DICTATED. Signed: Bryan Deleon MDRepssm rehab Verified Date/Time: 02/12/2022 10:10:27 2D Echo W/Doppler(CW/PW/Color)2022-02-11 15:38:57Ejection FractionSLEH ECHO HEARTLAB [facility] Echo W/Doppler(CW/PW/Color)2022-02-11 15:38:57Ejection FractionSLEH ECHO HEARTLAB [facility] Echo W/Doppler(CW/PW/Color) 2022-02-11 15:38:57Ejection FractionSLEH ECHO HEARTLAB [facility]2D Echo W/Doppler(CW/PW/Color)2022-02-11 15:38:57Ejection FractionSLEH ECHO HEARTLAB [facility]2D Echo W/Doppler(CW/PW/Color)2022-02-11 15:38:57Ejection FractionSLEH ECHO HEARTLAB MKCKESSON CPACSCHI [facility]-Glucose [id number] 16:35:46 Test Item Value Reference Range Interpretation Comments POC-Glucose Meter (test 97 mg/dL 70-110 : TE STED AT [facility] code = 1538) [address] [place] [address], 770 30: Graduate Advisor/Techni dilma ID = [id number] for Gentry Vanes sa Lab Interpretation (test Normal code = 31135-5) [facility]-Glucose [id number] 16:35:46 Test Item Value Reference Range Interpretation Comments POC-Glucose Meter (test 97 mg/dL 70-110 : TE STED AT [facility] code = 1538) [address] [place] [address], 770 30: Graduate Advisor/Techni dilma ID = [id number] for Gentry, Vanes sa Lab Interpretation (test Normal code = 08164-2) [facility]-Glucose [id number] 16:35:46 Test Item Value Reference Range Interpretation Comments POC-Glucose Meter (test 97 mg/dL 70-110 : TE STED AT [facility] code = 1538) [address] [place] [address], 770 30: Graduate Advisor/Techni dilma ID = [id number] for Gentry Vanes sa Lab Interpretation (test Normal code = 67475-0) [facility]-Glucose [id number] 16:35:46 Test Item Value Reference Range Interpretation Comments POC-Glucose Meter (test 97 mg/dL 70-110 : TE STED AT [facility] code = 1538) [address] [place] [address], 770 30: Graduate Advisor/Techni dilma ID = [id number] for Gentry, Vanes sa Lab Interpretation (test Normal code = 30506-1) [facility]-Glucose [id number] 16:35:46 Test Item Value Reference Range Interpretation Comments POC-Glucose Meter (test 97 mg/dL 70-110 : TE STED AT [facility] code = 1538) [address] [place] [address], 770 30: Graduate Advisor/Techni dilma ID = [id number] for Gentry Vanes sa Lab Interpretation (test Normal code = 28983-7) [facility]-GLUCOSE [id number] 16:35:46 Test Item Value Reference Range Interpretation Comments POC-GLUCOSE METER 97 mg/dL 70-110 : TESTED A T [facility] 6720 (BEAKER) (test code = ELLA Yo [facility], 1538) [id number]: Graduate Advisor/Techni dilma ID = [id number] for Genny Saldivar [id number] 14:49:27 Test Item Value Reference Range Interpretation Comments PARTIAL THROMBOPLASTIN TIME 60.8 seconds 22.5-36.0 H (BEAKER) (test code = 760) [id number] 09:02:31 Test Item Value Reference Range Interpretation Comments PARTIAL THROMBOPLASTIN TIME 34.1 seconds 22.5-36.0 (BEAKER) (test code = 760) POCT-GLUCOSE [id number] 07:42:16 Test Item Value Reference Range Interpretation Comments POC-GLUCOSE METER 74 mg/dL 70-110 : TESTED A T [facility] 6720 (BEAKER) (test code = [facility] Sanaz [facility], 1538) [id number]: Graduate Advisor/Techni dilma ID = [id number] for Acacia Christine CBC (HEMOGRAM ONLY)2022-02-10 05:14:47 [...] WBC 0-0 (BEAKER) (test code = 413) [id number] 23:23:24 Test Item Value Reference Range Interpretation Comments PARTIAL THROMBOPLASTIN TIME 31.9 seconds 22.5-36.0 (BEAKER) (test code = 760) POCT-GLUCOSE [id number] 21:30:42 Test Item Value Reference Range Interpretation Comments POC-GLUCOSE METER 143 mg/dL 70-110 H : TESTED A T [facility] 6720 (AKER) (test code = ELLA Yo [place], 1538) [id number]: Graduate Advisor/Techni dilma ID = [id number] for SA NDERS, JERRY HUNTER's with PT and DP doppler [id number] 18:17:32Ejection FractionSLEH ECHO HEARTLAB [facility] doppler [id number] 18:17:32Ejection FractionSLEH ECHO HEARTLAB MKCK[facility] and DP doppler [id number] 18:17:32Ejection FractionSLEH ECHO HEARTLAB [facility] do[facility] [id number] 18:17:32Ejection FractionSLEH ECHO HEARTLAB MKCK[facility] and DP doppler [id number] 18:17:32Ejection FractionSLEH ECHO HEARTLAB MKCKESSON [facility] HospitalArter[facility] Doppler Leg, [id number] 18:16:33Ejection FractionSLEH ECHO HEARTLAB MKCKESSON [facility] Hospital[facility] Leg, [id number] 18:16:33Ejection FractionSLEH ECHO HEARTLAB MKCK[facility]ON [facility] Leg, [id number] 18:16:33Ejection FractionSLEH ECHO HEARTLAB MKCKESSON [facility], Right 2022-02-09 18:16:33Ejection FractionSLEH ECHO HEARTLAB MK[facility] Leg, [id number] 18:16:33Ejection FractionSLEH ECHO HEARTLAB MKCKESSON [facility] HospitalPO[facility]- GLUCOSE [id number] 16:41:21 Test Item Value Reference Range Interpretation Comments POC-GLUCOSE METER 99 mg/dL 70-110 : TESTED A T [facility] 6720 (YAMILETAKER) (test code = ELLA [place], 1538) [address]: Graduate Advisor/Techni dilma ID = [id number] for Kelsea Romero SARS-CoV2/RT-PCR (Asymptomatic ONLY)2022-02-09 14:34:44 Test Item Value Reference Range Interpretation Comments SARS-COV2/RT-PCR Negative Not Detected, (test code = Negative, See 14421-2) external report for linked test SARS-COV-2 [facility] PERFORMING LAB (test code = 27474-1) ADENIKE (test code = Negative result for [...] of the Act. Fact Sheet for Healthcare Providers:https://www.Instagram/sites/default/f gloria/product/documents/F act_Sheet_HC_Providers_L hmq_ZOBL-EaW-6.pdf Fact Sheet for Healthcare Patients:https://www.[employer]/sites/default/fi les/product/documents/Fa ct_Sheet_Patients_Lyra_S ARS-CoV-2.pdf Performing Laboratory:[facility] [place] [address] [facility]2022-02-09 14:34:44 Test Item Value Reference Range Interpretation Comments SARS-COV2/RT-PCR Negative Not Detected, (test code = Negative, See 04153-8) external report for linked test SARS-COV-2 [facility] PERFORM[facility] (test code = 51389-0) ADENIKE (test code = Negative result for [...] of the Act. Fact Sheet for Healthcare Providers:https://www.Instagram/sites/default/f gloria/product/documents/F act_Sheet_HC_Providers_L gax_NCEK-HhO-1.pdf Fact Sheet for Healthcare Patients:https://www.[employer]/sites/default/fi les/product/documents/Fa ct_Sheet_Patients_Lyra_S ARS-CoV-2.pdf Performing Laboratory:[facility], [place] [address] [place], [place] [address]ARS-CoV2/RT-PCR (Asymptomatic ONLY)2022-02-09 14:34:44 Test Item Value Reference Range Interpretation Comments SARS-COV2/RT-PCR Negative Not Detected, (test code = Negative, See 52183-7) external report for linked test SARS-COV-2 [facility] PERFORM[facility] (test code = 04814-1) ADENIKE (test code = Negative result for [...] of the Act. Fact Sheet for Healthcare Providers:https://www.Instagram/sites/default/f gloria/product/documents/F act_Sheet_HC_Providers_L loz_YING-FlN-7.pdf Fact Sheet for Healthcare Patients:https://www.[employer]/sites/default/fi les/product/documents/Fa ct_Sheet_Patients_Lyra_S ARS-CoV-2.pdf Performing Laboratory:[facility] [place] [address] [facility]2022-02-09 14:34:44 Test Item Value Reference Range Interpretation Comments SARS-COV2/RT-PCR Negative Not Detected, (test code = Negative, See 08394-8) external report for linked test SARS-COV-2 [facility] PERFORM[facility] (test code = 73544-9) ADENIKE (test code = Negative result for [...] of the Act. Fact Sheet for Healthcare Providers:https://www.Instagram/sites/default/f gloria/product/documents/F act_Sheet_HC_Providers_L ulr_BGMP-SpB-0.pdf Fact Sheet for Healthcare Patients:https://www.[employer]/sites/default/fi les/product/documents/Fa ct_Sheet_Patients_Lyra_S ARS-CoV-2.pdf Performing Laboratory:[facility], [place] [address] [place], [place] [address]ARS-CoV2/RT-PCR (Asymptomatic ONLY)2022-02-09 14:34:44 Test Item Value Reference Range Interpretation Comments SARS-COV2/RT-PCR Negative Not Detected, (test code = Negative, See 49047-6) external report for linked test SARS-COV-2 [facility] PERFORMING LAB (test code = 21744-6) ADENIKE (test code = Negative result for [...] of the Act. Fact Sheet for Healthcare Providers:https://www.Instagram/sites/default/f gloria/product/documents/F act_Sheet_HC_Providers_L qty_EJHR-GzX-0.pdf Fact Sheet for Healthcare Patients:https://www.[employer]/sites/default/fi les/product/documents/Fa ct_Sheet_Patients_Lyra_S ARS-CoV-2.pdf Performing Laboratory:[facility], [place] [address] [place], [place] [address]ARS-COV2/RT-PCR ([facility])2022-02-09 14:34:44 Test Item Value Reference Range Interpretation Comments SARS-COV2/RT-PCR (test Negative Not Detected, Negative, code = 3352914) See external report for linked test SARS-COV-2 PERFORMING LAB [facility] (test code = 0638379) Negative result for this test determines that [...] of the Act.Fact Sheet for Healthcare Prov iders:https://www.[employer]/sites/default/files/product/documents/Fact_Sheet_HC _Blidkgigx_Ymzh_TAJY-NkT-0.pdfFact Sheet for Healthcare Patients:https://www.[employer]/sites/default/files/product/docume nts/Gcwq_Uaefp_Cfgxgztw_Apxc_ADCE-AlB-6.pdfPerforming Laboratory:[facility], [place] [id number] 13:31:18 Test Item Value Reference Range Interpretation Comments PARTIAL THROMBOPLASTIN TIME 38.7 seconds 22.5-36.0 H ([employer]) (test code = 760) HEMOGLOBIN [id number] 13:17:34 Test Item Value Reference Range Interpretation Comments HEMOGLOBIN A1C 5.7 % See_Comment H [Automated m essage] ELECTROPHORESIS ([employer]) The system which (test code = 3811) generated this result transmitted ref erence range: <=5.6%. The reference range was not used to int erpret this result as normal/abnormal . "The A1c is measured using a NGS-certified method. HbA1c value equal to or greater than 6.5% as thediagnosis cutoff for diabetes. An HbA1c value of 5.7- 6.4% indicates increased risk for diabetes (prediabetes)."Graduate Advisor ID - [id number] ID - ADMPOCT-GLUCOSE [id number] 12:25:58 Test Item Value Reference Range Interpretation Comments POC-GLUCOSE METER 108 mg/dL 70-110 : TESTED A T [facility] (BEAKER) (test code = [place], 1538) [address]: Graduate Advisor/Techni dilma ID = [id number] for [employer] COMPREHENSIVE METABOLIC [id number] 07:55:16 Test Item Value Reference Range Interpretation [...] 347) EGFR (BEAKER) (test 66 mL/min/1.73 ESTIMA MARY GFR IS code = 1092) sq m NOT ACCURATE CREATININE CLEARANCE IN PREDICTING GLOMERULAR FILTRATION RATE . ESTIMATED GFR I S NOT APPLICABLE FOR DIALYSIS PATIEN TS. Graduate Advisor ID - ADMINPOCT-GLUCOSE [id number] 07:46:09 Test Item Value Reference Range Interpretation Comments POC-GLUCOSE METER 84 mg/dL 70-110 : TESTED A T [facility] [address] (BEAKER) (test code = [facility], 1538) 86755: Graduate Advisor/Techni dilma ID = [id number] for Kelsea Romero POCT-GLUCOSE [id number] 06:20:17 Test Item Value Reference Range Interpretation Comments POC-GLUCOSE METER 86 mg/dL 70-110 : TESTED A T [facility] [address] (BEAKER) (test code = [facility], 1538) 69018: Graduate Advisor/Techni dilma ID = [id number] for JERRY CHRIS [id number] 05:19:02 Test Item Value Reference Range Interpretation [...] WBC 0-0 (BEAKER) (test code = 413) History and Physical Notes Date/Time Note Provider Source 2023-01-14 Zaid Sommer MD: [facility] 18:06:00-00:00 PERFORM, MODIFY, MODIFY, MODIFY, Center MODIFY, MODIFY, MODIFYEvent Display: History and PhysicalAuthored Date: [id number] and Physical Primary Team Name: Dr De Santiago Contact Info:PCP Contact info:Family contact info: Tamica daughter Code Status: None Specified=FULL CODE Chief Complaint: 57 yr old female last known normal 1700, family reported R sided facial droop, aphasia, pt alert on arrival, hx of HTN, HLD, History of Present Illness: 57-year-old female past medical history significant for hypertension dyslipidemia and arthritis depression who presented initially with concerns for acute neurologic changes. Much of the history is obtained via chart review as the patient is not able to provide much and there is no immediate family members available to provide additional history at the time of my evaluation. Initially brought in as a code stroke due to right facial asymmetry and aphasia. Reportedly last normal aroun d 6 18 at 1630 when she was messaging her daughter. Notes that she felt poorly the night before with some anxiety dizziness and presyncopal symptoms. Around 1700 she no longer replied to text and her family went to check in on her at that time they found her confused and possible new right facial droop. She was seen and evaluated in the emergency room where her symptoms slowly began to improve. Had recent admission to the hospital for flu pneumonia and right toe amputation in 2021 work-up in the ER only remarkable for acidosis and new hypoxia. During my evaluation the patient wakes up but would fairly quickly go back to sleep. She reports that she does not remember how she got here or any of the events from the day. States she had otherwise been in her usual state of health. Reached out to daughter at the number above but was unable to get in contact with her. Review of Systems: Complete review of systems as per HPI otherwise negative Problem List/Past Medical History: Ongoing Arthritis HLD (hyperlipidemia) HTN (hypertension) MDD (major depressive disorder) Procedure/Surgical History: Right toe amputation 2021 Family History: No reported family history including diabetes Social History: Electronic Cigarette/Vaping Electronic Cigarette Use: Never. Tobacco Use: Heavy tobacco smoker. Tobacco smoke exposure: None. Did the Patient Smoke Cigarettes Anytime During the Last 365 Days? Yes. Cessation Counseling Provided? No. Reports smoking daily approximately 1 pack/day Allergies: No active allergies Unable to verify Home Medications: No active home medications Unable to completely verifyReports taking Symbicort and a rescue inhaler Physical Exam: Vitals and Measurements T: 97.9 F (Oral) TMIN: 97.8 F (Oral) TMAX: 97.9 F (Oral) HR: 107 (Apical) RR: 29 BP: 162/81 SpO2: 94% WT: 91.2 kg BMI: 34.51 General sleeping arousable though quickly falls back asleep alert to person but not place or timeENT dry mucous membraneEyes pupils reactive to lightCardiovascular regular rate and rhythm peripheral pulses intact no murmurPulmonary mild tachypnea no accessory muscle use no apneic events noted relatively clear to auscultation occasional coarse upper airway sounds heard in the anterior segmentsGI soft nontender nondistended positive bowel soundsGU no suprapubic fullnessExtremities moves all spontaneously, right toe amputation, bilateral lower extremity edema noted around the sock lineNeuro cranials grossly intact Pertinent Labs: Reviewed Pertinent Imaging: Reviewed Assessment/Plan: 57-year-old female past medical history significant for hypertension dyslipidemia and arthritis depression who presented initially with concerns for acute neurologic changes subsequently found to have mild hypoxia 1. Encephalopathy (G93.40) Unclear why she is encephalopathicLow suspicion for infectious causes given negative lactic acid procalcitonin minimally elevated white count no fevers and no focal signs of infection including negative UA chest imaging or skin and soft tissue findings UDS is negative though this does not completely rule out other illicit drugs or possible withdrawal though this seems less likely Does have a mild acidosis but no other significant metabolic derangements that would lead towards encephalopathy Is possible that she is postictal from a seizure though no prior seizure history EKG normal no complaints of chest pain unlikely related to new cardiac ischemia This time would proceed with conservative management see if it improves in the morning, already seen and evaluated by neurology Ordered: 2. Acute respiratory failure (J96.00) Mild hypoxia evaluate her on room air during my history and examination never dropped sats below 92% did have some mild tachypnea denied any shortness of breathSuspect that she likely has 2 major components 1 is chronic destruction of her lung tissue from longstanding smoking history the other is given her depressed mental status which is likely decreasing her respiratory drive Goal O2 sat for her is 92% as we do not want to over oxygenate her and prevent her respiratory drive 3. HTN (hypertension) (I10) Attempt to obtain home medications resume as appropriate 4. HLD (hyperlipidemia) (E78.5) Outpatient follow-up 5. MDD (major depressive disorder) (F32.9) Unclear if currently on any medication 6. Arthritis (M19.90) No acute complaints 7. Acidosis (E87.20) Likely with a component of respiratory acidosis though possibly maxed we will monitor with repeat BMP 8. Hyperglycemia (R73.9) Mild no need for insulin can monitor 9. Elevated WBC count (D72.829) Likely reactive no signs of acute infection at this time 10. COPD without exacerbation (J44.9) Continue Symbicort as needed DuoNebsWould likely benefit from outpatient pulmonary evaluation and PFTs 11. Chronic bronchitis (J42) Presumptive diagnosis though she has occasional cough that seems reminiscent of it given her chronic smoking history 12. Nicotine dependence (F17.200) In the morning can offer nicotine patch when she is more awake 13. ZEENAT (acute kidney injury) (N17.9) Unclear what her baseline is may have an element of chronic kidney diseaseThough clinically appears dehydrated on examWe will give some slow maintenance fluids at 75 cc an hour given that she has a new potential oxygen requirement Prophylaxis Ambulation consider adding Lovenox if hospital stay prolonged Disposition Pending weaning O2 and improvement in mental statusBoyars, Zaid Ray MDElectronically Signed: 01/11/23 06:05 Notes Date/Time Note Provider Source 2023-01-12 EXAM: CT BRAIN WITHOUT CONTRAST [facility] 12:15:37-00:00 DATE: 01/12/2023 Center INDICATION: - assess for stroke. Had TIA, refuse d MRI. COMPARISON: Noncontrast head CT done on 3. TECHNIQUE: Axial CT images o f the brain were obtained. Sagittal and coronal reformats. IV contrast: None DLP: Refer to CT protocol form FINDINGS: No intracranial bleed. Florence-white matter differenti ation is maintained and there is no evidence of an acute major vessel territorial infarct. There is no vasogenic edema in the brain parenchyma. Ventricular and cisternal spaces are maintained. Soft tissues of the scalp, c alvarium and visualized orbits appear unremarkable. Stable chronic right maxilla ry sinus disease with complete filling of the right maxillary sinus indicating a mucous retention cyst. Sclerotic fleming of the sinus are noted. IMPRESSION: Stable noncontrast head CT with no intracranial abnormality identified. 2023-01-11 EXAM: US RENAL [facility] 12:05:00-00:00 EXAM: RETROPERITONEAL COMPLETE US Center DATE: 01/11/2023 12:05 INDICATION: - right kidney mass ADDITIONAL INFORMATION: None. COMPARISON: None. TECHNIQUE: Multiplanar genia morales and color Doppler ultrasound of the kidneys and bladder were done. FINDINGS: Right kidney: Size: 9.9 cm in length. 131 mL Cortical thickeness: Normal. Hydronephrosis: None. Echogenicity: Normal. Calculi: None. Cysts/Masses: Next line 1. Tiny interpolar to lower pole 0.7 x 0.4 x 0.6 cm cyst. Morphology: Prominent column of Ryan, a benign finding. Left kidney: Size: 10 cm in length. 126 mL Cortical thickeness: Normal. Hydronephrosis: None. Echogenicity: Normal. Calculi: None. Cysts/Masses: 1. Superior 1.5 x 1.9 x 1.9 cm simple cyst. Bladder: Normal. Other: None. IMPRESSION: 1. Simple bilateral renal cortical cysts. 2023-01-11 EXAM: CTA CHEST WITH CONTRAST [facility] 01:32:00-00:00 DATE: 01/11/2023 1:32 Center INDICATION: - Concern for PE, Dyspnea, Hypoxemia Age: 57 years y/o Female ADDITIONAL INFORMATION: R sided facial droop, ap hasia, pt alert on arrival. COMPARISON: None available. TECHNIQUE: Volumetric CT of the chest is acquired during pulmonary arterial phase following intravenous administration of contrast. Axial, sagittal, coronal, and oblique MIP reconstructions are created at the acquisition workstation. IV Contrast: Refer to MAR/registered vascular technologist (rvt) docume ntation. DLP: Refer to MAR/registered vascular technologist (rvt) documentation. FINDINGS: Lower neck: Unremarkable. Lymph nodes: There are no en larged axillary, supraclavicular, or mediastinal lymph nodes. Mediastinum, heart, pericardium and great vessel s: Pulmonary emboli: None. Pulmonary trunk: 2.5 cm. Ascending aorta: 2.8 cm. Heart: The heart size is wit hin normal limits. There is no CT evidence of right heart strain. RV/LV <1.0, within normal limits. Thickening with fatty infiltration of the interatrial septum measur ing approximately 2.1 cm in thickness suggestive of lipomatous hypertrophy of interatrial septum. Pericardium: No pericardial effusion. Airway, lungs and pleura: Th ere is a moderate amount of secretions within the trachea and bronchial tree. There is bronchial wall thickening involving the peripheral airways. There are mild tree-in-bud o pacities in the right lower lobe and there are patchy groundglass opacities in the left upper lobe and right lower lobe. Scattered subsegmental atele ctasis is noted. There is elevation of the right hemidiaphragm. There is no pleural effusions or pneumothorax. Upper abdomen: Status post cholecystectomy. There is an indeterminate 1. 8 x 1.3 cm partially exophytic lesion along the superior pole of the right kidney (4/188). There is bilateral perinephric stranding. Musculoskeletal: No acute abnormality. Age-relat ed degenerative findings. IMPRESSION: 1. No evidence of pulmonary embolism or right he art strain. 2. Multifocal pneumonia. 3. Elevation of the right hemidiaphragm. 4. Thickening with fatty inf iltration of the interatrial septum measuring approximately 2.1 cm in thickness suggestive of lipomatous hypertrophy of interatrial septum. 5. An indeterminate 1.8 cm r ight renal lesion. Further evaluation with dedicated abdominal contrast-enhanced CT or MRI is recommended. 6. Bilateral perinephric stranding. 7. Other incidental findings as described above. The radiology fellow Dr. Ann ritter discussed the incidental finding of an indeterminate right renal lesion over the phone with Dr. Bailey at 08.45. 2023-01-10 EXAM: XR CHEST 1 VIEW [facility] 19:52:00-00:00 DATE: 01/10/2023 19:52 Center INDICATION: - stroke code COMPARISON: None. TECHNIQUE: AP chest. FINDINGS: Lines, tubes and hardware: None. Lungs and pleura: Lung volum es are low. There is asymmetric elevation of the right diaphragm associated with bronchovascular crowding in the right infrahilar region. The lungs are otherwise clear. The c ostophrenic sulci are sharp without effusion. No pneumothorax is identified. Heart and mediastinum: The h eart size is upper limits of normal. The mediastinal contours are normal. Bones and soft tissues: No acute abnormality. IMPRESSION: 1. Low lung volume associate d with asymmetric elevation of the right diaphragm and right basilar bronchovascular crowding. 2. The heart is at upper limits of normal in siz e. 2023-01-10 EXAM: CT BRAIN WITHOUT CONTRAST [facility] 18:34:34-00:00 DATE: 01/10/2023 Center INDICATION: - stroke code. COMPARISON: None available at the time of dictat ion TECHNIQUE: Axial CT images o f the brain were obtained. Sagittal and coronal reformats. IV contrast: None DLP: Refer to CT protocol form FINDINGS: No intracranial hemorrhage is identified. No pathological extra-axial fluid collection is seen. No evidence of acute ischemic changes. There is no evidence of cerebral edema, mass eff ect, or midline shift. . Ventricles are normal in size and configuration. Skull vault is intact. Visualized orbits appear unremarkable. Visualized mastoid air cells and middle ear cavi ty are clear. Fluid opacification of the right maxillary sinus . ASPECTS: 10 Laterality: none Caudate: normal Internal capsule: normal Lenticular: normal Insula: normal M1: normal M2: normal M3: normal M4: normal M5: normal M6: normal IMPRESSION: Slightly motion limited examination. 1. No sign of acute cortical infarct or parenchy mal hemorrhage. 2. Fluid opacification of th e right maxillary sinus, which may represent acute sinusitis in the proper clinical scenario. [place] SECTION: Neuro 2023-01-10 EXAM: CTA BRAIN [facility] 18:34:34-00:00 EXAM: CTA NECK Center DATE: 01/10/2023 INDICATION: - stroke code, aphasia. COMPARISON: Same date head CT. TECHNIQUE: Rapid acquisition spiral CT images of the brain and neck were obtained between the aortic arch and the cranial vertex during intravenous infusion of iodinated contrast for the purposes of CT angiography. 3-D CT angiogra [facility] images are created using MIP technique at the acquisition workstation. The source images are also presented for interpretation. Viz.ai was used in the care of this patient. IV contrast: Refer to MAR/registered vascular technologist (rvt) inessa middleton DLP: Refer to CT protocol form FINDINGS: NECK CTA: Aortic arch: The great vesse ls originate from the aortic arch in the standard configuration. No origin stenosis is identified. Common carotid arteries: Normal. Internal carotid arteries: * Right: There is mild ather osclerosis with areas of calcification at the carotid bifurcation, and stenosis of less than 50% by NASCET criteria. * Left: There is mild athero sclerosis with areas of calcification at the carotid bifurcation, and stenosis of less than 50% by NASCET criteria. Vertebral arteries: There is moderate stenosis of the origin of the right vertebral artery. Mild stenosis the left V4 segment Involving the V4 segment of the left vertebral artery. The bilateral vertebral arteries remain patent. Other: The soft tissues of t he neck and other incidental structures are normal. BRAIN CTA: Arteries: The anterior circu lations have a normal appearance and a standard branching pattern. origin of the right SECURITY COMPLIANCE SPECIALIST. No branch occlusion, vascular injury, arteritis, vascular malformation or aneurysm is identified. Veins: Cannot be evaluated due to the early yannick rial phase of contrast. Brain parenchyma: The brain parenchyma and other incidental structures are unchanged since the most recent CT. IMPRESSION: Motion limited examination. No acute abnormality. Moderate stenosis of the rig ht vertebral artery origin. Mild atherosclerotic changes at the ICA origins. (All qualitative and quantit ative assessments of carotid bifurcation and proximal internal carotid artery stenosis are made referencing the distal internal carotid artery {NASCET criteria}.) [place] SECTION: Neuro 2022-02-17 [id number] [facility] [place] [address] PATIENT NAME: NAHOMI GIL ADMIT DATE: 2 ACCOUNT NO: [id number] ROOM NO: AGE: 56 REPORT TYPE: eVENOUS ULTRASOUND SEX: F ADMITTING PHYSICIAN: ATTENDING PHYSICIAN:Anusha Plunkett MD *[facility]* [address] [place] [address] Limited Lower Extremity Venous Duplex Evaluation Patient: Nahomi Gil Study Date: 02/17/2022 BP: 149 / [facility]: [id number] MRN: : [id number] Age: 56 Height: 64 in / 162.6 c m Gender: F Weight: 237. 5 lb / 108 kg BMI/BSA: 40.9 kg/m 2 / 2.26 m 2 *Ordering Physician: Anusha Presley *Interpreting Physician: Kira Ventura MD *Bacteriologist Industrial: Amelia Evans, T Indications: Swelling of limb. Study data: Limited lower extremity venous duple x evaluation. Right evaluation with grayscale 2D imaging, color Dopp ler imaging, and spectral Doppler analysis. Location: [facility]. Patient status: Inpatient. Patient room number: 4. Proce dure: A vascular evaluation was performed. Images were obtained u sing a [employer] vascular ultrasound machine. Image quality was adequate. Study status: Stat. Venous flow and imaging: + + + *Location *Properties * + + + *R SFJ *Phasic; spontaneous * + + + *R CFV *Phasic; spontaneous; normal augmentation ; compressible* PATIENT NAME: NAHOMI GIL Boubacar 816 + + + *R GSV *Compressible * [...] 07:57 at 0758 PATIENT NAME: NAHOMI GIL 2816 2022-02-17 [facility] 07:31:00-00:00 [facility] ([facility]) EMERGENCY PROVIDER REPORT REPORT#:[id number] REPORT STATUS: Signed DATE:02/17/22 TIME: 730 PATIENT: NAHOMI GIL UNIT #: [id number] ROOM/BED: AGE: 56 SEX: F PCP PHYS: Undefined Provider SERVICE AUTHOR: Anusha Plunkett MD LOCATION: [facility] * ALL edits or amendments must be made on the Dec[employer]/computer document * See Addendum Anusha Plunkett 02/17/22 0731: HPI-General Illness Free Text HPI Notes Free Text HPI Notes 56-year-old female past medical history hypertension, hyperlipidemia, diabetes presents to [facility] ER for evaluation. She was trans ferred from [facility] for right lower extrem ity cellulitis. She was transferred because the physician there felt chalino t patient needed a Doppler ultrasound to rule out DVT and did not have ultr asound capabilities here. Patient states that she was previously hospitali zed at [facility] for cellulitis of the right lower extremity. She sta jeronimo she left AMA 10 days ago from [facility], and actuall y the redness and [...] Pulse Ox 99 02/17 0556 B/P 149/66 07/26 0556 B/P Mean 93 02/17 0556 O2 Delivery Room air 02/17 0556 Temp 36.7 02/17 05 Pulse 105 02/17 0556 Resp 18 02/18 556 Last Documented: Result Date Time Pulse Ox 97 02/17 0802 B/P 138/63 02/17 0802 B/P Mean 88 02/17 0802 O2 Delivery Room air 02/17 0802 Pulse 87 02/17 0802 Resp 16 02/17 08 Temp 36.7 02/17 0556 Review of Vital [...] History and physical as above. Reviewed labs [facility]. WBC normal 9.2. Lactic acid 1.0, also normal. El ectrolytes unremarkable. Patient received Lovenox, Zosyn and bank at [facility]. Discussed possible admission, patient prefers to go [...] STA 02/17 0551 D C Acetaminophen PO 02/18 552 Electrolytic, Caloric, And Chelsea Sig/David Start time [...] (ZOFRAN ODT) 4 MG PO Q6H PRN NC N NAUSEA/VOMITING #15 TABS Patient Instructions ED Cellulitis Referrals Provider Group: [facility] Address: [address] [place], [place] [address] [place] [address] Electronically Signed by Anusha Plunkett MD on at 0736 Electronically Signed by Zaid Aguilar MD on 01/25 08/16 at 1425 Addendum 1: 02/18/227 by Anusha Plunkett MD Patient Addendum Addendum Correction: On ROS, +Extremity pain, diarrhea. Pt states she went to [facility] for diarrhea not the RLE pain. Electronically Signed by Anusha Plunkett MD on at 2222 RPT #:[id number] END OF REPORT
[2023-02-04 17:39] LABS: Absolute Lymphocytes (CBC) 1.2 K/uL (0.7-4.9); Hematocrit 38.5 % (36.0-45.0); Lymphocytes % 11.3 % (15.3-44.8); MCV 95.8 fL (80-100); RBC Red Blood Cell Count 4.02 M/uL (3.86-4.86)
[2023-02-04 18:01] LABS: Protime INR 0.88
[2023-02-04] MEDS ORDERED: NA CHLORIDE 0.9% 250 ML ONE (18:01)
[2023-02-04 18:06] LABS: Specific Gravity 1.019 (1.005-1.030); Urine Bacteria <20 /HPF (<20); Urine Bilirubin NEGATIVE (Negative); Urine Blood 1+ (Negative); Urine Clarity Extremely Turbid (Clear); Urine Color Yellow (Yellow); Urine Crystals Unidentified Few /HPF (None Seen); Urine Glucose NEGATIVE (Negative); Urine Mucus Slight /HPF (None Seen); Urine Protein 2+ (Negative); Urine Urobilinogen 1+ (Normal); Urine WBC Clump Few /HPF (None Seen)
[2023-02-04 18:20] LABS: Arterial Blood Carboxyhemoglob 5.1 % (0-1.5); Blood Gas Oxyhemoglobin 81.4 % (94-97); Blood O2 Saturation 88.1 % (92-98.5)
--- NOTE | 2023-02-04 18:55 | RAD REPORT ---
EXAM DESCRIPTION: RAD - Chest Single View - 02/04/2023 6:30 pm CLINICAL HISTORY: SOB Chest pain. COMPARISON: Chest Single View dated 01/07/2023; Chest Single View dated 09/26/2022; Chest Single View d ated 02/08/2022; Chest Single View dated 01/25/2022 FINDINGS: Portable technique limits examination quality. Mild linear atelectasis is seen in the right lung base. The lungs are otherwise clear. The heart is m ildly enlarged in size. No displaced fractures.Aortic atherosclerosis. IMPRESSION: No acute intrathoracic process suspected.
--- NOTE | 2023-02-04 19:00 | RAD REPORT ---
EXAM DESCRIPTION: CT - Head Brain Wo Cont - 02/04/2023 6:51 pm CLINICAL HISTORY: ams;Declining state Headache, drowsiness COMPARISON: Head Brain Wo Cont dated 09/26/2022 TECHNIQUE: All CT scans are performed using dose optimization technique as appropriate and may inclu de automated exposure control or mA/KV adjustment according to patient size. FINDINGS: No intracranial hemorrhage, hydrocephalus or extra-axial fluid collection.No areas of brai n edema or evidence of midline shift. The paranasal sinuses and mastoids are clear. The calvarium is intact. Left vertebral atherosclerosis . IMPRESSION: No acute intracranial abnormality.
--- NOTE | 2023-02-04 19:07 | RAD REPORT ---
EXAM DESCRIPTION: CT - Thorax Wo Con CLINICAL HISTORY: Chest pain SOB COMPARISON: Head Brain Wo Cont dated 02/04/2023 FINDINGS: Mild linear atelectasis versus early infiltrate is seen in the posterior right lung base. The lungs are otherwise clear. No pleural thickening or pleural effusion. No pneumothorax. Aortic ath erosclerosis. No axillary, mediastinal or hilar adenopathy. No concerning bony finding. No gross upper abdominal finding. All CT scans are performed using dose optimization technique as appropriate and may include automated exposure control or mA/KV adjustment according to patient size. IMPRESSION: Mild atelectasis or early infiltrate right lung base.
[2023-02-04] MEDS ORDERED: Meropenem 1000 MG/VIAL IV ONE (19:53)
[2023-02-04] MEDS ORDERED: ALBUMIN HUMAN 25% 100 ML IV ONE (19:54)
[2023-02-04] MEDS ORDERED: NA CHLORIDE 0.9% 100 ML ONE (19:54)
--- NOTE | 2023-02-04 21:27 | EDPHYS ---
Physician Documentation [facility] Name: Nahomi Soto Age: 57 yrs Sex: Female : 1965 Arrival Date: 02/04/2023 Time: 16:32 Bed 7 Private MD: Loc Torres ED Physician Rasta Carr HPI: 02/04 17:11 This 57 yrs old Female presents to ER via Wheelchair with complaints of sb4 Altered Mental Status, Decreased Appetite, General Weakness. 17:11 The patient presents with decreased responsiveness. Onset: The symptoms/episode sb4 began/occurred this morning. Possible causes: sepsis. Associated signs and symptoms: Pertinent positives: confusion, shortness of breath, Pertinent negatives: agitation, dizziness, seizure. . 17:36 57 year old female comes in with caregiver with several concerns- decreased sb4 responsiveness, drooling, weakness, cough, shortness of breath. She was admitted here about 1 month ago with PNA and flu and left AMA shortly after. A few days later, she was transported via life flight to the [facility] where she was treated for PNA and TIA. Caregiver states she was doing relatively well until yesterday and got significantly worse this morning. Historical: - Allergies: 16:38 No Known Allergies; ll1 - PMHx: 16:38 Hypertensive disorder; diabetes mellitus; insomnia; Arthritis; Hypercholesterolemia; ll1 - PSHx: 16:38 Colostomy reversal; cyst removal and colon SX; toe; ll1 - Immunization history:: Adult Immunizations up to date. - Social history:: Smoking status: Patient reports the use of cigarette tobacco products, smokes one-half pack cigarettes per day. ROS: 17:21 Eyes: Negative for injury, pain, redness, and discharge, ENT: Negative for injury, sb4 pain, and discharge, Neck: Negative for injury, pain, and swelling, Abdomen/GI: Negative for abdominal pain, nausea, vomiting, diarrhea, and constipation, Back: Negative for injury and pain, MS/Extremity: Negative for injury and deformity. 17:21 Skin: Negative for injury, rash, and discoloration. 17:21 Constitutional: Positive for fatigue, poor PO intake, Negative for fever. 17:21 Cardiovascular: Positive for edema, Negative for chest pain. 17:21 Respiratory: Positive for cough, dyspnea on exertion, orthopnea, shortness of breath, wheezing. 17:21 Neuro: Positive for altered mental status, weakness, Negative for gait disturbance, loss of consciousness, seizure activity, syncope. 17:36 All other systems are negative. sb4 Exam: 17:36 Head/Face: Normocephalic, atraumatic. Abdomen/GI: Soft, non-tender, no distension. sb4 Skin: Warm, dry with normal turgor. Normal color with no rashes, no lesions, and no evidence of cellulitis. 17:36 Constitutional: The patient appears lethargic, smells of urine, unkempt. 17:36 Cardiovascular: Edema: 3+ edema to level of left midcalf, left ankle, right midcalf and right ankle, JVD: is not appreciated. 17:36 Respiratory: mild respiratory distress is noted, Respirations: tachypnea, Breath sounds: rhonchi, are scattered. 17:36 Neuro: Mentation: responsive to voice able to follow commands, Motor: moves all fours, Sensation: is normal. Vital Signs: 17:03 BP 109 / 60; Pulse 93; Resp 26; Temp 98.1; Pulse Ox 86% on 2 lpm NC; ll1 17:26 BP 102 / 48; Pulse 85; Resp 18; Pulse Ox 95% on 45 lpm BiPAP; mb9 17:53 BP 105 / 60; Pulse 90; Resp 20; Pulse Ox 100% on 45 lpm BiPAP; mb9 18:18 BP 118 / 62; Pulse 92; Resp 23; Pulse Ox 96% on 45 lpm BiPAP; mb9 19:28 BP 94 / 76; Pulse 93; Resp 22; Pulse Ox 97% on 45 lpm BiPAP; mb9 21:02 BP 115 / 62; Pulse 88; Resp 18; Pulse Ox 98% on 45 lpm BiPAP; mb9 22:38 BP 119 / 61; Pulse 84; Resp 18; Pulse Ox 99% on 45 lpm BiPAP; mb9 MDM: 16:38 Patient medically screened. sb4 17:40 Differential Diagnosis: CVA, electrolyte abnormality, hypoglycemia, intracranial bleed, sb4 meningitis, pneumonia, seizure, sepsis, TIA, UTI, volume depletion. 21:24 Data reviewed: vital signs, nurses notes, lab test result(s), EKG, radiologic studies, sb4 and as a result, I will admit patient. Consideration of Admission/Observation Patient was admitted/placed on observation. Management of patient was discussed with the following: Primary Care Provider: Dr. Torres. Independent interpretation of the following test(s) in the Emergency Department EKG: See my EKG interpretation above. Historians other than the Patient: Daughter/Son: daughter. Care significantly affected by the following chronic conditions: Diabetes, Hypertension, Congestive Heart Failure, Chronic Obstructive Pulmonary Disease, Obesity. Counseling: I had a detailed discussion with the patient and/or guardian regarding: the historical points, exam findings, and any diagnostic results supporting the discharge/admit diagnosis, lab results, radiology results, the need for further work-up and treatment in the hospital, smoking cessation. Admission orders: after a detailed discussion of the patient's condition and case, the admit orders are written by me. 02/04 17:09 Order name: Blood Culture Adult (2) [facility] 02/04 17:09 Order name: CBC with Diff; Complete Time: 17:50 [facility] 02/04 17:09 Order name: CMP; Complete Time: 22:21 [facility] 02/04 17:09 Order name: Lactate w/ 2H reflex if indic.; Complete Time: 18:40 [facility] 02/04 17:09 Order name: Protime (+inr); Complete Time: 18:16 [facility] 02/04 17:09 Order name: Ptt, Activated; Complete Time: 18:16 [facility] 02/04 17:09 Order name: Urinalysis w/ reflexes; Complete Time: 18:11 [facility] 02/04 17:09 Order name: COVID-19 SARS RT PCR; Complete Time: 18:23 [facility] 02/04 17:09 Order name: Flu; Complete Time: 18:31 [facility] 02/04 17:09 Order name: ABG; Complete Time: 18:23 [facility] 02/04 17:09 Order name: Magnesium; Complete Time: 22:21 [facility] 02/04 17:09 Order name: NT PRO-BNP; Complete Time: 22:21 [facility] 02/04 17:09 Order name: Troponin HS; Complete Time: 22:21 [facility] 02/04 18:09 Order name: Urine Culture EDMS 02/04 17:09 Order name: Chest Single View XRAY; Complete Time: 18:58 [facility] 02/04 17:09 Order name: Head Brain Wo Cont CT; Complete Time: 19:13 sb4 02/04 17:09 Order name: BIPAP sb4 02/04 18:41 Order name: Chest Wo Con CT; Complete Time: 19:13 sb4 02/04 17:09 Order name: EKG; Complete Time: 17:10 sb4 02/04 17:09 Order name: Accucheck; Complete Time: 17:25 sb4 02/04 17:09 Order name: Cardiac monitoring; Complete Time: 17:25 sb4 02/04 17:09 Order name: EKG - Nurse/Tech; Complete Time: 17:25 sb4 02/04 17:09 Order name: IV Saline Lock - Large Bore; Complete Time: 17:25 sb4 02/04 17:09 Order name: Labs collected and sent; Complete Time: 17:25 sb4 02/04 17:09 Order name: O2 Per Protocol; Complete Time: 17:25 sb4 02/04 17:09 Order name: O2 Sat Monitoring; Complete Time: 17:25 sb4 02/04 17:09 Order name: Vital Signs; Complete Time: 17:25 sb4 02/04 17:28 Order name: Patterson; Complete Time: 17:50 sb4 02/04 17:40 Order name: Labs - recollect needed: lactate please; Complete Time: 17:55 em1 02/04 20:29 Order name: Labs - recollect needed: trop and BNP please. lab doesn't have; Complete sb4 Time: 21:23 EC:30 Rate is 87 beats/min. Rhythm is regular, Normal Sinus Rhythm. MT interval is normal at sb4 160 msec. QRS interval is normal at 64 msec. QT interval is normal at 370 msec. No Q waves. T waves are Normal. No ST changes noted. Reviewed by me. Administered Medications: 17:53 Drug: NS 0.9% IV 250 ml Route: IV; Rate: bolus; Site: right forearm; mb9 18:18 Follow up: Response: No adverse reaction; IV Status: Completed infusion mb9 19:51 Drug: Meropenem IV 1 grams Route: IV; Rate: calculated rate; Site: right antecubital; rv 20:23 Follow up: Response: No adverse reaction; IV Status: Completed infusion rv 19:51 Drug: Albumin IVPB 25 grams Volume: 100 ml; Route: IVPB; Site: left antecubital; rv Disposition: 02/05 10:02 Co-signature as Attending Physician, Rasta Carr MD I reviewed the patient's care rt provided by the Advanced Practice Provider and agree with the diagnosis and treatment plan. Disposition Summary: 02/04/23 21:26 Hospitalization Ordered Hospitalization Status: Inpatient Admission sb4 Provider: Loc Torres sb4 Location: Telemetry/MedSurg (Inpatient) sb4 Condition: Fair sb4 Problem: new sb4 Symptoms: are unchanged sb4 Bed/Room Type: Standard sb4 Room Assignment: 223(02/04/23 22:01) mw Diagnosis - Pneumonia, unspecified organism sb4 - UTI/ Urinary tract infection, site not specified sb4 Forms: - Medication Reconciliation Form sb4 - SBAR form sb4 Signatures: Dispatcher [employer] EDAnna Burgos RN RN mw Harshal Rinaldi em1 Fred Sofia RN RN rv Renu Price RN RN ll1 Lyndsey Hood, PAAaliyahC PAAaliyahC sb4 Jamin, Maru Mares RN RN mb9 Rasta Carr MD MD rt Corrections: (The following items were deleted from the chart) 02/04 17:27 17:20 Constitutional: Negative for fever, chills, and weight loss, sb4 sb4 22:01 21:26 sb4 mw
--- NOTE | 2023-02-04 21:27 | ER ---
Nurse's Notes [facility] Name: Nahomi Soto Age: 57 yrs Sex: Female : 1965 Arrival Date: 02/04/2023 Time: 16:32 Bed 7 Private MD: Loc Torres Diagnosis: Pneumonia, unspecified organism;UTI/ Urinary tract infection, site not specified Presentation: 02/04 17:03 Chief complaint: Patient states: AMS, generalized weakness, very fatigued for 2 days. ll1 O2 86% o2 2L NC. Coronavirus screen: Client denies travel out of the [place] in the last 14 days. congestion, cough unrelated to allergies, difficulty breathing, fatigue, shortness of breath, Client presents with at least one sign or symptom that may indicate coronavirus-19. Standard/surgical mask placed on the client. Ebola Screen: Patient denies travel to an Ebola-affected area in the 21 days before illness onset. Initial Sepsis Screen: Does the patient meet any 2 criteria? RR > 20 per min. Altered Mental Status. HR > 90 bpm. Yes Does the patient have a suspected source of infection? Yes: Productive cough/pneumonia. Risk Assessment: Do you want to hurt yourself or someone else? Patient reports no desire to harm self or others. Onset of symptoms was February 03, 2023. 17:03 Method Of Arrival: Wheelchair ll1 17:03 Acuity: GIRISH 2 ll1 Triage Assessment: 17:00 General: Appears uncomfortable, ill, Behavior is cooperative, appropriate for age, ll1 listless. General: Reports feeling ill for fatigue for. Pain: Denies pain. Respiratory: Reports shortness of breath cough that is. Historical: - Allergies: 16:38 No Known Allergies; ll1 - PMHx: 16:38 Hypertensive disorder; diabetes mellitus; insomnia; Arthritis; Hypercholesterolemia; ll1 - PSHx: 16:38 Colostomy reversal; cyst removal and colon SX; toe; ll1 - Immunization history:: Adult Immunizations up to date. - Social history:: Smoking status: Patient reports the use of cigarette tobacco products, smokes one-half pack cigarettes per day. Screenin:24 [facility] ED Fall Risk Assessment (Adult) History of falling in the last 3 months, mb9 including since admission No falls in past 3 months (0 pts) Confusion or Disorientation No (0 pts) Intoxicated or Sedated No (0 pts) Impaired Gait No (0 pts) Mobility Assist Device Used No (0 pt) Altered Elimination No (0 pt) Score/Fall Risk Level 0 - 2 = Low Risk Oriented to surroundings, Maintained a safe environment, Educated pt \T\ family on fall prevention, incl call for assistance when getting out of bed. Abuse screen: Denies threats or abuse. Nutritional screening: No deficits noted. Tuberculosis screening: No symptoms or risk factors identified. Assessment: 17:02 Reassessment: RT at bedside placing Bipap. mb9 17:25 General: Appears uncomfortable, Behavior is cooperative. Pain: Denies pain. Neuro: mb9 Douglas Agitation-Sedation Scale (RASS): 0 - Alert and Calm Level of Consciousness is obeys commands, confused, Oriented to person. Cardiovascular: Heart tones S1 S2 present. Respiratory: Airway is patent Respiratory effort is labored, using tripod position, Respiratory pattern is tachypnea Breath sounds with wheezes bilaterally. GI: Abdomen is round non-distended, Bowel sounds present X 4 quads. Abd is soft and non tender X 4 quads. Parent/caregiver reports the patient having diarrhea, intolerance of food, intolerance of fluids. Derm: Skin is fragile, is thin, Skin is dry, Skin is normal, Skin temperature is warm. Musculoskeletal: Range of motion: intact in all extremities, Swelling present in right leg and left leg. 18:30 Reassessment: No changes from previously documented assessment. Patient and/or family mb9 updated on plan of care and expected duration. Pain level reassessed. Patient is alert, oriented x 3, equal unlabored respirations, skin warm/dry/pink. 21:02 Reassessment: No changes from previously documented assessment. Patient and/or family mb9 updated on plan of care and expected duration. Pain level reassessed. Patient is alert, oriented x 3, equal unlabored respirations, skin warm/dry/pink. 22:05 Reassessment: attempted to call report to admitting nurse. mb9 22:38 Reassessment: No changes from previously documented assessment. Patient and/or family mb9 updated on plan of care and expected duration. Pain level reassessed. Patient is alert, oriented x 3, equal unlabored respirations, skin warm/dry/pink. Vital Signs: 17:03 BP 109 / 60; Pulse 93; Resp 26; Temp 98.1; Pulse Ox 86% on 2 lpm NC; ll1 17:26 BP 102 / 48; Pulse 85; Resp 18; Pulse Ox 95% on 45 lpm BiPAP; mb9 17:53 BP 105 / 60; Pulse 90; Resp 20; Pulse Ox 100% on 45 lpm BiPAP; mb9 18:18 BP 118 / 62; Pulse 92; Resp 23; Pulse Ox 96% on 45 lpm BiPAP; mb9 19:28 BP 94 / 76; Pulse 93; Resp 22; Pulse Ox 97% on 45 lpm BiPAP; mb9 21:02 BP 115 / 62; Pulse 88; Resp 18; Pulse Ox 98% on 45 lpm BiPAP; mb9 22:38 BP 119 / 61; Pulse 84; Resp 18; Pulse Ox 99% on 45 lpm BiPAP; mb9 ED Course: 16:34 Patient arrived in ED. am2 16:35 Loc Torres MD is Private Physician. am2 16:38 Lyndsey Hood PA-C is [facility]. sb4 16:38 Rasta Carr MD is Attending Physician. sb4 16:38 Arm band placed on. ll1 16:58 Maru Neville, CONY is Primary Nurse. mb9 17:00 Patient placed in an exam room, on a stretcher. ll1 17:05 Triage completed. ll1 17:24 Placed in gown. Bed in low position. Call light in reach. Side rails up X 1. Client mb9 placed on continuous cardiac and pulse oximetry monitoring. NIBP monitoring applied. athletic monitor on. 17:24 Flu Sent. mb9 17:25 COVID-19 SARS RT PCR Sent. mb9 17:30 Inserted saline lock: 22 gauge in right in left antecubital area, using aseptic mb9 technique. forearm, using aseptic technique. 17:50 Patterson cath inserted, using sterile technique, 16 Fr., by ut, balloon inflated, to mb9 gravity drainage, urine specimen collected. returned cloudy urine. Patient tolerated well. 18:04 Inserted saline lock: 22 gauge in right forearm, using aseptic technique. Blood ds4 collected. Missed attempt(s): 22 gauge in right forearm. Bleeding controlled, band aid applied, catheter tip intact. 18:18 Urine Culture Sent. mb9 18:19 BIPAP Sent. mb9 18:32 Chest Single View XRAY In Process Unspecified. EDMS 18:53 Head Brain Wo Cont CT In Process Unspecified. EDMS 18:[address] In Process Unspecified. EDMS 21:25 Loc Torres MD is Hospitalizing Provider. sb4 22:04 No provider procedures requiring assistance completed. Patient admitted, IV remains in mb9 place. Administered Medications: 17:53 Drug: NS 0.9% IV 250 ml Route: IV; Rate: bolus; Site: right forearm; mb9 18:18 Follow up: Response: No adverse reaction; IV Status: Completed infusion mb9 19:51 Drug: Meropenem IV 1 grams Route: IV; Rate: calculated rate; Site: right antecubital; rv 20:23 Follow up: Response: No adverse reaction; IV Status: Completed infusion rv 19:51 Drug: Albumin IVPB 25 grams Volume: 100 ml; Route: IVPB; Site: left antecubital; rv Medication: 17:27 VIS not applicable for this client. mb9 Outcome: 21:26 Decision to Hospitalize by Provider. sb4 22:37 Admitted to Med/surg room 223, with oxygen, with chart, Report called to CONY Garcia9 22:37 Condition: stable 22:46 Patient left the ED. mb9 Signatures: Dispatcher [employer] EDMS Kraig Quintero ds4 Luzmaria Billings amFred Mendoza, RN RN Renu Wiseman RN RN ll1 Lyndsey Hood PAHannah PAHannah sb4 Maru Neville RN RN mb9
[2023-02-04 22:08] LABS: Albumin 3.2 g/dL (3.4-5.0); Bilirubin Total 0.3 mg/dL (0.2-1.0); Magnesium 2.1 mg/dL (1.6-2.4); Potassium 3.7 mEq/L (3.5-5.1); Protein, Total 6.2 g/dL (6.4-8.2); Troponin High Sensitivity 6.8 pg/mL (<58.9)
[2023-02-04] MEDS ORDERED: IPRATROPIUM BROM 0.5MG/2.5ML NEB PRN (23:12)
[2023-02-04] MEDS ORDERED: ALBUTEROL 2.5 MG/3 ML NEB SOL NEB PRN (23:12)
[2023-02-04 23:58] VITALS: BMI 36.4
[2023-02-05] MEDS ORDERED: Levofloxacin 750mg IV 750 MG/150 ML BAG IV SCH (01:00)
[2023-02-05] MEDS: INSULIN -REGULAR HUMAN 50 UNIT/0.5 ML ML SQ SCH ×5 (06:00→20:56)
[2023-02-05 07:17] LABS: Absolute Lymphocytes (CBC) 1.2 K/uL (0.7-4.9); Hematocrit 32.6 % (36.0-45.0); Lymphocytes % 16.5 % (15.3-44.8); MCV 95.2 fL (80-100); MPV 8.2 fL (7.6-11.3); RBC Red Blood Cell Count 3.42 M/uL (3.86-4.86)
[2023-02-05 07:45] LABS: Albumin 2.7 g/dL (3.4-5.0); Bilirubin Total 0.3 mg/dL (0.2-1.0); Phosphorus 3.7 mg/dL (2.5-4.9); Potassium 3.8 mEq/L (3.5-5.1); Protein, Total 5.5 g/dL (6.4-8.2)
[2023-02-05] MEDS ORDERED: AZITHROMYCIN IV 500 MG in NA CHLORIDE 0.9% 250 ML IVPB ONE (08:23)
[2023-02-05] MEDS ORDERED: PANTOPRAZOLE 40 MG INJ IVP ONE (08:25)
[2023-02-05] MEDS ORDERED: D50W 25 GM/50 ML SYRINGE IV PRN (08:25)
[2023-02-05] MEDS ORDERED: SODIUM CHLORIDE 0.9% 10ML INJ IV PRN (08:25)
[2023-02-05] MEDS ORDERED: GLUCAGON 1 MG/VIAL IM PRN (08:25)
[2023-02-05] MEDS ORDERED: D10W 125 ML IV PRN (08:30)
[2023-02-05] MEDS ORDERED: LEVALBUTEROL 0.63 MG/3 ML NEB NEB PRN (08:35)
--- NOTE | 2023-02-05 08:42 | P.HP ---
Certification for Inpatient Patient admitted to: Inpatient With expected LOS: >2 Midnights Practitioner: I am a practitioner with admitting privileges, knowledge of patient current condition, hospital course, and medical plan of care. Services: Services provided to patient in accordance with Admission requirements found in Title 42 Section 412.3 of the Code of Federal Regulations Patient History Date of Service: 02/05/23 Primary Care Provider: Kalyan Reason for admission: pneumonia History of Present Illness: Patient is an office patient of Mrs Biggs She has a history of copd, dm2, and nicotine dependence. Does not seem willing to give a good history. The patient's daughter called ems as she was difficult to wake. The patient was found to have a pneumonia. Was started on a bipap due to hypoxia. her Curb-65 score is 2. Warranting inpatient treatment. (3% 30 day mortality) She has been testing positive for flu. The patient states she is smoking 5 cig a day. more likely a bit more than that Allergies No Known Allergies Allergy (Verified 01/26/22 03:16) Home Medications: RX: Amlodipine [Norvasc*] 10 mg PO DAILY 01/26/22 RX: Budesonide/Formoterol Fumarate [Symbicort 160-4.5 Mcg Inhaler] 2 puff IH BID 01/26/22 RX: Duloxetine [Cymbalta *] 60 mg PO DAILY 01/26/22 RX: Esomeprazole Mag Trihydrate [Nexium] 40 mg PO DAILY 01/26/22 RX: Fenofibric Acid (Choline) [Fenofibric Acid] 135 mg PO BEDTIME 01/26/22 RX: Linagliptin [Tradjenta] 1 tab PO DAILY 01/26/22 RX: Mirabegron [Myrbetriq] 50 mg PO DAILY 01/26/22 RX: Pregabalin [Lyrica*] 75 mg PO DAILY 01/26/22 RX: Rosuvastatin [Crestor*] 10 mg PO BEDTIME 01/26/22 RX: Trazodone [Desyrel*] 100 mg PO BEDTIME 01/26/22 RX: Cholecalciferol (Vitamin D3) [Vitamin D 5,000 IU Cap*] 5,000 unit PO DAILY 04/02/22 RX: Oseltamivir [Tamiflu*] 75 mg PO BID 5 Days #10 cap 01/08/23 RX: levoFLOXacin [Levaquin*] 750 mg PO DAILY 7 Days #7 tab 01/08/23 RX: predniSONE [Deltasone*] 10 mg PO DAILY 10 Days #20 tab 01/08/23 - Past Medical/Surgical History Diabetic: No -: Type 2 Diabetes, Non-Insulin Dependent -: Hypertension -: COPD -: Hyperlipidemia -: GERD -: Arthritis -: fibromyalgia -: Colectomy -: Colostomy with reversal -: -: Tubal Ligation -: Cholecystectomy Psychosocial/ Personal History: Patient lives at home with her daughter. - Social History Smoking Status: Unknown if ever smoked Alcohol use: No CD- Drugs: No Caffeine use: Yes Review of Systems 10-point ROS is otherwise unremarkable Respiratory: Cough Physical Examination - Vital Signs Temperature: 98.1 F Blood Pressure: 162/60 Pulse: 76 Respirations: 19 Pulse Ox (%): 97 - Physical Exam General: Alert, In no apparent distress HEENT: Atraumatic, PERRLA, Mucous membr. moist/pink, EOMI, Sclerae nonicteric Neck: Supple, 2+ carotid pulse no bruit, No LAD, Without JVD or thyroid abnormality Respiratory: Clear to auscultation bilaterally, Normal air movement Cardiovascular: Regular rate/rhythm, Normal S1 S2 Gastrointestinal: Normal bowel sounds, No tenderness Musculoskeletal: No tenderness Integumentary: No rashes Neurological: Normal gait, Normal speech, Normal strength at 5/5 x4 extr, Normal tone, Normal affect Lymphatics: No axilla or inguinal lymphadenopathy - Studies Laboratory Data (last 24 hrs) 02/04/23 21:27: Sodium 140, Potassium 3.7, BUN 35 H, Creatinine 1.37 H, Glucose 78, Magnesium 2.1, Total Bilirubin 0.3, AST 12 L, ALT 22, Alkaline Phosphatase 110 02/04/23 17:25: PT 10.6, INR 0.88, APTT 20.9 L 02/04/23 17:25: WBC 10.30, Hgb 11.8 L, Hct 38.5, Plt Count 310 Microbiology Data (last 24 hrs): 02/04/23 17:21 Nasopharnyx Influenza Type A Antigen Screen - Final 02/04/23 17:21 Nasopharnyx Influenza Type B Antigen Screen - Final Assessment and Plan - Problems (Diagnosis) (1) Pneumonia Current Visit: Yes Status: Acute Plan: will treat with ceftriaxone and zithromax. cultures pending Qualifiers: Pneumonia type: due to Haemophilus influenzae Laterality: unspecified laterality Lung location: lower lobe of lung Qualified Code(s): J14 - Pneumonia due to Hemophilus influenzae (2) UTI (urinary tract infection) Current Visit: Yes Status: Acute Plan: continue ceftriaxone. Her last uti was E. coli and was sentive to this antibiotic Qualifiers: Urinary tract infection type: acute cystitis (3) COPD (chronic obstructive pulmonary disease) Current Visit: No Status: Chronic Plan: No wheezing. Will continue oxygen and levalbuterol. Will hold off on steroids at this point Qualifiers: COPD type: chronic bronchitis Chronic bronchitis type: simple Qualified Code(s): J41.0 - Simple chronic bronchitis (4) Hypertension Current Visit: No Status: Chronic Plan: restart her home amlodipine. Will adjust as needed Qualifiers: (5) Nicotine dependence Current Visit: No Status: Chronic Plan: start a nicotine patch on the patient. She is already asking about leaving. Hopefully we can treat the cravings and she will stay Qualifiers: Nicotine product type: cigarettes Substance use status: uncomplicated Qualified Code(s): F17.210 - Nicotine dependence, cigarettes, uncomplicated (6) Type 2 diabetes mellitus Current Visit: No Status: Chronic Plan: restart her tradjenta. Use sliding scale insulin ada diet Qualifiers: Diabetes mellitus superintendent container terminal insulin use: without superintendent container terminal use Diabetes mellitus complication status: without complication Qualified Code(s): E11.9 - Type 2 diabetes mellitus without complications Discharge Plan: Home Plan to discharge in: 24 Hours - Advance Directives Does patient have a Living Will: No Does patient have a Durable POA for Healthcare: No - Code Status/Comfort Care Code Status Assessed: No Physician Review: Patient Assessed, Agree with Above Assessment and Plan Critical Care: No Time Spent Managing Pts Care (In Minutes): 50
[2023-02-05] MEDS: HOME MED 1 EA UNK (Budesonide/Formoterol Fumarate [Symbicort 160-4.5 Mcg Inhaler] 10.2 GM IH SCH ×2 (09:00→20:56)
[2023-02-05] MEDS ORDERED: ENOXAPARIN 40 MG/0.4 ML SQ SCH (09:00)
[2023-02-05] MEDS: HOME MED 1 EA UNK (Linagliptin [Tradjenta] 5 MG Tablet) PO SCH (09:00)
[2023-02-05] MEDS: NICOTINE 21 MG/PAT TD SCH (09:00)
[2023-02-05] MEDS: HOME MED 1 EA UNK (Mirabegron [Myrbetriq] 50 MG Tab.Er.24h) PO SCH (09:00)
[2023-02-05] MEDS: PREGABALIN 75 MG CAP PO SCH (09:55)
[2023-02-05] MEDS: AMLODIPINE 10 MG TAB PO SCH (09:55)
[2023-02-05] MEDS: CEFTRIAXONE 1,000 MG in NA CHLORIDE 0.9% 50 ML IVPB SCH (09:56)
[2023-02-05] MEDS: NA CHLORIDE 0.9% 1,000 ML IV SCH ×2 (10:13→20:53)
[2023-02-05] MEDS ORDERED: AZITHROMYCIN 500 MG INJ IVPB ONE (10:18)
[2023-02-05] MEDS: ENOXAPARIN 40 MG/0.4 ML SQ SCH (16:56)
[2023-02-05] MEDS: ROSUVASTATIN 10 MG TAB PO SCH (20:55)
[2023-02-05] MEDS: TRAZODONE 50 MG TABLET PO SCH (20:55)
[2023-02-06] MEDS: PANTOPRAZOLE 40MG TABLET PO SCH (05:32)
[2023-02-06] MEDS: INSULIN -REGULAR HUMAN 50 UNIT/0.5 ML ML SQ SCH ×4 (07:30→21:00)
[2023-02-06 07:57] LABS: Absolute Lymphocytes (CBC) 1.4 K/uL (0.7-4.9); Hematocrit 32.8 % (36.0-45.0); Lymphocytes % 16.7 % (15.3-44.8); MCV 95.8 fL (80-100); MPV 7.9 fL (7.6-11.3); RBC Red Blood Cell Count 3.43 M/uL (3.86-4.86)
[2023-02-06 08:12] LABS: Albumin 2.4 g/dL (3.4-5.0); Bilirubin Total 0.2 mg/dL (0.2-1.0); Magnesium 1.9 mg/dL (1.6-2.4); Phosphorus 2.9 mg/dL (2.5-4.9); Potassium 3.6 mEq/L (3.5-5.1); Protein, Total 5.3 g/dL (6.4-8.2)
[2023-02-06] MEDS: HOME MED 1 EA UNK (Budesonide/Formoterol Fumarate [Symbicort 160-4.5 Mcg Inhaler] 10.2 GM IH SCH ×2 (08:27→21:00)
[2023-02-06] MEDS: HOME MED 1 EA UNK (Linagliptin [Tradjenta] 5 MG Tablet) PO SCH (08:27)
[2023-02-06] MEDS: AMLODIPINE 10 MG TAB PO SCH (08:28)
[2023-02-06] MEDS: PREGABALIN 75 MG CAP PO SCH (08:29)
[2023-02-06] MEDS: NICOTINE 21 MG/PAT TD SCH (08:30)
[2023-02-06] MEDS: HOME MED 1 EA UNK (Mirabegron [Myrbetriq] 50 MG Tab.Er.24h) PO SCH (08:30)
[2023-02-06] MEDS: CEFTRIAXONE 1,000 MG in NA CHLORIDE 0.9% 50 ML IVPB SCH (08:31)
[2023-02-06] MEDS: NA CHLORIDE 0.9% 1,000 ML IV SCH (12:47)
--- NOTE | 2023-02-06 13:23 | P.PN ---
Subjective Date of Service: 02/06/23 Primary Care Provider: Kalyan Chief Complaint: pneumonia Subjective: Improving Review of Systems 10-point ROS is otherwise unremarkable General: Weakness (patient states she can't get around the home without a walker or wheelchair) Physical Examination - Vital Signs Temperature: 97.6 F Blood Pressure: 126/60 Pulse: 84 Respirations: 20 Pulse Ox (%): 92 - Physical Exam General: Alert, In no apparent distress HEENT: Atraumatic, PERRLA, EOMI Neck: Supple, JVD not distended Respiratory: Clear to auscultation bilaterally, Normal air movement Cardiovascular: Regular rate/rhythm, Normal S1 S2 Gastrointestinal: Normal bowel sounds, No tenderness Musculoskeletal: No tenderness Integumentary: No rashes Neurological: Normal speech, Normal tone, Normal affect Lymphatics: No axilla or inguinal lymphadenopathy - Studies Microbiology Data (last 24 hrs): 02/04/23 17:50 Clean Catch Urine [place] Count - Final >100,000 CFU/ML. 02/04/23 17:50 Clean Catch Urine - Final Assessment And Plan - Current Problems (Diagnosis) (1) Unspecified protein-calorie malnutrition Current Visit: Yes Status: Acute Plan: will consult PT for evaluation. Patient is requesting a snf or LTAC. Will have her evaluated by PT. She does not want home PT. She would be willing to go to an outpatient center for PT. Qualifiers: Protein-calorie malnutrition severity: moderate Qualified Code(s): E44.0 - Moderate protein-calorie malnutrition (2) Pneumonia Current Visit: Yes Status: Acute Plan: will treat with ceftriaxone and zithromax. cultures pending 02.06 negative blood cultures. Qualifiers: Pneumonia type: due to Haemophilus influenzae Laterality: unspecified laterality Lung location: lower lobe of lung Qualified Code(s): J14 - Pneumonia due to Hemophilus influenzae (3) UTI (urinary tract infection) Current Visit: Yes Status: Acute Plan: continue ceftriaxone. Her last uti was E. coli and was sentive to this antibiotic 02/06 cultures negative Qualifiers: Urinary tract infection type: acute cystitis (4) COPD (chronic obstructive pulmonary disease) Current Visit: No Status: Chronic Plan: No wheezing. Will continue oxygen and levalbuterol. Will hold off on steroids at this point Qualifiers: COPD type: chronic bronchitis Chronic bronchitis type: simple Qualified Code(s): J41.0 - Simple chronic bronchitis (5) Hypertension Current Visit: No Status: Chronic Plan: restart her home amlodipine. Will adjust as needed Qualifiers: (6) Nicotine dependence Current Visit: No Status: Chronic Plan: start a nicotine patch on the patient. She is already asking about leaving. Hopefully we can treat the cravings and she will stay Qualifiers: Nicotine product type: cigarettes Substance use status: uncomplicated Qualified Code(s): F17.210 - Nicotine dependence, cigarettes, uncomplicated (7) Type 2 diabetes mellitus Current Visit: No Status: Chronic Plan: restart her tradjenta. Use sliding scale insulin ada diet Qualifiers: Diabetes mellitus retirement insulin use: without retirement use Diabetes mellitus complication status: without complication Qualified Code(s): E11.9 - Type 2 diabetes mellitus without complications Discharge Plan: Home Plan to discharge in: 24 Hours - Code Status/Comfort Care Code Status Assessed: No Physician Review: Patient Assessed, Agree with Above Assessment and Plan Critical Care: No Time Spent Managing PTS Care (In Minutes): 20
[2023-02-06] MEDS: ENOXAPARIN 40 MG/0.4 ML SQ SCH (16:26)
[2023-02-06] MEDS: ROSUVASTATIN 10 MG TAB PO SCH (21:35)
[2023-02-06] MEDS: TRAZODONE 50 MG TABLET PO SCH (21:35)
[2023-02-07 01:54] VITALS: O2SAT 97
[2023-02-07] MEDS: PANTOPRAZOLE 40MG TABLET PO SCH (05:55)
[2023-02-07 07:23] LABS: Absolute Lymphocytes (CBC) 1.3 K/uL (0.7-4.9); Hematocrit 33.1 % (36.0-45.0); Lymphocytes % 17.8 % (15.3-44.8); MCV 95.1 fL (80-100); MPV 8.3 fL (7.6-11.3); RBC Red Blood Cell Count 3.48 M/uL (3.86-4.86)
[2023-02-07] MEDS: INSULIN -REGULAR HUMAN 50 UNIT/0.5 ML ML SQ SCH (07:30)
[2023-02-07 07:39] LABS: Albumin 2.4 g/dL (3.4-5.0); Bilirubin Total 0.2 mg/dL (0.2-1.0); Potassium 3.6 mEq/L (3.5-5.1); Protein, Total 5.2 g/dL (6.4-8.2)
[2023-02-07] MEDS: NICOTINE 21 MG/PAT TD SCH (09:00)
[2023-02-07 09:10] VITALS: BP 140/64; TEMP 97.4
[2023-02-07] MEDS: CEFTRIAXONE 1,000 MG in NA CHLORIDE 0.9% 50 ML IVPB SCH (10:16)
[2023-02-07] MEDS: PREGABALIN 75 MG CAP PO SCH (10:17)
[2023-02-07] MEDS: AMLODIPINE 10 MG TAB PO SCH (10:17)
--- NOTE | 2023-02-07 12:23 | P.DS ---
Admission Date: 02/04/23 Discharge Date: 02/07/23 Primary Care Provider: Kalyan Disposition: ROUTINE DISCHARGE Discharge Condition: GOOD Reason for Admission: pneumonia - Problems (1) Unspecified protein-calorie malnutrition Current Visit: Yes Status: Acute Qualifiers: Protein-calorie malnutrition severity: moderate Qualified Code(s): E44.0 - Moderate protein-calorie malnutrition (2) Pneumonia Current Visit: Yes Status: Acute Qualifiers: Pneumonia type: due to Haemophilus influenzae Laterality: unspecified laterality Lung location: lower lobe of lung Qualified Code(s): J14 - Pneumonia due to Hemophilus influenzae (3) UTI (urinary tract infection) Current Visit: Yes Status: Acute Qualifiers: Urinary tract infection type: acute cystitis (4) COPD (chronic obstructive pulmonary disease) Current Visit: No Status: Chronic Qualifiers: COPD type: chronic bronchitis Chronic bronchitis type: simple Qualified Code(s): J41.0 - Simple chronic bronchitis (5) Hypertension Current Visit: No Status: Chronic Qualifiers: (6) Nicotine dependence Current Visit: No Status: Chronic Qualifiers: Nicotine product type: cigarettes Substance use status: uncomplicated Qualified Code(s): F17.210 - Nicotine dependence, cigarettes, uncomplicated (7) Type 2 diabetes mellitus Current Visit: No Status: Chronic Qualifiers: 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 Does not seem willing to give a good history. The patient's daughter called ems as she was difficult to wake. The patient was found to have a pneumonia. Was started on a bipap due to hypoxia. her Curb-65 score is 2. Warranting inpatient treatment. (3% 30 day mortality) She has been testing positive for flu. The patient states she is smoking 5 cig a day. more likely a bit more than that Hospital Course: patient was admitted for pneumonia. She was on iv antibiotics. Cultures came back negative. The patient was requesting inpatient PT. We were having her evaluated. She decided she was going to leave today. Either with us or AMA. She has no fevers. Is clinically stable. Will discharge her on levaquin. Have her follow up with Mrs. Biggs. The patient can be referred to an outpatient PT Center. Vital Signs/Physical Exam: Temp Pulse Resp BP Pulse Ox 97.4 F 87 18 140/64 93 02/07/23 08:00 02/07/23 10:17 02/07/23 08:00 02/07/23 10:17 02/07/23 08:00 General: Alert, In no apparent distress HEENT: Atraumatic, PERRLA, EOMI Neck: Supple, JVD not distended Respiratory: Clear to auscultation bilaterally, Normal air movement Cardiovascular: Regular rate/rhythm, Normal S1 S2 Gastrointestinal: Normal bowel sounds, No tenderness Musculoskeletal: No tenderness Integumentary: No rashes Neurological: Normal speech, Normal tone, Normal affect Lymphatics: No axilla or inguinal lymphadenopathy Laboratory Data at Discharge: WBC 7.20 thou/uL (4.3-10.9) 02/07/23 06:46 Hgb 10.5 g/dL (12.0-15.0) L 02/07/23 06:46 Hct 33.1 % (36.0-45.0) L 02/07/23 06:46 Plt Count 239 thou/uL (152-406) 02/07/23 06:46 PT 10.6 SECONDS (9.2-12.8) 02/04/23 17:25 INR 0.88 02/04/23 17:25 APTT 20.9 SECONDS (21.7-34.4) L 02/04/23 17:25 Sodium 143 mEq/L (136-145) 02/07/23 06:46 Potassium 3.6 mEq/L (3.5-5.1) 02/07/23 06:46 BUN 15 mg/dL (7-18) 02/07/23 06:46 Creatinine 0.88 mg/dL (0.55-1.02) 02/07/23 06:46 Glucose 79 mg/dL (74-106) 02/07/23 06:46 Phosphorus 2.9 mg/dL (2.5-4.9) 02/06/23 07:44 Magnesium 1.9 mg/dL (1.6-2.4) 02/06/23 07:44 Total Bilirubin 0.2 mg/dL (0.2-1.0) 02/07/23 06:46 AST 9 U/L (15-37) L 02/07/23 06:46 ALT 12 U/L (13-56) L 02/07/23 06:46 Alkaline Phosphatase 85 U/L (45-117) 02/07/23 06:46 Home Medications: Amlodipine [Norvasc*] 10 mg PO DAILY 01/26/22 Budesonide/Formoterol Fumarate [Symbicort 160-4.5 Mcg Inhaler] 2 puff IH BID 01/26/22 Duloxetine [Cymbalta *] 60 mg PO DAILY 01/26/22 Esomeprazole Mag Trihydrate [Nexium] 40 mg PO DAILY 01/26/22 Fenofibric Acid (Choline) [Fenofibric Acid] 135 mg PO BEDTIME 01/26/22 Linagliptin [Tradjenta] 1 tab PO DAILY 01/26/22 Mirabegron [Myrbetriq] 50 mg PO DAILY 01/26/22 Pregabalin [Lyrica*] 75 mg PO DAILY 01/26/22 Rosuvastatin [Crestor*] 10 mg PO BEDTIME 01/26/22 Trazodone [Desyrel*] 100 mg PO BEDTIME 01/26/22 Cholecalciferol (Vitamin D3) [Vitamin D 5,000 IU Cap*] 5,000 unit PO DAILY 04/02/22 Oseltamivir [Tamiflu*] 75 mg PO BID 5 Days #10 cap 01/08/23 levoFLOXacin [Levaquin*] 750 mg PO DAILY 7 Days #7 tab 01/08/23 predniSONE [Deltasone*] 10 mg PO DAILY 10 Days #20 tab 01/08/23 Levofloxacin [Levaquin] 500 mg PO DAILY #7 02/07/23 New Medications: Levofloxacin [Levaquin] 500 mg PO DAILY #7 Diet: ADA Activity: Ad aidan Followup: Loc Torres MD [Primary Care Provider] - Physician Review: Patient Assessed, Agree with Above Assessment and Plan Time spent managing pt's care (in minutes): 20
--- NOTE | 2023-02-08 11:55 | EKG ---
Test Date: 2023-02-04 Test Time: 17:17:31 Composition Teacher: MB MEASUREMENT RESULTS: Intervals: Rate: 87 RI: 160 QRSD: 64 QT: 370 QTc: 445 Moodus: P: 49 RI: 160 QRS: 73 T: 34 INTERPRETIVE STATEMENTS: Normal sinus rhythm Low voltage QRS Cannot rule out Anteroseptal infarct, age undetermined Abnormal ECG Compared to ECG 01/07/2023 23:58:44 Low QRS voltage now present Myocardial infarct finding still present Electronically Signed On 02-08-23 11:48:20 CDT by Lucio Flores
== END 2023-02-07 13:45 | disposition home or self-care (01) | DRG 193 ==
LOC: ER 16:32 → ERHOLD 22:18 → 2ND 22:44
PROVIDERS: ADMIT Internal Medicine; ATTEND Internal Medicine
DX: J14 Pneumonia due to Hemophilus influenzae (principal); J96.00 Acute respiratory failure, unspecified whether with hypoxia or hypercapnia; J44.0 Chronic obstructive pulmonary disease with (acute) lower respiratory infection; N30.00 Acute cystitis without hematuria; E44.0 Moderate protein-calorie malnutrition; E11.9 Type 2 diabetes mellitus without complications; M79.7 Fibromyalgia; E78.00 Pure hypercholesterolemia, unspecified; M19.90 Unspecified osteoarthritis, unspecified site; F17.210 Nicotine dependence, cigarettes, uncomplicated; Z79.52 Long term (current) use of systemic steroids; E78.5 Hyperlipidemia, unspecified; Z98.51 Tubal ligation status; Z68.36 Body mass index [BMI] 36.0-36.9, adult; Z90.710 Acquired absence of both cervix and uterus; Z79.899 Other long term (current) drug therapy
CPT/HCPCS: 36415; 36600; 51702; 70450; 71045; 71250; 80053; 81001; 82805; 82947; 83605; 83735; 83880; 84100; 84484; 85025; 85610; 85730; 87040; 87086; 87088; 87635; 87804; 93005; 94660; 94760; 97161; 97530; 99285; J0696; J1650; J2185; J7030; J7050; P9047